=== PATIENT | female | born 1950 | race Caucasian/White ===

== ENCOUNTER 2018-01-05 15:06 | Emergency (ER) | payer BC ==
--- NOTE | 2018-01-05 15:50 | RAD REPORT ---
EXAM DESCRIPTION: RAD - Foot Right 3 View - 01/05/2018 3:41 pm CLINICAL HISTORY: Right foot pain status post injury FINDINGS: No fracture or dislocation is seen. The bones are osteoporotic
[2018-01-05] MEDS ORDERED: BUPIVACAINE 0.5% PF 10 ML VIAL ONE (15:51)
[2018-01-05] MEDS ORDERED: LIDOCAINE 1% 20 ML MDV ONE (15:52)
--- NOTE | 2018-01-05 17:55 | ER ---
Nurse's Notes [facility] Name: Rossy Jacob Age: 67 yrs Sex: Female : 1950 Arrival Date: 01/05/2018 Time: 15:08 Bed 7 Private MD: Sreekanth Aranda T Diagnosis: Laceration without foreign body of unspecified great toe with damage to nail-Right Presentation: 01/05 15:13 Presenting complaint: Patient states: I injured my left great toe, a door blew open la1 over the top of it and I cant get the bleeding to stop. Transition of care: patient was not received from another setting of care. Onset of symptoms was January 05, 2018. Care prior to arrival: None. 15:13 Method Of Arrival: Wheelchair la1 15:13 Acuity: JAZMIN 4 la1 Historical: - Allergies: 15:15 No Known Allergies; la1 - PMHx: 15:15 Arthritis; Depression; Hyperlipidemia; Hypertension; Hypothyroidism; ulcerative colitis;la1 - Immunization history:: Adult Immunizations up to date. - Social history:: Smoking status: Patient/guardian denies using tobacco. Screenin:42 Abuse screen: Denies threats or abuse. Denies injuries from another. Nutritional sg screening: No deficits noted. Tuberculosis screening: No symptoms or risk factors identified. Never had TB. Fall Risk None identified. Assessment: 15:39 General: Appears in no apparent distress. comfortable, well groomed, well developed, sg well nourished, Behavior is calm, cooperative, appropriate for age. Pain: Complains of pain in right first toe and Right first toenail Quality of pain is described as tender, throbbing. Neuro: No deficits noted. Cardiovascular: No deficits noted. Capillary refill is brisk in bilateral fingers toes Patient's skin is warm and dry. Respiratory: Airway is patent Respiratory effort is even, unlabored, Respiratory pattern is regular, symmetrical. GI: Abdomen is round non-distended. : No signs and/or symptoms were reported regarding the genitourinary system. EENT: No signs and/or symptoms were reported regarding the EENT system. Derm: Skin is pink, warm \T\ dry. Musculoskeletal: Circulation, motion, and sensation intact. Range of motion: intact in all extremities, Swelling present in right first toe and Right first toenail. Injury Description: Avulsion sustained to Right first toenail is partial was sustained 1-2 hours ago. Vital Signs: 15:14 BP 142 / 50; Pulse 70; Resp 16; Temp 97.5; Pulse Ox 100% on R/A; Weight 97.52 kg; la1 Height 5 ft. 4 in. (162.56 cm); 18:00 BP 132 / 66; Pulse 70; Resp 18; Temp 97.6; Pulse Ox 99% on R/A; Pain 6/10; sg 15:14 Body Mass Index 36.90 (97.52 kg, 162.56 cm) la1 ED Course: 15:08 Patient arrived in ED. as 15:08 Sreekanth Aranda MD is Private Physician. as 15:14 Triage completed. la1 15:14 Arm band placed on left wrist. la1 15:18 Chito Madrigal PA is PHCP. cp 15:18 Nilesh Sevilla MD is Attending Physician. cp 15:37 X-ray completed. Portable x-ray completed in exam room. Patient tolerated procedure ml well. 15:38 Arben Galvin, VIANEY is Primary Nurse. sg 15:40 Patient has correct armband on for positive identification. Pulse ox on. NIBP on. sg 15:42 No provider procedures requiring assistance completed. Assist provider with laceration sg repair on right first toe Set up tray. 17:12 XRAY Foot RIGHT 3 View Sent. sv 17:54 Jerad Diallo DPM is Referral Physician. cp 18:00 Wound care: located on right first toe was cleaned with soap and water, dressed with sg Neosporin, 4X4s, Patient tolerated well. 18:20 Patient did not have IV access during this emergency room visit. sg Administered Medications: 15:50 Drug: Lidocaine (1 %) 5 ml Volume: 20 ml; Route: Infiltration; sg 15:50 Drug: Marcaine (0.5 %) 5 ml Volume: 10 ml; Route: Infiltration; sg 17:58 Drug: KeFLEX 500 mg Route: PO; sg Outcome: 17:55 Discharge ordered by . cp 18:20 Discharged to home ambulatory, with family. sg 18:20 Condition: good 18:20 Discharge instructions given to patient, Instructed on discharge instructions, follow up and referral plans. medication usage, safety practices, wound care, Demonstrated understanding of instructions, follow-up care, medications, wound care. 18:29 Patient left the ED. aj Signatures: Carolyne Cooley, RN Arben Nieves RN Jeannie Jose RN RN aj Martinez, Amelia as Lopez, Melissa ml Attema, Lee RN RN la1 Chiot Madrigal PA PA cp
--- NOTE | 2018-01-05 17:55 | EDPHYS ---
Physician Documentation [facility] Name: Rossy Jacob Age: 67 yrs Sex: Female : 1950 Arrival Date: 01/05/2018 Time: 15:08 Bed 7 Private MD: Sreekanth Aranda T ED Physician Nilesh Sevilla HPI: 01/05 15:21 This 67 yrs old Female presents to ER via Wheelchair with complaints of Toe cp Injury. 15:21 The patient presents with an injury, a laceration. The complaints affect the right cp first toe. 15:21 Context: The problem was sustained at a restaurant, resulted from being struck by door, cp the patient can fully bear weight, the patient is able to ambulate, with mild difficulty. Onset: The symptoms/episode began/occurred today. Associated signs and symptoms: Pertinent negatives: numbness, tingling. Historical: - Allergies: 15:15 No Known Allergies; la1 - PMHx: 15:15 Arthritis; Depression; Hyperlipidemia; Hypertension; Hypothyroidism; ulcerative colitis;la1 - Immunization history:: Adult Immunizations up to date. - Social history:: Smoking status: Patient/guardian denies using tobacco. ROS: 15:23 Eyes: Negative for injury, pain, redness, and discharge. cp 15:23 Constitutional: Negative for body aches, chills, fever, poor PO intake. 15:23 Cardiovascular: Negative for chest pain, edema, palpitations. 15:23 Respiratory: Negative for cough, shortness of breath, wheezing. 15:23 MS/extremity: Positive for laceration, pain, of the right great toe, injury. 15:23 All other systems are negative. Exam: 17:46 Head/Face: Normocephalic, atraumatic. cp 17:46 Constitutional: The patient appears in no acute distress, alert, awake, non-toxic, well developed, well nourished. 17:46 Eyes: Periorbital structures: appear normal, Conjunctiva: normal, no exudate, no injection, Lids and lashes: appear normal, bilaterally. 17:46 ENT: External ear(s): are unremarkable, Nose: is normal, Mouth: Lips: moist, Oral mucosa: moist, Posterior pharynx: is normal, airway is patent, Voice: is normal. 17:46 Neck: ROM/movement: is normal, is supple, without pain, no range of motions limitations, no nuchal rigidity. 17:46 Chest/axilla: Inspection: normal. 17:46 Cardiovascular: Rate: normal. 17:46 Respiratory: the patient does not display signs of respiratory distress, Respirations: normal, no use of accessory muscles, no retractions, no splinting, no tachypnea. 17:46 Abdomen/GI: Inspection: abdomen appears normal. 17:46 Skin: injury, laceration(s), of the medial aspect of nailbed right great toe, the second wound is approximately 2.5 cm(s), that can be described as clean, linear, with moderate bleeding. Vital Signs: 15:14 BP 142 / 50; Pulse 70; Resp 16; Temp 97.5; Pulse Ox 100% on R/A; Weight 97.52 kg; la1 Height 5 ft. 4 in. (162.56 cm); 18:00 BP 132 / 66; Pulse 70; Resp 18; Temp 97.6; Pulse Ox 99% on R/A; Pain 6/10; sg 15:14 Body Mass Index 36.90 (97.52 kg, 162.56 cm) la1 Laceration: 17:50 Wound Repair of 2.5cm ( 1.0in ) subcutaneous laceration to medial nailbed of right cp great toe. Linear shaped.. laceration through medial aspect of nailbed of right great toe. Distal neuro/vascular/tendon intact. Anesthesia: Digital block administered with 8 mls of Lido/Marcaine. Wound prep: Extensive cleansing by electroencephalograph technician, Wound irrigation by me. Subcutaneous tissue closed with 6 1-0 Vicryl using interrupted sutures and sterile technique. reattachment of nail closed with 3 1-0 Prolene using interrupted sutures and sterile technique. Dressed with Bacitracin, non-adherent dressing. Patient tolerated well. MDM: 15:18 Patient medically screened. cp 16:00 Differential diagnosis: fracture, simple laceration, open fracture. cp 17:55 Data reviewed: vital signs, nurses notes, radiologic studies, plain films. cp 17:55 Test interpretation: by ED physician or midlevel provider: plain radiologic studies. cp Counseling: I had a detailed discussion with the patient and/or guardian regarding: the historical points, exam findings, and any diagnostic results supporting the discharge/admit diagnosis, radiology results, the need for outpatient follow up, a consumer affairs director, to return to the emergency department if symptoms worsen or persist or if there are any questions or concerns that arise at home. Response to treatment: the patient's symptoms have markedly improved after treatment, and as a result, I will discharge patient. 01/05 15:22 Order name: XRAY Foot RIGHT 3 View cp 01/05 15:50 Order name: RAD; Complete Time: 17:45 EDMS 01/05 17:46 Interpretation: Report reviewed. cp 01/05 15:23 Order name: Dressing - Wound; Complete Time: 15:49 cp 01/05 15:23 Order name: Gloves, Sterile; Complete Time: 15:49 cp 01/05 15:23 Order name: Setup Suture Tray; Complete Time: 15:50 cp 01/05 17:46 Order name: Post-op shoe; Complete Time: 17:58 cp 01/05 17:46 Order name: Wound dressing; Complete Time: 17:58 cp Administered Medications: 15:50 Drug: Lidocaine (1 %) 5 ml Volume: 20 ml; Route: Infiltration; sg 15:50 Drug: Marcaine (0.5 %) 5 ml Volume: 10 ml; Route: Infiltration; sg 17:58 Drug: KeFLEX 500 mg Route: PO; sg Disposition: 18:56 Co-signature as Attending Physician, Nilesh Sevilla MD. rn Disposition: 01/05/18 17:55 Discharged to Home. Impression: Laceration without foreign body of unspecified great toe with damage to nail - Right. - Condition is Stable. - Discharge Instructions: Laceration Care, Adult, Nail Bed Laceration. - Prescriptions for Keflex 500 mg Oral Capsule - take 1 capsule by ORAL route every 6 hours for 10 days; 40 capsule. - Medication Reconciliation Form, Thank You Letter, Antibiotic Education, Prescription Opioid Use form. - Follow up: Jerad Diallo DPM; When: 2 - 3 days; Reason: Wound Recheck. - Problem is new. - Symptoms have improved. Signatures: Dispatcher [employer] EDMS Arben Galvin RN Jeannie Jose RN RN aj Nieto, Roman, MD MD rn Attema, Lee, RN RN la1 Chito Madrigal PA PA cp
[2018-01-05] MEDS ORDERED: CEPHALEXIN 250 MG CAP ONE (18:19)
== END 2018-01-05 18:29 | disposition home or self-care (01) ==
LOC: ER 15:06
PROC: 0JQQ0ZZ Repair Right Foot Subcutaneous Tissue and Fascia, Open Approach (ICD-10-PCS; principal; 2018-01-05)
DX: S91.211A Laceration without foreign body of right great toe with damage to nail, initial encounter (principal); I10 Essential (primary) hypertension; W22.8XXA Striking against or struck by other objects, initial encounter; Y92.511 Restaurant or cafe as the place of occurrence of the external cause
CPT/HCPCS: 99284

== ENCOUNTER 2018-01-06 | Emergency (ER) | payer BC ==
--- NOTE | 2018-01-06 08:13 | ER ---
Nurse's Notes [facility] Name: Rossy Jacob Age: 67 yrs Sex: Female : 1950 Arrival Date: 01/06/2018 Time: 07:45 Bed 17 Private MD: Sreekanth Aranda T Diagnosis: Encounter for change or removal of nonsurgical wound dressing Presentation: 01/06 07:55 Acuity: JAZMIN 3 rb1 07:55 Presenting complaint: Patient states: Door shut on toe at [place] and the doctor rb1 sewed my nail back on. Transition of care: patient was not received from another setting of care. Onset of symptoms was January 05, 2018 at 12:00. Care prior to arrival: None. 07:55 Method Of Arrival: Ambulatory rb1 Historical: - Allergies: 07:52 No Known Allergies; ss - Home Meds: 07:49 Celexa 10 mg Oral tab 1 tab once daily for Major Depressive Disorder [Active]; [place] ss 10-325 mg Oral tab 1 tab every 6 hours for Pain [Active]; Protonix 40 mg Oral TbEC 1 tab once daily for Pathological Gastric Acid Hypersecretory Condition [Active]; Synthroid 50 mcg Oral tab 1 tab once daily for Hypothyroidism [Active]; Toprol XL 50 mg Oral Tb24 1 tab once daily for Hypertension [Active]; Zocor 40 mg Oral tab 1 tab once daily for Mixed Hyperlipidemia [Active]; 07:52 amlodipine 5 mg tab 1 tab once daily [Active]; Imuran 50 mg oral tab three times a day ss [Active]; Lialda 1.2 gram oral TbEC 2 tabs twice a day [Active]; remicade [Active]; - PMHx: 07:49 Arthritis; Depression; Hyperlipidemia; Hypertension; Hypothyroidism; ulcerative colitis;ss - PSHx: 07:49 Cholecystectomy; Hysterectomy; cardiac ablation; ss - Immunization history:: Last tetanus immunization: unknown, Last tetanus immunization: < 5 years ago Pt. got one about 3 years ago when she cut her eye.. - Social history:: Smoking status: Patient/guardian denies using tobacco. Screenin:55 Abuse screen: Denies threats or abuse. Nutritional screening: No deficits noted. rb1 Tuberculosis screening: No symptoms or risk factors identified. Fall Risk None identified. Assessment: 07:55 General: Appears in no apparent distress. comfortable, Behavior is calm, cooperative. rb1 Pain: Complains of pain in Right first toenail Pain currently is 5 out of 10 on a pain scale. Quality of pain is described as throbbing, Pain began 1 day ago. Neuro: Level of Consciousness is awake, alert, obeys commands, Oriented to person, place, time, situation. Cardiovascular: Capillary refill < 3 seconds is brisk in bilateral toes. Respiratory: Airway is patent Respiratory effort is even, unlabored, Respiratory pattern is regular, symmetrical. GI: No signs and/or symptoms were reported involving the gastrointestinal system. : No signs and/or symptoms were reported regarding the genitourinary system. Derm: Wound noted Right first toenail Wound is Pt. stated, "I was at [facility] yesterday and the door closed on my foot and torn my nail off. The doctor sewed underneath the nail and then sewed on the toe nail back on.". Musculoskeletal: Range of motion: intact in all extremities. Vital Signs: 07:52 BP 118 / 84; Pulse 59; Resp 17; Temp 98.1(TE); Pulse Ox 95% on R/A; Weight 97.52 kg; ss Height 5 ft. 4 in. (162.56 cm); Pain 5/10; 07:52 Body Mass Index 36.90 (97.52 kg, 162.56 cm) ED Course: 07:45 Patient arrived in ED. as 07:45 Sreekanth Aranda MD is Private Physician. as 07:52 Cinthya Zee FNP-C is [facility]. kb 07:52 Chito Mendoza MD is Attending Physician. kb 07:52 Arm band placed on right wrist. ss 07:55 Patient has correct armband on for positive identification. Bed in low position. Call rb1 light in reach. Side rails up X 1. Pulse ox on. NIBP on. 08:10 Yulissa Dunn, RN is Primary Nurse. rb1 08:35 Triage completed. rb1 08:37 No provider procedures requiring assistance completed. Patient did not have IV access rb1 during this emergency room visit. Administered Medications: No medications were administered Outcome: 08:12 Discharge ordered by . kb 08:37 Discharged to home ambulatory, with family. rb1 08:37 Condition: stable 08:37 Discharge instructions given to patient, Instructed on discharge instructions, follow up and referral plans. Demonstrated understanding of instructions, follow-up care, Prescriptions given X none 08:38 Patient left the ED. rb1 Signatures: Cinthya Zee FNP-C FNP-Florecita Mendieta Shelby, RN RN Yulissa Dunn, VIANEY RN rb1 Corrections: (The following items were deleted from the chart) 07:52 07:49 Allergies: No Known Allergies; [facility] 07:52 07:49 Home Meds: Lotrel 5-20 mg Oral cap 1 cap once daily for Hypertension; [facility]
--- NOTE | 2018-01-06 08:13 | EDPHYS ---
Physician Documentation [facility] Name: Rossy Jacob Age: 67 yrs Sex: Female : 1950 Arrival Date: 01/06/2018 Time: 07:45 Bed 17 Private MD: Sreekanth Aranda T ED Physician Chito Mendoza HPI: 01/06 08:10 This 67 yrs old Female presents to ER via Unassigned with complaints of Toe kb Bleeding. 08:10 Patient presents to ED for recheck of: laceration. The affected area is on the Right kb first toenail. Previous treatment: The patient was initially treated yesterday, the care was rendered at [facility], Treatment type: The patient's original treatment included sutures. Progress: The patient reports excellent improvement in the affected area. There has been resolution, improvement, or non-development of any drainage, fever, pain, redness or swelling. The patient has not experienced similar symptoms in the past. The patient has been recently seen at the [facility] Emergency Department, yesterday, for similar complaints. Historical: - Allergies: 07:52 No Known Allergies; ss - Home Meds: 07:49 Celexa 10 mg Oral tab 1 tab once daily for Major Depressive Disorder [Active]; [place] ss 10-325 mg Oral tab 1 tab every 6 hours for Pain [Active]; Protonix 40 mg Oral TbEC 1 tab once daily for Pathological Gastric Acid Hypersecretory Condition [Active]; Synthroid 50 mcg Oral tab 1 tab once daily for Hypothyroidism [Active]; Toprol XL 50 mg Oral Tb24 1 tab once daily for Hypertension [Active]; Zocor 40 mg Oral tab 1 tab once daily for Mixed Hyperlipidemia [Active]; 07:52 amlodipine 5 mg tab 1 tab once daily [Active]; Imuran 50 mg oral tab three times a day ss [Active]; Lialda 1.2 gram oral TbEC 2 tabs twice a day [Active]; remicade [Active]; - PMHx: 07:49 Arthritis; Depression; Hyperlipidemia; Hypertension; Hypothyroidism; ulcerative colitis;ss - PSHx: 07:49 Cholecystectomy; Hysterectomy; cardiac ablation; ss - Immunization history:: Last tetanus immunization: unknown, Last tetanus immunization: < 5 years ago Pt. got one about 3 years ago when she cut her eye.. - Social history:: Smoking status: Patient/guardian denies using tobacco. ROS: 08:08 Constitutional: Negative for fever, chills, and weight loss, Cardiovascular: Negative kb for chest pain, palpitations, and edema, Respiratory: Negative for shortness of breath, cough, wheezing, and pleuritic chest pain, Abdomen/GI: Negative for abdominal pain, nausea, vomiting, diarrhea, and constipation, Back: Negative for injury and pain, : Negative for injury, bleeding, discharge, and swelling, MS/Extremity: Negative for injury and deformity, Neuro: Negative for headache, weakness, numbness, tingling, and seizure. 08:08 Skin: Positive for of the Right first toenail, sutures in place to hold toenail in place. Exam: 08:08 Constitutional: This is a well developed, well nourished patient who is awake, alert, kb and in no acute distress. Head/Face: Normocephalic, atraumatic. Neck: Trachea midline, no thyromegaly or masses palpated, and no cervical lymphadenopathy. Supple, full range of motion without nuchal rigidity, or vertebral point tenderness. No Meningismus. Chest/axilla: Normal chest wall appearance and motion. Nontender with no deformity. No lesions are appreciated. Cardiovascular: Regular rate and rhythm with a normal S1 and S2. No gallops, murmurs, or rubs. Normal PMI, no JVD. No pulse deficits. Respiratory: Lungs have equal breath sounds bilaterally, clear to auscultation and percussion. No rales, rhonchi or wheezes noted. No increased work of breathing, no retractions or nasal flaring. Abdomen/GI: Soft, non-tender, with normal bowel sounds. No distension or tympany. No guarding or rebound. No evidence of tenderness throughout. MS/ Extremity: Pulses equal, no cyanosis. Neurovascular intact. Full, normal range of motion. Neuro: Awake and alert, GCS 15, oriented to person, place, time, and situation. Cranial nerves II-XII grossly intact. Motor strength 5/5 in all extremities. Sensory grossly intact. Cerebellar exam normal. Normal gait. 08:08 Skin: Wound recheck: Suture laceration closure: the wound is healing well, the edges are well approximated, no evidence of dehiscence, no drainage, no erythema, no swelling. Vital Signs: 07:52 BP 118 / 84; Pulse 59; Resp 17; Temp 98.1(TE); Pulse Ox 95% on R/A; Weight 97.52 kg; ss Height 5 ft. 4 in. (162.56 cm); Pain 5/10; 07:52 Body Mass Index 36.90 (97.52 kg, 162.56 cm) ss MDM: 07:54 Patient medically screened. kb 08:06 Data reviewed: vital signs, nurses notes. Data interpreted: Pulse oximetry: on room air kb is 95 %. Interpretation: normal. Counseling: I had a detailed discussion with the patient and/or guardian regarding: the historical points, exam findings, and any diagnostic results supporting the discharge/admit diagnosis, the need for outpatient follow up, a family practitioner, to return to the emergency department if symptoms worsen or persist or if there are any questions or concerns that arise at home. ED course: Pt states she had her toenail reattached yesterday and it appears to still be bleeding. States she was told not to take bandage off so she came to have it rechecked. Old dressing removed. No active bleeding noted. Will clean and redress. Wound care instructions given. Verbal understanding received. . 01/06 08:06 Order name: Wound dressing; Complete Time: 08:36 kb Administered Medications: No medications were administered Disposition: 01/06/18 08:12 Discharged to Home. Impression: Encounter for change or removal of nonsurgical wound dressing. - Condition is Stable. - Discharge Instructions: Wound Care, [id number], Dressing Change, [id number]. - Medication Reconciliation Form, Thank You Letter, Antibiotic Education, Prescription Opioid Use form. - Follow up: Emergency Department; When: As needed; Reason: Worsening of condition. Follow up: Private Physician; When: 2 - 3 days; Reason: Recheck today's complaints, Continuance of care, Re-evaluation by your physician. Addendum: 01/08/2018 07:51 Co-signature as Attending Physician, Chito Mendoza MD I agree with the assessment and c brunner plan of care. Signatures: Cinthya Zee, NET APPLICATION ARCHITECT-C NET APPLICATION ARCHITECT-Chito Bunn MD MD cha Smirch, Shelby RN RN Yulissa Dunn, VIANEY RN rb1 Corrections: (The following items were deleted from the chart) 01/06 07:52 07:49 Allergies: No Known Allergies; [facility] 07 07:49 Home Meds: Lotrel 5-20 mg Oral cap 1 cap once daily for Hypertension; [facility]
== END 2018-01-06 08:38 | disposition home or self-care (01) ==
CPT/HCPCS: 99283

== ENCOUNTER 2020-04-21 14:04 | Observation (INO) | payer BC, OTHER ==
[2020-04-21 15:51] LABS: Absolute Lymphocytes (CBC) 1.6 K/uL (0.7-4.9); Basophils % 0.4 % (0-1.3); Hematocrit 43.9 % (36.0-45.0); Lymphocytes % 27.1 % (15.3-44.8); Protime INR 1.03
[2020-04-21 16:20] LABS: ALT/SGPT 17 U/L (12-78); Albumin 3.4 g/dL (3.4-5.0); Alkaline Phosphatase 69 U/L (45-117); BUN Blood Urea Nitrogen 6 mg/dL (7-18); Bicarbonate 25 mmol/L (21-32); Bilirubin Direct 0.2 mg/dL (0-0.2); Bilirubin Total 0.7 mg/dL (0.2-1.0); Glucose Level 112 mg/dL (74-106); NT PRO-BNP 736 pg/mL (<125); Protein, Total 7.3 g/dL (6.4-8.2); Sodium Level 143 mmol/L (136-145); Troponin (Emerg Dept Use Only) < 0.02 ng/mL (0.0-0.045)
[2020-04-21 17:12] LABS: AST/SGOT 24 U/L (15-37); Magnesium 2.1 mg/dL (1.8-2.4); Potassium 3.9 mmol/L (3.5-5.1)
--- NOTE | 2020-04-21 17:26 | EDPHYS ---
Physician Documentation [facility] Name: Rossy Jacob Age: 69 yrs Sex: Female : 1950 Arrival Date: 04/21/2020 Time: 14:08 Bed 17 Private MD: Sreekanth Aranda T ED Physician Dwayne Gaines HPI: 04/21 16:56 This 69 yrs old Female presents to ER via Ambulatory with complaints of snw Cough, fatigue. 16:56 The patient or guardian reports cough, difficulty breathing, flu symptoms, myalgias, no snw appetite. Onset: The symptoms/episode began/occurred suddenly, 4 day(s) ago, and became persistent. Severity of symptoms: At their worst the symptoms were moderate, in the emergency department the symptoms are unchanged. Associated signs and symptoms: Pertinent positives: diarrhea, sore throat, fatigue. The patient has not experienced similar symptoms in the past. The patient has been recently seen by a physician: Dr. Ross with similar presenting complaints, but the patient's symptoms have persisted placed on Zithromax. Historical: - Allergies: 14:20 No Known Allergies; ca1 - Home Meds: 14:23 remicade [Active]; amlodipine 5 mg tab 1 tab once daily [Active]; Celexa 20 mg oral tab ca1 1 tab once daily [Active]; Lialda 1.2 gram Oral TbEC 2 tabs twice a day [Active]; Monon 10-325 mg Oral tab 1 tab every 6 hours for Pain [Active]; Protonix 40 mg Oral TbEC 1 tab once daily for Pathological Gastric Acid Hypersecretory Condition [Active]; Synthroid 50 mcg Oral tab 1 tab once daily for Hypothyroidism [Active]; Toprol XL 50 mg Oral Tb24 1 tab once daily for Hypertension [Active]; Zocor 40 mg Oral tab 1 tab once daily for Mixed Hyperlipidemia [Active]; Trelegy [Active]; - PMHx: 14:20 Arthritis; Depression; Hyperlipidemia; Hypertension; Hypothyroidism; ulcerative colitis;ca1 - PSHx: 14:20 Cholecystectomy; Hysterectomy; cardiac ablation; ca1 - Immunization history:: Adult Immunizations up to date. - Social history:: Smoking status: Patient denies any tobacco usage or history of. ROS: 16:51 Eyes: Negative for injury, pain, redness, and discharge. snw 16:51 Neck: Negative for injury, pain, and swelling. 16:51 Abdomen/GI: Negative for abdominal pain, nausea, vomiting, and constipation, + watery diarrhea Back: Negative for injury and pain, : Negative for injury, bleeding, discharge, and swelling, MS/Extremity: Negative for injury and deformity, Skin: Negative for injury, rash, and discoloration, Neuro: Negative for headache, weakness, numbness, tingling, and seizure, Psych: Negative for depression, anxiety, suicide ideation, homicidal ideation, and hallucinations. 16:51 Constitutional: Positive for body aches, malaise, poor PO intake. 16:51 ENT: Positive for sore throat. 16:51 Cardiovascular: Positive for chest pain, of the chest. 16:51 Respiratory: Positive for dyspnea on exertion, shortness of breath. Exam: 16:51 Constitutional: This is a well developed, well nourished patient who is awake, alert, snw and in no acute distress. Head/Face: Normocephalic, atraumatic. Eyes: Pupils equal round and reactive to light, extra-ocular motions intact. Lids and lashes normal. Conjunctiva and sclera are non-icteric and not injected. Cornea within normal limits. Periorbital areas with no swelling, redness, or edema. ENT: Nares patent. No nasal discharge, no septal abnormalities noted. Tympanic membranes are normal and external auditory canals are clear. Oropharynx with no redness, swelling, or masses, exudates, or evidence of obstruction, uvula midline. Mucous membranes moist. Neck: Trachea midline, no thyromegaly or masses palpated, and no cervical lymphadenopathy. Supple, full range of motion without nuchal rigidity, or vertebral point tenderness. No Meningismus. Chest/axilla: Normal chest wall appearance and motion. Nontender with no deformity. No lesions are appreciated. Cardiovascular: Regular rate and rhythm with a normal S1 and S2. No gallops, murmurs, or rubs. Normal PMI, no JVD. No pulse deficits. Respiratory: Lungs have equal breath sounds bilaterally, clear to auscultation and percussion. No rales, rhonchi or wheezes noted. No increased work of breathing, no retractions or nasal flaring. Abdomen/GI: Soft, non-tender, with normal bowel sounds. No distension or tympany. No guarding or rebound. No evidence of tenderness throughout. Back: No spinal tenderness. No costovertebral tenderness. Full range of motion. Skin: Warm, dry with normal turgor. Normal color with no rashes, no lesions, and no evidence of cellulitis. MS/ Extremity: Pulses equal, no cyanosis. Neurovascular intact. Full, normal range of motion. Neuro: Awake and alert, GCS 15, oriented to person, place, time, and situation. Cranial nerves II-XII grossly intact. Motor strength 5/5 in all extremities. Sensory grossly intact. Cerebellar exam normal. Normal gait. Psych: Awake, alert, with orientation to person, place and time. Behavior, mood, and affect are within normal limits. Vital Signs: 14:18 BP 146 / 73; Pulse 78; Resp 17 S; Temp 97.2(TE); Pulse Ox 98% on R/A; Weight 100.7 kg ca1 (R); Height 5 ft. 4 in. (162.56 cm) (R); Pain 0/10; 17:22 BP 131 / 59; Pulse 69; Resp 16; Temp 97.9(TE); Pulse Ox 98% on R/A; Pain 0/10; ls4 18:20 BP 123 / 59; Pulse 68; Resp 18; Pulse Ox 96% ; rb1 20:30 BP 131 / 56; Pulse 96; Resp 16; Pulse Ox 96% on R/A; Pain 3/10; ls4 21:27 BP 136 / 63; Pulse 74; Resp 18; Temp 97.8(O); Pulse Ox 98% on R/A; Pain 3/10; ls4 14:18 Body Mass Index 38.11 (100.70 kg, 162.56 cm) ca1 MDM: 15:08 Patient medically screened. jr8 17:25 Data reviewed: vital signs, nurses notes. Data interpreted: Pulse oximetry: on room air snw is 98 %. Interpretation: normal. Counseling: I had a detailed discussion with the patient and/or guardian regarding: the historical points, exam findings, and any diagnostic results supporting the discharge/admit diagnosis, the presence of at least one elevated blood pressure reading (>120/80) during this emergency department visit, lab results, radiology results, the need for further work-up and treatment in the hospital. Response to treatment: There is no appreciated change of the patient's symptoms at this time. Physician consultation: Ric FINNEY was called at 17:27, was contacted at 17:27, regarding admission. 04/21 14:52 Order name: Basic Metabolic Panel; Complete Time: 17:19 [facility] 04/21 14:52 Order name: CBC with Diff; Complete Time: 16:29 [facility] 04/21 14:52 Order name: LFT's; Complete Time: 17:19 [facility] 04/21 14:52 Order name: Magnesium; Complete Time: 17:19 [facility] 04/21 14:52 Order name: NT PRO-BNP; Complete Time: 17:19 [facility] 04/21 14:52 Order name: PT-INR; Complete Time: 16:05 [facility] 04/21 14:52 Order name: Troponin (emerg Dept Use Only); Complete Time: 17:19 [facility] 04/21 14:57 Order name: COVID-19 [facility] 04/21 15:10 Order name: Stool Culture [facility] 04/21 15:10 Order name: Occult Blood; Complete Time: 16:29 [facility] 04/21 15:10 Order name: Fecal Leukocyte Stain [facility] 04/21 15:10 Order name: CDIFF [facility] 04/21 14:52 Order name: XRAY Chest (1 view); Complete Time: 07:22 [facility] 04/21 14:52 Order name: EKG; Complete Time: 14:52 [facility] 04/21 14:52 Order name: Cardiac monitoring; Complete Time: 15:47 [facility] 04/21 14:52 Order name: EKG - Nurse/Tech; Complete Time: 17:02 [facility] 04/21 14:52 Order name: IV Saline Lock; Complete Time: 15:47 [facility] 04/21 14:52 Order name: Labs collected and sent; Complete Time: 15:47 [facility] 04/21 14:52 Order name: O2 Per Protocol; Complete Time: 15:47 [facility] 04/21 14:52 Order name: O2 Sat Monitoring; Complete Time: 15:47 [facility] 04/21 14:57 Order name: Droplet/Contact Precautions; Complete Time: 14:57 [facility] 04/21 14:57 Order name: Labs collected and sent; Complete Time: 14:57 4 Administered Medications: 19:07 Drug: Monon 10 mg-325 mg 1 tabs Route: PO; ls4 19:37 Follow up: Response: No adverse reaction; Marked relief of symptoms ls4 19:08 Drug: Tylenol 325 mg Route: PO; ls4 19:38 Follow up: Response: No adverse reaction; Marked relief of symptoms ls4 Disposition: 04/21/20 17:25 Hospitalization ordered by Zan Dsouza for Observation. Preliminary diagnosis are Dehydration, Diarrhea, unspecified, Chest pain, unspecified. - Bed requested for Telemetry/MedSurg (observation). - Status is Observation. ls4 - Condition is Stable. - Problem is new. - Symptoms have worsened. Addendum: 04/23/2020 21:24 Co-signature as Attending Physician, Dwayne Gaines MD Did not see or evaluate patient. p s1 I was available in the ED for consultation. Signature for administrative purposes. . Signatures: Dispatcher [employer] EDRI Lynne Richter RN RN Wendie Hooker, [employer] MANAGER-C [employer] MANAGER-Csnw Petr Upton PA PA jr8 Dwayne Gaines MD MD ps1 Nika Ribeiro RN RN ls4 Genny Rasheed RN RN ca1 Corrections: (The following items were deleted from the chart) 04/21 15:21 14:57 Influenza Screen (A \T\ B)+BA.LAB.BRZ ordered. EDRI EDMS 15:21 14:57 Group A Streptococcus Rapid Sc+BA.LAB.BRZ ordered. EDRI EDMS 16:58 16:56 The patient has been recently seen by a physician: Dr. Ross with similar snw presenting complaints, but the patient's symptoms have persisted snw 18:12 17:25 Hospitalization Ordered by Zan Dsouza DO for Observation. Preliminary kl diagnosis is Dehydration; Diarrhea, unspecified; Chest pain, unspecified. Bed requested for Telemetry/MedSurg (observation). Status is Observation. Condition is Stable. Problem is new. Symptoms have worsened. snw 20:36 18:12 04/21/2020 17:25 Hospitalization Ordered by Zan Dsouza DO for Observation. ls4 Preliminary diagnosis is Dehydration; Diarrhea, unspecified; Chest pain, unspecified. Bed requested for Telemetry/MedSurg (observation). Status is Observation. Condition is Stable. Problem is new. Symptoms have worsened. kl 22:05 20:36 04/21/2020 17:25 Hospitalization Ordered by Zan Dsouza DO for Observation. ls4 Preliminary diagnosis is Dehydration; Diarrhea, unspecified; Chest pain, unspecified. Bed requested for Telemetry/MedSurg (observation). Status is Observation. Condition is Stable. Problem is new. Symptoms have worsened. ls4
--- NOTE | 2020-04-21 17:26 | ER ---
Nurse's Notes [facility] Name: Rossy Jacob Age: 69 yrs Sex: Female : 1950 Arrival Date: 04/21/2020 Time: 14:08 Bed 17 Private MD: Sreekanth Aranda T Diagnosis: Dehydration;Diarrhea, unspecified;Chest pain, unspecified Presentation: 04/21 14:17 Chief complaint: Patient states: Monday started being so fatigued, SOB with exertion ca1 and burning sensation on chest. Cough and congestion started Monday too. Diarrhea stared Monday. Reports nausea. Denies vomiting. Denies fever. Coronavirus screen: Patient reports a cough. Patient reports shortness of breath or difficulty breathing. Patient denies measured and/or subjective temperature greater than 100.4F prior to today's visit. Patient denies travel on a cruise ship or to a country the [facility] currently lists as an affected area. Patient denies contact with known and/or suspected case of COVID-19. Surgical mask provided. Instructed to keep mask at all times and keep 6 feet physical distance from other patients/people in the lobby. 14:17 Method Of Arrival: Ambulatory ca1 14:18 Ebola Screen: Patient negative for fever greater than or equal to 101.5 degrees ca1 Fahrenheit, and additional compatible Ebola Virus Disease symptoms Patient denies exposure to infectious person. Patient denies travel to an Ebola-affected area in the 21 days before illness onset. No symptoms or risks identified at this time. Initial Sepsis Screen: Does the patient meet any 2 criteria? No. Patient's initial sepsis screen is negative. Does the patient have a suspected source of infection? No. Patient's initial sepsis screen is negative. Risk Assessment: Do you want to hurt yourself or someone else? Patient reports no desire to harm self or others. 14:18 Acuity: JAZMIN 3 ca1 14:19 Onset of symptoms was April 21, 2020. ca1 Triage Assessment: 15:50 General: Appears in no apparent distress. comfortable, Behavior is calm, cooperative. ls4 Pain: Denies pain. 16:10 Neuro: No deficits noted. Cardiovascular: Capillary refill < 3 seconds Clubbing of nail ls4 beds is absent Patient's skin is warm and dry. Rhythm is regular. Respiratory: Airway is patent Respiratory effort is even, unlabored, Respiratory pattern is regular, Breath sounds are clear bilaterally. GI: Abdomen is non-distended, Last BM was April 21, 2020. Bowel sounds present X 4 quads. Reports diarrhea. : No deficits noted. No signs and/or symptoms were reported regarding the genitourinary system. Derm: Skin is pink, warm \T\ dry. Musculoskeletal: No deficits noted. No signs and/or symptoms reported regarding the musculoskeletal system. Historical: - Allergies: 14:20 No Known Allergies; ca1 - Home Meds: 14:23 remicade [Active]; amlodipine 5 mg tab 1 tab once daily [Active]; Celexa 20 mg oral tab ca1 1 tab once daily [Active]; Lialda 1.2 gram Oral TbEC 2 tabs twice a day [Active]; [place] 10-325 mg Oral tab 1 tab every 6 hours for Pain [Active]; Protonix 40 mg Oral TbEC 1 tab once daily for Pathological Gastric Acid Hypersecretory Condition [Active]; Synthroid 50 mcg Oral tab 1 tab once daily for Hypothyroidism [Active]; Toprol XL 50 mg Oral Tb24 1 tab once daily for Hypertension [Active]; Zocor 40 mg Oral tab 1 tab once daily for Mixed Hyperlipidemia [Active]; Trelegy [Active]; - PMHx: 14:20 Arthritis; Depression; Hyperlipidemia; Hypertension; Hypothyroidism; ulcerative colitis;ca1 - PSHx: 14:20 Cholecystectomy; Hysterectomy; cardiac ablation; ca1 - Immunization history:: Adult Immunizations up to date. - Social history:: Smoking status: Patient denies any tobacco usage or history of. Screenin:52 Abuse screen: Denies threats or abuse. Denies injuries from another. Nutritional ls4 screening: No deficits noted. Tuberculosis screening: No symptoms or risk factors identified. Fall Risk None identified. Assessment: 14:48 General: SEE TRIAGE . ls4 16:46 Reassessment: Patient appears in no apparent distress at this time. Patient and/or ls4 family updated on plan of care and expected duration. Pain level reassessed. Patient is alert, oriented x 3, equal unlabored respirations, skin warm/dry/pink. 20:30 Reassessment: Patient appears in no apparent distress at this time. Patient and/or ls4 family updated on plan of care and expected duration. Pain level reassessed. Patient is alert, oriented x 3, equal unlabored respirations, skin warm/dry/pink. 21:24 Reassessment: REPORT TO LETICIA WINTERS, QUESTIONS ANSWERED. ls4 Vital Signs: 14:18 BP 146 / 73; Pulse 78; Resp 17 S; Temp 97.2(TE); Pulse Ox 98% on R/A; Weight 100.7 kg ca1 (R); Height 5 ft. 4 in. (162.56 cm) (R); Pain 0/10; 17:22 BP 131 / 59; Pulse 69; Resp 16; Temp 97.9(TE); Pulse Ox 98% on R/A; Pain 0/10; ls4 18:20 BP 123 / 59; Pulse 68; Resp 18; Pulse Ox 96% ; rb1 20:30 BP 131 / 56; Pulse 96; Resp 16; Pulse Ox 96% on R/A; Pain 3/10; ls4 21:27 BP 136 / 63; Pulse 74; Resp 18; Temp 97.8(O); Pulse Ox 98% on R/A; Pain 3/10; ls4 14:18 Body Mass Index 38.11 (100.70 kg, 162.56 cm) ca1 ED Course: 14:08 Patient arrived in ED. mr 14:08 Sreekanth Aranda MD is Private Physician. mr 14:18 Triage completed. ca1 14:20 Arm band placed on right wrist. ca1 14:52 Patient has correct armband on for positive identification. Bed in low position. Call ls4 light in reach. Side rails up X 1. Pulse ox on. NIBP on. 14:52 No provider procedures requiring assistance completed. ls4 14:55 Nika Ribeiro RN is Primary Nurse. ls4 15:08 Petr Upton PA is PHCP. jr8 15:08 Dwayne Gaines MD is Attending Physician. jr8 15:08 PHCP role handed off by Petr Upton PA snw 15:08 Wendie Islas FNP-C is PHCP. snw 15:48 Verbal reassurance given. ls4 15:48 Inserted saline lock: 18 gauge in right antecubital area, using aseptic technique. ls4 Patient maintains SpO2 saturation greater than 95% on room air. 15:48 Initial lab(s) drawn, by me, sent to lab. covid sent. ls4 15:54 XRAY Chest (1 view) In Process Unspecified. EDMS 17:23 Zan sDouza DO is Hospitalizing Provider. snw Administered Medications: 19:07 Drug: Modoc 10 mg-325 mg 1 tabs Route: PO; ls4 19:37 Follow up: Response: No adverse reaction; Marked relief of symptoms ls4 19:08 Drug: Tylenol 325 mg Route: PO; ls4 19:38 Follow up: Response: No adverse reaction; Marked relief of symptoms ls4 Outcome: 17:25 Decision to Hospitalize by Provider. snw 22:05 Patient left the ED. ls4 Signatures: Dispatcher [employer] EDMS Janel Wendie, BELT MAKER HELPER-C BELT MAKER HELPER-Csnw Megan Coy HilariaciroPetr PA PA jr8 Yulissa Dunn, RN RN rb1 Nika Ribeiro RN RN ls4 Genny Rasheed RN RN ca1 Corrections: (The following items were deleted from the chart) 14:18 14:17 Coronavirus screen: Patient reports a cough. Patient reports shortness of breath ca1 or difficulty breathing. Patient denies measured and/or subjective temperature greater than 100.4F prior to today's visit. Patient denies travel on a cruise ship or to a country the [facility] currently lists as an affected area. Patient denies contact with known and/or suspected case of COVID-19. ca1 21:31 21:27 Reassessment: ls4 ls4
--- NOTE | 2020-04-21 18:14 | P.HP ---
Certification for Inpatient Patient admitted to: Observation With expected LOS: <2 Midnights Patient will require the following post-hospital care: None Practitioner: I am a practitioner with admitting privileges, knowledge of patient current condition, hospital course, and medical plan of care. Services: Services provided to patient in accordance with Admission requirements found in Title 42 Section 412.3 of the Code of Federal Regulations Patient History Date of Service: 04/21/20 Primary Care Provider: Rosi Reason for admission: Chest pain, CASTRO, Diarrhea History of Present Illness: 69-year-old female with medical history of hypertension, hyperlipidemia, hypothyroidism, ulcerative colitis presented the emergency department with a 2 day history of watery diarrhea. Patient also reports that she has been feeling short of breath with exertion over the course of the last week or so. Patient reports that she has been having around 5-6 episodes of diarrhea each day and that she feels like she just can't catch up the fluids. Patient also admits to a burning substernal pain. During her evaluation in the emergency department patient was found to have blood in her stool. Patient reports that she takes the biologic Remicade for her ulcerative colitis. Patient reports that the pain and diarrhea that she is experiencing now does not feel like her typical ulcerative colitis flare. ED provider wishes to admit patient for further evaluation and management of this condition. When I saw the patient in the emergency department she appeared stable, patient denies not appear septic at this time. Vital signs within normal limits. Patient will be admitted for further evaluation and management. Allergies No Known Allergies Allergy (Uncoded 01/05/18 18:32) Unknown Tetanus Vaccines & Toxoid Allergy (Uncoded 01/25/16 00:23) Unknown Home medications list reviewed: Yes - Past Medical/Surgical History Has patient received pneumonia vaccine in the past: No Diabetic: No -: Ulcerative colitis -: Hypertension -: Hyperlipidemia -: Hypothyroidism -: GERD Past Surgical History: Reviewed- Non-Contributory Psychosocial/ Personal History: Patient currently lives at home alone - Family History Father -: Other (see notes) (Aortic aneurysm) Mother -: Blood disorders (Pulmonary embolism) - Social History Smoking Status: Never smoker Alcohol use: No CD- Drugs: No Caffeine use: No Place of Residence: Home Review of Systems General: Weakness Eyes: Unremarkable ENT: Unremarkable Respiratory: SOB with Excertion Cardiovascular: Unremarkable Gastrointestinal: Nausea, Abdominal Pain, Diarrhea, As per HPI Genitourinary: Unremarkable Musculoskeletal: Unremarkable Integumentary: Unremarkable Neurological: Unremarkable Physical Examination - Physical Exam General: Alert, In no apparent distress, Oriented x3 HEENT: Atraumatic, Normocephalic Neck: Supple Respiratory: Clear to auscultation bilaterally, Diminished (Bilaterally) Cardiovascular: No edema, Normal pulses, Regular rate/rhythm Capillary refill: <2 Seconds Gastrointestinal: Normal bowel sounds, Non-distended, Tenderness (Mild tenderness to the bilateral lower quadrants) Musculoskeletal: No contractures, No erythema, No tenderness Integumentary: No tenderness/swelling, No erythema, No warmth Neurological: Normal speech, Normal strength at 5/5 x4 extr, Normal tone - Studies Laboratory Data (last 24 hrs) 04/21/20 15:41: PT 12.1, INR 1.03 04/21/20 15:41: WBC 6.0, Hgb 14.4, Hct 43.9, Plt Count 318 04/21/20 15:41: Sodium 143, Potassium 3.9, BUN 6 L, Creatinine 0.65, Glucose 112 H, Magnesium 2.1, Total Bilirubin 0.7, AST 24, ALT 17, Alkaline Phosphatase 69 Microbiology Data (last 24 hrs): 04/21/20 14:50 Stool Occult Blood - Final Assessment and Plan - Plan Assessment Diarrhea, blood in the stool, likely secondary to ulcerative colitis flare Burning substernal chest pain Dyspnea on exertion and elevated BNP Hypertension Hyperlipidemia Hypothyroidism GERD Plan Diarrhea, blood in the stool, likely secondary to ulcerative colitis flare: P atient be admitted under observation, patient be started on IV fluids for rehydration. Will also give patient Solu-Medrol b.i.d. for likely ulcerative colitis flare. Patient be started on Cipro and Flagyl at this time. Will consult gastroenterology as well. Will obtain a repeat CBC and basic in the morning. Will provide patient with SCDs and hold other DVT prophylaxis due to blood in stool. Burning substernal chest pain: Will trend patient troponin, patient also receive echocardiogram. Will try pantoprazole for possible GERD. Dyspnea on exertion and elevated BNP: Will obtain echocardiogram to rule out congestive heart failure. Hypertension: Will obtain and continue patient's home medications. Hyperlipidemia: Will obtain and continue patient's home medications. Hypothyroidism: Will obtain and continue patient's home medications, will obtain TSH and free T4 the morning. GERD: Will continue patient's home medication pantoprazole in IV form. Discharge Plan: Home Plan to discharge in: 24 Hours - Advance Directives Does patient have a Living Will: No Does patient have a Durable POA for Healthcare: No - Code Status/Comfort Care Code Status Assessed: Yes (Patient is full code) Critical Care: No Time Spent Managing Pts Care (In Minutes): 55
[2020-04-21] MEDS ORDERED: ACETAMINOPHEN 325 MG TABLET ONE (19:09)
[2020-04-21] MEDS ORDERED: HYDROCODONE/APAP 10/325 TAB ONE (19:10)
--- NOTE | 2020-04-21 21:55 | RAD REPORT ---
EXAM DESCRIPTION: Daniel Single View04/21/2020 9:09 pm CLINICAL HISTORY: Cough COMPARISON: December 2019 FINDINGS: The lungs appear clear of acute infiltrate. The heart is mildly enlarged IMPRESSION: No acute abnormalities displayed
[2020-04-21] MEDS ORDERED: SODIUM CHLORIDE 0.9% 10ML INJ IV PRN (22:22)
[2020-04-21] MEDS ORDERED: ONDANSETRON 4 MG/2 ML VIAL IV PRN (22:22)
[2020-04-21] MEDS ORDERED: ACETAMINOPHEN 500 MG TAB PO PRN (22:22)
[2020-04-21 23:26] VITALS: BMI 37.3
[2020-04-21] MEDS: CIPROFLOXACIN 400mg IV 400 MG/200 ML BAG IV SCH (23:53)
[2020-04-21] MEDS: METHYLPREDNISOLONE 125 MG INJ IV SCH (23:53)
[2020-04-21] MEDS: PANTOPRAZOLE 40 MG INJ IVP SCH (23:53)
[2020-04-21] MEDS: NA CHLORIDE 0.9% 1,000 ML IV SCH (23:54)
[2020-04-22] MEDS ORDERED: HYDRALAZINE HCL 20 MG/ML VIAL IV PRN (00:39)
[2020-04-22] MEDS: ATORVASTATIN 20 MG TAB PO SCH ×2 (02:03→20:08)
[2020-04-22] MEDS: ALPRAZOLAM 1 MG TABLET PO PRN ×2 (02:03→21:48)
[2020-04-22] MEDS: METRONIDAZOLE 500mg IVPB 500 MG/100 ML BAG IV SCH ×3 (02:03→17:15)
[2020-04-22] MEDS: HYDROCODONE/APAP 10/325 TAB PO PRN ×4 (02:04→21:48)
[2020-04-22 05:13] LABS: Absolute Lymphocytes (CBC) 0.9 K/uL (0.7-4.9); Basophils % 0.1 % (0-1.3); Hematocrit 41.9 % (36.0-45.0); Lymphocytes % 12.2 % (15.3-44.8); MPV 9.1 fL (7.6-11.3); RBC Red Blood Cell Count 4.81 M/uL (3.86-4.86)
[2020-04-22 05:39] LABS: BUN Blood Urea Nitrogen 7 mg/dL (7-18); Bicarbonate 24 mmol/L (21-32); Glucose Level 143 mg/dL (74-106); HDL Cholesterol 63 mg/dL (40-60); LDL Cholesterol, Calculated 66 (<130); Potassium 3.3 mmol/L (3.5-5.1); Sodium Level 142 mmol/L (136-145); Thyroid Stimulating Hormone 0.292 uIU/mL (0.360-3.740)
[2020-04-22 05:41] LABS: Blood Morphology Comment NOT SEEN (NOT SEEN); Platelet Estimate ADEQ
--- NOTE | 2020-04-22 07:19 | EKG ---
Test Date: 2020-04-21 Test Time: 16:20:52 Clerk Travel Reservations: CASA MEASUREMENT RESULTS: Intervals: Rate: 68 CT: 220 QRSD: 92 QT: 424 QTc: 450 [place]: P: 46 CT: 220 QRS: 25 T: 16 INTERPRETIVE STATEMENTS: Sinus rhythm with 1st degree AV block Anterior infarct, age undetermined Abnormal ECG Compared to ECG 09/11/2003 11:40:00 First degree AV block now present Myocardial infarct finding now present Electronically Signed On 04-22-20 07:18:06 CDT by Franklin Simmons
[2020-04-22] MEDS: METHYLPREDNISOLONE 125 MG INJ IV SCH (09:00)
[2020-04-22] MEDS: POTASSIUM 25 MEQ EFFERV TAB PO ONE ×2 (09:00)
[2020-04-22] MEDS: NA CHLORIDE 0.9% 1,000 ML IV SCH ×2 (09:01→18:22)
[2020-04-22] MEDS: PANTOPRAZOLE 40 MG INJ IVP SCH (09:04)
[2020-04-22] MEDS ORDERED: POTASSIUM CL SA 10 MEQ TAB PO ONE (09:28)
[2020-04-22 10:45] LABS: C.diff Antigen/Toxin Ag neg : Tox neg (NEG : NEG)
[2020-04-22] MEDS: CIPROFLOXACIN 400mg IV 400 MG/200 ML BAG IV SCH ×2 (11:48→23:09)
--- NOTE | 2020-04-22 16:15 | P.PN ---
Subjective Date of Service: 04/22/20 Primary Care Provider: Rosi Chief Complaint: Chest pain, CASTRO, Diarrhea Subjective: Other (Patient doing well this time. Patient tolerating full liquid diet. Pain improved.) Physical Examination - Vital Signs Temperature: 98.3 F Blood Pressure: 123/52 Pulse: 57 Respirations: 18 Pulse Ox (%): 98 - Physical Exam General: Alert HEENT: Atraumatic Neck: Supple Respiratory: Clear to auscultation bilaterally, Normal air movement Cardiovascular: Normal pulses, Regular rate/rhythm Gastrointestinal: Normal bowel sounds, No masses, No rebound, No guarding, Tenderness (Minimal pain to the right quadrant) Neurological: Normal speech, Normal strength at 5/5 x4 extr, Normal tone, Normal affect - Studies Laboratory Data (last 24 hrs) 04/21/20 15:41: WBC 6.0, Hgb 14.4, Hct 43.9, Plt Count 318 04/21/20 15:41: Sodium 143, Potassium 3.9, BUN 6 L, Creatinine 0.65, Glucose 112 H, Magnesium 2.1, Total Bilirubin 0.7, AST 24, ALT 17, Alkaline Phosphatase 69 Microbiology Data (last 24 hrs): 04/21/20 14:50 Stool Fecal Leukocyte Stain - Final 04/21/20 14:50 Stool Occult Blood - Final Medications List Reviewed: Yes Assessment & Plan Discharge Plan: Home Plan to discharge in: 24 Hours Physician Review Additional Text: Impression: Diarrhea, blood in the stool, likely secondary to ulcerative colitis flare Hypertension Hyperlipidemia Hypothyroidism GERD COPD Plan Diarrhea, blood in the stool, likely secondary to ulcerative colitis flare: Patient improved. Will change IV Solu-Medrol to oral steroid. Continue Cipro and Flagyl. Restart her ulcerative colitis medication. Case discussed with GI. Will advance diet. If significantly improved can be discharged later today or tomorrow. Will monitor closely. Continue IV fluids. C diff negative. Hemoglobin stable. Electrolytes stable Will reassess. Hypertension: Continue home medication Hyperlipidemia: Continue medication Hypothyroidism: Continue medication GERD: Continue medication COPD: Continue medication Time Spent Managing Pts Care (In Minutes): 55
[2020-04-22] MEDS: predniSONE 10 MG TAB PO SCH (20:08)
[2020-04-22] MEDS: HOME MED 1 EA UNK (Mesalamine [Mesalamine] 2 TAB) PO SCH (20:13)
[2020-04-22] MEDS ORDERED: METOPROLOL XL 50 MG TAB PO SCH (21:00)
[2020-04-22] MEDS ORDERED: HOME MED 1 EA UNK (Simvastatin [Zocor] 40 MG) PO SCH (21:00)
[2020-04-23] MEDS: METRONIDAZOLE 500mg IVPB 500 MG/100 ML BAG IV SCH ×2 (01:15→09:08)
[2020-04-23] MEDS: NA CHLORIDE 0.9% 1,000 ML IV SCH ×2 (02:45→14:22)
[2020-04-23] MEDS: HYDROCODONE/APAP 10/325 TAB PO PRN ×2 (05:59→11:20)
[2020-04-23] MEDS ORDERED: LEVOTHYROXINE SOD 0.05 MG TABLET PO SCH (06:00)
[2020-04-23 06:25] LABS: Potassium 3.8 mmol/L (3.5-5.1)
[2020-04-23] MEDS ORDERED: POTASSIUM 25 MEQ EFFERV TAB PO ONE (06:33)
[2020-04-23] MEDS ORDERED: PANTOPRAZOLE 40MG TABLET PO SCH (07:30)
[2020-04-23] MEDS ORDERED: CITALOPRAM 10 MG TABLET PO SCH (09:00)
[2020-04-23] MEDS ORDERED: TRIAMCINOLONE ACETONIDE NS SCH (09:00)
[2020-04-23] MEDS ORDERED: AMLODIPINE 10 MG TAB PO SCH (09:00)
[2020-04-23] MEDS ORDERED: HOME MED 1 EA UNK (Fluticasone/Umeclidin/Vilanter [Trelegy Ellipta 100-62.5-25] 1 PUFF) IH SCH (09:00)
[2020-04-23] MEDS: HOME MED 1 EA UNK (Mesalamine [Mesalamine] 2 TAB) PO SCH (09:00)
[2020-04-23] MEDS: predniSONE 10 MG TAB PO SCH (09:11)
[2020-04-23] MEDS: CIPROFLOXACIN 400mg IV 400 MG/200 ML BAG IV SCH (11:15)
--- NOTE | 2020-04-23 13:56 | P.DS ---
Admission Date: 04/21/20 Discharge Date: 04/23/20 Primary Care Provider: Dr. Aranda; GI-Dr. More Disposition: ROUTINE DISCHARGE Discharge Condition: GOOD Reason for Admission: Chest pain, CASTRO, Diarrhea Consultations: GI-Dr. Joshua Procedures: CXR: COMPARISON: December 2019 FINDINGS: The lungs appear clear of acute infiltrate. The heart is mildly enlarged IMPRESSION: No acute abnormalities displayed Medical Problem List: Diarrhea, blood in the stool, likely secondary to ulcerative colitis flare Hypertension Hyperlipidemia Hypothyroidism GERD COPD Brief History of Present Illness: 69-year-old female with history of ulcerative colitis on Remicade. Patient reported increased diarrhea, abdominal cramping and bloody stool. Patient was admitted for further evaluation and treatment. Hospital Course: Patient presented with diarrhea, blood in stool. Patient with history of ulcerative colitisand takes Remicade. The patient was treated with IV antibiotic therapy as this was likely a flare. GI was consulted. Kirby rice scussed with GI who follows the patient as an outpatient. He agreed. Patient has improved significantly. No significant abdominal pain, bloody diarrhea noted. At discharge patient will continue with prednisone 10 mg 1 pill twice daily for 7 days. Patient will also continue with Flagyl 500 mg 1 pill 3 times a day and Cipro 500 mg 1 pill twice daily for 10 days. Patient may resume mesalamine and take probiotic over the counter. Recommend follow up with GI in 1-2 weeks to follow up this hospitalization. Patient will require colonoscopy in the near future to further evaluate. Patient with hypertension, hyperlipidemia, hypothyroidism, GERD and COPD. At discharge she will continue with her regular medications. Recommend follow up with her PCP to further address her chronic conditions. Prior to discharge, COVID testing is still pending. Recommend to quarantine until results come back. CDC guidelines will be provided. Recommend social distancing, hand washing and mask. If positive, results will be called to her. Vital Signs/Physical Exam: Temp Pulse Resp BP Pulse Ox 97.6 F 61 16 134/62 96 04/23/20 12:04/23/20 12:04/23/20 12:04/23/20 12:04/23/20 12:00 General: Alert, In no apparent distress, Oriented x3, Cooperative HEENT: Atraumatic Neck: Supple Respiratory: Clear to auscultation bilaterally, Normal air movement Cardiovascular: Normal pulses, Regular rate/rhythm Gastrointestinal: Normal bowel sounds, Soft and benign, Non-distended, No tenderness, No masses, No rebound, No guarding Musculoskeletal: No erythema, No tenderness, No warmth Integumentary: No tenderness/swelling, No erythema, No warmth, No cyanosis Neurological: Normal speech, Normal strength at 5/5 x4 extr, Normal tone, Normal affect Laboratory Data at Discharge: WBC 7.3 K/uL (4.3-10.9) D 04/22/20 04:36 Hgb 14.2 g/dL (12.0-15.0) 04/22/20 04:36 Hct 41.9 % (36.0-45.0) 04/22/20 04:36 Plt Count 262 K/uL (152-406) 04/22/20 04:36 PT 12.1 SECONDS (9.5-12.5) 04/21/20 15:41 INR 1.03 04/21/20 15:41 Sodium 144 mmol/L (136-145) 04/23/20 05:32 Potassium 3.8 mmol/L (3.5-5.1) 04/23/20 05:32 BUN 9 mg/dL (7-18) 04/23/20 05:32 Creatinine 0.67 mg/dL (0.55-1.3) 04/23/20 05:32 Glucose 145 mg/dL (74-106) H 04/23/20 05:32 Magnesium 2.0 mg/dL (1.8-2.4) 04/22/20 04:36 Total Bilirubin 0.7 mg/dL (0.2-1.0) 04/21/20 15:41 AST 24 U/L (15-37) 04/21/20 15:41 ALT 17 U/L (12-78) 04/21/20 15:41 Alkaline Phosphatase 69 U/L (45-117) 04/21/20 15:41 Troponin I < 0.02 ng/mL (0.0-0.045) 04/22/20 04:36 Triglycerides 110 mg/dL (<150) 04/22/20 04:36 Cholesterol 151 mg/dL (<200) 04/22/20 04:36 HDL Cholesterol 63 mg/dL (40-60) H 04/22/20 04:36 Cholesterol/HDL Ratio 2.40 04/22/20 04:36 Home Medications: ALPRAZolam [Xanax*] 1 mg PO BEDTIME 04/21/20 Amlodipine [Norvasc*] 10 mg PO DAILY 04/21/20 Citalopram [Celexa*] 20 mg PO DAILY 04/21/20 Fluticasone/Umeclidin/Vilanter [Trelegy Ellipta 100-62.5-25] 1 puff IH DAILY 04/21/20 Hydrocodone Bit/Acetaminophen [Hydrocodon-Acetaminophn 10-325] 1 each PO QIDP PRN 04/21/20 Hyoscyamine Sulfate [Levsin-Sl] 2 tab SL Q6HP PRN 04/21/20 Levothyroxine [Synthroid*] 50 mcg PO [id number] 04/21/20 Mesalamine 2 tab PO BID 04/21/20 Metoprolol Succinate [Toprol Xl*] 50 mg PO BEDTIME 04/21/20 Pantoprazole Sodium [Protonix] 40 mg PO BID 04/21/20 Simvastatin [Zocor] 40 mg PO BEDTIME 04/21/20 Triamcinolone Acetonide [Nasacort] 1 spray NS DAILY 04/21/20 Ciprofloxacin HCl [Cipro 500 MG Tablet] 500 mg PO BID #20 tab 04/23/20 metroNIDAZOLE [Flagyl] 500 mg PO Q8H #30 tablet 04/23/20 predniSONE [Deltasone*] 10 mg PO BID #14 tab 04/23/20 New Medications: Ciprofloxacin HCl [Cipro 500 MG Tablet] 500 mg PO BID #20 tab predniSONE [Deltasone*] 10 mg PO BID #14 tab metroNIDAZOLE [Flagyl] 500 mg PO Q8H #30 tablet Patient Discharge Instructions: 1. Recommend follow up with PCP in 1 week to follow up this hospitalization. 2. Patient presented with diarrhea, blood in stool. Patient with history of ulcerative colitisand takes Remicade. The patient was treated with IV antibiotic therapy as this was likely a flare. GI was consulted. Case discussed with GI who follows the patient as an outpatient. He agreed. Patient has improved significantly. No significant abdominal pain , bloody diarrhea noted. At discharge patient will continue with prednisone 10 mg 1 pill twice daily for 7 days. Patient will also continue with Flagyl 500 mg 1 pill 3 times a day and Cipro 500 mg 1 pill twice daily for 10 days. Patient may also continue with mesalamine. Patient may also take probiotic over the counter. Recommend follow up with GI in 1-2 weeks to follow up this hospitalization. Patient will require colonoscopy in the near future to further evaluate. 3. Patient with hypertension, hyperlipidemia, hypothyroidism, GERD and COPD. At discharge she will continue with her regular medications. Recommend follow up with her PCP to further address her chronic conditions. 4. Prior to discharge, COVID testing is still pending. Recommend to quarantine until results come back. CDC guidelines will be provided. Recommend social distancing, hand washing and mask. If positive, results will be called to her. Diet: AHA Activity: Ad apollo Time spent managing pt's care (in minutes): 55
[2020-04-23 17:20] VITALS: BP 130/62; TEMP 98.1
[2020-04-23 20:27] VITALS: O2SAT 93
--- NOTE | 2020-04-23 20:39 | CON ---
Date of Consultation: 04/23/2020 Reason For Consultation: Flare of ulcerative colitis with abdominal pain, change in bowel habits, di arrhea. History Of Present Illness: The patient is a 69-year-old white female with history of ulcerative col itis. The patient states that over the past week she has had a chronic cough. She has been treated with multiple rounds of antibiotics for recurrent sinusitis. She seems to have caused a flare of ulc erative colitis with right and left lower quadrant pain, maximum 6/10, now none, with change in bowel habits, diarrhea. She denies any fevers, chills, hematochezia, melena, or emesis. She has had some nausea and night sweats, on steroids. She has also been on Remicade, last infusion was approximatel y 2 weeks ago. She also had dehydration, on admission has been addressed with IV fluids. Her COVID testing is negative on this admission. Past Medical History: Significant for ulcerative colitis, hypertension, hyperlipidemia, arthritis, d epression, hypothyroidism, cholecystectomy, hysterectomy, and cardiac ablation. Medications: Include, Remicade, Lialda, thyroid medicine, Synthroid and other as per list. Social History: She is a , has 2 children. No alcohol. No tobacco. Family History: Father of abdominal aortic aneurysm. Mother of pulmonary embolism. Allergies: NKDA. Physical Examination: Vital Signs: Patient is 5 feet 4 inches, 217 pounds, BMI 37.3 kg m2. General: She is an obese female, lying in bed, in no acute distress. HEENT: Normocephalic, atraumatic. Anicteric. Pupils equal, round, and reactive to light. Extraocu lar movements are intact. Oropharynx clear. Neck: Supple, no masses. Respirations: Clear to auscultation bilaterally. Cardiac: Regular rate and rhythm. No gallop or rub. Abdomen: Positive bowel sounds. Soft, nontender, nontender. No hepatosplenomegaly. Extremities: No clubbing, cyanosis, or edema. 2+ pulses. Neuro: Alert and oriented x3. Grossly nonfocal. 5/5 motor strength. Sensation intact to light savita ch. Laboratory Data: The patient has a white count of 7.3, hemoglobin of 14.2, MCV of 87, platelet count 262, polys of 86%, lymphocytes 12%, monocytes 1%. Patient has a PT of 12.1, INR of 1.03. The patie nt has a sodium 144, potassium 3.8, chloride 112, bicarb 23, BUN 9, creatinine 0.7, glucose 145, calc ium 8.6, magnesium 2.0 yesterday, and troponin I less than 0.2 x3. B-type natriuretic peptide elevat ed at 736. Total protein 7.3, albumin 3.4, triglycerides 110, cholesterol 151, LDL 66, HDL 63. TSH of 0.292, free T4 1.18. C diff toxins negative. Chest x-ray was negative. Impression: 1.Ulcerative colitis flare, negative stool evaluation, Clostridium difficile. Though the patient denies diarrhea currently in hospice, she had some prior to admission and early on admission change in , diarrhea, right and left lower quadrant pain, maximum 6/10, now no pain with s ome nausea and night sweats, on steroids on Remicade q.8 weeks and its last infusion approximately 1- 2 weeks ago. She denies any fevers, chills, hematochezia, melena, and emesis. Dehydration has resol vera with IV fluids. 2.Shortness of breath, cough. Coronavirus disease negative on swab. She has had recurrent sinusiti s with multiple rounds of antibiotics recently, which may in part reason for her ulcerative colitis f lare. 3.History of ulcerative colitis, hypertension, hyperlipidemia, arthritis, depression, hypothyroidism , laparoscopic cholecystectomy, hysterectomy, and cardiac ablation. Recommendations: 1.Continue IV fluids, IV antibiotics. 2.Continue steroids. 3.Continue outpatient Remicade. 4.Check stool studies, which have been done. 5.The patient to be discharged with antibiotics and steroids and have GI Clinic followup. HARRIET/KAREN Voice ID: [id number] Report ID: [id number]
== END 2020-04-23 16:20 | disposition home or self-care (01) ==
LOC: ER 14:04 → ERHOLD 17:53 → 4TH 21:26 → 2ND 04-22 13:35
PROVIDERS: ADMIT Family Medicine; ATTEND Family Medicine
DX: K51.90 Ulcerative colitis, unspecified, without complications (principal); K92.1 Melena; R19.7 Diarrhea, unspecified; I10 Essential (primary) hypertension; E78.5 Hyperlipidemia, unspecified; E03.9 Hypothyroidism, unspecified; K21.9 Gastro-esophageal reflux disease without esophagitis; J44.9 Chronic obstructive pulmonary disease, unspecified; E86.0 Dehydration; R05 Cough; R06.02 Shortness of breath; M79.10 Myalgia, unspecified site; Z20.828 Contact with and (suspected) exposure to other viral communicable diseases; I44.0 Atrioventricular block, first degree; R94.31 Abnormal electrocardiogram [ECG] [EKG]; M19.90 Unspecified osteoarthritis, unspecified site; F32.9 Major depressive disorder, single episode, unspecified; Z79.51 Long term (current) use of inhaled steroids; Z79.899 Other long term (current) drug therapy; Z90.49 Acquired absence of other specified parts of digestive tract; Z90.710 Acquired absence of both cervix and uterus
CPT/HCPCS: 93005; 87045; 85025 ×2; 80048 ×3; 36415 ×2; 83735 ×2; 89055; 82274; 84132; 85610; 80061; 80076; 87046; 84443; 87324; 84484 ×3; 84439; 83880; 87449; 71045; 99284; U0002; C9113 ×2; J7030 ×3; J2930 ×2; J0744 ×4; G0378 ×3; J0360; J7512

== ENCOUNTER 2021-10-11 16:03 | Emergency (ER) | payer BC ==
--- OUTSIDE RECORDS SUMMARY | 2021-10-11 16:07 | XMS REPORT | Continuity of Care Document ---
:1950 Author Organization [facility] t Address [address] [place] [address] Dr. [address] [place] [address] Care Team Providers Name Role Phone Niki Aranda MD Primary Care Physician YENI Attending Clinician Unavailable YENI Attending Clinician Unavailable Yeni MIKE Attending Clinician Jaspal Lerma Attending Clinician Unavailable Amber Ornelas DO Attending Clinician Heather CA Attending Clinician Unavailable YENI Admitting Clinician Unavailable Niki Aranda Admitting Clinician Unavailable Payers Payer Name Policy Type Policy Number Effective Date Expiration Date S tori BCBS FED SELECT [id number] 2011 00:00:00 OUT OF STATE BCBS [id number] PPO - BCBS CVCP-BCBS [id number] BCBS FED [id number] 2011 00:00:00 Problems Condition Condition Condition Status Onset Resolution Last Treating Co mments Source Name Details Category Date Date Treatment Clinician Date Persistent Persistent Disease Active B renzo atrial atrial 05-05 Olivia Lopez De Gutierrez fibrillati fibrillati 00:00: of on on Medicin e Ulcerative Ulcerative Disease Active [facility] colitis colitis 05-05 College 00:00: of 00 Medicin e Essential Essential Disease Active [facility] manasa hypertensi hypertensi 06-17 Co llege on, benign on, benign 00:00: of 00 Medicin e Allergies, Adverse Reactions, Alerts Allergy Allergy Status Severity Reaction(s) Onset Inactive Treating Comm ents Source Name Type Date Date Clinician [place] Active [place] [facility] 10-[facility] 00:00: [address] Penicill DA Active [place] [facility]ASH [facility] ins 10-17 00:00: [address] NO KNOWN Drug Active [facility] ALLERGIE Class ity of S [facility] NO KNOWN Allergy Active [facility] Social History Social Habit Start Date Stop Date Quantity Comments Source Exposure to Unable to assess Univers ity of SARS-CoV-2 [facility] (event) Branch History [facility] ge of Alcohol Std Medicine Drinks History [facility] ge of Alcohol Binge Medicine History [facility] ge of Alcohol Comment Medicine Alcohol intake 2021-08-28 2021-08-28 Lifetime [facility] Col lege of 00:00:00 00:00:00 non-drinker Medicine (finding) Tobacco use and 2021-05-05 2021-05-05 Smokeless tobacco [facility] of exposure 00:00:00 00:00:00 non-user Medicine History [facility] 2021-05-05 2021-05-05 1 [facility] ge of Alcohol Frequency 00:00:00 00:00:00 Medicin e Sex [birth year] Universit y of 00:00:00 00:00:00 [facility] Smoking Status Start Date Stop Date Source Never smoker [facility] Medications Ordered Filled Start Stop Current Ordering Indication Dosage Frequency Signature Comments Components Source Medication Medication Date Date Medication? Clinician (SIG) Name Name Ascorbic 2020-10 Yes Take by Lisa r Acid 2-14 [facility] (VITAMIN C 13:40: daily. of OR) 34 Medicin e Cyanocobala 2020-10 Yes Take by [facility]lor min 2-14 mouth College (VITAMIN 13:40: daily. of B12 OR) 34 Medicin e FUROSEMIDE 2020-10 Yes Take by Laporte manasa OR 2-14 mouth College 13:40: daily. of 34 Medicin e citalopram 2020-10 Yes 20mg Take 20 mg B aylor (CELEXA) 10 2-14 by mouth Fahad ege MG tablet 13:40: daily. of 34 Medicin e amlodipine 2020-10 Yes 10mg Take 10 mg B [facility] (NORVASC) 1-15 by mouth Colleg e 10 MG 00:00: daily. of tablet 00 Medicin e simvastatin 2020-10 Yes 40mg Take 40 mg [facility] (ZOCOR) 40 0-07 by mouth Colle ge MG tablet 13:23: daily. of 29 Medicin e citalopram 2020-10 Yes 20mg Take 20 mg [facility] (CELEXA) 10 0-07 by mouth Fahad ege MG tablet 13:23: daily. of 29 Medicin e simvastatin 2020-10 Yes 40mg Take 40 mg [facility] (ZOCOR) 40 0-07 by mouth Colle ge MG tablet 13:23: daily. of 29 Medicin e Ascorbic 2020-10 Yes Take by Laportelo r Acid 0-07 mouth Olivia Lopez De Gutierrez (VITAMIN C 13:23: daily. of OR) 29 Medicin e Cyanocobala 2020-10 Yes Take by [place] [facility] min 0-07 mouth Olivia Lopez De Gutierrez (VITAMIN 13:23: daily. of B12 OR) 29 Medicin e FUROSEMIDE 2020-10 Yes Take by Laporte manasa OR 0-07 mouth Olivia Lopez De Gutierrez 13:23: daily. of 29 Medicin e amlodipine 2020-10- No 10mg Take 10 mg [facility] (NORVASC) 0-07 10-07 by mouth Colle ge 10 MG 13:23: 00:00 daily. of tablet 21 :00 Medicin e flecainide Yes 100mg Take 1 [facility] or (TAMBOCOR) 06-17 Tablet by Fahad ege 100 MG 00:00: mouth two of tablet 00 times Medicin daily. e Apixaban Yes 5mg Take 5 mg [facility] (ELIQUIS) 5 9-02 by mouth Fahad ege MG TABS 00:00: two times of 00 daily. Medicin e flecainide Yes 100mg Take 1 [facility] (TAMBOCOR) 06-17 Tablet by Fahad ege 100 MG 00:00: mouth two of tablet 00 times Medicin daily. e Apixaban Yes 5mg Take 5 mg [facility] (ELIQUIS) 5 06-17 by mouth Fahad ege MG TABS 00:00: two times of 00 daily. Medicin e citalopram Yes 20mg Take 20 mg [facility] (CELEXA) 10 05-05 by mouth Fahad ege MG tablet 14:55: daily. of Medicin e amlodipine Yes 10mg Take 10 mg [facility] a[facility] (NORVASC) 05-05 by mouth Colleg e 10 MG 14:55: daily. of tablet Medicin e simvastatin Yes 40mg Take 40 mg [facility] (ZOCOR) 40 05-05 by mouth Colle ge MG tablet 14:55: daily. of Medicin e Ascorbic Yes Take by Laportelo r Acid 05-05 mouth Olivia Lopez De Gutierrez (VITAMIN C 14:55: daily. of OR) 06 Medicin e Cyanocobala Yes Take by Joey billy 05-05 mouth Olivia Lopez De Gutierrez (VITAMIN 14:55: daily. of B12 OR) 06 Medicin e alprazolam Yes .25mg Take 0.25 [facility] (XANAX) 0.5 7-14 mg by Olivia Lopez De Gutierrez MG tablet 00:00: mouth two of 00 times Medicin daily. e losartan Yes 100mg Take 100 [facility] (COZAAR) 7-14 mg by Olivia Lopez De Gutierrez 100 MG 00:00: mouth of tablet 00 daily. Medicin e Mesalamine Yes four times B a[facility]or 1.2 g TBEC 7-14 daily. College 00:00: of 00 Medicin e alprazolam Yes .25mg Take 0.25 [facility] (XANAX) 0.5 7-14 mg by Olivia Lopez De Gutierrez MG tablet 00:00: mouth two of 00 times Medicin daily. e losartan 2020-0 Yes 100mg Take 100 [facility] (COZAAR) 7-14 mg by College 100 MG 00:00: mouth of tablet 00 daily. Medicin e Mesalamine 2020-0 Yes four times B a[facility]or 1.2 g TBEC 7-14 daily. College 00:00: of 00 Medicin e alprazolam 2020-0 Yes .25mg Take 0.25 [facility] (XANAX) 0.5 7-14 mg by Olivia Lopez De Gutierrez MG tablet 00:00: mouth two of 00 times Medicin daily. e losartan 2020-0 Yes 100mg Take 100 [facility] (COZAAR) 7-14 mg by College 100 MG 00:00: mouth of tablet 00 daily. Medicin e Mesalamine 2020-0 Yes four times B [facility]or 1.2 g TBEC 7-14 daily. College 00:00: of 00 Medicin e hyoscyamine 2020-0 Yes .125mg Take 0.125 [facility] (LEVSIN/SL) 7-06 mg by Olivia Lopez De Gutierrez 0.125 MG SL 00:00: mouth as of tablet 00 needed. Medicin e hyoscyamine 2020-0 Yes .125mg Take 0.125 [facility] (LEVSIN/SL) 7-06 mg by Olivia Lopez De Gutierrez 0.125 MG SL 00:00: mouth as of tablet 00 needed. Medicin e hyoscyamine 2020-0 Yes .125mg Take 0.125 [facility] (LEVSIN/SL) 7-06 mg by Olivia Lopez De Gutierrez 0.125 MG SL 00:00: mouth as of tablet 00 needed. Medicin e hydrocodone 2020-0 Yes 1{tbl} Take 1 [facility] -acetaminop 7-01 Tablet by Col lege hen (NORCO) 00:00: mouth four of 10-325 MG 00 times Medicin per tablet daily. e metoprolol 2020-0 Yes 25mg Take 25 mg B a[facility] (TOPROL-XL) 7-01 by mouth Fahad ege 25 MG XL 00:00: daily. of tablet 00 Medicin e hydrocodone 2020-0 Yes 1{tbl} Take 1 [facility] -acetaminop 7-01 Tablet by Col lege hen (NORCO) 00:00: mouth four of 10-325 MG 00 times Medicin per tablet daily. e metoprolol 1-0 Yes 25mg Take 25 mg [facility] (TOPROL-XL) 7-01 by mouth Fahad ege 25 MG XL 00:00: daily. of tablet 00 Medicin e hydrocodone Yes 1{tbl} Take 1 [facility] -acetaminop - Tablet by Col ki vicente (Manga CortaCO) 00:00: mouth four of 10-325 MG 00 times Medicin per tablet daily. e metoprolol Yes 25mg Take 25 mg [facility] (TOPROL-XL) 04-15 by mouth Fahad ege 25 MG XL 00:00: daily. of tablet 00 Medicin e levothyroxi Yes 50ug Take 50 [facility] manasa ne 6-29 mcg by Olivia Lopez De Gutierrez (SYNTHROID) 00:00: mouth of 50 MCG 00 daily. Medicin tablet e pantoprazol Yes 40mg Take 40 mg [facility] e 6-29 by mouth Olivia Lopez De Gutierrez (PROTONIX) 00:00: two times of 40 MG 00 daily. Medicin tablet e levothyroxi Yes 50ug Take 50 [facility] manasa ne 6-29 mcg by Olivia Lopez De Gutierrez (SYNTHROID) 00:00: mouth of 50 MCG 00 daily. Medicin tablet e pantoprazol Yes 40mg Take 40 mg [facility] e 6-29 by mouth Olivia Lopez De Gutierrez (PROTONIX) 00:00: two times of 40 MG 00 daily. Medicin tablet e levothyroxi Yes 50ug Take 50 [facility] manasa ne 6-29 mcg by Olivia Lopez De Gutierrez (SYNTHROID) 00:00: mouth of 50 MCG 00 daily. Medicin tablet e pantoprazol Yes 40mg Take 40 mg [facility]em e 6-29 by mouth Olivia Lopez De Gutierrez (PROTONIX) 00:00: two times of 40 MG 00 daily. Medicin tablet e HYDROcodone 2020-0 2020- No 1{tbl} 1 tablet, Univers -acetaminop -03 02- Oral, ity of jules (NORCO 18:00: 16:54 ONCE, 1 Lio as 5) 5-325 mg 00 :00 dose, Wed Med ical tablet 1 02/03/21 at [facility] h tablet 1300, NOHEMI amLODIPine 0 Yes 10mg Take 10 mg U nivers (NORVASC) - by mouth ity of 10 mg 17:08: daily. [facility] 37 Medical Branch losartan 2020-0 Yes 100mg Take 100 Univ ers 100 mg 4-21 mg by ity of tablet 17:08: mouth [place] 37 daily. Medical Branch naftifine Yes Apply to Uni vers HCl 02-03 area(s). ity of (NAFTIFINE 17:08: [place] TOPICAL) 37 Medical Branch FENTanyl PF 2020- No 50ug 50 mcg, Un lance (SUBLIMAZE 02-03 Intramuscu it y of (PF)) 16:30: 15:34 lar, ONCE, [place] injection 00 :00 1 dose, Medical 50 mcg Wed Branch 02/03/21 at 1130, Routine citalopram Yes 20mg Take 20 mg U nivers (CELEXA) 10 02-03 by mouth ity of mg tablet 15:28: daily. [place] 31 Medical Branch azaTHIOprin 2020- No 50mg Take 50 mg Univers e 50 mg 02-03 by mouth 3 ity o f tablet 15:28: 00:00 (three) [place] 25 :00 times Medical daily. Branch INFLIXIMAB Yes Inject Unive rs (REMICADE 9-02 intravenou ity of IV) 21:02: sly. [place] 52 Medical Branch mesalamine Yes 1200mg Take 1,200 Univers (LIALDA) 9-02 mg by ity of 1.2 gram EC 21:02: mouth 4 Lio as tablet 52 (four) Medical times Branch daily. HYDROcodone Yes [id number] 1{tbl} Take 1 Univers -acetaminop 9-02 tablet by ity of hen 10-325 00:00: mouth [place] mg tablet 00 every 6 Medical (six) Branch hours as needed for Pain (scale 7-10). simvastatin 2014-10 Yes Univer s (ZOCOR) 40 0-21 ity of mg tablet 00:00: [place] 00 Medical Branch pantoprazol 2014-10 Yes Univer s e 0-21 ity of (PROTONIX) 00:00: [place] 40 mg EC 00 Medical tablet Branch metoprolol 2014-10 Yes 25mg Take 25 mg U nivers succinate 0-21 by mouth ity of XL (TOPROL 00:00: daily. [place] XL) 100 mg 00 Medical 24 hr Branch tablet amlodipine- 2014-10 No Unive rs benazepril 04-21 ity of (LOTREL) 00:00: 00:00 [place] 5-20 mg per 00 :00 Medical capsule Branch HYDROcodone 2014-10- No Unive rs -acetaminop 0 04-21 ity of hen (NORCO) 00:00: 00:00 [place] 7.5-325 mg 00 :00 Medical per tablet Branch ALPRAZolam Yes Univers (XANAX) 07-11 ity of 0.25 mg 00:00: [place] tablet 00 Medical Branch levothyroxi Yes Univer s ne 9-18 ity of (SYNTHROID) 00:00: [place] 50 mcg 00 Medical tablet Branch potassium 2020- No Univers chloride 828 -21 ity of (K-DUR) 10 00:00: 00:00 [place] mEq CR 00 :00 Medical tablet Branch Immunizations Ordered Filled Immunization Date Status Comments Sour e Immunization Name Name Influenza Hd 2021-07-16 Completed [facility] ge of 00:00:00 Medicine SARS-COV-2 COVID-19 2020-11-24 Completed Unive rsity of MODERNA VACCINE 00:00:00 [facility] ical [place] SARS-COV-2 COVID-19 2020-10-27 Completed Unive rsity of MODERNA VACCINE 00:00:00 [facility] [place] Vital Signs Vital Name Observation Time Observation Value Comments Source WEIGHT 2021-06-16 05:30:00 96.163 kg HEIGHT 2021-06-16 05:30:00 162.6 cm Systolic blood 2021-09-28 19:46:00 118 mm[Hg] [facility] of pressure Medicine Diastolic blood 2021-09-28 19:46:00 82 mm[Hg] [facility] of pressure Medicine Heart rate 2021-09-28 19:39:00 67 /min [facility] Body height 2021-09-28 19:39:00 162.6 cm [facility] Body weight 2021-09-28 19:39:00 93.441 kg [facility] BMI 2021-09-28 19:39:00 35.36 kg/m2 [facility] Systolic blood 2021-07-22 18:29:00 100 mm[Hg] [facility] pressure Medicine Diastolic blood 2021-07-22 18:29:00 70 mm[Hg] [facility] Medicine Heart rate 2021-07-22 18:22:00 71 /min [facility] ollege of Medicine Body height 2021-07-22 18:22:00 162.6 cm [facility] ol[facility] of Medicine Body weight 2021-07-22 18:22:00 92.897 kg [facility] ollege of [facility] BMI 2021-07-22 18:22:00 35.15 kg/m2 [facility] ollege of [facility] WEIGHT 2021-06-16 05:30:00 96.163 kg HEIGHT 2021-06-16 05:30:00 162.6 cm WEIGHT 2021-06-15 12:47:00 96.616 kg HEIGHT 2021-06-15 12:47:00 162.6 cm WEIGHT 2021-06-15 12:47:00 96.616 kg HEIGHT 2021-06-15 12:47:00 162.6 cm Systolic blood 2021-05-05 19:45:00 146 mm[Hg] [facility] pressure Medicine Diastolic blood 2021-05-05 19:45:00 80 mm[Hg] [facility] Medicine Heart rate 2021-05-05 19:41:00 57 /min [facility] Body height 2021-05-05 19:41:00 162.6 cm [facility] Body weight 2021-05-05 19:41:00 99.791 kg [facility] BMI 2021-05-05 19:41:00 37.76 kg/m2 [facility] Systolic blood 2021-02-03 16:57:00 109 mm[Hg] Univer sity of pressure [facility] Diastolic blood 2021-02-03 16:57:00 87 mm[Hg] Unive rsity of pressure [facility] Heart rate 2021-02-03 16:57:00 67 /min [facility] Respiratory rate 2021-02-03 16:57:00 29 /min [facility] Oxygen saturation in 2021-02-03 16:57:00 95 /min University of Arterial blood by [facility] Pulse oximetry Branch Body temperature 2021-02-03 15:15:00 35.72 [facility] Body weight 2021-02-03 15:15:00 99.791 kg [facility] BMI 2021-02-03 15:15:00 37.76 kg/m2 [facility] Systolic blood 2021-02-03 16:57:00 109 mm[Hg] Univer sity of pressure [facility] Diastolic blood 2021-02-03 16:57:00 87 mm[Hg] Unive rsity of [facility] Heart rate 2021-02-03 16:57:00 67 /min [facility] Respiratory rate 2021-02-03 16:57:00 29 /min [facility] Oxygen saturation in 2021-02-03 16:57:00 95 /min University of Arterial blood by [facility] Pulse oximetry Branch Body temperature 2021-02-03 15:15:00 35.72 [facility] Body weight 2021-02-03 15:15:00 99.791 kg [facility] BMI 2021-02-03 15:15:00 37.76 kg/m2 [facility] Procedures Procedure Date / Time Performed Performing Clinician Sourc e CT CERVICAL SPINE WO 2021-02-03 16:25:38 Shy Ornelas [facility] CT 2021-02-03 16:25:38 Shy Ornelas [facility] MAXILLOFACIAL/MANDIBL Medical Br anch E WO CONTRAST CT HEAD WO CONTRAST 2021-02-03 16:25:38 Syh Ornelas [facility] Plan of Care Planned Activity Planned Date Details Comments Source Future Scheduled 2021-09-28 Screening for malignant [facility] College Test 13:47:05 neoplasm of colon of Medicin e (procedure) [code = 689130901] Future Scheduled 2021-09-28 Screening for malignant [facility] College Test 13:47:05 neoplasm of breast of Medici ne (procedure) [code = 320244149] Future Scheduled 2021-09-28 Pneumococcal 65+ (1 of 2 - [facility] College Test 13:47:05 PPSV23) [code = of Medicine Pneumococcal 65+ (1 of 2 - PPSV23)] Future Scheduled 2021-09-28 TETANUS SHOT (ADULT) [code [facility] College Test 13:47:05 = TETANUS SHOT (ADULT)] of M edicine Future Scheduled 2021-09-28 BMI FOLLOW UP PLAN [code = [facility] College Test 13:47:05 BMI FOLLOW UP PLAN] of Medic ine Future Scheduled 2021-09-28 Hepatitis C screening [facility] Test 13:47:05 (procedure) [code = of Medic ine 658366182] Future Scheduled 2021-09-28 ZOSTER VACCINE (1 of 2) [facility] Test 13:47:05 [code = ZOSTER VACCINE (1 of Medicine of 2)] Future Scheduled 2021-09-28 FALL SCREEN [code = FALL [facility] Test 13:47:05 SCREEN] of Medicine Future Scheduled 2021-09-28 Screening for osteoporosis [facility] College Test 13:47:05 (procedure) [code = of Medic ine [id number]] Future Scheduled 2021-09-28 COVID-19 Vaccine (3 - [facility] Test 13:47:05 Booster for Moderna of Medic ine series) [code = COVID-19 Vaccine (3 - Booster for Moderna series)] Future Scheduled 2021-09-28 ELECTROCARDIOGRAM COMPLETE [facility] College Test 13:32:54 [code = 23400] of Medicine Future Scheduled 2021-07-22 ELECTROCARDIOGRAM COMPLETE [facility] Test 13:24:00 [code = 23889] of Medicine Future Scheduled 2021-07-22 Screening for malignant [facility] Test 13:23:13 neoplasm of colon of Medicin e (procedure) [code = 139823204] Future Scheduled 2021-07-22 Screening for malignant [facility] College Test 13:23:13 neoplasm of breast of Medici ne (procedure) [code = 285330328] Future Scheduled 2021-07-22 TETANUS SHOT (ADULT) [code [facility] Test 13:23:13 = TETANUS SHOT (ADULT)] of M edicine Future Scheduled 2021-07-22 BMI FOLLOW UP PLAN [code = [facility] College Test 13:23:13 BMI FOLLOW UP PLAN] of Medic ine Future Scheduled 2021-07-22 Hepatitis C screening [facility] Test 13:23:13 (procedure) [code = of Medic ine 045417888] Future Scheduled 2021-07-22 ZOSTER VACCINE (1 of 2) [facility] College Test 13:23:13 [code = ZOSTER VACCINE (1 of Medicine of 2)] Future Scheduled 2021-07-22 FALL SCREEN [code = FALL [facility] College Test 13:23:13 SCREEN] of Medicine Future Scheduled 2021-07-22 Screening for osteoporosis [facility] Test 13:23:13 (procedure) [code = of Medic ine 943103634] Future Scheduled 2021-07-22 PNEUMOVAX >=65 (PPSV23) [facility] College Test 13:23:13 [code = PNEUMOVAX >=65 of Me dicine (PPSV23)] Future Scheduled 2021-07-22 FLU VACCINE > 6 MONTHS B [facility] College Test 13:23:13 [code = FLU VACCINE > 6 of M edicine MONTHS] Future Scheduled 2021-05-05 Screening for malignant [facility] Test 15:57:58 neoplasm of colon of Medicin e (procedure) [code = 251024180] Future Scheduled 2021-05-05 Screening for malignant [facility] Test 15:57:58 neoplasm of breast of Medici ne (procedure) [code = 536121930] Future Scheduled 2021-05-05 TETANUS SHOT (ADULT) [code [facility] Test 15:57:58 = TETANUS SHOT (ADULT)] of M edicine Future Scheduled 2021-05-05 BMI FOLLOW UP PLAN [code = [facility] Test 15:57:58 BMI FOLLOW UP PLAN] of Medic ine Future Scheduled 2021-05-05 Hepatitis C screening [facility] Test 15:57:58 (procedure) [code = of Medic ine [id number]] Future Scheduled 2021-05-05 ZOSTER VACCINE (1 of 2) [facility] College Test 15:57:58 [code = ZOSTER VACCINE (1 of Medicine of 2)] Future Scheduled 2021-05-05 FALL SCREEN [code = FALL [facility] College Test 15:57:58 SCREEN] of Medicine Future Scheduled 2021-05-05 Screening for osteoporosis [facility] Test 15:57:58 (procedure) [code = of Medic ine 025648819] Future Scheduled 2021-05-05 PNEUMOVAX >=65 (PPSV23) [facility] Test 15:57:58 [code = PNEUMOVAX >=65 of Me dicine (PPSV23)] Future Scheduled 2021-05-05 FLU VACCINE > 6 MONTHS B [facility] College Test 15:57:58 [code = FLU VACCINE > 6 of M edicine MONTHS] Future Scheduled 2021-05-05 ELECTROCARDIOGRAM COMPLETE [facility] Test 14:40:59 [code = 33421] of Medicine Encounters Start End Encounter Admission Attending Care Care Encounter Source Date/Time Date/Time Type Type Clinicians Facility Department ID 2021-08-15 Emergency [facility] [id number] [facility] 14:19:25 ity [facility] [place] [facility] 2021-07-25 Outpatient MARYANA JAIME Surgery [id number] [facility] 08:24:18 NATALIE 2021-09-28 2021-09-28 Office DEANGELO JAIME [id number] [facility] 13:31:59 15:36:17 Visit NATALIE AMBULATOR [id number] College Y [id number] of [id number] Medi maira 300 e 2021-07-22 2021-07-22 Office DEANGELO JAIME [id number] [facility] 13:16:34 13:57:41 Visit NATALIE AMBULATOR [id number] College Y [id number] of [id number] Medi maira 300 e 2021-06-16 2021-06-16 Outpatient [facility] [id number] [facility] 05:16:00 23:59:00 Colleg e of Medicin e 2021-06-16 2021-06-16 Outpatient [facility] [id number] [facility] 00:00:00 05:15:00 Colleg e of Medicin e 2021-06-15 2021-06-15 Outpatient [facility] [id number] [facility] 00:00:00 00:00:00 2021-05-31 2021-05-31 Outpatient AKIN LI [facility] [id number] [facility] 00:00:00 00:00:00 NATALIE 2021-05-25 2021-05-26 Outpatient DEANGELO JAIME Heather [id number] [facility] 15:11:02 10:54:55 NATALIE Colleg e of Medicin e 2021-05-25 2021-05-25 Outpatient [facility] [id number] [facility] 15:11:47 15:59:43 Courtney bansal of Medicin e 2021-05-05 2021-05-05 Office DEANGELO Jaime [id number] [facility] 14:13:30 14:43:30 Visit Natalie AMBULATOR [id number] College Y [id number] [facility] maira 300 e 2021-03-23 2021-03-23 Outpatient JOEL Lerma, HCAWU SURG [id number] [facility] 05:37:00 05:37:00 Paul [id number] [facility] 2021-02-03 2021-02-03 Emergency [facility] [id number] 10:10:00 12:19:00 Shy Bhagat 350.1.13.10 [place] [id number] [place] [id number] [facility] 2021-02-03 2021-02-03 Emergency [facility] [id number] [facility] 10:10:00 12:19:00 Shy Bhagat 350.1.13.10 [facility] [id number] [facility] [id number] [facility] 084 Branch 2020-11-24 2020-11-24 Outpatient Chapis [facility] [id number] Univers 11:00:00 11:00:00 SUMAN [id number] [facility] 2020-11-24 2020-11-24 Outpatient Chapis [facility] [id number] Univers 11:00:00 11:00:00 SUMAN [facility] 2020-10-27 2020-10-27 Outpatient [facility] [id number] Univers 11:20:00 11:20:00 [id number] [facility] 2020-10-27 2020-10-27 Outpatient Chapis [facility] [id number] Univers 11:20:00 11:20:00 SUMAN [facility] Results Test Description Test Time Test Comments Results Result Comments Source BUN 2021-06-17 06:50:00 Test Item Value Reference Range Interpretation Comme nts BLOOD UREA NITROGEN (BEAKER) (test code = 354) 9 mg/dL 7-21 [employer] ID - [id number] 06:50:00 Test Item Value Reference Range Interpretation Comments SODIUM (BEAKER) (test code = 381) 141 meq/L 136-145 POTASSIUM (BEAKER) (test code = 3.3 meq/L 3.5-5.1 L 379) CHLORIDE (BEAKER) (test code = 382) 108 meq/L 98-107 H CO2 (BEAKER) (test code = 355) 25 meq/L 22-29 Aluminum Boat Inspector ID - [id number] 06:50:00 Test Item Value Reference Range Interpretation Comments CREATININE (BEAKER) 0.68 mg/dL 0.57-1.25 (test code = 358) EGFR (BEAKER) (test 85 mL/min/1.73 ESTIMA KARMA GFR IS code = 1092) sq m NOT ACCURATE CREATININE CLEARANCE IN PREDICTING GLOMERULAR FILTRATION RATE . ESTIMATED GFR I S NOT APPLICABLE FOR DIALYSIS PATIEN TS. Aluminum Boat Inspector ID - [id number] 15:19:00 Test Item Value Reference Range Interpretation Comments ACTIVATED CLOTTING TIME 329 sec : 74 -137 seconds, (BEAKER) (test code = Baseli ne: TESTED AT 441) [address], [facility] 30: Aluminum Boat Inspector/Techni ze ID = [id number] for [facility] e[facility]ora clayton [id number] 15:19:00 Test Item Value Reference Range Interpretation Comments ACTIVATED CLOTTING TIME 323 sec : 74 -137 seconds, (BEAKER) (test code = Baseli ne: TESTED AT 441) [facility] [address] [facility], [address] 30: Aluminum Boat Inspector/Techni ze ID = [id number] for St ephen, [place] [id number] 15:19:00 Test Item Value Reference Range Interpretation Comments ACTIVATED CLOTTING TIME 340 sec : 74 -137 seconds, (BEAKER) (test code = Baseli ne: TESTED AT 441) [place] [id number] [facility], [facility] 30: Aluminum Boat Inspector/Techni ze ID = [id number] for DEANA ABARCA [id number] 15:19:00 Test Item Value Reference Range Interpretation Comments ACTIVATED CLOTTING TIME 301 sec : 74 -137 seconds, (BEAKER) (test code = Baseli ne: TESTED AT 441) [address], [facility] 30: Aluminum Boat Inspector/Techni ze ID = [id number] for DEANA ABARCA [id number] 10:37:00 Test Item Value Reference Range Interpretation Comments ACTIVATED CLOTTING TIME 307 sec : 74 -137 seconds, (BEAKER) (test code = Baseli ne: TESTED AT 441) [address], [facility] 30: Aluminum Boat Inspector/Techni ze ID = [id number] for St Mora carney [id number] 10:16:00 Test Item Value Reference Range Interpretation Comments ACTIVATED CLOTTING TIME 312 sec : 74 -137 seconds, (BEAKER) (test code = Baseli ne: TESTED AT 441) [place] [address] 30: Aluminum Boat Inspector/Techni ze ID = [id number] for St ephen, [place] [id number] 10:00:00 Test Item Value Reference Range Interpretation Comments ACTIVATED CLOTTING TIME 257 sec : 74 -137 seconds, (BEAKER) (test code = Baseli ne: TESTED AT 441) [address], [facility] 30: Aluminum Boat Inspector/Techni ze ID = [id number] for St ephen, [place] [id number] 10:00:00 Test Item Value Reference Range Interpretation Comments ACTIVATED CLOTTING TIME 131 sec : 74 -137 seconds, (BEAKER) (test code = Baseli ne: TESTED AT 441) [place] [address] 30: Aluminum Boat Inspector/Techni ze ID = [id number] for St ephen, [place] BASIC METABOLIC [id number] 06:34:00 Test Item Value Reference Range Interpretation Comments SODIUM (BEAKER) 141 meq/L 136-145 (test code = 381) POTASSIUM (BEAKER) 3.3 meq/L 3.5-5.1 L (test code = 379) CHLORIDE (BEAKER) 107 meq/L 98-107 (test code = 382) CO2 (BEAKER) (test 27 meq/L 22-29 code = 355) BLOOD UREA NITROGEN 9 mg/dL 7-21 (BEAKER) (test code = 354) CREATININE (BEAKER) 0.69 mg/dL 0.57-1.25 (test code = 358) GLUCOSE RANDOM 109 mg/dL 70-105 H (BEAKER) (test code = 652) CALCIUM (BEAKER) 8.5 mg/dL 8.4-10.2 (test code = 697) EGFR (BEAKER) (test 84 mL/min/1.73 ESTIMA KARMA GFR IS code = 1092) sq m NOT ACCURATE CREATININE CLEARANCE IN PREDICTING GLOMERULAR FILTRATION RATE . ESTIMATED GFR I S NOT APPLICABLE FOR DIALYSIS PATIEN TS. Aluminum Boat Inspector ID - PIAYA LCBC (HEMOGRAM ONLY)2021-06-16 06:28:00 Test Item Value Reference Range Interpretation Comments WHITE BLOOD CELL COUNT (BEAKER) 4.8 K/ L 3.5-10.5 (test code = 775) RED BLOOD CELL COUNT (BEAKER) 4.81 M/ L 3.93-5.22 (test code = 761) HEMOGLOBIN (BEAKER) (test code = 12.8 GM/DL 11.2-15.7 410) HEMATOCRIT (BEAKER) (test code = 39.7 % 34.1-44.9 411) MEAN CORPUSCULAR VOLUME (BEAKER) 82.5 fL 79.4-94.8 (test code = 753) MEAN CORPUSCULAR HEMOGLOBIN 26.6 pg 25.6-32.2 (BEAKER) (test code = 751) MEAN CORPUSCULAR HEMOGLOBIN CONC 32.2 GM/DL 32.2-35.5 (BEAKER) (test code = 752) RED CELL DISTRIBUTION WIDTH 15.3 % 11.7-14.4 H (BEAKER) (test code = 412) PLATELET COUNT (BEAKER) (test 245 K/CU MM 150-450 code = 756) MEAN PLATELET VOLUME (BEAKER) 10.5 fL 9.4-12.3 (test code = 754) NUCLEATED RED BLOOD CELLS 0 /100 WBC 0-0 (BEAKER) (test code = 413) PROTHROMBIN [id number] 06:15:00 Test Item Value Reference Range Interpretation Comments PROTIME (BEAKER) 15.3 seconds 11.9-14.2 H (test code = 759) INR (MERARYAKER) (test 1.23 See_Comment [Automat ed message] code = 370) The system [employer] generated this result transmitted ref erence range: <=5.90. The reference range was not used to int erpret this result as normal/abnormal . RECOMMENDED COUMADIN/WARFARIN INR THERAPY RANGESSTANDARD DOSE: 2.0 - 3.0 Includes: PROPHYLAXIS forvenous thrombosis, systemic embolization; TREATMENT for venous thrombosis and/or pulmonary embolus.HIGH RISK: Target INR is 2.5-3.5 for patients with mechanical heart valves.SARS-COV2/RT-PCR ([facility]) 2021-06-15 22:41:00 Test Item Value Reference Range Interpretation Comments SARS-COV2/RT-PCR (test code = Negative Negative [id number]) Negative result for this test determines that SARS-CoV-2 RNA was not present in the specimen above the Limit of Detection (LOD). However, Negative results do not preclude SARS-CoV-2 infection and should not be used as the sole basis for treatment or patient management decisions. Negative results must be combined with clinical observations, patient history, and epidemiological information. A false negative result may occur if a specimen is improperly collected, transported, or handled. A false negative result should be considered if patient's recent exposures or clinical presentation indicate that COVID-19 (SARS-CoV-2) is likely and diagnostic tests for other causes of illness are negative. Re-testing should be considered in cases of suspected false negatives.The limit of detection for this assay is 100 copies/mL.This SARS-CoV-2 test is a real-time RT_PCR test intended for the qualitative detection of nucleic acid from SARS-CoV-2 in a nasopharyngeal swab specimen collected from individuals suspected of COVID-19 by their healthcare provider.This test has not been Food and Drug Administration (FDA) cleared or approved. This is a modified version of an approved Emergency Use Authorization (EUA) and is in the process of review by the FDA. Once authorized by the FDA, the issued EUA will be e ffective until the declaration that circumstances exist justifying the authorization of the emergency use of in vitro diagnostic tests for detection and/or diagnosis of COVID-19 is terminated under Section 564(b)(2) of the Act or the EUA is revoked under Section 564(g) of the Act.Testing was performedusing the Eng SARS-CoV-2 assay.Fact Sheet for Healthcare Providers:https://[email or web address].Nuovo Wind/shaun/RT SARS-CoV-2 HCP Fact Sheet 51- 426753.pdfFact Sheet for Healthcare Patients:[email or web address]://[email or web address].[email or web address]/RT SARS-CoV-2 Patient Fact Sheet EN 51-351258S8.pdfBASIC METABOLIC [id number] 14:01:00 Test Item Value Reference Range Interpretation Comments SODIUM (BEAKER) 142 meq/L 136-145 (test code = 381) POTASSIUM (BEAKER) 3.5 meq/L 3.5-5.1 (test code = 379) CHLORIDE (BEAKER) 108 meq/L 98-107 H (test code = 382) CO2 (BEAKER) (test 30 meq/L 22-29 H code = 355) BLOOD UREA NITROGEN 11 mg/dL 7-21 (BEAKER) (test code = 354) CREATININE (BEAKER) 0.78 mg/dL 0.57-1.25 (test code = 358) GLUCOSE RANDOM 93 mg/dL 70-105 (BEAKER) (test code = 652) CALCIUM (BEAKER) 8.7 mg/dL 8.4-10.2 (test code = 697) EGFR (BEAKER) (test 73 mL/min/1.73 ESTIMA KARMA GFR IS code = 1092) sq m NOT ACCURATE CREATININE CLEARANCE IN PREDICTING GLOMERULAR FILTRATION RATE . ESTIMATED GFR I S NOT APPLICABLE FOR DIALYSIS PATIEN TS. Aluminum Boat Inspector ID - PIAYA LCBC W/PLT COUNT & AUTO [id number] 13:33:00 Test Item Value Reference Range Interpretation Comments WHITE BLOOD CELL COUNT (BEAKER) 5.1 K/ L 3.5-10.5 (test code = 775) RED BLOOD CELL COUNT (BEAKER) 4.80 M/ L 3.93-5.22 (test code = 761) HEMOGLOBIN (BEAKER) (test code = 12.9 GM/DL 11.2-15.7 410) HEMATOCRIT (BEAKER) (test code = 41.4 % 34.1-44.9 411) MEAN CORPUSCULAR VOLUME (BEAKER) 86.3 fL 79.4-94.8 (test code = 753) MEAN CORPUSCULAR HEMOGLOBIN 26.9 pg 25.6-32.2 (BEAKER) (test code = 751) MEAN CORPUSCULAR HEMOGLOBIN CONC 31.2 GM/DL 32.2-35.5 L (BEAKER) (test code = 752) RED CELL DISTRIBUTION WIDTH 15.4 % 11.7-14.4 H (BEAKER) (test code = 412) PLATELET COUNT (BEAKER) (test 237 K/CU MM 150-450 code = 756) MEAN PLATELET VOLUME (BEAKER) 10.5 fL 9.4-12.3 (test code = 754) NUCLEATED RED BLOOD CELLS 0 /100 WBC 0-0 (BEAKER) (test code = 413) NEUTROPHILS RELATIVE PERCENT 30 % (BEAKER) (test code = 429) LYMPHOCYTES RELATIVE PERCENT 46 % (BEAKER) (test code = 430) MONOCYTES RELATIVE PERCENT 14 % (BEAKER) (test code = 431) EOSINOPHILS RELATIVE PERCENT 9 % (BEAKER) (test code = 432) BASOPHILS RELATIVE PERCENT 1 % (BEAKER) (test code = 437) NEUTROPHILS ABSOLUTE COUNT 1.53 K/ L 1.56-6.13 L (BEAKER) (test code = 670) LYMPHOCYTES ABSOLUTE COUNT 2.33 K/ L 1.18-3.74 (BEAKER) (test code = 414) MONOCYTES ABSOLUTE COUNT (BEAKER) 0.71 K/ L 0.24-0.36 H (test code = 415) EOSINOPHILS ABSOLUTE COUNT 0.45 K/ L 0.04-0.36 H (BEAKER) (test code = 416) BASOPHILS ABSOLUTE COUNT (BEAKER) 0.04 K/ L 0.01-0.08 (test code = 417) IMMATURE GRANULOCYTES-RELATIVE 0 % 0-1 PERCENT (BEAKER) (test code = 2801) CT, CTA, [id number] 12:31:00Unlisted Reason for Exam - Click Yes and Enter Reason Below->YesUnlisted Reason for Exam->[facility] PARTICIP[facility] VIN JACOB : 1950 Sex: FAddendum BeginsREPORT STATUS:A Addendum: I agree with the previ ously described non vascular findings. Signed: Sylvain Owens MDReport Verified Date/Time: 112:31:57 Reading Location: [facility] Radiology Reading RoomAddendum EndsFINAL REPORT CT angiography of the thoracic aorta, 01-Jun-21 INDICATION: This is a 70 year old female with presents for research assessment, for the pulmonary vein and left atrial appendage morphology. TECHNIQUE: Spiral acquisition before and during intravenous contrast administration using a Siemens multislice cardiac CT scanner ECG triggering. Multiplanar reconstructions were performed interactively by the interpreting physician using an independent (Xray Imatek) workstation. Please refer to the contrast sheet scanned in the EPIC system for the amount and route of contrast given. This exam was performed according to our departmental dose- optimisation programme, which includes automated exposure control, adjustment of the mA and/or kV according to patient size and/or use of iterative reconstruction technique. Dose modulation, iterative reconstruction, and/or weight based adjustment of the mA/kV was utilized to reduce the radiation dose to as low as reasonably achievable. FINDINGS: VASCULAR: The pericardium appears normal. No pericardial effusion is identified. The central pulmonary artery is prominent. There is no evidence of central pulmonary artery embolism. The thoracic aorta is normal in course, calibre, and contour. There is no evidence for acute aortic pathology. The arch vessel branching pattern is normal, and the origins of the arch branch vessels are all widely patent. Calcification is seen at the takeoff of the right subclavian artery, incompletely evaluated. The aortic root measure approximately 3.4 cm in size. The mid ascending thoracic aorta measure approximately 2.9 cm in diameter andthe mid ascending thoracic aorta measure 2.5 cm confirming normal calibre of the thoracic aorta. Thecardiac chambers demonstrate normal atrioventricular and ventriculoarterial concordance, and systemic and pulmonary venous return. In the available images, the left ventricle is normal in size. However, left and right atrial enlargement is noted. The coronary artery origins are normal. The RCA appears to be unremarkable though discrete motion artefact is seen in the mid RCA. The left main coronary artery is widely patent. In the proximal LAD is unremarkable. Nonobstructive calcification is seen at the mid LAD and remain of the mid LAD is unremarkable. The distal LAD become a small calibre vessel. The LCx is a nondominant vessel and is widely patent proximally. In the inter-atrial septum, probablesmall PFO is identified. Left atrial enlargement is identified. No thrombus is identified in the left atrial appendage. The left atrial appendage morphology is chicken wing. Pulmonary vein morphology is normal with pairs of pulmonary veins on each side of the left atrium. There is no evidence for pulmo nary vein stenosis. Quantitative pulmonary vein ostial mapping (measured utilizing MPR analysis) is as follows: Pulmonary vein Major axis Minor axis Cross-sectional area Right upper 20 mm 19 mm 3.1 [id number] lower 22 mm 18 mm 3.1 oh1Fule upper 17 mm 12 mm 1.7 pn5Fyqx lower 20 mm 15 mm 2.5 cm2 Measurements for the left atrial appendage ostium is as follows:The cross- sectional diameter is 25.9 x 20.9 mm. The circumference 83 mm at the cross- sectional area is 519 mm2. Please see snapshot for details. The left of the left atrial appendage measures 31.5 mm, and in the orthogonal dimension is approximately 19.8 mm. NON-VASCULAR: The thyroid gland is unremarkable. The chest wall and mediastinum appears normal. No significant adenopathy is seen in the mediastinum. Calcified lymph nodes are seen in the left hilum indicating prior granulomatous. In the lung windows, no endobronchial lesion is seen, and no pleural effusion is identified. Dependent changes are seen in the lung bases. A juxtapleural nodule is identified in the left lower lobe, at image 31, measure 5 mm in diameter that is noncalcified. A small nodule measuring 3 mm identified in the right lungat image 29. The limited images of the upper abdomen reveal no significant abnormalities of the visualized organs. Patchy enhancement is identified in the left hepatic lobe, that may be due to vascularshunting. Assessment is incomplete. However, the liver edge is smooth. No acute bony pathology is identified. It is uncertain if there could be prior rib injury identified in one of the peripheral right rib, image 25 of the full [id number] series. IMPRESSIONS: 1. The left atrium is enlarged. No t hrombus is visualized in the left atrial appendage. The left atrial appendage morphology is chicken wing. Band Aid Machine Operator dimensions of the left atrial appendage is described above. Would be glad to provide further measurement if needed. Probable tiny PFO is present. 2. Pulmonary vein morphology is normal with pairs of pulmonary veins bilaterally. There is no evidence for pulmonary vein stenosis. Quantitative pulmonary vein ostial mapping is as noted above. 3. Normal thoracic aorta. Ectasia or aneurysmal dilation is seen. 4. No acute pulmonary pathology. Evidence of prior granulomatous disease. Pulmonary nodule is identified with the largest one measure 5 mm. Professional society recommendationas follows: Nodule Size <6 mm Low-Risk Patient: No routine follow-up Nodule Size <6 mm High-Risk Patient: Optional CT at 12 months 5. An addendum will be dictated regarding the non-vascular findings by the Advertising Supervisor Radiologist. THE REPORT WILL ONLY BE CONSIDERED COMPLETE AFTER THE ADDENDUM HAS BEEN DICTATED. Signed: Toni Ellswortheport Verified Date/Time: 06/01/2021 16:18:19 [id number] 15:44:00 Test Item Value Reference Range Interpretation Comments POC-CREATININE 0.7 mg/dL 0.6-1.3 : TESTED AT [facility] ([facility]) ([facility] [address] [facility] [place] code = 1859) [place], [address]: Aluminum Boat Inspector/Techni ze ID = [id number] for Fazal Zhao POC-EGFR ([facility]) 82 mL/min/1.73M2 (test code = 1860) LUPUS ANTICOAGULANT [id number] 07:24:00 Test Item Value Reference Range Interpretation Comments PROTHROMBIN TIME 12.0 9.5-12.7 N PATIENT (test code = PTP) INTERNATIONAL NORMAL 1.1 0.86-1.14 N The INR is to be RATIO (test code = used only for INR) monitoring oral anticoagulantth erap y. INDICATION I NR VALUE ---- ---- ---- -------1. Prophylaxis, de ep venous thrombos is, including hig h risk surgery. 2.0 - 3.0 2. Prophylaxis, de ep venous thrombos is, hip surgery, treatment for d eep venous thrombosis or pulmonary prevention of systemic emboli sm in patients wit h valvular heart disease, atrial fibrillation, tissue heart va lve, or acute myocar dial infarction. 2.0 - 3 .0 3. Mechanical prosthesis hear t valves, recurrent syste mera embolism. 3.0 - 4.5 PTT ACTIVATED (test 71.7 SECONDS 25.1-36.5 HH PART OF LUPUS PANEL code = APTT) RVVT PATIENT (test 49.2 sec 0.0-47.0 H code = RVVTPAT) PTT LONG ACTING (test 62.9 sec 0.0-51.9 H Previo usly reported code = PTTLA) result: 49.2 secEdited by: Torito ALVARES on 03/29/21:796511 0808: PTTLA previously repo rted as: 49.2 SEC STACLOT (test code = 53.0 RATIO STACLOT) LUPUS ANTICOAGULANT [id number] 07:24:00 Test Item Value Reference Range Interpretation Comments PROTHROMBIN TIME TEST NOT 9.5-12.7 REORDERED F OR PATIENT (test code = PERFORMED 03/24/21 PTP) INTERNATIONAL NORMAL TEST NOT 0.86-1.14 RATIO (test code = PERFORMED INR) PTT ACTIVATED (test 67.1 SECONDS 25.1-36.5 HH CALLED T O code = APTT) MANASA.M& READBACK ON 03/23/21 AT 205 2 BY Tabitha Segovia RVVT PATIENT (test TEST NOT 0.0-55.1 code = RVVTPAT) PERFORMED SEC PTT LONG ACTING (test TEST NOT 0.0-50.0 code = PTTLA) PERFORMED SEC STACLOT (test code = TEST NOT STACLOT) PERFORMED RATIO Specimen comments: collect from peripheral vein, don't us IV lineComments to Rolled Seat Trimmer: collect from peripheral vein, don't us IV linePTT MIXING [id number] 07:24:00 Test Item Value Reference Range Interpretation Comments PTT 1:1 MIX 36.9 sec 22.9-30.2 H REORDERED FOR (test code = 03/24/21Previousl y PTTMIX2) reported result : TNP secEdited b y: INFCE on 03/29/21:613910 / 1510: PTT 1 :1 previously repo rted as: TEST NOT PERFORMED REORDERED FOR 03/24/21 PTT 3:1 (test TEST NOT PERFORMED code = PTTMIX3) SECS PTT PRE MIXING TEST NOT PERFORMED 25.9-35.3 STUDY (test code SECONDS = PTTPRE) Specimen comments: collect from peripheral vein, don't us IV lineComments to Rolled Seat Trimmer: collect from peripheral vein, don't us IV lineLUPUS ANTICOAGULANT [id number] 07:46:00 Test Item Value Reference Range Interpretation Comments PROTHROMBIN TIME 12.0 9.5-12.7 N PATIENT (test code = PTP) INTERNATIONAL NORMAL 1.1 0.86-1.14 N The INR is to be RATIO (test code = used only for INR) monitoring oral anticoagulantth erap y. INDICATION I NR VALUE ---- ---- ---- -------1. Prophylaxis, de ep venous thrombos is, including hig h risk surgery. 2.0 - 3.0 2. Prophylaxis, de ep venous thrombos is, hip surgery, treatment for d eep venous thrombosis or pulmonary prevention of systemic emboli sm in patients wit h valvular heart disease, atrial fibrillation, tissue heart va lve, or acute myocar dial infarction. 2.0 - 3 .0 3. Mechanical prosthesis hear t valves, recurrent syste mera embolism. 3.0 - 4.5 PTT ACTIVATED (test 71.7 SECONDS 25.1-36.5 HH PART OF LUPUS PANEL code = APTT) RVVT PATIENT (test SEC 0.0-55.1 code = RVVTPAT) PTT LONG ACTING (test 49.2 SEC 0.0-50.0 N code = PTTLA) STACLOT (test code = 53.0 RATIO STACLOT) RHEUMATOID FACTOR [id number] 13:55:00 Test Item Value Reference Range Interpretation Comments RHEUMATOID FACTOR SCREEN (test code NEGATIVE NEGATIVE = RA) Specimen comments: from blood drawn earlierANA [id number] 13:55:00 Test Item Value Reference Range Interpretation Comments BONG DIRECT (test Negative See_Comment code = ANADIR) Ne gative <1:80 Borderline 1:8 0 Positive >1:80Performed At: [facility] [address] [id number] Bunny Maurer MD Ph:[phone] [ Automated message] The [employer] stem which generated this result transmitted ref erence range: (). The reference range was not u sed to interpret this result as normal/abnormal . Specimen comments: from blood drawn earlierLUUS ANTICOAGULANT PANEL 2021-03-24 14:31:00 Test Item Value Reference Range Interpretation Comments PROTHROMBIN TIME 12.0 9.5-12.7 N PATIENT (test code = PTP) INTERNATIONAL NORMAL 1.1 0.86-1.14 N The INR is to be RATIO (test code = used only for INR) monitoring oral anticoagulantth erap y. INDICATION I NR VALUE ---- ---- ---- -------1. Prophylaxis, de ep venous thrombos is, including hig h risk surgery. 2.0 - 3.0 2. Prophylaxis, de ep venous thrombos is, hip surgery, treatment for d eep venous thrombosis or pulmonary prevention of systemic emboli sm in patients wit h valvular heart disease, atrial fibrillation, tissue heart va lve, or acute myocar dial infarction. 2.0 - 3 .0 3. Mechanical prosthesis hear t valves, recurrent syste mera embolism. 3.0 - 4.5 PTT ACTIVATED (test 71.7 SECONDS 25.1-36.5 HH PART OF LUPUS PANEL code = APTT) RVVT PATIENT (test SEC 0.0-55.1 code = RVVTPAT) PTT LONG ACTING (test SEC 0.0-50.0 code = PTTLA) STACLOT (test code = RATIO STACLOT) LUPUS ANTICOAGULANT [id number] 11:45:00 Test Item Value Reference Range Interpretation Comments PROTHROMBIN TIME 9.5-12.7 PATIENT (test code = PTP) INTERNATIONAL NORMAL 0.86-1.14 RATIO (test code = INR) PTT ACTIVATED (test 67.1 SECONDS 25.1-36.5 HH CALLED T O code = APTT) M& READBACK ON 03/23/21 AT 205 2 BY Tabitha Segovia RVVT PATIENT (test TEST NOT 0.0-55.1 code = RVVTPAT) PERFORMED SEC PTT LONG ACTING (test TEST NOT 0.0-50.0 code = PTTLA) PERFORMED SEC STACLOT (test code = TEST NOT STACLOT) PERFORMED RATIO Specimen comments: collect from peripheral vein, don't us IV lineComments to Rolled Seat Trimmer: collect from peripheral vein, don't us IV linePTT MIXING [id number] 11:45:00 Test Item Value Reference Range Interpretation Comments PTT 1:1 MIX TEST NOT PERFORMED REORDERED FOR (test code = 03/24/21 PTTMIX2) PTT 3:1 (test TEST NOT PERFORMED code = PTTMIX3) SECS PTT PRE MIXING TEST NOT PERFORMED 25.9-35.3 STUDY (test code SECONDS = PTTPRE) Specimen comments: collect from peripheral vein, don't us IV lineComments to Rolled Seat Trimmer: collect from peripheral vein, don't us IV lineLUPUS ANTICOAGULANT [id number] 11:45:00 Test Item Value Reference Range Interpretation Comments PROTHROMBIN TIME TEST NOT 9.5-12.7 REORDERED F OR PATIENT (test code = PERFORMED 03/24/21 PTP) INTERNATIONAL NORMAL TEST NOT 0.86-1.14 RATIO (test code = PERFORMED INR) PTT ACTIVATED (test 67.1 SECONDS 25.1-36.5 HH CALLED T O code = APTT) M& READBACK ON 03/23/21 AT 205 2 BY Tabitha Segovia RVVT PATIENT (test TEST NOT 0.0-55.1 code = RVVTPAT) PERFORMED SEC PTT LONG ACTING (test TEST NOT 0.0-50.0 code = PTTLA) PERFORMED SEC STACLOT (test code = TEST NOT STACLOT) PERFORMED RATIO Specimen comments: collect from peripheral vein, don't us IV lineComments to Rolled Seat Trimmer: collect from peripheral vein, don't us IV linePTT MIXING [id number] 11:45:00 Test Item Value Reference Range Interpretation Comments PTT 1:1 MIX TEST NOT PERFORMED REORDERED FOR (test code = 03/24/21 PTTMIX2) PTT 3:1 (test TEST NOT PERFORMED code = PTTMIX3) SECS PTT PRE MIXING TEST NOT PERFORMED 25.9-35.3 STUDY (test code SECONDS = PTTPRE) Specimen comments: collect from peripheral vein, don't us IV lineComments to Rolled Seat Trimmer: collect from peripheral vein, don't us IV lineMISCELLANEOUS LAB SEND [id number] 10:51:00 Test Item Value Reference Range Interpretation Comments MISCELLANEOUS LAB SEND OUT APPROVED-IN LAB (test code = MISCLABSO) MOD Test: lupus anticoagulantOrdering physician contact information: Dr. Gross RHEUMATOID FACTOR [id number] 21:28:00 Test Item Value Reference Range Interpretation Comments RHEUMATOID FACTOR SCREEN (test code NEGATIVE NEGATIVE = RA) Specimen comments: from blood drawn earlierANA [id number] 21:28:00 Test Item Value Reference Range Interpretation Comments BONG DIRECT (test code = ANADIR) NEGATIVE Specimen comments: from blood drawn earlierPTT MIXING [id number] 20:52:00 Test Item Value Reference Range Interpretation Comments PTT 1:1 MIX (test code = PTTMIX2) PTT 3:1 (test code = PTTMIX3) SECS PTT PRE MIXING STUDY (test code = SECONDS 25.9-35.3 PTTPRE) Specimen comments: collect from peripheral vein, don't us IV lineComments to Rolled Seat Trimmer: collect from peripheral vein, don't us IV linePTT [id number] 20:52:00 Test Item Value Reference Range Interpretation Comments PTT ACTIVATED (test 67.1 SECONDS 25.1-36.5 HH CALLED T O code = APTT) RAMESH& WILLIAMS HANSEN ON 03/23/21 AT 2051 BY Tabitha Segovia Specimen comments: collect from peripheral vein, don't us IV lineComments to Rolled Seat Trimmer: collect from peripheral vein, don't us IV lineHEPATIC FUNCTION [id number] 20:51:00 Test Item Value Reference Range Interpretation Comments TOTAL PROTEIN 7.4 G/DL 6.3-8.2 N [facility] Clinical Diagnostic (test code = has made us pee re of PROT) newinformation regarding the potential i nterference ofEltrombopag (a bone marrow stimulan t used to treatthrombocyt onmenia and aplastic anemia ) with specific assays on the Vitros 5600 of which Total Protein is one of thoseassays per formed in our lab.Interfe rence testing perform ed at Ortho determined that Eltrombopag does interfere with Vitros Total Protein asfollowsEltrom bopag Interference fo r Vitros Product Total Protein:======= Eltrombopag Max Observed A vg. BiasConcentrati on Concentration Concentration== ==== 2.5 mg/dl 6.0 g/dl +0.41 +0.34 3.5 mg/dl 6.0 g/dl +0.50 +0.45 5 mg/dl 6.0 g/dl +0.73 +0.65 2.5 mg/dl 8.0 g/dl +0.44 +0.41 3.5 mg/dl 8.0 g/dl +0.55 +0.52 5 mg/dl 8.0 g/dl +0.86 +0.77 ALBUMIN (test 4.0 G/DL 3.5-5.0 N code = ALB) BILIRUBIN TOTAL 1.0 MG/DL 0.2-1.3 N Eltrombopag Interference (test code = for Vitros Prod uct TBil, BILT) BuBc: Assa y Eltrombopag Analyte/ Max Observed Avg. Bias Concentrati on Concentration Concentration== ====TBil 7mg/dl T John/ 1.2mg/dl +0.23 mg.dl +0.20mg/dlBuBc 3.5mg/dl Bu/0.8mg/dl +0.25mg/dl +0 .24mg/dlBuBc 7 mg/dl Bu/14.2mg/dl +0.38mg/dl +0.25mg/dlBuBc 5mg/dl Bc/0mg/dl +0.25mg/dl +0 .15mg/dlBuBc 3.5mg/dl Bc/2.8mg/dl +0.25mg/dl +0.23mg/dl BILIRUBIN DIRECT 0.0 MG/DL 0.0-0.3 N Eltrombopag Interference (test code = for Vitros Prod uct TBil, BILD) BuBc: Assa y Eltrombopag Analyte/ Max Observed Avg. Bias Concentrati on Concentration Concentration== ====TBil 7mg/dl T John/ 1.2mg/dl +0.23 mg.dl +0.20mg/dlBuBc 3.5mg/dl Bu/0.8mg/dl +0.25mg/dl +0 .24mg/dlBuBc 7 mg/dl Bu/14.2mg/dl +0.38mg/dl +0.25mg/dlBuBc 5mg/dl Bc/0mg/dl +0.25mg/dl +0 .15mg/dlBuBc 3.5mg/dl Bc/2.8mg/dl +0.25mg/dl +0.23mg/dl SGOT/AST (test 26 UNITS/L 14-36 N code = AST) SGPT/ALT (test 12 UNITS/L <35 code = ALT) ALKALINE 63 UNITS/L 38-126 N PHOSPHATASE (test code = ALKP) : from blood drawn [facility] W/O [id number] 14:12:00 Test Item Value Reference Range Interpretation Comments WHITE BLOOD CELL (test code = 5.5 K/MM3 3.8-9.8 N WBC) RED BLOOD CELL (test code = 4.38 M/MM3 3.58-4.97 N RBC) HEMOGLOBIN (test code = HGB) 12.7 G/DL 11.2-14.9 N HEMATOCRIT (test code = HCT) 40.2 % 33.2-43.5 N MEAN CELL VOLUME (test code = 92 fL 80.7-99.1 N MCV) MEAN CELL HGB (test code = MCH) 29.0 pg 27.0-34.1 N MEAN CELL HGB CONCETRATION 31.6 % 32.2-35.7 L (test code = MCHC) RED CELL DISTRIBUTION WIDTH 14.0 % 12.1-15.2 N (test code = RDW) PLATELET COUNT (test code = 258 K/MM3 129-368 N PLT) NEUTROPHIL # (test code = NT#) 1.96 K/mm3 2.0-7.6 L IMMATURE GRANULOCYTE # (test 0.01 x10 3/uL 0-0.03 N code = IG#) LYMPHOCYTE # (test code = LY#) 2.33 K/mm3 1.0-3.8 N MONOCYTE # (test code = MO#) 0.68 K/mm3 0.1-0.8 N EOSINOPHIL # (test code = EO#) 0.49 K/mm3 0.0-0.2 H BASOPHIL # (test code = BA#) 0.04 K/mm3 0.0-0.2 N NUCLEATED RBC # (test code = 0.00 K/mm3 0.0-0.1 N NRBC#) WBC [id number] 14:12:00 Test Item Value Reference Range Interpretation Comments RBC MORPHOLOGY REQUIRED (test code NORMAL = RBCM) TOTAL CELLS COUNTED (test code = 130 #CELLS TCC) SEGMENTED NEUTROPHILS (test code = 44.3 % 36.2-73.8 N SEG) BAND NEUTROPHIL (test code = BAND) 0.0 % 0-10 N LYMPHOCYTE (test code = LYMPH) 37.4 % 12.9-45.1 N ATYPICAL LYMPH (test code = 0.0 % 0-0 N ALYMPH) MONOCYTE (test code = MON) 13.9 % 0-11 H EOSINOPHIL (test code = EOS) 4.4 % 1-7 N PLATELET ESTIMATE (test code = ADEQUATE ADEQUATE PLTEST) PLATELET MORPHOLOGY (test code = NORMAL NORMAL PLTMORPH) PROTHROMBIN [id number] 12:52:00 Test Item Value Reference Range Interpretation Comments PROTHROMBIN TIME PATIENT 11.6 9.5-12.7 N (test code = PTP) INTERNATIONAL NORMAL RATIO 1.1 0.86-1.14 N T he INR is to be used (test code = INR) only for m onitoring oral anticoagulantth erapy. INDICATION INR VALUE ------- ------- -----1. Prophylaxis, d eep venous thrombos is, including high risk surgery. 2.0 - 3.0 2. Prophylaxis, de ep venous thrombos is, hip surgery, tr eatment for deep venous thrombosis or pulmonary preve ntion of systemic embolism in pat ients with valvula r heart disease, atrial fibrillation, tissue heart va lve, or acute myocardia l infarction. 2.0 - 3.0 3. Mechanical pros thesis heart valves, recurrent syste mera embolism. 3.0 - 4.5 Comments to Rolled Seat Trimmer: WILL BRING SPECIMAN TO THE LABRECOLLECTION NEEDED ON 03/23/21 AT 1115 BY TINOTQLREASON: NEED A REDRAW PER CHARGE RNNOTIFIED PATIENT CARE STAFF: LOLAPTT [id number] 12:52:00 Test Item Value Reference Range Interpretation Comments PTT ACTIVATED (test 70.6 SECONDS 25.1-36.5 HH REPEATED ON A code = APTT) RECOLLECTED SPECIMEN;CALLED TO [facility] O[facility] READBAC K ON 03/23/21 AT 125 1 BY Rafael Cherry Comments to Rolled Seat Trimmer: WILL BRING SPECIMAN TO THE LABRECOLLECTION NEEDED ON 03/23/21 AT 1115 BY GrettaLAB.TQLREASON: NEED A REDRAW PER CHARGE RNNOTIFIED PATIENT CARE STAFF: LABASIC METAB[employer] [id number] 11:01:00 Test Item Value Reference Range Interpretation Comments SODIUM (test code = 141 MMOL/L 137-145 N NA) POTASSIUM (test code = 4.3 MMOL/L 3.5-5.1 N K) CHLORIDE (test code = 107 MMOL/L 98-107 N CL) CARBON DIOXIDE (test 28 MMOL/L 22-30 N code = CO2) GLUCOSE (test code = 87 MG/DL 74-106 N GLU) BLOOD UREA NITROGEN 10 MG/DL 7-17 N (test code = BUN) GLOMERULAR FILTRATION > 60 Report ing units: RATE (test code = GFR) ml/mi n/1.73 m2 (Modified MDRD Formula)Referen ce Range: > or = 6 0 ml/min/1.73 m2 CREATININE (test code 0.60 MG/DL 0.52-1.04 N = CREAT) CALCIUM (test code = 8.9 MG/DL 8.4-10.2 N CA) [id number] 11:01:00 Test Item Value Reference Range Interpretation Comments MAGNESIUM (test code = MAG) 2.0 MG/DL 1.6-2.3 N CBC W/O [id number] 10:25:00 Test Item Value Reference Range Interpretation Comments WHITE BLOOD CELL (test code = 5.5 K/MM3 3.8-9.8 N WBC) RED BLOOD CELL (test code = 4.38 M/MM3 3.58-4.97 N RBC) HEMOGLOBIN (test code = HGB) 12.7 G/DL 11.2-14.9 N HEMATOCRIT (test code = HCT) 40.2 % 33.2-43.5 N MEAN CELL VOLUME (test code = 92 fL 80.7-99.1 N MCV) MEAN CELL HGB (test code = MCH) 29.0 pg 27.0-34.1 N MEAN CELL HGB CONCETRATION 31.6 % 32.2-35.7 L (test code = MCHC) RED CELL DISTRIBUTION WIDTH 14.0 % 12.1-15.2 N (test code = RDW) PLATELET COUNT (test code = 258 K/MM3 129-368 N PLT) NEUTROPHIL # (test code = NT#) 1.96 K/mm3 2.0-7.6 L IMMATURE GRANULOCYTE # (test 0.01 x10 3/uL 0-0.03 N code = IG#) LYMPHOCYTE # (test code = LY#) 2.33 K/mm3 1.0-3.8 N MONOCYTE # (test code = MO#) 0.68 K/mm3 0.1-0.8 N EOSINOPHIL # (test code = EO#) 0.49 K/mm3 0.0-0.2 H BASOPHIL # (test code = BA#) 0.04 K/mm3 0.0-0.2 N NUCLEATED RBC # (test code = 0.00 K/mm3 0.0-0.1 N NRBC#) WBC [id number] 10:25:00 Test Item Value Reference Range Interpretation Comments RBC MORPHOLOGY REQUIRED (test code = RBCM) TOTAL CELLS COUNTED (test code = TCC) #CELLS SEGMENTED NEUTROPHILS (test code = % 36.2-73.8 SEG) LYMPHOCYTE (test code = LYMPH) % 12.9-45.1 MONOCYTE (test code = MON) % 0-11 PLATELET ESTIMATE (test code = ADEQUATE PLTEST) PLATELET MORPHOLOGY (test code = NORMAL PLTMORPH) CBC W/AUTO [id number] 10:25:00 Test Item Value Reference Range Interpretation Comments WHITE BLOOD CELL (test code = 5.5 K/MM3 3.8-9.8 N WBC) RED BLOOD CELL (test code = 4.38 M/MM3 3.58-4.97 N RBC) HEMOGLOBIN (test code = HGB) 12.7 G/DL 11.2-14.9 N HEMATOCRIT (test code = HCT) 40.2 % 33.2-43.5 N MEAN CELL VOLUME (test code = 92 fL 80.7-99.1 N MCV) MEAN CELL HGB (test code = MCH) 29.0 pg 27.0-34.1 N MEAN CELL HGB CONCETRATION 31.6 % 32.2-35.7 L (test code = MCHC) RED CELL DISTRIBUTION WIDTH 14.0 % 12.1-15.2 N (test code = RDW) PLATELET COUNT (test code = 258 K/MM3 129-368 N PLT) MEAN PLATELET VOLUME (test code 10.5 fl 7.4-10.4 H = MPV) NEUTROPHIL % (test code = NT%) 35.6 % 43-75 L IMMATURE GRANULOCYTE % (test 0.2 % 0.0-2.0 N code = IG%) LYMPHOCYTE % (test code = LY%) 42.3 % 14-44 N MONOCYTE % (test code = MO%) 12.3 % 4-13 N EOSINOPHIL % (test code = EO%) 8.9 % 0-6 H BASOPHIL % (test code = BA%) 0.7 % 0-2 N NUCLEATED RBC % (test code = 0.0 % 0-1.0 N NRBC%) NEUTROPHIL # (test code = NT#) 1.96 K/mm3 2.0-7.6 L IMMATURE GRANULOCYTE # (test 0.01 x10 3/uL 0-0.03 N code = IG#) LYMPHOCYTE # (test code = LY#) 2.33 K/mm3 1.0-3.8 N MONOCYTE # (test code = MO#) 0.68 K/mm3 0.1-0.8 N EOSINOPHIL # (test code = EO#) 0.49 K/mm3 0.0-0.2 H BASOPHIL # (test code = BA#) 0.04 K/mm3 0.0-0.2 N NUCLEATED RBC # (test code = 0.00 K/mm3 0.0-0.1 N NRBC#) WBC [id number] 10:25:00 Test Item Value Reference Range Interpretation Comments RBC MORPHOLOGY REQUIRED (test code = RBCM) TOTAL CELLS COUNTED (test code = TCC) #CELLS SEGMENTED NEUTROPHILS (test code = % 36.2-73.8 SEG) LYMPHOCYTE (test code = LYMPH) % 12.9-45.1 MONOCYTE (test code = MON) % 0-11 PLATELET ESTIMATE (test code = ADEQUATE PLTEST) PLATELET MORPHOLOGY (test code = NORMAL PLTMORPH) COVID 19 Asymptomatic IH [id number] 15:36:00 Test Item Value Reference Range Interpretation Comments COVID 19 NEGATIVE Negative "Negative resul ts from Asymptomatic IH AG patients with symptom (test code = onset beyondfiv e days, COVNONPUIAG) should be rossana karma as presumptive, andconfirmation with a molecular assay , if necessary forpa tient management may be performed. Nega tive results do notr ule out COVID-19 and sh ould not be used as the sole basisfor treatm ent or patient managem ent decisions, includinginfect ion control decisio ns. Negative result s should beconsidered in the context of a pa tients recent exposure s,history, and the presenc e of clinical signs and symptomsconsist ent with COVID-19.This t est detects both vi able andnon-viable S ARS-CoV and SARS CoV-2. Test performance dep endson the amount of virus (antigen) in the sample." CT Cervical Spine W/O [id number] 16:36:40 No acute intracranial abnormality. No acute facial bone fracture. No acute fracture or traumatic ali gnment of the cervical spine.EXAM: CT HEAD WO CONTRAST, CT CERVICAL SPINE WO CONTRAST, CTMAXILLOFACIAL/MANDIBLE WO CONTRAST HISTORY: fall, hit head TECHNIQUE: CTs of the head, face and cervical spine were performed withoutintravenous contrast. Sagittal and coronal reformats were generated. COMPARISON: None. FINDINGS: CT HEAD The ventricles and sulci are normal in caliber and configuration. Nohydrocephalus, midline shift or pathological extra- axial fluid collectionis present. The basal cisterns areunremarkable. There is no acute intracranial hemorrhage or significant mass effect. Noparenchymal att enuation abnormality. The zuñiga-white matter differentiationis preserved. The mastoid air cells and paranasal air sinuses are clear. The calvariumand central skull base are unremarkable. CT FACE The nasal bones and frontal processes of the maxilla are intact. Nasalseptum is midline. Nasal cavities are clear. The zygomatic arches, crabtree of the maxillary sinuses and pterygoid platesare intact. Bony orbits are intact. The eye globes, extraocular muscles and opticsheath complexes are symmetric. Clear intraorbital fat planes. The mandible and temporomandibular joints are intact. Few missingmandibular molars are noted. The dentition is otherwise unremarkable. The paranasal sinuses and mastoid air cells are clear. CT CERVICAL SPINE Vertebral bodies are normal in height and alignment. No acute fracture orsubluxation. Normal alignment of atlantoaxial joint and craniocervical junction. Moderate spondyloticchanges at C5-C7 manifested by disc space narrowingand marginal osteophytes. The prevertebral soft tissues are unremarkable. The visualized lungs are clear. [facility], Radiant Results Inft User - 111:37 AM CDTEXAM: CT HEAD WO CONTRAST, CT CERVICAL SPINE WO CONTRAST, CTMAXILLOFACIAL/MANDIBLE WO CONTRASTHISTORY: fall, hit head TECHNIQUE: CTs of the head, face and cervical spine were performed witho utintravenous contrast. Sagittal and coronal reformats were generated.COMPARISON: None.FINDINGS: CT HEADThe ventricles and sulci are normal in caliber and configuration. Nohydrocephalus, midline shift or pathological extra-axial fluid collectionis present. The basal cisterns are unremarkable.There is no acute intracranial hemorrhage or significant mass effect. Noparenchymal attenuation abnormality. The zuñiga-white matter differentiationis preserved.The mastoid air cells and paranasal air sinuses are clear. The calvariumand central skull base are unremarkable.CT FACEThe nasal bones and frontal processes of the maxilla are intact. Nasalseptum is midline. Nasal cavities are clear.The zygomatic arches,crabtree of the maxillary sinuses and pterygoid platesare intact.Bony orbits are intact. The eye globes, extraocular muscles and opticsheath complexes are symmetric. Clear intraorbital fat planes.The mandible and temporomandibular joints are intact. Few missingmandibular molars are noted. The dentition is otherwise unremarkable.The paranasal sinuses and mastoid air cells are clear.CT CERVICAL SPINEVertebral bodies are normal in height and alignment. No acute fracture orsubluxation.Normal alignment of atlantoaxial joint and craniocervical junction.Moderate spondylotic changes at C5-C7 manifested by disc space narrowingand marginal osteophytes.The prevertebral soft tissues are unremarkable.The visualized lungs are clear.IMPRESSIONNo acute intracranial abnormality.No acute facial bone fracture.No acutefracture or traumatic alignment of the cervical spine.[facility] [id number] 16:36:40 No acute intracranial abnormality. No acute facial bone fracture. No acute fracture or traumatic alignment of the cervical spine.EXAM: CT HEAD WO CONTRAST, CT CERVICAL SPINE WO CONTRAST, CTMAXILLOFACIA L/MANDIBLE WO CONTRAST HISTORY: fall, hit head TECHNIQUE: CTs of the head, face and cervical spine were performed withoutintravenous contrast. Sagittal and coronal reformats were generated. COMPARISON: None. FINDINGS: CT HEAD The ventricles and sulci are normal in caliber and configuration. Nohydrocephalus, midline shift or pathological extra-axial fluid collectionis present. The basal cisterns areunremarkable. There is no acute intracranial hemorrhage or significant mass effect. Noparenchymal attenuation abnormality. The zuñiga-white matter differentiationis preserved. The mastoid air cells and paranasal air sinuses are clear. The calvariumand central skull base are unremarkable. CT FACE The nasal bones and frontal processes of the maxilla are intact. Nasalseptum is midline. Nasal cavities are clear. The zygomatic arches, crabtree of the maxillary sinuses and pterygoid platesare intact. Bony orbits are intact. The eye globes, extraocular muscles and opticsheath complexes are symmetric. Clear intraorbital fat planes. The mandible and temporomandibular joints are intact. Few missingmandibular molars are noted. The dentition is otherwise unremarkable. The paranasal sinuses and mastoid air cells are clear. CT CERVICAL SPINE Vertebral bodies are normal in height and alignment. No acute fracture orsubluxation. Normal alignment of atlantoaxial joint and craniocervical junction. Moderate spondyloticchanges at C5-C7 manifested by disc space narrowingand marginal osteophytes. The prevertebral soft tissues are unremarkable. The visualized lungs are clear. [facility], Radiant Results Inft User - 111:37 AM CDTEXAM: CT HEAD WO CONTRAST, CT CERVICAL SPINE WO CONTRAST, CTMAXILLOFACIAL/MANDIBLE WO CONTRASTHISTORY: fall, hit head TECHNIQUE: CTs of the head, face and cervical spine were performed withoutintravenous contrast. Sagittal and coronal reformats were generated.COMPARISON: None.FINDINGS: CT HEADThe ventricles and sulci are normal in caliber and configuration. Nohydrocephalus, midline shift or pathological extra-axial fluid collectionis present. The basal cisterns are unremarkable.There is no acute intracranial hemorrhage or significant mass effect. Noparenchymal attenuation abnormality. The zuñiga-white matter differentiationis preserved.The mastoid air cells and paranasal air sinuses are clear. The calvariumand central skull base are unremarkable.CT FACEThe nasal bones and frontal processes of the maxilla are intact. Nasalseptum is midline. Nasal cavities are clear.The zygomatic arches,crabtree of the maxillary sinuses and pterygoid platesare intact.Bony orbits are intact. The eye globes, extraocular muscles and opticsheath complexes are symmetric. Clear intraorbital fat planes.The mandible and temporomandibular joints are intact. Few missingmandibular molars are noted. The dentition is otherwise unremarkable.The paranasal sinuses and mastoid air cells are clear.CT CERVICAL SPINEVertebral bodies are normal in height and alignment. No acute fracture orsubluxation.Normal alignment of atlantoaxial joint and craniocervical junction.Moderate spondylotic changes at C5-C7 manifested by disc space narrowingand marginal osteophytes.The prevertebral soft tissues are unremarkable.The visualized lungs are clear.IMPRESSIONNo acute intracranial abnormality.No acute facial bone fracture.No acutefracture or traumatic alignment of the cervical spine.[facility]CT MAXILLOFACIAL/MANDIBLE WO [id number] 16:36:40 No acute intracranial abnormality. No acute facial bone fracture. No acute fracture or traumatic ali gnment of the cervical spine.EXAM: CT HEAD WO CONTRAST, CT CERVICAL SPINE WO CONTRAST, CTMAXILLOFACIAL/MANDIBLE WO CONTRAST HISTORY: fall, hit head TECHNIQUE: CTs of the head, face and cervical spine were performed withoutintravenous contrast. Sagittal and coronal reformats were generated. COMPARISON: None. FINDINGS: CT HEAD The ventricles and sulci are normal in caliber and configuration. Nohydrocephalus, midline shift or pathological extra- axial fluid collectionis present. The basal cisterns areunremarkable. There is no acute intracranial hemorrhage or significant mass effect. Noparenchymal att enuation abnormality. The zuñiga-white matter differentiationis preserved. The mastoid air cells and paranasal air sinuses are clear. The calvariumand central skull base are unremarkable. CT FACE The nasal bones and frontal processes of the maxilla are intact. Nasalseptum is midline. Nasal cavities are clear. The zygomatic arches, crabtree of the maxillary sinuses and pterygoid platesare intact. Bony orbits are intact. The eye globes, extraocular muscles and opticsheath complexes are symmetric. Clear intraorbital fat planes. The mandible and temporomandibular joints are intact. Few missingmandibular molars are noted. The dentition is otherwise unremarkable. The paranasal sinuses and mastoid air cells are clear. CT CERVICAL SPINE Vertebral bodies are normal in height and alignment. No acute fracture orsubluxation. Normal alignment of atlantoaxial joint and craniocervical junction. Moderate spondyloticchanges at C5-C7 manifested by disc space narrowingand marginal osteophytes. The prevertebral soft tissues are unremarkable. The visualized lungs are clear. [facility], Radiant Results Inft User - 111:37 AM CDTEXAM: CT HEAD WO CONTRAST, CT CERVICAL SPINE WO CONTRAST, CTMAXILLOFACIAL/MANDIBLE WO CONTRASTHISTORY: fall, hit head TECHNIQUE: CTs of the head, face and cervical spine were performed witho utintravenous contrast. Sagittal and coronal reformats were generated.COMPARISON: None.FINDINGS: CT HEADThe ventricles and sulci are normal in caliber and configuration. Nohydrocephalus, midline shift or pathological extra-axial fluid collectionis present. The basal cisterns are unremarkable.There is no acute intracranial hemorrhage or significant mass effect. Noparenchymal attenuation abnormality. The zuñiga-white matter differentiationis preserved.The mastoid air cells and paranasal air sinuses are clear. The calvariumand central skull base are unremarkable.CT FACEThe nasal bones and frontal processes of the maxilla are intact. Nasalseptum is midline. Nasal cavities are clear.The zygomatic arches,crabtree of the maxillary sinuses and pterygoid platesare intact.Bony orbits are intact. The eye globes, extraocular muscles and opticsheath complexes are symmetric. Clear intraorbital fat planes.The mandible and temporomandibular joints are intact. Few missingmandibular molars are noted. The dentition is otherwise unremarkable.The paranasal sinuses and mastoid air cells are clear.CT CERVICAL SPINEVertebral bodies are normal in height and alignment. No acute fracture orsubluxation.Normal alignment of atlantoaxial joint and craniocervical junction.Moderate spondylotic changes at C5-C7 manifested by disc space narrowingand marginal osteophytes.The prevertebral soft tissues are unremarkable.The visualized lungs are clear.IMPRESSIONNo acute intracranial abnormality.No acute facial bone fracture.No acutefracture or traumatic alignment of the cervical spine.[facility] SARS-COV2/RT-PCR ([facility])2020-04-22 11:07:00 Test Item Value Reference Range Interpretation Comments SARS-COV2/RT-PCR (test code = Negative Not Detected, Negative [id number]) SARS-COV-2 PERFORMING LAB [facility] (test code = 8853355) Negative result for this test determines that SARS-CoV-2 RNA was not present in the specimen above the Limit of Detection (LOD). However, Negative results do not preclude SARS-CoV-2 infection and should not be used as the sole basis for treatment or patient management decisions. Negative results mustbe combined with clinical observations, patient history, and epidemiological information. A false negative result may occur if a specimen is improperly collected, transported or handled. A false negative result should be considered if patient's recent exposures or clinical presentation indicate that COVID-19 (SARS-CoV-2) is likely and diagnostic tests for other causes of illness are negative. Re-testing should be considered in cases of suspected false negatives.The limit of detection for this assay is 800 copies/mL.This SARS CoV-2 test is a real-time RT-PCR test intended for the qualitative detection of nucleic acid from SARS-CoV-2 in a nasopharyngeal swab specimen collected from individuals susp ected of COVID-19 by their healthcare provider.This test has not been Food and Drug Administration (FDA) cleared or approved. This is a modified version of an approved Emergency Use Authorization (EUA) and is in the process of review by the FDA. Once authorized by the FDA, the issued EUA will be effective until the declaration that circumstances exist justifying the authorization of the emergency use of in vitro diagnostic tests for detection and/or diagnosis of COVID-19 is terminated under Section 564(b)(2) of the Act or the EUA is revoked under Section 564(g) of the Act.Fact Sheet for Healthcare Providers:https://www.[employer]Wally/sites/default/files/product/documents/Fact_Shee d_DF_Ojeprjajk_Xowk_OWDP-FuF-2.pdfFact Sheet for Healthcare Patients:https://www.[employer]Wally/sites/default/files/product/ documents/Ywxs_Xsahl_Svkvfveg_Edmu_RLWE-LlK-5.pdfPerforming Laboratory:[facility] [place] [address]
[2021-10-11 20:55] LABS: Absolute Lymphocytes (CBC) 2.9 K/uL (0.7-4.9); Hematocrit 42.5 % (36.0-45.0); Lymphocytes % 38.5 % (15.3-44.8); MPV 7.6 fL (7.6-11.3); RBC Red Blood Cell Count 4.79 M/uL (3.86-4.86)
[2021-10-11] MEDS ORDERED: NA CHLORIDE 0.9% 2,000 ML ONE (21:05)
[2021-10-11] MEDS ORDERED: HYDROCODONE/APAP 10/325 TAB ONE (21:16)
[2021-10-11 21:45] LABS: Urine Blood Negative (Negative); Urine Glucose Negative (Negative); Urine Protein 1+ (Negative); Urine Specific Gravity >=1.030 (1.005-1.030); Urine pH 5.5 (5.0-7.0)
--- NOTE | 2021-10-11 22:37 | ER ---
Nurse's Notes [facility] Name: Rossy Jacob Age: 71 yrs Sex: Female : 1950 Arrival Date: 10/11/2021 Time: 16:15 Bed 15 Private MD: Diagnosis: Gastroenteritis. Dehydration Presentation: 10/11 17:56 Chief complaint: Patient states: she started having diarrhea 10/09/2021. Patient ap3 reports having just completed a 6 day corse of Bactrim. Coronavirus screen: At this time, the client does not indicate any symptoms associated with coronavirus-19. Ebola Screen: No symptoms or risks identified at this time. Initial Sepsis Screen: Does the patient meet any 2 criteria? No. Patient's initial sepsis screen is negative. Does the patient have a suspected source of infection? No. Patient's initial sepsis screen is negative. Risk Assessment: Do you want to hurt yourself or someone else? Patient reports no desire to harm self or others. Onset of symptoms was October 09, 2022. 17:56 Method Of Arrival: Ambulatory ap3 17:56 Acuity: JAZMIN 3 ap3 Triage Assessment: 17:58 General: Appears in no apparent distress. Behavior is calm, cooperative. Pain: ap3 Complains of pain in right arm, left arm, right leg and left leg Quality of pain is described as crampy. Neuro: Level of Consciousness is awake, alert, obeys commands, Oriented to person, place, time, situation, Appropriate for age Speech is normal. Cardiovascular: Patient's skin is warm and dry. heart monitor observed on patients anterior chest. Respiratory: Airway is patent Respiratory effort is even, unlabored. GI: Reports diarrhea, since 10/09/2021. Historical: - Allergies: 17:58 No Known Allergies; ap3 - PMHx: 17:58 Arthritis; Depression; Hyperlipidemia; Hypertension; Hypothyroidism; ulcerative colitis;ap3 - Immunization history:: Client reports receiving the 2nd dose of the Covid vaccine, and booster. - Social history:: Smoking status: Patient denies any tobacco usage or history of. Screenin:58 Abuse screen: Denies threats or abuse. Nutritional screening: No deficits noted. ap3 Tuberculosis screening: No symptoms or risk factors identified. 23:08 Fall Risk None identified. sv1 Vital Signs: 17:56 Pulse 83; Resp 18; Temp 98.8(TE); Pulse Ox 99% on R/A; Weight 92.99 kg; Height 5 ft. 4 ap3 in. (162.56 cm); 17:58 BP 122 / 71; ap3 17:56 Body Mass Index 35.19 (92.99 kg, 162.56 cm) ap3 ED Course: 16:15 Patient arrived in ED. ds1 17:58 Triage completed. ap3 18:00 Arm band placed on left wrist. ap3 20:21 Mesfin Garcia MD is Attending Physician. pkl 20:24 Arben Aragon, VIANEY is Primary Nurse. sv1 21:03 Chem 7 Sent. sv1 23:08 Patient has correct armband on for positive identification. Bed in low position. Call sv1 light in reach. Side rails up X2. 23:08 No provider procedures requiring assistance completed. IV discontinued. sv1 Administered Medications: 21:11 Drug: NS 0.9% 1000 ml Route: IV; Rate: 125 ml/hr; Site: right wrist; sv1 21:12 Drug: NS 0.9% 1000 ml Route: IV; Rate: 1000 ml; Site: right wrist; sv1 22:20 Follow up: IV Status: Completed infusion; IV Intake: 1000ml sv1 21:22 Drug: [place] (HYDROcodone-acetaminophen) 10 mg-325 mg 1 tabs {Note: RASS 0.} Route: PO; bb 22:19 Follow up: Response: No adverse reaction; Pain is decreased sv1 Intake: 22:20 IV: 1000ml; Total: 1000ml. sv1 Outcome: 22:36 Discharge ordered by . pkl 23:08 Discharged to home ambulatory, with family. sv1 23:08 Condition: good 23:08 Discharge instructions given to patient, family. 23:09 Patient left the ED. sv1 Signatures: Mesfin Garcia MD MD pkl Sanford, Demi ds1 Joann Ling RN RN bb Jeannie Montano RN RN ap3 Arben Aragon, VIANEY RN sv1
--- NOTE | 2021-10-11 22:37 | EDPHYS ---
Physician Documentation [facility] Name: Rossy Jacob Age: 71 yrs Sex: Female : 1950 Arrival Date: 10/11/2021 Time: 16:15 Bed 15 Private MD: ED Physician Mesfin Garcia HPI: 10/11 20:31 This 71 yrs old Female presents to ER via Ambulatory with complaints of Diarrhea. pkl 20:31 The patient presents to the emergency department with diarrhea. Onset: The pkl symptoms/episode began/occurred 3 day(s) ago. H/O ulcerative colitis. Historical: - Allergies: 17:58 No Known Allergies; ap3 - PMHx: 17:58 Arthritis; Depression; Hyperlipidemia; Hypertension; Hypothyroidism; ulcerative colitis;ap3 - Immunization history:: Client reports receiving the 2nd dose of the Covid vaccine, and booster. - Social history:: Smoking status: Patient denies any tobacco usage or history of. ROS: 20:31 Eyes: Negative for injury, pain, redness, and discharge, ENT: Negative for injury, pkl pain, and discharge, Neck: Negative for injury, pain, and swelling, Cardiovascular: Negative for chest pain, palpitations, and edema, Respiratory: Negative for shortness of breath, cough, wheezing, and pleuritic chest pain. 20:31 Abdomen/GI: Positive for diarrhea. 20:31 Back: Negative for acute changes. 20:31 : Negative for urinary symptoms. 20:31 MS/extremity: Negative for acute changes. 20:31 Skin: Negative for rash. 20:31 Neuro: Negative for altered mental status, loss of consciousness. Exam: 20:31 Head/Face: Normocephalic, atraumatic. Eyes: Pupils equal round and reactive to light, pkl extra-ocular motions intact. Lids and lashes normal. Conjunctiva and sclera are non-icteric and not injected. Cornea within normal limits. Periorbital areas with no swelling, redness, or edema. ENT: Nares patent. No nasal discharge, no septal abnormalities noted. Tympanic membranes are normal and external auditory canals are clear. Oropharynx with no redness, swelling, or masses, exudates, or evidence of obstruction, uvula midline. Mucous membranes moist. Neck: Trachea midline, no thyromegaly or masses palpated, and no cervical lymphadenopathy. Supple, full range of motion without nuchal rigidity, or vertebral point tenderness. No Meningismus. Chest/axilla: Normal chest wall appearance and motion. Nontender with no deformity. No lesions are appreciated. Cardiovascular: Regular rate and rhythm with a normal S1 and S2. No gallops, murmurs, or rubs. Normal PMI, no JVD. No pulse deficits. Respiratory: Lungs have equal breath sounds bilaterally, clear to auscultation and percussion. No rales, rhonchi or wheezes noted. No increased work of breathing, no retractions or nasal flaring. 20:31 Abdomen/GI: Bowel sounds: active, Palpation: abdomen is soft and non-tender, in all quadrants. 20:31 Back: Exam negative for acute changes. 20:31 : Exam negative for acute changes. 20:31 Musculoskeletal/extremity: Exam is negative for acute changes. 20:31 Skin: Exam negative for rash. 20:31 Neuro: Orientation: is normal, Mentation: is normal, Cranial nerves: grossly normal, Motor: is normal. Vital Signs: 17:56 Pulse 83; Resp 18; Temp 98.8(TE); Pulse Ox 99% on R/A; Weight 92.99 kg; Height 5 ft. 4 ap3 in. (162.56 cm); 17:58 BP 122 / 71; ap3 17:56 Body Mass Index 35.19 (92.99 kg, 162.56 cm) ap3 MDM: 20:21 Patient medically screened. pkl 22:33 Data reviewed: vital signs, nurses notes, lab test result(s). ED course: Patient pkl feeling better. Discussed lab results with patient. Advised to follow up with her PCP in 2 to 3 days. To return if necessary. Patient understood instructions. 10/11 20:30 Order name: CBC with Diff; Complete Time: 21:19 pkl 10/11 20:30 Order name: Chem 7; Complete Time: 21:19 pkl 10/11 21:45 Order name: Urine Dipstick-Ancillary; Complete Time: 22:29 EDMS 10/11 20:34 Order name: Urine Dipstick-Ancillary (obtain specimen) pkl Administered Medications: 21:11 Drug: NS 0.9% 1000 ml Route: IV; Rate: 125 ml/hr; Site: right wrist; sv1 21:12 Drug: NS 0.9% 1000 ml Route: IV; Rate: 1000 ml; Site: right wrist; sv1 22:20 Follow up: IV Status: Completed infusion; IV Intake: 1000ml sv1 21:22 Drug: [place] (HYDROcodone-acetaminophen) 10 mg-325 mg 1 tabs {Note: RASS 0.} Route: PO; bb 22:19 Follow up: Response: No adverse reaction; Pain is decreased sv1 Disposition Summary: 10/11/21 22:36 Discharge Ordered Location: Home pkl Problem: new pkl Symptoms: have improved pkl Condition: Stable pkl Diagnosis - Gastroenteritis. Dehydration pkl Followup: pkl - With: Private Physician - When: 2 - 3 days - Reason: Re-evaluation by your physician Forms: - Medication Reconciliation Form pkl - Thank You Letter pkl - Antibiotic Education pkl - Prescription Opioid Use pkl Signatures: Dispatcher [employer] Mesfin Heart MD MD pkl Joann Ling RN RN bb Prokisch, Amanda, RN RN ap3 Arben Aragon RN RN sv1
[2021-10-11 23:35] VITALS: TEMP 98.8; O2SAT 99
[2021-10-11 23:36] VITALS: BP 122/71
== END 2021-10-11 23:09 | disposition home or self-care (01) ==
LOC: ER 16:03
DX: E86.0 Dehydration (principal); K52.9 Noninfective gastroenteritis and colitis, unspecified; I10 Essential (primary) hypertension
CPT/HCPCS: 85025; 80048; 36415; 81003; 96360; 99283; J7030

== ENCOUNTER 2022-06-13 11:00 | Day surgery (SDC) | payer BC ==
[2022-06-10 13:34] LABS: Absolute Lymphocytes (CBC) 2.6 K/uL (0.7-4.9); Hematocrit 38.2 % (36.0-45.0); Lymphocytes % 42.6 % (15.3-44.8); MCV 84.1 fL (80-100); MPV 7.9 fL (7.6-11.3); RBC Red Blood Cell Count 4.54 M/uL (3.86-4.86)
[2022-06-10 13:40] LABS: Protime INR 1.35
[2022-06-10 13:46] LABS: Potassium 3.2 mmol/L (3.5-5.1)
--- NOTE | 2022-06-10 13:57 | RAD REPORT ---
EXAM DESCRIPTION: RAD - Chest Pa And Lat (2 Views) - 06/10/2022 1:52 pm CLINICAL HISTORY: PRE PROCEDURE COMPARISON: Portable chest 04/21/2020, lateral chest 12/16/2019 TECHNIQUE: Frontal and lateral views of the chest were obtained. FINDINGS: The lungs are clear of an acute infiltrate or mass. No failure or volume overload. Promine nt interstitial pattern is stable. Right hemidiaphragm elevation and eventration noted and stable. Heart size is normal and central vasculature is within normal limits. No pleural effusion or pneu mothorax seen. No acute bony finding noted. No aortic abnormality. IMPRESSION: No acute cardiopulmonary process. No significant change from comparison study.
[2022-06-10 15:15] LABS: SARS-CoV-2 Antigen Rapid Res Negative (Negative)
[2022-06-13] MEDS ORDERED: HEPA 1000U/500MLS 2,000 UNIT/1,000 ML BAG IV ONE (11:02)
[2022-06-13] MEDS ORDERED: LIDOCAINE 1% MPF 30 ML VIAL ONE (11:02)
[2022-06-13] MEDS ORDERED: HEPARIN 5000 UNIT/ML 1 ML VIAL ONE (11:03)
[2022-06-13] MEDS ORDERED: NITROGLYCERIN 100 MCG/ML SYR (for cath lab use only) IV ONE (11:03)
[2022-06-13] MEDS ORDERED: VERAPAMIL HCL 10 MG/4 ML VIAL IV ONE (11:03)
[2022-06-13] MEDS ORDERED: FENTANYL CITR 100 MCG/2 ML ONE (11:03)
[2022-06-13] MEDS ORDERED: NITROGLYCERIN/D5W 25 MG/250 ML BTL IV ONE (11:03)
[2022-06-13] MEDS ORDERED: HEPARIN 10,000 UNIT/10 ML VIAL IV ONE (11:03)
[2022-06-13] MEDS ORDERED: MIDAZOLAM HCL 2 MG/2 ML INJ ONE (11:03)
[2022-06-13] MEDS ORDERED: NA CHLORIDE 0.9% 500 ML ONE (11:18)
--- NOTE | 2022-06-13 13:52 | OP ---
Date of Procedure: 06/13/2022 Surgeon: SUMI FOWLER Procedures Performed: 1.Selective coronary angiogram. 2.Left heart catheterization. Indication: Grossly abnormal stress test with at least medium-sized ischemia of the LAD territory. Access: Right radial artery 6-Beninese, closed with TR band. Complications: None. Bleeding: Less than 10 mL. Anesthesia: Total sedation time was 35 minutes. Used fentanyl and Versed. Description Of Procedure: After risks, benefits, alternatives were explained, the patient agreed to procedure and signed informed consent. The patient was brought into the cardiac catheterization [facility], prepped and draped in usual sterile fashion. We gave fentanyl and Versed in incremental dose s to achieve adequate moderate sedation, and then, I took a pediatric micropuncture kit and accessed right radial artery and placed a 6-Beninese slender sheath. We took a 5-Beninese [place] 4.0 catheter into the aortic root, engaged left main and right coronary artery, took standard views, and then, the cat heter was pushed over the wire across the aortic valve into the LV. Measured LVEDP and pullback did not record any gradient. Then, we removed the catheter and the sheath and placed TR band with good h emostasis. Findings: 1.Left main: Very large and normal. 2.LAD: Large vessel, normal, no disease. All diagonal branches are normal. 3.Left circumflex: Moderate size and it is non dominant and it is normal. 4.RCA: Very large artery and dominant and normal. 5.Elevated LVEDP at 23 mmHg. Conclusion: 1.Normal coronary arteries. 2.Elevated LVEDP at 23 mmHg. Plan: Risk factor modifications and diuretics. SR/MODL Voice ID: [id number] Report ID: [id number]
[2022-06-13] MEDS ORDERED: ACETAMINOPHEN 325 MG TABLET ONE (14:34)
[2022-06-13 15:11] VITALS: BP 143/62; O2SAT 90
== END 2022-06-13 15:18 | disposition home or self-care (01) ==
LOC: DS 11:00
PROVIDERS: ATTEND Internal Medicine
DX: R94.39 Abnormal result of other cardiovascular function study (principal); I20.0 Unstable angina; I10 Essential (primary) hypertension; I48.91 Unspecified atrial fibrillation; E78.5 Hyperlipidemia, unspecified; E78.00 Pure hypercholesterolemia, unspecified; Z79.01 Long term (current) use of anticoagulants; Z79.899 Other long term (current) drug therapy; Z20.822 Contact with and (suspected) exposure to COVID-19; Z82.49 Family history of ischemic heart disease and other diseases of the circulatory system
CPT/HCPCS: 85025; 80048; 36415; 85610; 85730; 71046; 93458; 76937; 87811; C1893; J1644 ×2; J2250; J3010; J7040; Q9966

== ENCOUNTER 2022-11-17 09:02 | Day surgery (SDC) | payer BC ==
[2022-11-17] MEDS ORDERED: NA CHLORIDE 0.9% 250 ML ONE (09:55)
[2022-11-17] MEDS ORDERED: INFLIXIMAB ABDA IV ONE (10:00)
[2022-11-17] MEDS ORDERED: NA CHLORIDE 0.9% IV ONE (10:00)
[2022-11-17 11:23] VITALS: BMI 37.2
[2022-11-17 14:10] VITALS: BP 122/50; TEMP 97.4; O2SAT 95
== END 2022-11-17 12:32 | disposition home or self-care (01) ==
LOC: DS 09:02
PROVIDERS: ATTEND Internal Medicine Gastroenterology
DX: K51.00 Ulcerative (chronic) pancolitis without complications (principal)
CPT/HCPCS: 96365; 96366; J7050; Q5104

== ENCOUNTER 2023-03-01 21:33 | Emergency (ER) | payer BC ==
--- OUTSIDE RECORDS SUMMARY | 2023-03-01 21:38 | XMS REPORT | Continuity of Care Document ---
:1950 Author Organization [facility] t Address [address] [place] [address]. [address] [place] [address] Care Team Providers Name Role Phone JUNE HOUSTON Primary Care Physician Unavailable NATALIE JAIME Attending Clinician Unavailable NATALIE JAIME Attending Clinician Unavailable PRAFUL PRESCOTT Attending Clinician Unavailable Only, Ang Db Test Attending Clinician Unavailable Praful Lawrence Attending Clinician Paul Lerma Attending Clinician Unavailable Shy Ornelas DO Attending Clinician SUMAN CA Attending Clinician Unavailable NATALIE JAIME Admitting Clinician Unavailable June [place] Admitting Clinician Unavailable Payers Payer Name Policy Type Policy Number Effective Date Expiration Date S tori BCBS FED SELECT [id number] 2011 00:00:00 OUT OF STATE BCBS [id number] PPO - BCBS CVCP-BCBS [id number] BCBS FED [id number] 2011 00:00:00 Problems Condition Condition Condition Status Onset Resolution Last Treating Co mments Source Name Details Category Date Date Treatment Clinician Date SOB SOB Disease Active [facility] (shortness (shortness 5-19 Co llege of breath) of breath) 00:00: of 00 Medicin e A-fib A-fib Disease Recurre [facility] 3-28 [facility] 00:00: Medical 00 [place] Persistent Persistent Disease Recurre [facility] atrial atrial nce 9-01 [facility] fibrillati fibrillati 00:00: Me dical on on Center Persistent Persistent Disease Active [facility] atrial atrial 7-21 [place] fibrillati fibrillati 00:00: of on on Medicin e Ulcerative Ulcerative Disease Active [facility] colitis colitis 7-21 [facility] 00:00: of 00 Medicin e Essential Essential Disease Active [facility] hypertensi hypertensi 9-02 Co llege on, benign on, benign 00:00: of 00 Medicin e Allergies, Adverse Reactions, Alerts Allergy Allergy Status Severity Reaction(s) Onset Inactive Treating Comm ents Source Name Type Date Date Clinician [place] [facility]: [address] [place] DA Active [place] [facility] ins 10-17 00:00: [address] NO KNOWN Allergy Active [facility] NO KNOWN Drug Active [facility] ALLERGIE [facility] [place] [facility] Social History Social Habit Start Date Stop Date Quantity Comments Source Exposure to Not sure University SARS-CoV-2 [place] [facility] (event) [facility] History [facility] of Alcohol Comment Medicine History [facility] Alcohol Std Medical Cent[facility] r Drinks History SDOH [facility] Alcohol Binge [facility] Alcohol intake 2022-01-10 2022-01-10 Ex-drinker [facility] [place] [facility] 00:00:00 00:00:00 (finding) [facility] Tobacco use and 2021-06-15 2021-06-15 Smokeless [address] [facility] exposure 00:00:00 00:00:00 non-user Medical Center History SDOH 2021-06-15 2021-06-[address] [facility] Alcohol Frequency 00:00:00 00:00:[address] [facility] Sex Assigned At [birth year] [facility] [place] 00:00:00 00:00:00 [facility] Smoking Status Start Date Stop Date Source Never smoked tobacco [facility] of Medicine Medications Ordered Filled Start Stop Current Ordering Indication Dosage Frequency Signature Comments Components Source Medication Medication Date Date Medication? Clinician (SIG) Name Name simvastatin Yes 40mg Take 1 [facility] (ZOCOR) 40 - Tablet by [facility] MG tablet 15:44: mouth of 03 daily. Medicin e furosemide Yes 20mg Take 1 [facility] (LASIX) 20 -08 Tablet by [facility] MG tablet 15:44: mouth of 03 daily. Medicin e FUROSEMIDE 2022- No Take by [facility] OR 12-21 mouth College 15:43: 00:00 daily. of 11 :00 Medicin e citalopram Yes 20mg Take 2 [facility] (CELEXA) 10 - Tablets by Co llege MG tablet 15:43: mouth of 10 daily. Medicin e Ascorbic Yes Take by [facility] Acid 12-21 [facility] [place]VITAMIN C 15:43: daily. of OR) 10 Medicin e Cyanocobala Yes Take by [facility] min 12-21 mouth [place] (VITAMIN 15:43: daily. of B12 OR) 10 Medicin e metoprolol Yes 25mg Take 1 [facility] (TOPROL-XL) 3-08 Tablet by Col lege 25 MG XL 15:43: mouth of tablet 10 daily. Medicin e Apixaban Yes TAKE 1 [facility] (ELIQUIS) 5 07-06 TABLET BY Col lege MG TABS 00:00: MOUTH 2 of 00 TIMES Medicin DAILY WITH e FOOD *DO NOT TAKE ASPIRIN* citalopram 0 Yes 20mg Take 20 mg [facility] (CELEXA) 10 06-16 by mouth [place] MG tablet 14:57: daily. of 27 Medicin e simvastatin 0 Yes 40mg Take [address] [facility] (ZOCOR) 40 06-16 by mouth Colle ge MG tablet 14:57: daily. of 27 Medicin e Ascorbic 0 Yes Take by [facility] Acid 06-16 mouth [place] (VITAMIN C 14:57: daily. of OR) 27 Medicin e Cyanocobala Yes Take by [facility] min 06-16 mouth [place] (VITAMIN 14:57: daily. of B12 OR) 27 Medicin e FUROSEMIDE 0 Yes Take by [facility] OR 06-16 mouth [place] 14:57: daily. of 27 Medicin e citalopram 0 Yes 20mg Take 20 mg [facility] (CELEXA) 10 03-03 by mouth [facility] MG tablet 15:46: daily. of 54 Medicin e simvastatin 0 Yes 40mg Take 40 mg [facility] (ZOCOR) 40 03-03 by mouth Colle ge MG tablet 15:46: daily. of 54 Medicin e Ascorbic Yes Take by [facility] Acid 03-03 mouth [place] (VITAMIN C 15:46: daily. of OR) 54 Medicin e Cyanocobala 0 Yes Take by [facility] min 03-03 mouth [place] (VITAMIN 15:46: daily. of B12 OR) 54 Medicin e FUROSEMIDE 0 Yes Take by [facility] OR 03-03 mouth [place] 15:46: daily. of 54 Medicin e Sacubitril- 2021-0 Yes 1{tbl} Take 1 [facility] Valsartan 5-19 Tablet by Colle ge (ENTRESTO) 00:00: mouth two of 24-26 MG 00 times Medicin TABS daily. e Sacubitril- 2021-0 Yes 1{tbl} Take 1 [facility] Valsartan 5-19 Tablet by Colle ge (ENTRESTO) 00:00: mouth two of 24-26 MG 00 times Medicin TABS daily. e Sacubitril- 0 Yes 1{tbl} Take 1 [facility] Valsartan 5-17 Tablet by [place] [facility] (ENTRESTO) 00:00: mouth of 24-26 MG 00 daily. Medicin TABS e sacubitriL- Yes 1{tbl} Q.5D Take [address] valsartan 3-29 tablet by [facility] (Entresto) 10:30: mouth 2 Medi chelo 24-26 mg 03 (two) Center Tab times daily. amLODIPine 0 Yes 10mg QD Take [address] (NORVASC) 3-28 by mouth [facility] 10 MG 12:03: daily. Medical tablet 22 Center inFLIXimab Yes Inject [facility] (REMICADE) 3-28 intravenou Tod es 100 mg 12:03: sly once Medical injection 22 every 8 Center weeks. ASCORBIC Yes 1000U QD Take 1,[address] ACID, 3-28 Units by Isabella Oliver VITAMIN C, 12:03: mouth Medica l ORAL 22 daily . [place] CYANOCOBALA Yes 1000U QD Take 1,[address] MIN, 3-28 Units by Isabella Oliver VITAMIN 12:03: mouth Medical B-12, ORAL 22 daily . [place] apixaban Yes 5mg Q.5D Take [address] (Eliquis) 5 3-28 by mouth 2 Lauryn kes mg Tab 12:03: (two) Medical tablet 22 times Center daily. citalopram Yes 20mg Take 20 mg [facility] (CELEXA) 10 -22 by mouth [place] MG tablet 13:16: daily. of 12 Medicin e simvastatin Yes 40mg Take [address] [facility] (ZOCOR) 40 -22 by mouth Colle ge MG tablet 13:16: daily. of 12 Medicin e Ascorbic Yes Take by [facility] Acid 01-04 mouth College (VITAMIN C 13:16: daily. of OR) 12 Medicin e Cyanocobala Yes Take by [facility] min 01-04 mouth College (VITAMIN 13:16: daily. of B12 OR) 12 Medicin e FUROSEMIDE Yes Take by [facility] OR 01-04 mouth College 13:16: daily. of 12 Medicin e flecainide Yes 100mg Take 1 [facility] (TAMBOCOR) 3-22 Tablet by [facility] 100 MG 00:00: mouth two of tablet 00 times Medicin daily. e flecainide 0 Yes 100mg Take 1 [facility] (TAMBOCOR) 3-22 Tablet by [facility] 100 MG 00:00: mouth two of tablet 00 times Medicin daily. e flecainide 0 Yes 100mg Take 1 [facility] (TAMBOCOR) 3-22 Tablet by [facility] 100 MG 00:00: mouth two of tablet 00 times Medicin daily. e flecainide 0 Yes 100mg Take 1 [facility] (TAMBOCOR) 3-22 Tablet by [facility] 100 MG 00:00: mouth two of tablet 00 times Medicin daily. e Ascorbic 2020-10 Yes Take by [facility] Acid 11-29 [facility] [place]ITAMIN C 13:40: daily. of OR) 34 Medicin e Cyanocobala 2020-10 Yes Take by [facility] min 11-29 [facility] [place]IT[place]IN 13:40: daily. of B12 OR) 34 Medicin e FUROSEMIDE 2020-10 Yes Take by [facility] [place] -14 [facility] 13:40: daily. of 34 Medicin e citalopram 2020-10 Yes 20mg Take 20 mg [facility] (CELEXA) 10 2-14 by mouth [place] MG tablet 13:40: daily. of 34 Medicin e amlodipine 2020-10 Yes 10mg Take 10 mg [facility] (NORVASC) 1-15 by mouth Colleg e 10 MG 00:00: daily. of tablet 00 Medicin e amlodipine 2020-10 Yes 10mg Take 10 mg [facility] (NORVASC) 1-15 by mouth Colleg e 10 MG 00:00: daily. of tablet 00 Medicin e amlodipine 2020-10 Yes 10mg Take 10 mg [facility] (NORVASC) 1-15 by mouth Colleg e 10 MG 00:00: daily. of tablet 00 Medicin e amlodipine 2020-10 Yes 10mg Take 10 mg [facility] (NORVASC) 1-15 by mouth Colleg e 10 MG 00:00: daily. of tablet 00 Medicin e amlodipine 2020-10 Yes 10mg Take 1 [facility] (NORVASC) 1-15 Tablet by Colle ge 10 MG 00:00: mouth of tablet 00 daily. Medicin e simvastatin 2020-10 Yes 40mg Take 40 mg [facility] (ZOCOR) 40 0-07 by mouth Colle ge MG tablet 13:23: daily. of 29 Medicin e citalopram 2020-10 Yes 20mg Take 20 mg [facility] (CELEXA) 10 0-07 by mouth [place] MG tablet 13:23: daily. of 29 Medicin e simvastatin 2020-10 Yes 40mg Take [address] [facility] (ZOCOR) 40 0-07 by mouth Colle ge MG tablet 13:23: daily. of 29 Medicin e Ascorbic 2020-10 Yes Take by [facility] Acid 0-07 mouth [place] (VITAMIN C 13:23: daily. of OR) 29 Medicin e Cyanocobala 2020-10 Yes Take by [facility] min 0-07 mouth [place] (VITAMIN 13:23: daily. of B12 OR) 29 Medicin e FUROSEMIDE 2020-10 Yes Take by [facility] OR 0-07 mouth [place] 13:23: daily. of 29 Medicin e amlodipine 2020-10- No 10mg Take 10 mg [facility] (NORVASC) 0-07 10-07 by mouth Colle ge 10 MG 13:23: 00:00 daily. of tablet 21 :00 Medicin e flecainide Yes 100mg Take 1 [facility] (TAMBOCOR) 9-02 Tablet by [facility] 100 MG 00:00: mouth two of tablet 00 times Medicin daily. e Apixaban 0 Yes 5mg Take 5 mg [facility] (ELIQUIS) 5 9-02 by mouth [facility] MG TABS 00:00: two times of 00 daily. Medicin e Apixaban 0 Yes 5mg Take 5 mg [facility] (ELIQUIS) 5 9-02 by mouth [facility] MG TABS 00:00: two times of 00 daily. Medicin e Apixaban 0 Yes 5mg Take 5 mg [facility] (ELIQUIS) 5 9-02 by mouth [facility] MG TABS 00:00: two times of 00 daily. Medicin e Apixaban Yes 5mg Take 5 mg [facility] (ELIQUIS) 5 - by mouth [facility] MG TABS 00:00: [...] times of 00 daily. Medicin e flecainide 2021- No 100mg Take [address] [facility] [address] (TAMBOCOR) 06-17- tablet [facility] 100 MG 00:00: 23:59 (100 mg Medical tablet 00 :00 total) by Center mouth every 12 (twelve) hours. flecainide 2021- No 100mg Take 1 [facility] (TAMBOCOR) 06-17 03- Tablet by Col lege 100 MG 00:00: 00:00 mouth two of tablet 00 :00 times Medicin daily. e HYDROcodone Yes 1{tbl} Take [address] -acetaminop 8-25 tablet by [facility] (NORCO 00:00: mouth Medica l 10-325) 00 every 6 Center 10-325 mg (six) per tablet hours as needed . ALPRAZolam Yes .25mg Q.5D 0.25 mg [address] (XANAX) 0.5 8-16 (two) [facility] MG tablet 00:00: times Medical 00 daily. Center simvastatin Yes 40mg QD Take [address] [address] (ZOCOR) 40 8-12 by mouth [facility] MG tablet 00:00: nightly . Med ical 00 Center mesalamine 0 Yes 1200mg Q.5D Take 1,[address] (LIALDA) 8-12 mg by [facility] 1.2 gram EC 00:00: mouth 2 Med ical tablet 00 (two) Center times daily . metoprolol Yes 25mg QD Take [address] succinate 8-03 by mouth [facility] (TOPROL-XL) 00:00: daily . Med ical 25 MG 24 hr 00 Center tablet citalopram Yes 40mg QD Take [address] (CeleXA) 40 8-03 by mouth Luke s MG tablet 00:00: daily . Medic al 00 Center levothyroxi Yes 50ug Take [address] ne 8-03 mcg by [facility] (SYNTHROID, 00:00: mouth Medic al LEVOTHROID) 00 Every Center 50 MCG morning on tablet an empty stomach 2 tabs in am 2 in pm.. pantoprazol Yes 40mg Q.5D Take [address] [facility] e 8-03 by mouth 2 [facility] (PROTONIX) 00:00: (two) Medica l 40 MG 00 times Center tablet daily . citalopram Yes 20mg Take 20 mg [facility] (CELEXA) 10 05-05 by mouth [facility] MG tablet 14:55: daily. of Medicin e amlodipine Yes 10mg Take 10 mg [facility] (NORVASC) 05-05 by mouth Colleg e 10 MG 14:55: daily. of tablet 06 Medicin e simvastatin Yes 40mg Take 40 mg [facility] (ZOCOR) 40 05-05 by mouth Colle ge MG tablet 14:55: daily. of 06 Medicin e Ascorbic Yes Take by [facility] Acid 05-05 [facility] [place]IT[place]IN [place] 14:55: daily. of OR) 06 Medicin e Cyanocobala Yes Take by [facility] min 05-05 mouth [place] (VITAMIN 14:55: daily. of B12 OR) 06 Medicin e alprazolam Yes .25mg Take 0.25 [facility] (XANAX) 0.5 7-14 mg by [place] MG tablet 00:00: mouth two of 00 times Medicin daily. e losartan 0 Yes 100mg Take 100 [facility] (COZAAR) 7-14 mg by College 100 MG 00:00: mouth of tablet 00 daily. Medicin e Mesalamine Yes four times [facility] 1.2 g TBEC 7-14 daily. College 00:00: of 00 Medicin e alprazolam Yes .25mg Take 0.25 [facility] (XANAX) 0.5 7-14 mg by College MG tablet 00:00: mouth two of 00 times Medicin daily. e Mesalamine 2020-0 Yes four times [facility] 1.2 g TBEC 7-14 daily. College 00:00: of 00 Medicin e alprazolam 2020-0 Yes .25mg Take 0.25 [facility] (XANAX) 0.5 7-14 mg by College MG tablet 00:00: mouth two of 00 times Medicin daily. e Mesalamine 2020-0 Yes four times [facility] 1.2 g TBEC 7-14 daily. College 00:00: of 00 Medicin e alprazolam 2020-0 Yes .25mg Take 0.25 [facility] (XANAX) 0.5 7-14 mg by College MG tablet 00:00: mouth two of 00 times Medicin daily. e Mesalamine 1-0 Yes four times [facility] 1.2 g TBEC 7-14 daily. College 00:00: of 00 Medicin e alprazolam 2020-0 Yes .25mg Take 0.5 [facility] (XANAX) 0.5 7-14 Tablets by Nv llege MG tablet 00:00: mouth two of 00 times Medicin daily. e Mesalamine 2020-0 Yes four times [facility] 1.2 g TBEC 7-14 daily. College 00:00: of 00 Medicin e alprazolam 2020-0 Yes .25mg Take 0.25 [facility] (XANAX) 0.5 7-14 mg by [place] MG tablet 00:00: mouth two of 00 times Medicin daily. e losartan 1-0 Yes 100mg Take 100 [facility] (COZAAR) 7-14 mg by College 100 MG 00:00: mouth of tablet 00 daily. Medicin e Mesalamine 2020-0 Yes four times [facility] 1.2 g TBEC 7-14 daily. College 00:00: of 00 Medicin e alprazolam 2020-0 Yes .25mg Take 0.25 [facility] (XANAX) 0.5 7-14 mg by College MG tablet 00:00: mouth two of 00 times Medicin daily. e losartan 1-0 Yes 100mg Take 100 [facility] (COZAAR) 7-14 mg by [place] 100 MG 00:00: mouth of tablet 00 daily. Medicin e Mesalamine 0 Yes four times [facility] 1.2 g TBEC 7-14 daily. College 00:00: of 00 Medicin e losartan 2020-0 2022- No 100mg Take 100 [facility] (COZAAR) 7-14 03-22 mg by [place] 100 MG 00:00: 00:00 mouth of tablet 00 :00 daily. Medicin e hyoscyamine 2020-0 Yes .125mg Take 0.125 [facility] (LEVSIN/SL) 7-06 mg by [place] 0.125 MG SL 00:00: mouth as of tablet 00 needed. Medicin e hyoscyamine 2020-0 Yes .125mg Take 0.[address] [facility] (LEVSIN/SL) 7-06 mg by [place] 0.125 MG SL 00:00: mouth as of tablet 00 needed. Medicin e hyoscyamine 0 Yes .125mg Take 0.125 [facility] (LEVSIN/SL) 7-06 mg by [place] 0.125 MG SL 00:00: mouth as of tablet 00 needed. Medicin e hyoscyamine 2020-0 Yes .125mg Take 0.[address] [facility] (LEVSIN/SL) 7-06 mg by [place] 0.125 MG SL 00:00: mouth as of tablet 00 needed. Medicin e hyoscyamine 2020-0 Yes 125ug Take 1 [facility] (LEVSIN/SL) 7-06 Tablet by [facility] 0.125 MG SL 00:00: mouth as of tablet 00 needed. Medicin e hyoscyamine 2020-0 Yes .125mg Take 0.[address] [facility] (LEVSIN/SL) 7-06 mg by [place] 0.125 MG SL 00:00: mouth as of tablet 00 needed. Medicin e hyoscyamine 2020-0 Yes .125mg Take 0.125 [facility] (LEVSIN/SL) 7-06 mg by [place] 0.125 MG SL 00:00: mouth as of tablet 00 needed. Medicin e hyoscyamine 2020-0 Yes .125mg Take 0.[address] [facility] (LEVSIN/SL) 7-06 mg by [facility] 0.125 mg SL 00:00: mouth Medic al tablet 00 every 6 Center (six) hours as needed . hydrocodone 2021-0 Yes 1{tbl} Take 1 [facility] -acetaminop 7-01 Tablet by Col lege hen (Avaamo) 00:00: mouth four of 10-325 MG 00 times Medicin per tablet daily. e metoprolol 2021-0 Yes 50mg Take 50 mg [facility] (TOPROL-XL) 7-01 by mouth [facility] 50 MG XL 00:00: daily. of tablet 00 Medicin e hydrocodone 2020-0 Yes 1{tbl} Take 1 [facility] -acetaminop 7-01 Tablet by Col [facility] hen (Avaamo) 00:00: mouth four of 10-325 MG 00 times Medicin per tablet daily. e metoprolol 2021-0 Yes 50mg Take 50 mg [facility] (TOPROL-XL) 7-01 by mouth [facility] 50 MG XL 00:00: daily. of tablet 00 Medicin e hydrocodone 2020-0 Yes 1{tbl} Take 1 [facility] -acetaminop 7-01 Tablet by Col [facility]ge hen (Avaamo) 00:00: mouth four of 10-325 MG 00 times Medicin per tablet daily. e metoprolol 1-0 Yes 50mg Take 50 mg [facility] (TOPROL-XL) 7-01 by mouth [facility] 50 MG XL 00:00: daily. of tablet 00 Medicin e hydrocodone 2020-0 Yes 1{tbl} Take 1 [facility] -acetaminop 7-01 Tablet by Col lege hen (Avaamo) 00:00: mouth four of 10-325 MG 00 times Medicin per tablet daily. e metoprolol 2021-0 Yes 25mg Take 25 mg [facility] (TOPROL-XL) 7-01 by mouth [facility] 25 MG XL 00:00: daily. of tablet 00 Medicin e hydrocodone 2020-0 Yes 1{tbl} Take 1 [facility] -acetaminop 7-01 Tablet by Col [facility]ge hen (Avaamo) 00:00: mouth four of 10-325 MG 00 times Medicin per tablet daily. e hydrocodone 2021-0 Yes 1{tbl} Take 1 [facility] -acetaminop 7-01 Tablet by Col lege hen (Avaamo) 00:00: mouth four of 10-325 MG 00 times Medicin per tablet daily. e metoprolol 0 Yes 25mg Take 25 mg [facility] (TOPROL-XL) 04-15 by mouth [facility] 25 MG XL 00:00: daily. of tablet 00 Medicin e hydrocodone Yes 1{tbl} Take 1 [facility] -acetaminop 04-15 Tablet by Col [facility]ge hen (NORCO) 00:00: mouth four of 10-325 MG 00 times Medicin per tablet daily. e metoprolol 0 Yes 25mg Take 25 mg [facility] (TOPROL-XL) 04-15 by mouth [facility] 25 MG XL 00:00: daily. of tablet 00 Medicin e metoprolol 0 2023- No 50mg Take 50 mg [facility] (TOPROL-XL) 04-15 03-08 by mouth Col [facility]ge 50 MG XL 00:00: 00:00 daily. of tablet 00 :00 Medicin e levothyroxi 0 Yes 50ug Take 50 [facility] ne 6-29 mcg by [place] (SYNTHROID) 00:00: mouth of 50 MCG 00 daily. Medicin tablet e pantoprazol 0 Yes 40mg Take [address] [facility] e 6-29 by mouth [place] (PROTONIX) 00:00: two times of 40 MG 00 daily. Medicin tablet e levothyroxi 0 Yes 50ug Take 50 [facility] ne 6-29 mcg by [place] (SYNTHROID) 00:00: mouth of 50 MCG 00 daily. Medicin tablet e pantoprazol 2020-0 Yes 40mg Take 40 mg [facility] e 6-29 by mouth [place] (PROTONIX) 00:00: two times of 40 MG 00 daily. Medicin tablet e levothyroxi 2020-0 Yes 50ug Take 50 [facility] ne 6-29 mcg by [place] (SYNTHROID) 00:00: mouth of 50 MCG 00 daily. Medicin tablet e pantoprazol 2020-0 Yes 40mg Take 40 mg [facility] e 6-29 by mouth [place] (PROTONIX) 00:00: two times of 40 MG 00 daily. Medicin tablet e levothyroxi 2020-0 Yes 50ug Take 50 [facility] ne 6-29 mcg by [place] (SYNTHROID) 00:00: mouth of 50 MCG 00 daily. Medicin tablet e pantoprazol 2021-0 Yes 40mg Take [address] [facility] e 6-29 by mouth [place] (PROTONIX) 00:00: two times of 40 MG 00 daily. Medicin tablet e levothyroxi 0 Yes 50ug Take 50 [facility] ne 6-29 mcg by [place] (SYNTHROID) 00:00: mouth of 50 MCG 00 daily. Medicin tablet e levothyroxi 0 Yes 50ug Take 1 [facility] ne 6-29 Tablet by [place] (SYNTHROID) 00:00: mouth of 50 MCG 00 daily. Medicin tablet e pantoprazol Yes 40mg Take 1 [facility] e 6-29 Tablet by [place] (PROTONIX) 00:00: mouth two of 40 MG 00 times Medicin tablet daily. e pantoprazol Yes 40mg Take 40 mg [facility] e 6-29 by mouth [place] (PROTONIX) 00:00: two times of 40 MG 00 daily. Medicin tablet e levothyroxi Yes 50ug Take 50 [facility] ne 6-29 mcg by [place] (SYNTHROID) 00:00: mouth of 50 MCG 00 daily. Medicin tablet e pantoprazol Yes 40mg Take 40 mg [facility] e 6-29 by mouth [place] (PROTONIX) 00:00: two times of 40 MG 00 daily. Medicin tablet e HYDROcodone 2020- No 1{tbl} 1 tablet, Univers -acetaminop 4- 04-21 Oral, ity of hen (NORCO 18:00: 16:54 ONCE, 1 [facility] as 5) 5-325 mg 00 :00 dose, Wed Med ical tablet 1 02/03/21 at [facility] h tablet 1300, NOHEMI amLODIPine Yes 10mg Take 10 mg U nivers (NORVASC) 4-21 by mouth ity of 10 mg 17:08: daily. [place] tablet 37 Medical Branch losartan 0 Yes 100mg Take 100 Univ ers 100 mg 4-21 mg by ity of tablet 17:08: mouth [place] 37 daily. Medical Branch naftifine Yes Apply to [facility] ers HCl 4-21 area(s). ity of (NAFTIFINE 17:08: [place] TOPICAL) 37 Medical Branch FENTanyl PF 2020- No 50ug 50 mcg, Un lance (SUBLIMAZE 4-21 04-21 Intramuscu it y of (PF)) 16:30: 15:34 lar, ONCE, [place] injection 00 :00 1 dose, Medical 50 mcg [facility] 02/03/21 at 1130, Routine citalopram Yes 20mg Take 20 mg U nivers (CELEXA) 10 - by mouth ity of mg tablet 15:28: daily. [address] azaTHIOprin 2020- No 50mg Take 50 mg Univers e 50 mg 02-03 by mouth 3 ity o f tablet 15:28: 00:00 (three) [place] 25 :00 times Medical daily. Branch amLODIPine Yes 10mg Take 10 mg U nivers (NORVASC) 02-03 by mouth ity of 10 mg 12:08: daily. [place] tablet 37 [facility] losartan Yes 100mg Take 100 Univ ers 100 mg - mg by ity of tablet 12:08: mouth [place] [address] [facility] naftifine Yes Apply to Univ ers HCl - area(s). ity of (NAFTIFINE 12:08: [place] TOPICAL) 37 [facility] citalopram Yes 20mg Take 20 mg U nivers (CELEXA) 10 02-03 by mouth ity of mg tablet 10:28: daily. [address] Branch INFLIXIMAB Yes Inject Unive rs (REMICADE 9-02 intravenou ity of IV) 21:02: sly. [address] mesalamine Yes 1200mg Take 1,200 Univers (LIALDA) 9-02 mg by ity of 1.2 gram EC 21:02: mouth 4 [facility] as tablet 52 (four) Medical times Branch daily. INFLIXIMAB Yes Inject Unive rs (REMICADE 9-02 intravenou ity of IV) 16:02: sly. [address] mesalamine Yes 1200mg Take 1,200 Univers (LIALDA) 9-02 mg by ity of 1.2 gram EC 16:02: mouth 4 [facility] as tablet 52 (four) Medical times Branch daily. HYDROcodone Yes [id number] 1{tbl} Take 1 [facility] -acetaminop 9-02 tablet by ity of hen 10-325 00:00: mouth [place] mg tablet 00 every 6 Medical (six) Branch hours as needed for Pain (scale 7-10). HYDROcodone Yes [id number] 1{tbl} Take 1 [facility] -acetaminop 9-02 tablet [...] mouth ity of XL (TOPROL 00:00: daily. [place] XL) 100 mg 00 Medical 24 hr Branch tablet simvastatin 2014-10 Yes Univer s (ZOCOR) 40 0-21 ity of mg tablet 00:00: [place] 00 Medical Branch pantoprazol 2014-10 Yes Univer s e 0-21 ity of (PROTONIX) 00:00: [place] 40 mg EC 00 Medical tablet Branch metoprolol 2014-10 Yes 25mg Take 25 mg U nivers succinate 0-21 by mouth ity of XL (TOPROL 00:00: daily. [place] XL) 100 mg 00 Medical 24 hr Branch tablet amlodipine- 2014-10- No Unive rs benazepril 0-21 04-21 ity of (LOTREL) 00:00: 00:00 [place] 5-20 mg per 00 :00 Medical capsule Branch HYDROcodone 2014-10- No Unive rs -acetaminop 0-01 04-21 ity of hen (NORCO) 00:00: 00:00 [place] 7.5-325 mg 00 :00 Medical per tablet Branch ALPRAZolam Yes Univers (XANAX) 9-26 ity of 0.25 mg 00:00: [place] tablet 00 Medical Branch ALPRAZolam Yes Univers (XANAX) 9-26 ity of 0.25 mg 00:00: [place] tablet 00 Medical Branch levothyroxi Yes Univer s ne 9-18 ity of (SYNTHROID) 00:00: [place] 50 mcg 00 Medical tablet Branch levothyroxi Yes Univer s ne 9-18 ity of (SYNTHROID) 00:00: [place] 50 mcg 00 Medical tablet Branch potassium 2020- No Univers chloride 8-28 04-21 ity of (K-DUR) 10 00:00: 00:00 [place] mEq CR 00 :00 Medical tablet Branch Immunizations Ordered Filled Immunization Date Status Comments [facility] e Immunization Name Name Influenza Hd 2021-07-[address] [facility] Colle ge of 00:00:00 Medicine Influenza Hd 2021-07-[address] [facility] Colle ge of 00:00:00 Medicine Influenza Hd 2021-07-16 Completed [facility] of 00:00:00 Medicine Influenza Hd 2021-07-[address] [facility] Colle ge of 00:00:00 Medicine Influenza Hd 2021-07-[address] [facility] Colle ge of 00:00:00 Medicine SARS-COV-2 COVID-19 2020-11-24 Completed Unive rsity of MODERNA VACCINE 00:00:00 [facility] SARS-COV-2 COVID-19 2020-11-24 Completed Unive rsity of MODERNA VACCINE 00:00:00 [facility] SARS-COV-2 COVID-19 2020-10-27 Completed Unive rsity of MODERNA VACCINE 00:00:00 [facility] SARS-COV-2 COVID-19 2020-10-27 Completed Unive rsity of MODERNA VACCINE 00:00:00 [facility] Vital Signs Vital Name Observation Time Observation Value Comments Source WEIGHT 2021-06-16 05:30:00 96.163 kg HEIGHT 2021-06-16 05:30:00 162.6 cm Systolic blood 2022-12-21 21:36:00 116 mm[Hg] [facility] of pressure Medicine Diastolic blood 2022-12-21 21:36:00 62 mm[Hg] [facility] of pressure Medicine Heart rate 2022-12-21 21:36:00 57 /min [facility] Body height 2022-12-21 21:36:00 162.6 cm [facility] Body weight 2022-12-21 21:36:00 98.431 kg [facility] BMI 2022-12-21 21:36:00 37.25 kg/m2 [facility] C ollege of Medicine Systolic blood 2022-06-16 19:53:00 120 mm[Hg] [facility] of pressure Medicine Diastolic blood 2022-06-16 19:53:00 68 mm[Hg] [facility] pressure Medicine Body height 2022-06-16 19:53:00 [address] [facility] of Medicine Body weight 2022-06-16 19:53:[address] [facility] of Medicine BMI 2022-06-16 19:53:00 37.25 kg/m2 [facility] C ol[facility] of Medicine Systolic blood 2022-03-03 20:45:00 126 mm[Hg] [facility] of pressure Medicine Diastolic blood 2022-03-03 20:45:00 56 mm[Hg] [facility] pressure Medicine Body height 2022-03-03 20:45:00 [address] [facility] C ollege of Medicine Body weight 2022-03-03 20:45:[address] [facility] ollege of Medicine BMI 2022-03-03 20:45:00 36.22 kg/m2 [facility] C ollege of Medicine Systolic blood 2022-01-04 18:19:00 130 mm[Hg] [facility] pressure Medicine Diastolic blood 2022-01-04 18:19:00 84 mm[Hg] [facility] of pressure Medicine Heart rate 2022-01-04 18:15:00 71 /min [facility] C ollege of Medicine Body height 2022-01-04 18:15:[address] [facility] C ol[facility] of Medicine Body weight 2022-01-04 18:15:[address] [facility] of Medicine BMI 2022-01-04 18:15:00 36.01 kg/m2 [facility] C ol[facility] of Medicine Systolic blood 2021-09-28 19:46:00 118 mm[Hg] [facility] of pressure Medicine Diastolic blood 2021-09-28 19:46:00 82 mm[Hg] [facility] of pressure Medicine Heart rate 2021-09-28 19:39:00 67 /min [facility] C ol[facility] of Medicine Body height 2021-09-28 19:39:[address] [facility] of Medicine Body weight 2021-09-28 19:39:[address] [facility] of Medicine BMI 2021-09-28 19:39:00 35.36 kg/m2 [facility] C ol[facility] of Medicine Systolic blood 2021-07-22 18:29:00 100 mm[Hg] [facility] Medicine Diastolic blood 2021-07-22 18:29:00 70 mm[Hg] [facility] Medicine Heart rate 2021-07-22 18:22:00 71 /min [facility] C ollege of Medicine Body height 2021-07-22 18:22:00 162[address] [facility] C [facility] of Medicine Body weight 2021-07-22 18:22:[address] [facility] of Medicine BMI 2021-07-22 18:22:00 35.15 kg/m2 [facility] of Medicine WEIGHT 2021-06-16 05:30:00 96.163 kg HEIGHT 2021-06-16 05:30:00 162.6 cm WEIGHT 2021-06-15 12:47:00 96.616 kg HEIGHT 2021-06-15 12:47:00 162.6 cm WEIGHT 2021-06-15 12:47:00 96.616 kg HEIGHT 2021-06-15 12:47:00 162.6 cm Systolic blood 2021-05-05 19:45:00 146 mm[Hg] [facility] Medicine Diastolic blood 2021-05-05 19:45:00 80 mm[Hg] [facility] Medicine Heart rate 2021-05-05 19:41:00 57 /min [facility] ollege of Medicine Body height 2021-05-05 19:41:[address] [facility] C ollege of Medicine Body weight 2021-05-05 19:41:[address] [facility] C ollege of Medicine BMI 2021-05-05 19:41:00 37.76 kg/m2 [facility] ollege of Medicine Systolic blood 2021-02-03 16:57:00 109 mm[Hg] [facility] of pressure [facility] Diastolic blood 2021-02-03 16:57:00 87 mm[Hg] Unive rsity of pressure [facility] Heart rate 2021-02-03 16:57:00 67 /min [facility] Respiratory rate 2021-02-03 16:57:00 29 /min [facility] Oxygen saturation in 2021-02-03 16:57:00 95 /min [facility] of Arterial blood by [facility] Pulse oximetry Branch Body temperature 2021-02-03 15:15:00 35.72 Blaire [facility] Body weight 2021-02-03 15:15:00 99.791 kg [facility] BMI 2021-02-03 15:15:00 37.76 kg/m2 [facility] Systolic blood 2021-02-03 16:57:00 109 mm[Hg] [facility] of pressure [facility] Diastolic blood 2021-02-03 16:57:00 87 mm[Hg] Unive rsity of pressure [facility] Heart rate 2021-02-03 16:57:00 67 /min [facility] Respiratory rate 2021-02-03 16:57:00 29 /min [facility] Oxygen saturation in 2021-02-03 16:57:00 95 /min [facility] Arterial blood by [facility] Pulse oximetry Branch Body temperature 2021-02-03 15:15:00 35.72 [place] [facility] Body weight 2021-02-03 15:15:00 99.791 kg [facility] BMI 2021-02-03 15:15:00 37.76 kg/m2 [facility] Procedures Procedure Date / Time Performing Clinician Source Performed ELECTROCARDIOGRAM COMPLETE 2022-12-21 00:00:00 Natalie Jaime [facility] ELECTROCARDIOGRAM COMPLETE 2022-12-21 00:00:00 B [facility] ([facility], [facility]) HEART CATH 2022-06-16 14:05:52 [facility] ELECTROCARDIOGRAM COMPLETE 2022-06-16 00:00:00 Natalie Jaime [facility] ELECTROCARDIOGRAM COMPLETE 2022-06-16 00:00:00 [facility] ELECTROCARDIOGRAM COMPLETE 2022-03-03 00:00:00 Natalie Jaime [facility] ELECTROCARDIOGRAM COMPLETE 2022-03-03 00:00:00 B [facility] CT CERVICAL SPINE WO 2021-02-03 16:25:38 Shy Ornelas [facility] CT MAXILLOFACIAL/MANDIBLE 2021-02-03 16:25:38 Shy Ornelas [facility] WO CONTRAST Medical Branch CT HEAD WO CONTRAST 2021-02-03 16:25:38 Shy Ornelas [facility] Plan of Care Planned Activity Planned Date Details Comments Source Future Scheduled 2023-06-16 INFLUENZA VACCINE (Season [facility] Test 00:00:00 Ended) [code = INFLUENZA Med ical Center VACCINE (Season Ended)] Future Scheduled 2023-01-[address] [facility] Test 00:00:00 Counseling and Screening [facility] (12+) [code = Tobacco Cessation Counseling and Screening (12+)] Future Scheduled 2022-12-21 Screening for malignant [facility] Test 16:07:53 neoplasm of colon of Medicin e (procedure) [code = 684424044] Future Scheduled 2022-12-21 Screening for malignant [facility] Test 16:07:53 neoplasm of breast of Medici ne (procedure) [code = 262705194] Future Scheduled 2022-12-21 TETANUS SHOT (ADULT) [code [facility] Test 16:07:53 = TETANUS SHOT (ADULT)] of M edicine Future Scheduled 2022-12-21 BMI Follow Up Plan [code = [facility] Test 16:07:53 BMI Follow Up Plan] of Medic ine Future Scheduled 2022-12-21 Hepatitis C screening [facility] Test 16:07:53 (procedure) [code = of Medic ine 188850065] Future Scheduled 2022-12-21 ZOSTER VACCINE (1 of 2) [facility] Test 16:07:53 [code = ZOSTER VACCINE (1 of Medicine of 2)] Future Scheduled 2022-12-21 Fall Screen [code = Fall [facility] Test 16:07:53 Screen] of Medicine Future Scheduled 2022-12-21 Screening for osteoporosis [facility] Test 16:07:53 (procedure) [code = of Medic ine 400660006] Future Scheduled 2022-12-21 Pneumococcal 65+ (1 - PCV) [facility] Test 16:07:53 [code = Pneumococcal 65+ of Medicine (1 - PCV)] Future Scheduled 2022-12-21 COVID-19 Vaccine (4 - [employer] [facility] Test 16:07:53 Booster for Moderna of Medic ine series) [code = COVID-19 Vaccine (4 - Booster for Moderna series)] Future Scheduled 2022-12-21 FLU VACCINE > 6 MONTHS [employer] [facility] 16:07:53 [code = FLU VACCINE > 6 of M edicine MONTHS] Future Scheduled 2022-12-21 ELECTROCARDIOGRAM COMPLETE [facility] Test 15:36:45 [code = 35901] of Medicine Future Scheduled 2022-10-16 DEPRESSION SCREENING ([address]+) [facility] Test 00:00:00 [code = DEPRESSION Medical C enter SCREENING (12+)] Future Scheduled 2022-10-16 FALLS RISK SCREENING [code [facility] Test 00:00:00 = FALLS RISK SCREENING] [facility] Future Scheduled 2022-06-16 ELECTROCARDIOGRAM COMPLETE [facility] Test 14:53:58 [code = 87043] of Medicine Future Scheduled 2022-06-16 Screening for malignant [facility] [employer] Test 14:53:37 neoplasm of colon of Medicin e (procedure) [code = 189508580] Future Scheduled 2022-06-16 Screening for malignant [facility] [employer] Test 14:53:37 neoplasm of breast of Medici ne (procedure) [code = 612209585] Future Scheduled 2022-06-16 Pneumococcal 65+ (1 - PCV) [facility] Test 14:53:37 [code = Pneumococcal 65+ of Medicine (1 - PCV)] Future Scheduled 2022-06-16 TETANUS SHOT (ADULT) [code [facility] Test 14:53:37 = TETANUS SHOT (ADULT)] of M edicine Future Scheduled 2022-06-16 BMI FOLLOW UP PLAN [code = [facility] Test 14:53:37 BMI FOLLOW UP PLAN] of Medic ine Future Scheduled 2022-06-16 Hepatitis C screening [facility] Test 14:53:37 (procedure) [code = of Medic ine 591789341] Future Scheduled 2022-06-16 ZOSTER VACCINE (1 of 2) [facility] Test 14:53:37 [code = ZOSTER VACCINE (1 of Medicine of 2)] Future Scheduled 2022-06-16 FALL SCREEN [code = FALL [facility] Test 14:53:37 SCREEN] of Medicine Future Scheduled 2022-06-16 Screening for osteoporosis [facility] Test 14:53:37 (procedure) [code = of Medic ine 830992243] Future Scheduled 2022-06-16 COVID-19 Vaccine (4 - [employer] [facility] 14:53:37 Booster for Moderna of Medic ine series) [code = COVID-19 Vaccine (4 - Booster for Moderna series)] Future Scheduled 2022-06-16 FLU VACCINE > 6 MONTHS [employer] Test 14:53:37 [code = FLU VACCINE > 6 of M edicine MONTHS] Future Scheduled 2022-03-03 Screening for malignant [facility] Test 16:39:03 neoplasm of colon of Medicin e (procedure) [code = 024331550] Future Scheduled 2022-03-03 Screening for malignant [facility] Test 16:39:03 neoplasm of breast of Medici ne (procedure) [code = 491999594] Future Scheduled 2022-03-03 TETANUS SHOT (ADULT) [code [facility] Test 16:39:03 = TETANUS SHOT (ADULT)] of M edicine Future Scheduled 2022-03-03 BMI FOLLOW UP PLAN [code = [employer] Test 16:39:03 BMI FOLLOW UP PLAN] of Medic ine Future Scheduled 2022-03-03 Hepatitis C screening [employer] Test 16:39:03 (procedure) [code = of Medic ine 977058247] Future Scheduled 2022-03-03 ZOSTER VACCINE (1 of 2) [facility] Test 16:39:03 [code = ZOSTER VACCINE (1 of Medicine of 2)] Future Scheduled 2022-03-03 FALL SCREEN [code = FALL [facility] Test 16:39:03 SCREEN] of Medicine Future Scheduled 2022-03-03 Screening for osteoporosis [facility] Test 16:39:03 (procedure) [code = of Medic ine 334985193] Future Scheduled 2022-03-03 Pneumococcal 65+ (1 of 1 - [facility] Test 16:39:03 PPSV23) [code = of Medicine Pneumococcal 65+ (1 of 1 - PPSV23)] Future Scheduled 2022-03-03 FLU VACCINE > 6 MONTHS [employer] Test 16:39:03 [code = FLU VACCINE > 6 of M edicine MONTHS] Future Scheduled 2022-03-03 ELECTROCARDIOGRAM COMPLETE [facility] Test 15:45:35 [code = 00019] of Medicine Future Scheduled 2022-01-04 ELECTROCARDIOGRAM COMPLETE [facility] Test 13:16:33 [code = 19978] of Medicine Future Scheduled 2022-01-04 Screening for malignant [employer] Test 13:15:40 neoplasm of colon of Medicin e (procedure) [code = 959773777] Future Scheduled 2022-01-04 Screening for malignant [facility] Test 13:15:40 neoplasm of breast of Medici ne (procedure) [code = 420296681] Future Scheduled 2022-01-04 TETANUS SHOT (ADULT) [code [facility] Test 13:15:40 = TETANUS SHOT (ADULT)] of M edicine Future Scheduled 2022-01-04 BMI FOLLOW UP PLAN [code = [employer] Test 13:15:40 BMI FOLLOW UP PLAN] of Medic ine Future Scheduled 2022-01-04 Hepatitis C screening [employer] [facility] 13:15:40 (procedure) [code = of Medic ine 625355558] Future Scheduled 2022-01-04 ZOSTER VACCINE (1 of 2) [facility] Test 13:15:40 [code = ZOSTER VACCINE (1 of Medicine of 2)] Future Scheduled 2022-01-04 FALL SCREEN [code = FALL [facility] Test 13:15:40 SCREEN] of Medicine Future Scheduled 2022-01-04 Screening for osteoporosis [facility] Test 13:15:40 (procedure) [code = of Medic ine 144337854] Future Scheduled 2022-01-04 Pneumococcal 65+ (1 of 1 - [employer] Test 13:15:40 PPSV23) [code = of Medicine Pneumococcal 65+ (1 of 1 - PPSV23)] Future Scheduled 2022-01-04 COVID-19 Vaccine (3 - [employer] [facility] 13:15:40 Booster for Moderna of Medic ine series) [code = COVID-19 Vaccine (3 - Booster for Moderna series)] Future Scheduled 2021-09-28 Screening for malignant [employer] Test 13:47:05 neoplasm of colon of Medicin e (procedure) [code = 412118186] Future Scheduled 2021-09-28 Screening for malignant [facility] Test 13:47:05 neoplasm of breast of Medici ne (procedure) [code = 404844181] Future Scheduled 2021-09-28 Pneumococcal 65+ (1 of 2 - [facility] Test 13:47:05 PPSV23) [code = of Medicine Pneumococcal 65+ (1 of 2 - PPSV23)] Future Scheduled 2021-09-28 TETANUS SHOT (ADULT) [code [facility] Test 13:47:05 = TETANUS SHOT (ADULT)] of M edicine Future Scheduled 2021-09-28 BMI FOLLOW UP PLAN [code = [employer] [facility] 13:47:05 BMI FOLLOW UP PLAN] of Medic ine Future Scheduled 2021-09-28 Hepatitis C screening [employer] [facility] 13:47:05 (procedure) [code = of Medic ine 236588862] Future Scheduled 2021-09-28 ZOSTER VACCINE (1 of 2) [employer] [facility] 13:47:05 [code = ZOSTER VACCINE (1 of Medicine of 2)] Future Scheduled 2021-09-28 FALL SCREEN [code = FALL [facility] Test 13:47:05 SCREEN] of Medicine Future Scheduled 2021-09-28 Screening for osteoporosis [facility] Test 13:47:05 (procedure) [code = of Medic ine 026206531] Future Scheduled 2021-09-28 COVID-19 Vaccine (3 - [employer] [facility] 13:47:05 Booster for Moderna of Medic ine series) [code = COVID-19 Vaccine (3 - Booster for Moderna series)] Future Scheduled 2021-09-28 ELECTROCARDIOGRAM COMPLETE [facility] Test 13:32:54 [code = 17506] of Medicine Future Scheduled 2021-09-07 COVID-19 VACCINE (4 - [facility]:00 Booster for Moderna Medical Center series) [code = COVID-19 VACCINE (4 - Booster for Moderna series)] Future Scheduled 2021-07-22 ELECTROCARDIOGRAM COMPLETE [employer] Test 13:24:00 [code = 02924] of Medicine Future Scheduled 2021-07-22 Screening for malignant [facility] Test 13:23:13 neoplasm of colon of Medicin e (procedure) [code = 794767536] Future Scheduled 2021-07-22 Screening for malignant [facility] Test 13:23:13 neoplasm of breast of Medici ne (procedure) [code = 495537729] Future Scheduled 2021-07-22 TETANUS SHOT (ADULT) [code [facility] Test 13:23:13 = TETANUS SHOT (ADULT)] of M edicine Future Scheduled 2021-07-22 BMI FOLLOW UP PLAN [code = [employer] Test 13:23:13 BMI FOLLOW UP PLAN] of Medic ine Future Scheduled 2021-07-22 Hepatitis C screening [employer] [facility] 13:23:13 (procedure) [code = of Medic ine 717936578] Future Scheduled 2021-07-22 ZOSTER VACCINE (1 of 2) [facility] Test 13:23:13 [code = ZOSTER VACCINE (1 of Medicine of 2)] Future Scheduled 2021-07-22 FALL SCREEN [code = FALL [facility] Test 13:23:13 SCREEN] of Medicine Future Scheduled 2021-07-22 Screening for osteoporosis [facility] Test 13:23:13 (procedure) [code = of Medic ine 294857639] Future Scheduled 2021-07-22 PNEUMOVAX >=65 (PPSV23) [facility] Test 13:23:13 [code = PNEUMOVAX >=65 of Me dicine (PPSV23)] Future Scheduled 2021-07-22 FLU VACCINE > 6 MONTHS [employer] [facility] 13:23:13 [code = FLU VACCINE > 6 of M edicine MONTHS] Future Scheduled 2021-05-05 Screening for malignant [facility] Test 15:57:58 neoplasm of colon of Medicin e (procedure) [code = 109955377] Future Scheduled 2021-05-05 Screening for malignant [facility] Test 15:57:58 neoplasm of breast of Medici ne (procedure) [code = 374364321] Future Scheduled 2021-05-05 TETANUS SHOT (ADULT) [code [facility] Test 15:57:58 = TETANUS SHOT (ADULT)] of M edicine Future Scheduled 2021-05-05 BMI FOLLOW UP PLAN [code = [facility] Test 15:57:58 BMI FOLLOW UP PLAN] of Medic ine Future Scheduled 2021-05-05 Hepatitis C screening [employer] [facility] 15:57:58 (procedure) [code = of Medic ine 785875699] Future Scheduled 2021-05-05 ZOSTER VACCINE (1 of 2) [employer] Test 15:57:58 [code = ZOSTER VACCINE (1 of Medicine of 2)] Future Scheduled 2021-05-05 FALL SCREEN [code = FALL [facility] Test 15:57:58 SCREEN] of Medicine Future Scheduled 2021-05-05 Screening for osteoporosis [facility] Test 15:57:58 (procedure) [code = of Medic ine 233949554] Future Scheduled 2021-05-05 PNEUMOVAX >=65 (PPSV23) [facility] Test 15:57:58 [code = PNEUMOVAX >=65 of Me dicine (PPSV23)] Future Scheduled 2021-05-05 FLU VACCINE > 6 MONTHS [facility] Test 15:57:58 [code = FLU VACCINE > 6 of M edicine MONTHS] Future Scheduled 2021-05-05 ELECTROCARDIOGRAM COMPLETE [facility] Test 14:40:59 [code = 72607] of Medicine Future Scheduled 2013 PNEUMOCOCCAL 65+ YRS (1 - [facility] Test 00:00:00 PCV) [code = PNEUMOCOCCAL Me dical Center 65+ YRS (1 - PCV)] Future Scheduled 1998 SHINGLES VACCINES (1 of 2) [facility] Test 00:00:00 [code = SHINGLES VACCINES Me dical Center (1 of 2)] Future Scheduled 1967 DTAP/TDAP/TD VACCINES (1 - [facility] Test 00:00:00 Tdap) [code = DTAP/TDAP/TD M edical Center VACCINES (1 - Tdap)] Future Scheduled 1966 HEPATITIS C [facility]CRE[facility]ING [facility] 00:00:00 [code = HEPATITIS C Medical Center SCREENING] Future Scheduled 1948 Screening for malignant [facility] Test 00:00:00 neoplasm of breast Medical C enter (procedure) [code = 255471312] Future Scheduled 1948 CT Colonography (combo) [facility] Test 00:00:00 [code = CT Colonography [facility] (combo)] Future Scheduled 1948 Screening for malignant [facility] Test 00:00:00 neoplasm of colon Medical Ce nter (procedure) [code = 941432690] Future Scheduled 1948 Screening for malignant [facility] Test 00:00:00 neoplasm of colon Medical Ce nter (procedure) [code = 477773478] Future Scheduled 1948 DXA SCAN [code = DXA SCAN] [facility] Test 00:00:00 Medical Center Future Scheduled 1948 Screening for malignant [facility] Test 00:00:00 neoplasm of colon Medical Ce nter (procedure) [code = 103825777] Future Scheduled 1948 Screening for malignant [facility] Test 00:00:00 neoplasm of colon Medical Ce nter (procedure) [code = 622194862] Future Scheduled 1948 Sigmoidoscopy [code = [facility] Sigmoidoscopy] Medical Cente r Encounters Start End Encounter Admission Attending Care Care Encounter Source Date/Time Date/Time Type Type Clinicians Facility Department ID 2021-08-15 Emergency [facility] [id number] [facility] AKIN JAIME Surgery [id number] [facility] 08:24:18 [facility] 2022-12-21 2022-12-21 Office DEANGELO JAIME [id number] [facility] 15:28:00 16:42:19 Visit NATALIE AMBULATOR [id number] College Y [id number] of [id number] [facility] maira 300 e 2022-06-16 2022-06-16 Office DEANGELO JAIME [id number] [facility] 14:05:52 15:36:24 Visit NATALIE AMBULATOR [id number] College Y [id number] of [id number] [facility] maira 300 e 2022-03-03 2022-03-03 Office DEANGELO JAIME [id number] [facility] 15:26:01 16:42:30 Visit NATALIE AMBULATOR [id number] College Y [id number] of [id number] Medi maira 300 e 2022-01-19 2022-01-19 Outpatient [facility] [id number] [facility] 07:51:03 10:04:23 Colleg e of Medicin e 2022-01-10 2022-01-10 Outpatient [facility] [id number] [facility] 00:00:00 23:59:00 [employer]in e 2022-01-07 2022-01-07 Outpatient R [facility] [id number] [employer] 14:00:00 14:29:25 PRAFUL rush [facility] 2022-01-07 2022-01-07 Laboratory Only, Ang Db Test [facility] 1.2.8 40.114 [id number] Univers 14:00:00 14:15:00 Only Aubrey Praful [facility] 350.1.13.[address] [facility] 4.2.7.2.686 Lio as WILLARD?BLEA [id number] MEDICAL OFFICE BUILDING 2022-01-04 2022-01-04 Office LASHONDA JAIME 1.2.840.114 [id number] [facility] 13:08:52 14:36:09 Visit NATALIE AMBULATOR 350.1.13.21 College Y 0.2.7.2.686 of [id number] Medi maira 300 e 2021-09-28 2021-09-28 Office DEANGELO JAIME 1.2.840.[id number] [facility] 13:31:59 15:36:17 Visit NATALIE AMBULATOR 350.1.13.21 College Y 0.2.7.2.686 of [id number] Medi maira 300 e 2021-07-22 2021-07-22 Office DEANGELO JAIME 1.2.840.114 [id number] [facility] 13:16:34 13:57:41 Visit NATALIE AMBULATOR 350.1.13.21 College Y 0.2.7.2.686 of [id number] Medi maira 300 e 2021-06-16 2021-06-16 Outpatient [facility] [id number] [facility] 05:16:00 23:59:00 [employer]in [employer] 2021-06-16 2021-06-16 Outpatient [facility] [id number] [facility] 00:00:00 05:15:00 [employer]in [employer] 2021-06-15 2021-06-15 Outpatient JOEL [facility] [id number] [facility] 00:00:00 00:00:00 2021-05-31 2021-05-31 Outpatient JOEL JAIME [facility] [id number] [facility] 00:00:00 00:00:00 NATALIE 2021-05-25 2021-05-26 Outpatient DEANGELO JAIME [facility] [id number] [facility] 15:11:02 10:54:55 NATALIE [employer] 2021-05-25 2021-05-25 Outpatient [facility] [id number] [facility] 15:11:47 15:59:43 [employer]in [employer] 2021-05-05 2021-05-05 Office DEANGELO JAIME 1.2.840.114 [id number] [facility] 14:13:30 16:30:01 Visit NATALIE AMBULATOR 350.1.13.21 College Y 0.2.7.2.686 [id number] [facility] maira 300 e 2021-03-23 2021-03-23 Outpatient JOEL Maria Guadalupe [facility] [id number] [facility] 05:37:00 05:37:00 Paul Rios [facility] 2021-02-03 2021-02-03 Emergency [facility] 1.2.840.114 [id number] 10:10:00 12:19:00 Shy Bhagat 350.1.13.10 [place] 4.2.7.2.686 [place] [id number] [facility] 2021-02-03 2021-02-03 Emergency [facility] 1.2.840.114 [id number] [facility] 10:10:00 12:19:00 Shy Bhagat 350.1.13.10 [facility] 4.2.7.2.686 [facility] [id number] [facility] [address] 2020-11-24 2020-11-24 Outpatient Chapis [facility] [id number] Univers 11:00:00 11:00:00 [facility] 2020-10-27 2020-10-27 Outpatient Chapis [facility] [id number] Univers 11:20:00 11:20:00 [facility] Results Test Description Test Time Test Comments Results Result Comments Source BUN 2021-06-17 06:50:00 Test Item Value Reference Range Interpretation Comme nts BLOOD UREA NITROGEN (BEAKER) (test code = 354) 9 mg/dL 7-21 Suspender Cutter ID - [id number] 06:50:00 Test Item Value Reference Range Interpretation Comments SODIUM (BEAKER) (test code = 381) 141 meq/L 136-145 POTASSIUM (BEAKER) (test code = 3.3 meq/L 3.5-5.1 L 379) CHLORIDE (BEAKER) (test code = 382) 108 meq/L 98-107 H CO2 (BEAKER) (test code = 355) 25 meq/L 22-29 Suspender Cutter ID - [id number] 06:50:00 Test Item Value Reference Range Interpretation Comments CREATININE (BEAKER) 0.68 mg/dL 0.57-1.25 (test code = 358) EGFR (BEAKER) (test 85 mL/min/1.73 ESTIMA YOMAIRA GFR IS code = 1092) sq m NOT ACCURATE CREATININE CLEARANCE IN PREDICTING GLOMERULAR FILTRATION RATE . ESTIMATED GFR I S NOT APPLICABLE FOR DIALYSIS PATIEN TS. Suspender Cutter ID - [id number] 15:19:00 Test Item Value Reference Range Interpretation Comments ACTIVATED CLOTTING TIME 329 sec : 74 -137 seconds, (BEAKER) (test code = Baseli ne: TESTED AT 441) [address], [facility] 30: Suspender Cutter/Techni ze ID = [id number] for St ephen, [place] [id number] 15:19:00 Test Item Value Reference Range Interpretation Comments ACTIVATED CLOTTING TIME 323 sec : 74 -137 seconds, (BEAKER) (test code = Baseli ne: TESTED AT 441) [address], 770 30: Suspender Cutter/Techni ze ID = [id number] for [facility], [place] [id number] 15:19:00 Test Item Value Reference Range Interpretation Comments ACTIVATED CLOTTING TIME 340 sec : 74 -137 seconds, (BEAKER) (test code = Baseli ne: TESTED AT 441) [address], [facility] 30: Suspender Cutter/Techni ze ID = [id number] for BONDSDANA Asuncion DEANA [id number] 15:19:00 Test Item Value Reference Range Interpretation Comments ACTIVATED CLOTTING TIME 301 sec : 74 -137 seconds, (BEAKER) (test code = Baseli ne: TESTED AT 441) [place] [id number] 30: Suspender Cutter/Techni ze ID = [id number] for DEANA ABARCA [id number] 10:37:00 Test Item Value Reference Range Interpretation Comments ACTIVATED CLOTTING TIME 307 sec : 74 -137 seconds, (BEAKER) (test code = Baseli ne: TESTED AT 441) [place] [address] 30: Suspender Cutter/Techni ze ID = [id number] for St [place] carney [id number] 10:16:00 Test Item Value Reference Range Interpretation Comments ACTIVATED CLOTTING TIME 312 sec : 74 -137 seconds, (BEAKER) (test code = Baseli ne: TESTED AT 441) [place] [address] 30: Suspender Cutter/Techni ze ID = [id number] for [facility], [place] [id number] 10:00:00 Test Item Value Reference Range Interpretation Comments ACTIVATED CLOTTING TIME 257 sec : 74 -137 seconds, (BEAKER) (test code = Baseli ne: TESTED AT 441) [address], [facility] 30: Suspender Cutter/Techni ez ID = [id number] for [facility], [place] [id number] 10:00:00 Test Item Value Reference Range Interpretation Comments ACTIVATED CLOTTING TIME 131 sec : 74 -137 seconds, (BEAKER) (test code = Baseli ne: TESTED AT 441) [place] [address] 30: Suspender Cutter/Techni ze ID = [id number] for [facility], [place] BASIC METABOLIC [id number] 06:34:00 Test Item Value Reference Range Interpretation [...] 697) EGFR (BEAKER) (test 84 mL/min/1.73 ESTIMA YOMAIRA GFR IS code = 1092) sq m NOT ACCURATE CREATININE CLEARANCE IN PREDICTING GLOMERULAR FILTRATION RATE . ESTIMATED GFR I S NOT APPLICABLE FOR DIALYSIS PATIEN TS. Suspender Cutter ID - PIAYA LCBC (HEMOGRAM ONLY)2021-06-16 06:28:00 [...] 0-0 (BEAKER) (test code = 413) PROTHROMBIN [id number] 06:15:00 Test Item Value Reference Range Interpretation Comments PROTIME (BEAKER) 15.3 seconds 11.9-14.2 H (test code = 759) INR (BEAKER) (test 1.23 See_Comment [Automat ed message] code = 370) The system [employer] generated this result transmitted ref erence range: <=5.90. The reference range was not used to int erpret this result as normal/abnormal . RECOMMENDED COUMADIN/WARFARIN INR THERAPY RANGESSTANDARD DOSE: 2.0 - 3.0 Includes: PROPHYLAXIS for venous thrombosis, systemic embolization; TREATMENT for venous thrombosis and/or pulmonary embolus.HIGH RISK: Target INR is 2.5-3.5 for patients with mechanical heart valves.SARS-COV2/RT-PCR ([facility]) 2021-06-15 22:41:00 Test Item Value Reference Range Interpretation Comments SARS-COV2/RT-PCR (test code = Negative Negative [id number]) Negative result for this test determines that [...] under Section 564(g) of the Act.Testing was performed using t he Eng SARS-CoV-2 assay.Fact Sheet for Healthcare Providers:https://www.molecular.eng/shaun/RT SARS-CoV-2 HCP Fact Sheet 51- 996464.pdfFact Sheet for Healthcare Patients:https://www.Ninite.eng/shaun/RT SARS-CoV-2 Patient Fact Sheet EN 51-578876G9.pdfBASIC METABOLIC [id number] 14:01:00 Test Item Value Reference Range Interpretation [...] 697) EGFR (BEAKER) (test 73 mL/min/1.73 ESTIMA YOMAIRA GFR IS code = 1092) sq m NOT ACCURATE CREATININE CLEARANCE IN PREDICTING GLOMERULAR FILTRATION RATE . ESTIMATED GFR I S NOT APPLICABLE FOR DIALYSIS PATIEN TS. Suspender Cutter ID - PIAYA LCBC W/PLT COUNT & AUTO [id number] 13:33:00 Test Item Value Reference Range Interpretation [...] (BEAKER) (test code = 2801) CT, CTA, [id number] 12:31:00Unlisted Reason for Exam - Click Yes and Enter Reason Below->YesUnlisted Reason for Exam->[facility] PEN[facility]ULAName: JACOBVIN Shay [place] : 1950 Sex: FAddendum BeginsREPORT STATUS:A Addendum: I agree with the previously describednon vascular findings. Signed: Paulo Owens MDReport Verified Date/Time: 06/03/2021 12:31:57 ReadingLocation: [facility] Radiology Reading RoomAddendum EndsFINAL REPORT CT angiography of the thoracic aorta, 01-Jun-21 INDICATION: This is a 70 year old female with presents for research assessment, for the pulmonary vein and left atrial appendage morphology. TECHNIQUE: Spiral acquisition before and during intravenous contrast administration using a Siemens multislice cardiac CT scannerECG triggering. Multiplanar reconstructions were performed interactively by the interpreting physician using an independent (SNAPP') workstation. Please refer to the contrast sheet scanned in the EPIC system for the amount and route of contrast given. This exam was performed according to our departmental dose-optimisation programme, which includes automated exposure control, adjustment of the mA and/o r kV according to patient size and/or use of iterative reconstruction technique. Dose modulation, iterative reconstruction, and/or weight based adjustment of the mA/kV was utilized to reduce the radiation dose to as low as reasonably achievable. FINDINGS: VASCULAR: The pericardium appears normal. No pericardial effusion is identified. The central pulmonary artery is prominent. There is no evidence ofcentral pulmonary artery embolism. The thoracic aorta is normal in course, calibre, and contour. There is no evidence for acute aortic pathology. The arch vessel branching pattern is normal, and the origins of the arch branch vessels are all widely patent. Calcification is seen at the takeoff of the right subclavian artery, incompletely evaluated. The aortic root measure approximately 3.4 cm in size.The mid ascending thoracic aorta measure approximately 2.9 cm in diameter and the mid ascending thoracic aorta measure 2.5 cm confirming normal calibre of the thoracic aorta. The cardiac chambers demonstrate normal atrioventricular and ventriculoarterial concordance, and systemic and pulmonary venous return. In the available images, the left ventricle is normal in size. However, left and right atrialenlargement is noted. The coronary artery origins are [...] small calibre vessel. The LCx is a nondominantvessel and is widely patent proximally. In the inter-atrial septum, probable small PFO is identified. Left atrial enlargement is identified. No thrombus is identified in the left atrial appendage. The left atrial appendage morphology is chicken wing. Pulmonary vein morphology is normal with pairs of pulmonary veins on each side of the left atrium. There is no evidence for pulmonary vein stenosis. Quantitative pulmonary vein ostial mapping (measured utilizing MPR analysis) is as follows: Pulmonary vein Major axis Minor axis Cross-sectional area Right upper 20 mm 19 mm 3.1 xw8Zrkxe lower 22 mm 18 mm 3.1 bq8Hlta upper 17 mm 12 mm1.7 il5Jswr lower 20 mm 15 mm 2.5 cm2 Measurements for the left atrial appendage ostium is as follows: The cross-sectional diameter is 25.9 x 20.9 mm. The circumference 83 mm at the cross-sectional area is 519 mm2. Please see snapshot [...] measuring 3 mm identified in the right lung at image 29. The limited images of the upper abdomen reveal no significant abnormalities of the visualized organs. Patchy enhancement is identified in the left hepatic lobe, that may be due to vascular shunting. Assessment is incomplete. However, the liver edge is smooth. No acute bony pathology is identified. It is uncertain if there could be prior rib injury identified in one of the peripheral right rib, image 25 of the full sdlyg-zj-uqcz series. IMPRESSIONS: 1. The left atrium is enlarged. No thrombus is visualized in the left atrial appendage. The left atrial appendage morphology is chicken wing. Integration Lead dimensions of the left atrial appendage is [...] largest one measure 5 mm. Professional society recommendation as follows: Nodule Size <6 mm Low-Risk Patient: No routine follow-up Nodule Size <6 mm High-Risk Patient: Optional CT at 12 months 5. An addendum will be dictated regarding the non-vascular findings by the Balance Screwhead Polisher Radiologist. THE REPORT WILL ONLY BE CONSIDERED COMPLETE AFTER THE ADDENDUM HAS BEENDICTATED. Signed: Toni Ellsworth Verified Date/Time: 06/01/2021 16:18:19 [id number] 15:44:00 Test Item Value Reference Range Interpretation Comments POC-CREATININE 0.7 mg/dL 0.6-1.3 : TESTED AT [facility] ([facility]) (test [address] [facility] code = 1859) [place], [address]: Suspender Cutter/Techni ze ID = [id number] for Fazal Zhao POC-EGFR ([facility]) 82 mL/min/1.73M2 (test code = 1860) LUPUS ANTICOAGULANT [id number] 07:24:00 Test Item Value Reference Range Interpretation Comments PROTHROMBIN TIME 12.0 9.5-12.7 N PATIENT (test code = PTP) INTERNATIONAL NORMAL 1.1 0.86-1.14 N The INR is to be RATIO (test code = used only for INR) monitoring oral anticoagulantth erap y. INDICATION I NR VALUE ---- ---- ---- -------1. Prophylaxis, de ep venous thrombos is, including high risk surgery. 2.0 - 3.0 2. Prophylaxis, deep venous thrombosis, hip surgery, treatm ent for deep venous thrombosis or pulmonary prevention of systemic emboli sm in patients wit h valvular heart disease, atrial fibrillation, tissue heart va lve, or acute myocar dial infarction. 2. 0 - 3.0 3. Electronic Service Technician al prosthesis hear t valves, recurre nt systemic emboli sm. 3.0 - 4.5 PTT ACTIVATED (test 71.7 SECONDS 25.1-36.5 HH PART OF LUPUS PANEL code = APTT) RVVT PATIENT (test 49.2 sec 0.0-47.0 H code = RVVTPAT) PTT LONG ACTING (test 62.9 sec 0.0-51.9 H Previo usly reported code = PTTLA) result: 49.2 secEdited by: Torito ALVARES on 03/29/21:293688 0808: PTTLA previously repo rted as: 49.2 SEC STACLOT (test code = 53.0 RATIO STACLOT) LUPUS ANTICOAGULANT [id number] 07:24:00 Test Item Value Reference Range Interpretation [...] peripheral vein, don't us IV lineComments to Devops Architect: collect from peripheral vein, don't us IV linePTT MIXING STUDY 2021-03-30 07:24:00 Test Item Value Reference Range Interpretation Comments PTT 1:1 MIX 36.9 sec 22.9-30.2 H REORDERED FOR (test code = 03/24/21Previousl y PTTMIX2) reported result : TNP secEdited b y: INFCE on 03/29/21:517615 / 1510: PTT 1: 1 previously repo rted as: TEST NOT PERFORMED REORD ERED FOR 03/24/21 PTT 3:1 (test TEST NOT PERFORMED code = PTTMIX3) SECS PTT PRE MIXING TEST NOT PERFORMED 25.9-35.3 STUDY (test code SECONDS = PTTPRE) Specimen comments: collect from peripheral vein, don't us IV lineComments to Devops Architect: collect from peripheral vein, don't us IV lineLUPUS ANTICOAGULANT [id number] 07:46:00 Test Item Value Reference Range Interpretation Comments PROTHROMBIN TIME 12.0 9.5-12.7 N PATIENT (test code = PTP) INTERNATIONAL NORMAL 1.1 0.86-1.14 N The INR is to be RATIO (test code = used only for INR) monitoring oral anticoagulantth erap y. INDICATION I NR VALUE ---- ---- ---- -------1. Prophylaxis, de ep venous thrombos is, including high risk surgery. 2.0 - 3.0 2. Prophylaxis, deep venous thrombosis, hip surgery, treatm ent for deep venous thrombosis or pulmonary prevention of systemic emboli sm in patients wit h valvular heart disease, atrial fibrillation, tissue heart va lve, or acute myocar dial infarction. 2.0 - 3.0 3. Electronic Service Technician al prosthesis hear t valves, recurre nt systemic emboli sm. 3.0 - 4.5 PTT ACTIVATED (test 71.7 SECONDS 25.1-36.5 HH PART OF LUPUS PANEL code = APTT) RVVT PATIENT (test SEC 0.0-55.1 code = RVVTPAT) PTT LONG ACTING (test 49.2 SEC 0.0-50.0 N code = PTTLA) STACLOT (test code = 53.0 RATIO STACLOT) RHEUMATOID FACTOR [id number] 13:55:00 Test Item Value Reference Range Interpretation Comments RHEUMATOID FACTOR SCREEN (test code NEGATIVE NEGATIVE = RA) Specimen comments: from blood drawn earlierANA [id number] 13:55:00 Test Item Value Reference Range Interpretation Comments BONG DIRECT (test Negative See_Comment Negative < 1:80 code = ANADIR) Borderline 1: 80 Positive >1:80Performed At: [facility] [address] [id number] Bunny Maurer MD Ph:[phone] [ Automated message] The [employer] stem which generated this result transmitted ref erence range: (). The reference range was not u sed to interpret this result as normal/abnormal . Specimen comments: from blood drawn earlierLUPUS ANTICOAGULANT [id number] 14:31:00 Test Item Value Reference Range Interpretation Comments PROTHROMBIN TIME 12.0 9.5-12.7 N PATIENT (test code = PTP) INTERNATIONAL NORMAL 1.1 0.86-1.14 N The INR is to be RATIO (test code = used only for INR) monitoring oral anticoagulantth erap y. INDICATION I NR VALUE ---- ---- ---- -------1. Prophylaxis, de ep venous thrombos is, including high risk surgery. 2.0 - 3.0 2. Prophylaxis, deep venous thrombosis, hip surgery, treatm ent for deep venous thrombosis or pulmonary prevention of systemic emboli sm in patients wit h valvular heart disease, atrial fibrillation, tissue heart va lve, or acute myocar dial infarction. 2.0 - 3.0 3. Electronic Service Technician al prosthesis hear t valves, recurre nt systemic emboli sm. 3.0 - 4.5 PTT ACTIVATED (test 71.7 SECONDS 25.1-36.5 HH PART OF LUPUS PANEL code = APTT) RVVT PATIENT (test SEC 0.0-55.1 code = RVVTPAT) PTT LONG ACTING (test SEC 0.0-50.0 code = PTTLA) STACLOT (test code = RATIO STACLOT) LUPUS ANTICOAGULANT [id number] 11:45:00 Test Item Value Reference Range Interpretation [...] peripheral vein, don't us IV lineComments to Devops Architect: collect from peripheral vein, don't us IV linePTT MIXING STUDY 2021-03-24 11:45:00 Test Item Value Reference Range Interpretation Comments PTT 1:1 MIX TEST NOT PERFORMED REORDERED FOR (test code = 03/24/21 PTTMIX2) PTT 3:1 (test TEST NOT PERFORMED code = PTTMIX3) SECS PTT PRE MIXING TEST NOT PERFORMED 25.9-35.3 STUDY (test code SECONDS = PTTPRE) Specimen comments: collect from peripheral vein, don't us IV lineComments to Devops Architect: collect from peripheral vein, don't us IV lineLUPUS ANTICOAGULANT [id number] 11:45:00 Test Item Value Reference Range Interpretation [...] peripheral vein, don't us IV lineComments to Devops Architect: collect from peripheral vein, don't us IV linePTT MIXING STUDY 2021-03-24 11:45:00 Test Item Value Reference Range Interpretation Comments PTT 1:1 MIX TEST NOT PERFORMED REORDERED FOR (test code = 03/24/21 PTTMIX2) PTT 3:1 (test TEST NOT PERFORMED code = PTTMIX3) SECS PTT PRE MIXING TEST NOT PERFORMED 25.9-35.3 STUDY (test code SECONDS = PTTPRE) Specimen comments: collect from peripheral vein, don't us IV lineComments to Devops Architect: collect from peripheral vein, don't us IV lineMISCELLANEOUS LAB SEND [id number] 10:51:00 Test Item Value Reference Range Interpretation Comments MISCELLANEOUS LAB SEND OUT APPROVED-IN LAB (test code = MISCLABSO) MOD Test: lupus anticoagulantOrdering physician contact information: Dr. Gross RHEUMATOID FACTOR [id number] 21:28:00 Test Item Value Reference Range Interpretation Comments RHEUMATOID FACTOR SCREEN (test code NEGATIVE NEGATIVE = RA) Specimen comments: from blood drawn earlierANA [id number] 21:28:00 Test Item Value Reference Range Interpretation Comments BONG DIRECT (test code = ANADIR) NEGATIVE Specimen comments: from blood drawn earlierPTT MIXING [id number] 20:52:00 Test Item Value Reference Range Interpretation Comments PTT 1:1 MIX (test code = PTTMIX2) PTT 3:1 (test code = PTTMIX3) SECS PTT PRE MIXING STUDY (test code = SECONDS 25.9-35.3 PTTPRE) Specimen comments: collect from peripheral vein, don't us IV lineComments to Devops Architect: collect from peripheral vein, don't us IV linePTT ACTIVATED 2021-03-23 20:52:00 Test Item Value Reference Range Interpretation Comments PTT ACTIVATED (test 67.1 SECONDS 25.1-36.5 HH CALLED T O code = APTT) TREMAYNE HANSEN ON 03/23/21 AT 2051 BY Tabitha Segovia Specimen comments: collect from peripheral vein, don't us IV lineComments to Devops Architect: collect from peripheral vein, don't us IV lineHEPATIC FUNCTION [id number] 20:51:00 Test Item Value Reference Range Interpretation Comments TOTAL PROTEIN 7.4 G/DL 6.3-8.2 N [facility] Clinical Diagnostic (test code = has made us pee re of PROT) newinformation regarding the potential i nterference ofEltrombopag ( a bone marrow stimulan t used to treatthrombocyt onmenia and aplastic anemia ) with specific assays on the Vitros 5600 of which Total Protein is one of thoseassays per formed in our lab.Interfe rence testing perform ed at Ortho determined that Eltrombopag does interfere with Vitros Total Protein asfollowsEltrom bopag Interference fo r Vitros Product Total Protein:======= Eltrombopag Max Observed Av g. BiasConcentrati on Concentration Concentration== ==== 2.5 mg/dl 6.0 g/dl +0.41 +0.34 3.5 mg/dl 6.0 g /dl +0.50 +0.45 5 mg/dl 6 .0 g/dl +0.73 +0.65 2.5 mg/dl 8.0 g/dl +0.44 +0.4 1 3.5 mg/dl 8.0 g/dl +0.55 +0.52 5 mg/dl 8.0 g/dl +0.86 +0.77 ALBUMIN (test 4.0 G/DL 3.5-5.0 N code = ALB) BILIRUBIN TOTAL 1.0 MG/DL 0.2-1.3 N Eltrombopag Interference (test code = for Vitros Prod uct TBil, BILT) BuBc: Assa y Eltrombopag Bong lyte/ Max Observed Avg. B ias Concentration C oncentration Concentration== ====TBil 7mg/dl TBil/ 1. 2mg/dl +0.23mg.dl +0.2 0mg/dlBuBc 3.5mg/dl Bu/0.8 mg/dl +0.25mg/dl +0.2 4mg/dlBuBc 7 mg/dl Bu/14.2mg /dl +0.38mg/dl +0.2 5mg/dlBuBc 5mg/dl Bc/0mg/d l +0.25mg/dl +0.15mg/dlBuBc 3.5mg/dl Bc/2.8mg/dl +0. 25mg/dl +0.23mg/dl BILIRUBIN DIRECT 0.0 MG/DL 0.0-0.3 N Eltrombopag Interference (test code = for Vitros Prod uct TBil, BILD) BuBc: Assa y Eltrombopag Bong lyte/ Max Observed Avg. B ias Concentration C oncentration Concentration== ====TBil 7mg/dl TBil/ 1 .2mg/dl +0.23mg.dl +0.2 0mg/dlBuBc 3.5mg/dl Bu/0.8 mg/dl +0.25mg/dl +0.2 4mg/dlBuBc 7 mg/dl Bu/14.2mg /dl +0.38mg/dl +0.2 5mg/dlBuBc 5mg/dl Bc/0mg/d l +0.25mg/dl +0.1 5mg/dlBuBc 3.5mg/dl Bc/2.8 mg/dl +0.25mg/dl +0.2 3mg/dl SGOT/AST (test 26 UNITS/L 14-36 N code = AST) SGPT/ALT (test 12 UNITS/L <35 code = ALT) ALKALINE 63 UNITS/L 38-126 N PHOSPHATASE (test code = ALKP) : from blood drawn [facility] W/O [id number] 14:12:00 Test Item Value Reference Range Interpretation [...] = 0.00 K/mm3 0.0-0.1 N NRBC#) WBC [id number] 14:12:00 Test Item Value Reference Range Interpretation [...] (test code = NORMAL NORMAL PLTMORPH) PROTHROMBIN [id number] 12:52:00 Test Item Value Reference Range Interpretation Comments PROTHROMBIN TIME PATIENT 11.6 9.5-12.7 N (test code = PTP) INTERNATIONAL NORMAL RATIO 1.1 0.86-1.14 N T he INR is to be used (test code = INR) only for m onitoring oral anticoagulantth erapy. INDICATION INR VALUE ------- ------- -----1. Prophylaxis, de ep venous thrombos is, including high risk surgery. 2.0 - 3.0 2. Prophylaxis, de ep venous thrombos is, hip surgery, treatm ent for deep venous thr ombosis or pulmonary prevention of s ystemic embolism in pat ients with valvular h eart disease, atrial fibrillation, t issue heart valve, or acute myocardial infa rction. 2.0 - 3.0 3. Mechanical pros thesis heart valves, recurrent syste mera embolism. 3.0 - 4.5 Comments to Devops Architect: WILL BRING SPECIMAN TO THE LABRECOLLECTION NEEDED ON 03/23/21 AT 1115 BY TINOTQLREASON: NEED A REDRAW PER CHARGE RNNOTIFIED PATIENT CARE STAFF: LOLAPTT [id number] 12:52:00 Test Item Value Reference Range Interpretation Comments PTT ACTIVATED (test 70.6 SECONDS 25.1-36.5 HH REPEATED ON A code = APTT) RECOLLECTED SPECIMEN;CALLED TO [facility] O& READBAC K ON 03/23/21 AT 125 1 BY Rafael Cherry Comments to Devops Architect: WILL BRING SPECIMAN TO THE LABRECOLLECTION NEEDED ON 03/23/21 AT 1115 BY TINOTQLREASON: NEED A REDRAW PER CHARGE RNNOTIFIED PATIENT CARE STAFF: LOLABASIC METABOLIC [id number] 11:01:00 Test Item Value Reference Range Interpretation [...] code = 8.9 MG/DL 8.4-10.2 N CA) [id number] 11:01:00 Test Item Value Reference Range Interpretation Comments MAGNESIUM (test code = MAG) 2.0 MG/DL 1.6-2.3 N CBC W/O [id number] 10:25:00 Test Item Value Reference Range Interpretation [...] = 0.00 K/mm3 0.0-0.1 N NRBC#) WBC [id number] 10:25:00 Test Item Value Reference Range Interpretation Comments RBC MORPHOLOGY REQUIRED (test code = RBCM) TOTAL CELLS COUNTED (test code = TCC) #CELLS SEGMENTED NEUTROPHILS (test code = % 36.2-73.8 SEG) LYMPHOCYTE (test code = LYMPH) % 12.9-45.1 MONOCYTE (test code = MON) % 0-11 PLATELET ESTIMATE (test code = ADEQUATE PLTEST) PLATELET MORPHOLOGY (test code = NORMAL PLTMORPH) CBC W/AUTO [id number] 10:25:00 Test Item Value Reference Range Interpretation [...] = 0.00 K/mm3 0.0-0.1 N NRBC#) WBC [id number] 10:25:00 Test Item Value Reference Range Interpretation Comments RBC MORPHOLOGY REQUIRED (test code = RBCM) TOTAL CELLS COUNTED (test code = TCC) #CELLS SEGMENTED NEUTROPHILS (test code = % 36.2-73.8 SEG) LYMPHOCYTE (test code = LYMPH) % 12.9-45.1 MONOCYTE (test code = MON) % 0-11 PLATELET ESTIMATE (test code = ADEQUATE PLTEST) PLATELET MORPHOLOGY (test code = NORMAL PLTMORPH) COVID 19 Asymptomatic IH [id number] 15:36:00 Test Item Value Reference Range Interpretation Comments COVID 19 NEGATIVE Negative "Negative resul ts from Asymptomatic IH AG patients with symptom (test code = onset beyondfiv e days, COVNONPUIAG) should be treat ed as presumptive, andconfirmation with a molecular assay [...] in the sample." CT Cervical Spine W/O [id number] 16:36:40 No acute intracranial abnormality. No acute facial bone fracture. No acute fracture or traumatic ali gnment of the cervical spine.EXAM: CT HEAD WO CONTRAST, CT CERVICAL SPINE WO CONTRAST, CTMAXILLOFACIAL/MANDIBLE WO CONTRAST HISTORY: fall, hit head TECHNIQUE: CTs of the head, face and cervical spine were performed withoutintravenous contrast. Sagittal and coronal reformats were generated. COMPARISON:None. FINDINGS: CT HEAD The ventricles and sulci are normal in caliber and configuration. Nohydrocephalus, midline shift or pathological extra- axial fluid collectionis present. The basal cisterns are unremarkable. There is no acute intracranial hemorrhage or significant mass effect. Noparenchymal atten uation abnormality. The zuñiga-white matter differentiationis preserved. The mastoid air cells and paranasal air sinuses are clear. The calvariumand central skull base are unremarkable. CT FACE The nasalbones and frontal processes of the maxilla are intact. Nasalseptum is midline. Nasal cavities are clear. The zygomatic arches, crabtree of the maxillary sinuses and pterygoid platesare intact. Bony orbitsare intact. The eye globes, extraocular muscles and opticsheath complexes are symmetric. Clear intraorbital fat planes. The mandible and temporomandibular joints are intact. Few missingmandibular molars are noted. The dentition is otherwise unremarkable. The paranasal sinuses and mastoid air cells areclear. CT CERVICAL SPINE Vertebral bodies are normal in height and alignment. No acute fracture orsubluxation. Normal alignment of atlantoaxial joint and craniocervical junction. Moderate spondylotic changes at C5-C7 manifested by disc space narrowingand marginal osteophytes. The prevertebral soft tissues are unremarkable. The visualized lungs are clear. [facility], Radiant Results Inft User - 02/03/2021 11:37 AM CDTEXAM: CT HEAD WO CONTRAST, CT CERVICAL SPINE WO CONTRAST, CTMAXILLOFACIAL/MANDIBLE WO CONTRASTHISTORY: fall, hit head TECHNIQUE: CTs of the head, face and cervical spine were performed withoutintravenous contrast. Sagittal and coronal reformats were generated.COMPARISON: None.FINDINGS: CT HEA DThe ventricles and sulci are normal in caliber and configuration. Nohydrocephalus, midline shift orpathological extra-axial fluid collectionis present. The basal cisterns are unremarkable.There is noacute intracranial hemorrhage or significant mass effect. Noparenchymal attenuation abnormality. Thegray-white matter differentiationis preserved.The mastoid air cells and paranasal air sinuses are clear. The calvariumand central skull base are unremarkable.CT FACEThe nasal bones and frontal processes of the maxilla are intact. Nasalseptum is midline. Nasal cavities are clear.The zygomatic arches, crabtree of the maxillary sinuses and pterygoid platesare intact.Bony orbits are intact. The eye globes, extraocular muscles and opticsheath complexes are symmetric. Clear intraorbital fat planes.The mandible and temporomandibular joints are intact. Few missingmandibular molars are noted. The dentition is o therwise unremarkable.The paranasal sinuses and mastoid air cells are clear.CT CERVICAL SPINEVertebral bodies are normal in height and alignment. No acute fracture orsubluxation.Normal alignment of atlantoaxial joint and craniocervical junction.Moderate spondylotic changes at C5-C7 manifested by disc space narrowingand marginal osteophytes.The prevertebral soft tissues are unremarkable.The visualizedlungs are clear.IMPRESSIONNo acute intracranial abnormality.No acute facial bone fracture.No acute fracture or traumatic alignment of the cervical spine.[facility] [id number] 16:36:40 No acute intracranial abnormality. No acute facial bone fracture. No acute fracture or traumatic alignment of the cervical spine.EXAM: CT HEAD WO CONTRAST, CT CERVICAL SPINE WO CONTRAST, CTMAXILLOFACIA L/MANDIBLE WO CONTRAST HISTORY: fall, hit head TECHNIQUE: CTs of the head, face and cervical spine were performed withoutintravenous contrast. Sagittal and coronal reformats were generated. COMPARISON:None. FINDINGS: CT HEAD The ventricles and sulci are normal in caliber and configuration. Nohydrocephalus, midline shift or pathological extra-axial fluid collectionis present. The basal cisterns are unremarkable. There is no acute intracranial hemorrhage or significant mass effect. Noparenchymal attenuation abnormality. The zuñiga-white matter differentiationis preserved. The mastoid air cells and paranasal air sinuses are clear. The calvariumand central skull base are unremarkable. CT FACE The nasalbones and frontal processes of the maxilla are intact. Nasalseptum is midline. Nasal cavities are clear. The zygomatic arches, crabtree of the maxillary sinuses and pterygoid platesare intact. Bony orbitsare intact. The eye globes, extraocular muscles and opticsheath complexes are symmetric. Clear intraorbital fat planes. The mandible and temporomandibular joints are intact. Few missingmandibular molars are noted. The dentition is otherwise unremarkable. The paranasal sinuses and mastoid air cells areclear. CT CERVICAL SPINE Vertebral bodies are normal in height and alignment. No acute fracture orsubluxation. Normal alignment of atlantoaxial joint and craniocervical junction. Moderate spondylotic changes at C5-C7 manifested by disc space narrowingand marginal osteophytes. The prevertebral soft tissues are unremarkable. The visualized lungs are clear. [facility], Radiant Results Inft User - 02/03/2021 11:37 AM CDTEXAM: CT HEAD WO CONTRAST, CT CERVICAL SPINE WO CONTRAST, CTMAXILLOFACIAL/MANDIBLE WO CONTRASTHISTORY: fall, hit head TECHNIQUE: CTs of the head, face and cervical spine were performed withoutintravenous contrast. Sagittal and coronal reformats were generated.COMPARISON: None.FINDINGS: CT HEADThe ventricles and sulci are normal in caliber and configuration. Nohydrocephalus, midline shift or pathological extra-axial fluid collectionis present. The basal cisterns are unremarkable.There is noacute intracranial hemorrhage or significant mass effect. Noparenchymal attenuation abnormality. Thegray-white matter differentiationis preserved.The mastoid air cells and paranasal air sinuses are clear. The calvariumand central skull base are unremarkable.CT FACEThe nasal bones and frontal processes of the maxilla are intact. Nasalseptum is midline. Nasal cavities are clear.The zygomatic arches, crabtree of the maxillary sinuses and pterygoid platesare intact.Bony orbits are intact. The eye globes, e xtraocular muscles and opticsheath complexes are symmetric. Clear [...] marginal osteophytes.The prevertebral soft tissues are unremarkable.The visualizedlungs are clear.IMPRESSIONNo acute intracranial abnormality.No acute facial bone fracture.No acute fracture or traumatic alignment of the cervical spine.[facility]CT MAXILLOFACIAL/MANDIBLE WO [id number] 16:36:40 No acute intracranial abnormality. No acute facial bone fracture. No acute fracture or traumatic ali gnment of the cervical spine.EXAM: CT HEAD WO CONTRAST, CT CERVICAL SPINE WO CONTRAST, CTMAXILLOFACIAL/MANDIBLE WO CONTRAST HISTORY: fall, hit head TECHNIQUE: CTs of the head, face and cervical spine were performed withoutintravenous contrast. Sagittal and coronal reformats were generated. COMPARISON:None. FINDINGS: CT HEAD The ventricles and sulci are normal in caliber and configuration. Nohydrocephalus, midline shift or pathological extra- axial fluid collectionis present. The basal cisterns are unremarkable. There is no acute intracranial hemorrhage or significant mass effect. Noparenchymal atten uation abnormality. The zuñiga-white matter differentiationis preserved. The mastoid air cells and paranasal air sinuses are clear. The calvariumand central skull base are unremarkable. CT FACE The nasalbones and frontal processes of the maxilla are intact. Nasalseptum is midline. Nasal cavities are clear. The zygomatic arches, crabtree of the maxillary sinuses and pterygoid platesare intact. Bony orbitsare intact. The eye globes, extraocular muscles and opticsheath complexes are symmetric. Clear intraorbital fat planes. The mandible and temporomandibular joints are intact. Few missingmandibular molars are noted. The dentition is otherwise unremarkable. The paranasal sinuses and mastoid air cells areclear. CT CERVICAL SPINE Vertebral bodies are normal in height and alignment. No acute fracture orsubluxation. Normal alignment of atlantoaxial joint and craniocervical junction. Moderate spondylotic changes at C5-C7 manifested by disc space narrowingand marginal osteophytes. The prevertebral soft tissues are unremarkable. The visualized lungs are clear. [facility], Radiant Results Inft User - 02/03/2021 11:37 AM CDTEXAM: CT HEAD WO CONTRAST, CT CERVICAL SPINE WO CONTRAST, CTMAXILLOFACIAL/MANDIBLE WO CONTRASTHISTORY: fall, hit head TECHNIQUE: CTs of the head, face and cervical spine were performed withoutintravenous contrast. Sagittal and coronal reformats were generated.COMPARISON: None.FINDINGS: CT HEA DThe ventricles and sulci are normal in caliber and configuration. Nohydrocephalus, midline shift orpathological extra-axial fluid collectionis present. The basal cisterns are unremarkable.There is noacute intracranial hemorrhage or significant mass effect. Noparenchymal attenuation abnormality. Thegray-white matter differentiationis preserved.The mastoid air cells and paranasal air sinuses are clear. The calvariumand central skull base are unremarkable.CT FACEThe nasal bones and frontal processes of the maxilla are intact. Nasalseptum is midline. Nasal cavities are clear.The zygomatic arches, crabtree of the maxillary sinuses and pterygoid platesare intact.Bony orbits are intact. The eye globes, extraocular muscles and opticsheath complexes are symmetric. Clear intraorbital fat planes.The mandible and temporomandibular joints are intact. Few missingmandibular molars are noted. The dentition is o therwise unremarkable.The paranasal sinuses and mastoid air cells are clear.CT CERVICAL SPINEVertebral bodies are normal in height and alignment. No acute fracture orsubluxation.Normal alignment of atlantoaxial joint and craniocervical junction.Moderate spondylotic changes at C5-C7 manifested by disc space narrowingand marginal osteophytes.The prevertebral soft tissues are unremarkable.The visualizedlungs are clear.IMPRESSIONNo acute intracranial abnormality.No acute facial bone fracture.No acute fracture or traumatic alignment of the cervical spine.[facility] SARS-COV2/RT-PCR ([facility])2020-04-22 11:07:00 Test Item Value Reference Range Interpretation Comments SARS-COV2/RT-PCR (test code = Negative Not Detected, Negative [id number]) SARS-COV-2 [facility] (test code = 6977133) Negative result for this test determines that [...] justifying the authorization of the emergency use ofin vitro diagnostic tests for detection and/or diagnosis of COVID-19 is terminated under Section 564(b)(2) of the Act or the EUA is revoked under Section 564(g) of the Act.Fact Sheet for Healthcare Prov iders:https://www.[employer].com/sites/default/files/product/documents/Fact_Sheet_HC _Mgwclhezv_Jdtk_EWWL-HyK-3.pdfFact Sheet for Healthcare Patients:https://www.[employer].com/sites/default/files/product/docume nts/Yomx_Fbdtr_Wxqotyzr_Undb_WWVQ-ShX-3.pdfPerforming Laboratory:[facility] [place] [address] Notes Date/Time Note Provider Source 2021-03-30 15:54:00-00:00 [id number] [facility] [address] [place] [address] PATIENT NAME: VIN JACOB ADMIT DATE: 06/05 ACCOUNT NO: [id number] ROOM NO: Z.360 AGE: 70 REPORT TYPE: HISTORY AND PHYSICAL SEX: F ADMITTING PHYSICIAN:Paul Lerma MD ATTENDING PHYSICIAN:Paul Lerma MD ADMISSION DATE: 03/23/2021 REASON FOR ADMISSION: The patient was admitted f or pulmonary vein isolation. HISTORY OF PRESENT ILLNESS: This is a 70-year-ol d female with a history of ulcerative colitis, hyperten modesta, hyperlipidemia, persistent atrial fibrillation with CHADS2-VASc 3, who pres ented for a pulmonary vein isolation. She was noted to have an elevated partial thromboplastin time, which was verified with a second draw. The pulmonary vein isolation case w as canceled, and the patient was admitted for observation and hematology eval uation. PAST MEDICAL HISTORY: Ulcerative colitis, pulmon annalee hypertension, hiatal hernia, PVC, persistent atrial fibrillation - CH ADS2-VASc 3. PAST SURGICAL HISTORY: Hyste rectomy in 1980, SVT ablation 1997, cholecystectomy 1999, and colonoscopy 2017. FAMILY HISTORY: Positive for diabetes and hypert ension. SOCIAL HISTORY: No alcohol. No tobacco. ALLERGIES: NKDA. REVIEW OF SYSTEMS: Positive for generalized weak ness as well as history of rectal bleeding related to the ulcerative coliti s. PHYSICAL EXAMINATION: GENERAL: Elderly female, in no acute distress. VITAL SIGNS: Per the nursing notes. ENMT: Atraumatic, normocephalic. RESPIRATORY: Normal effort. LUNGS: Clear to auscultation bilaterally. CARDIOVASCULAR: Normal S1 and S2. No S3 or S4. NECK: JVP is normal. There are no carotid bruits . EXTREMITIES: No edema. NEUROLOGIC: Cranial nerves II through XII are in tact. No focal motor deficits noted. LABORATORY DATA AND DIAGNOSTIC STUDIES: Showed a n elevated partial thromboplastin time at baseline. IMPRESSION: PATIENT NAME: VIN JACOB ACCOUNT #: [id number] 1. Coagulopathy with elevated PTT. 2. Persistent atrial fibrillation. 3. Ulcerative colitis. PLAN: We will admit for overnight observation an d consult hematology. Further planning after hematology evaluation. Dictated By: Paul Lerma MD WT: HP:BENNY/PEPGR/NTS Conf#: [id number]/DID#: [id number] Authenticated by Paul Lerma MD On 04/01/20 06:01:37 PM at 1802 PATIENT NAME: VIN JACOB ACCOUNT #: [id number] 2021-03-29 11:51:00-00:00 [id number] [place] [address] PATIENT NAME: VIN JACOB ADMIT DATE: 06/05 ACCOUNT NO: [id number] ROOM NO: Z360 AGE: 70 REPORT TYPE: CARDIAC CATHETERIZATION REPORT SEX: F ADMITTING PHYSICIAN:Paul Lerma MD ATTENDING PHYSICIAN:Paul Lerma MD PROCEDURE DATE: 03/23/2021 The patient was found to have a persistently johnna vated partial thromboplastin time at baseline. The procedure was canceled and hematology was consulted. We will follow up regarding the procedure post-siva tology evaluation. Dictated By: Paul Lerma MD WT: CATH:JOVANNI/PEPGR/NTS Conf#: [id number]/DID#: [id number] Authenticated by Paul Lerma MD On 03/29/20 03:46:07 PM at 1546 PATIENT NAME: VIN JACOB ACCOUNT #: [id number] 2021-03-25 09:38:00-00:00 [facility] ([facility]) Cardiology Progress Note REPORT#:[id number] REPORT STATUS: Signed DATE:03/25/21 TIME: 09 PATIENT: VIN JACOB UNIT #: [id number] ROOM/BED: 360-A : 48 AGE: 70 SEX: F ATTEND: Eddie Lerma MD ADM AUTHOR: Noemí De Santiago NP * ALL edits or amendments must be made on the [employer] document * Subjective Chief Complaint: AFIB Free Text Subj Notes Free Text Subj Notes: Patient assessed at bedside. Denies chest pain, SOB or palpitations Objective General VS/I O: Vital Signs: Date Time Temp Pulse Resp B/P B/P Pulse O2 O2 F low FiO2 Mean Ox Delivery Rate 03/25 0818 97.9 67 18 121/61 80.8 92 Room air 03/25 0451 98.6 80 18 144/61 88.5 96 03/24 2326 97.9 86 18 131/71 91.3 96 03/24 1930 97.7 68 17 126/76 92.4 92 03/24 1526 98.1 68 17 100/61 74.3 94 Room air 03/24 1121 98.1 69 18 131/78 95.5 95 Room air PATIENT WEIGHT: Weight (lb): Weight (oz): Weight (kg): Medications: Active Meds + DC'd Last 24 Hrs Atorvastatin Calcium 20 MG BEDTIME PO Mesalamine 800 MG TID PO Alprazolam 0.5 MG Q12HR PO Amlodipine Besylate 10 MG DAILY PO Citalopram Hydrobromide 40 MG DAILY PO (CKD) Levothyroxine Sodium 50 MCG DAILY@0630 PO Losartan Potassium 100 MG DAILY PO Metoprolol Succinate 25 MG DAILY PO Pantoprazole 40 MG BID PO Loperamide HCl 2 MG Q6H PRN PRN PO Hydrocodone Bitart/Acetaminophen 1 TAB Q4H PRN P RN PO Physical Exam General appearance: alert, awake, oriented, no a cute distress Head/Eyes: atraumatic, normocephalic ENT: moist mucosal membranes Neck: no JVD Cardiovascular: CV assessment: regular rate and rhythm Respiratory: clear to auscultation, no distress Lower extremity: LE assessment: no edema Musculoskeletal: full range of motion Neuro/ENVIRONMENTAL COMPLIANCE MANAGER: alert, oriented X 3, CN II-XII intact Skin: dry, intact Psychiatry: normal affect, normal judgment/insig ht, normal mood Results Findings/Data: Laboratory Tests 03/24 1346 Coagulation INR (0.86 - 1.14) 1.1 APTT (25.1 - 36.5 SECONDS) 71.7 *H PT Patient/Control Mix (9.5 - 12.7) 12.0 Laboratory Tests 03/24 1346 Coagulation APTT (25.1 - 36.5 SECONDS) 71.7 *H Telemetry Interpretation: AFIB 65 Diagnosis, Assessment Plan Free Text DxA P Notes Free Text DxA P Notes: IMP: Persistent AFIB Elevated PTT PLAN: Continue current medical rx. Hematology cleared to for outpatient f/u in 10d ays Ok to discharge. F/u with cardiology in 2 weeks Plan discussed with patient and nurse at bedside Plan discussed with Dr. Lerma at 0941 RPT #:[id number] END OF REPORT 2021-03-25 09:38:00-00:00 [facility] ([facility]) Cardiology Progress Note REPORT#:[id number] REPORT STATUS: Signed DATE:03/25/21 TIME: 09 PATIENT: VIN JACOB UNIT #: [id number] ROOM/BED: [address] : 48 AGE: 70 SEX: F ATTEND: Eddie Lerma MD ADM AUTHOR: Noemí De Santiago NP * ALL edits or amendments must be made on the [employer]/computer document * Subjective Chief Complaint: AFIB Free Text Subj Notes Free Text Subj Notes: Patient assessed at bedside. Denies chest pain, SOB or palpitations Objective General VS/I O: Vital Signs: Date Time Temp Pulse Resp B/P B/P Pulse O2 O2 F low FiO2 Mean Ox Delivery Rate 03/25 0818 97.9 67 18 121/61 80.8 92 Room air 03/25 0451 98.6 80 18 144/61 88.5 96 03/24 2326 97.9 86 18 131/71 91.3 96 03/24 1930 97.7 68 17 126/76 92.4 92 03/24 1526 98.1 68 17 100/61 74.3 94 Room air 03/24 1121 98.1 69 18 131/78 95.5 95 Room air PATIENT WEIGHT: Weight (lb): Weight (oz): Weight (kg): Medications: Active Meds + DC'd Last 24 Hrs Atorvastatin Calcium 20 MG BEDTIME PO Mesalamine 800 MG TID PO Alprazolam 0.5 MG Q12HR PO Amlodipine Besylate 10 MG DAILY PO Citalopram Hydrobromide 40 MG DAILY PO (CKD) Levothyroxine Sodium 50 MCG DAILY@0630 PO Losartan Potassium 100 MG DAILY PO Metoprolol Succinate 25 MG DAILY PO Pantoprazole 40 MG BID PO Loperamide HCl 2 MG Q6H PRN PRN PO Hydrocodone Bitart/Acetaminophen 1 TAB Q4H PRN P RN PO Physical Exam General appearance: alert, awake, oriented, no a cute distress Head/Eyes: atraumatic, normocephalic ENT: moist mucosal membranes Neck: no JVD Cardiovascular: CV assessment: regular rate and rhythm Respiratory: clear to auscultation, no distress Lower extremity: LE assessment: no edema Musculoskeletal: full range of motion Neuro/ENVIRONMENTAL COMPLIANCE MANAGER: alert, oriented X 3, CN II-XII intact Skin: dry, intact Psychiatry: normal affect, normal judgment/insig ht, normal mood Results Findings/Data: Laboratory Tests 03/24 1346 Coagulation INR (0.86 - 1.14) 1.1 APTT (25.1 - 36.5 SECONDS) 71.7 *H PT Patient/Control Mix (9.5 - 12.7) 12.0 Laboratory Tests 03/24 1346 Coagulation APTT (25.1 - 36.5 SECONDS) 71.7 *H Telemetry Interpretation: AFIB 65 Diagnosis, Assessment Plan Free Text DxA P Notes Free Text DxA P Notes: IMP: Persistent AFIB Elevated PTT PLAN: Continue current medical rx. Hematology cleared to for outpatient f/u in 10d ays Ok to discharge. F/u with cardiology in 2 weeks Plan discussed with patient and nurse at bedside Plan discussed with Dr. Lerma at 0941 at 0651 [facility] #:[id number] END OF REPORT 2021-03-24 18:01:00-00:00 [facility] ([facility]) Siva/Oncology Progress Note REPORT#:[id number] REPORT STATUS: Signed DATE:03/24/21 TIME: 1800 PATIENT: VIN JACOB UNIT #: [id number] [facility] AGE: 70 SEX: F ATTEND: Eddie Lerma MD ADM AUTHOR: Mert Gross MD * ALL edits or amendments must be made on the [employer]/computer document * Subjective Chief Complaint: Patient is seen in IMU. Rest ing comfortable. Denied chest pain. Denied bleeding. Review of Systems Constitutional: Denies: chills, fever. Eyes: Denies: discharge, eye pain. ENT: Denies: sore throat. Respiratory: Denies: productive cough (sputum), SOB. Cardiovascular: Denies: chest pain, palpitations. GI: Denies: nausea, vomiting. Musculoskeletal: Extremity pain: Denies: bilateral. Extremity swelling: Denies: bilateral. Objective General VS: Vital Signs Date Temp Pulse Resp B/P B/P Mean Pulse Ox FiO2 03/23-03/24 97.7-98.1 59-77 17-18 100-178/61-78 74.3-110.0 89-96 Last Documented: Result Date Time Pulse Ox 94 03/24 1526 B/P 100/61 03/24 1526 B/P Mean 74.3 03/24 1526 O2 Delivery Room air 03/24 1526 Temp 98.1 03/24 1526 Pulse 68 03/24 1526 Resp 17 03/24 1526 PATIENT WEIGHT: Weight (lb): Weight (oz): Weight (kg): Medications: Active Meds + DC'd Last 24 Hrs Atorvastatin Calcium 20 MG BEDTIME PO Mesalamine 800 MG TID PO Alprazolam 0.5 MG Q12HR PO Amlodipine Besylate 10 MG DAILY PO Citalopram Hydrobromide 40 MG DAILY PO (CKD) Levothyroxine Sodium 50 MCG DAILY@0630 PO Losartan Potassium 100 MG DAILY PO Metoprolol Succinate 25 MG DAILY PO Pantoprazole 40 MG BID PO Loperamide HCl 2 MG Q6H PRN PRN PO Hydrocodone Bitart/Acetaminophen 1 TAB Q4H PRN P RN PO Sodium Chloride 1,000 ML Q13H IV (DC) Physical Exam General appearance: awake, no acute distress HEENT: anicteric, atraumatic, normocephalic Neck: no lymphadenopathy, no mass Cardiovascular: regular rate and rhythm, normal S1/S2, no murmur Respiratory: clear to auscultation, no rales Abdomen: non-tender, soft, no mass/organomegaly Extremities: no edema, no cyanosis Results Findings/Data: Laboratory Tests 03/23 2015 Chemistry Total Bilirubin (0.2 - 1.3 MG/DL) 1.0 Direct Bilirubin (0.0 - 0.3 MG/DL) 0.0 AST (14 - 36 UNITS/L) 26 ALT (<35 UNITS/L) 12 Total Alk Phosphatase (38 - 126 UNITS/L) 63 Total Protein (6.3 - 8.2 G/DL) 7.4 Albumin (3.5 - 5.0 G/DL) 4.0 Laboratory Tests 03/24 03/23 1346 2014 Coagulation INR (0.86 - 1.14) 1.1 TNP APTT (25.1 - 36.5 SECONDS) 71.7 *H 67.1 *H PT/PTT Mixing Studies (SECS) TNP PT Patient/Control Mix (9.5 - 12.7) 12.0 TNP PTT Patient Pre-Incubat (25.9 - 35.3 SECONDS) TNP Mix PTT % Correct 1:1 TNP Lupus Anticoag aPTT (0.0 - 50.0 SEC) TNP dRVVT Confirm Seconds (0.0 - 55.1 SEC) TNP Hexagonal Phospholipid (RATIO) TNP Laboratory Tests 03/23 2015 Immunology Rheumatoid Factor Scrn (NEGATIVE) NEGATIVE Diagnosis, Assessment Plan Problem List/A P: 1. Coagulopathy Free Text DxA P Notes Free Text DxA P Notes: 1. Coagulopathy with prolonged PTT. Have ordered mixing study. lupus anticoagulant. Has easy skin bruising fo r past 3 yrs since started on remicade but has dental extraction 2 months ago without e xcessive bleeding afterwards. 2. Have ordered LFT normal, BONG pending, rheumat oid factor negative. 3. Underlying history of HTN and ulcerative coli tis presented with rectal bleeding 3 yrs ago and on remicade infusion with last dose 03-06-2021. 4. Will see patient in office in about 10 days t o discuss test results. Electronically Signed by Mert Gross MD on at 1936 RPT #:[id number] END OF REPORT 2021-03-24 06:18:00-00:00 [facility] ([facility]) Cardiology Progress Note REPORT#:[id number] REPORT STATUS: Signed DATE:03/24/21 TIME: 617 PATIENT: VIN JACOB UNIT #: [id number] ROOM/BED: [address] : 48 AGE: 70 SEX: F ATTEND: Eddie Lerma MD ADM AUTHOR: Paul Lerma MD * ALL edits or amendments must be made on the [employer]/computer document * Subjective Chief Complaint: AFIB Patient reports: No: chest pain, palpitations, shortness of breat h. Objective General VS/I O: Vital Signs: Date Time Temp Pulse Resp B/P B/P Pulse O2 O2 F low FiO2 Mean Ox Delivery Rate 03/24 428 98.1 67 18 136/70 91.7 93 03/23 2329 97.7 59 18 137/74 94.9 94 03/23 2327 69 18 89 03/23 1937 97.7 60 18 112/69 83.8 93 03/23 1833 97.7 69 18 131/69 90.0 96 Room air PATIENT WEIGHT: Weight (lb): Weight (oz): Weight (kg): Medications: Active Meds + DC'd Last 24 Hrs Hydrocodone Bitart/Acetaminophen 0 .STK-MED ONE PO (DC) Hydrocodone Bitart/Acetaminophen 1 TAB Q4H PRN P RN PO Fentanyl Citrate 0 .STK-MED ONE .ROUTE (DC) Midazolam HCl 0 .STK-MED ONE .ROUTE (DC) Atropine Sulfate 0 .STK-MED ONE .ROUTE (DC) Lidocaine HCl 0 .STK-MED ONE .ROUTE (DC) Lidocaine HCl 0 .STK-MED ONE .ROUTE (DC) Lidocaine HCl 0 .STK-MED ONE .ROUTE (DC) Benzocaine 0 .STK-MED ONE .ROUTE (DC) Flumazenil 0 .STK-MED ONE .ROUTE (DC) Naloxone HCl 0 .STK-MED ONE .ROUTE (DC) Heparin Sodium/Dextrose 0 .STK-MED ONE IV (DC) Heparin Sodium/Sodium Chloride 0 .STK-MED ONE IV (DC) Lidocaine 0 .STK-MED ONE .ROUTE (DC) Sodium Chloride 4,000 ML .STK-MED ONE IV (DC) Heparin Sodium 0 .STK-MED ONE .ROUTE (DC) Iopamidol 0 .STK-MED ONE .ROUTE (DC) Lidocaine HCl 5 ML .STK-MED ONE IV (DC) Phenylephrine HCl 100 ML .STK-MED ONE IV (DC) Sodium Chloride 100 ML .STK-MED ONE IV (DC) Fentanyl Citrate 0 .STK-MED ONE .ROUTE (DC) Midazolam HCl 0 .STK-MED ONE .ROUTE (DC) Propofol 0 .STK-MED ONE .ROUTE (DC) Sodium Chloride 1,000 ML Q13H IV Physical Exam General appearance: alert, awake, oriented Head/Eyes: atraumatic, normocephalic ENT: moist mucosal membranes Neck: no JVD Cardiovascular: CV assessment: regular rate and rhythm Respiratory: clear to auscultation, no distress Lower extremity: LE assessment: no edema Musculoskeletal: full range of motion Neuro/ENVIRONMENTAL COMPLIANCE MANAGER: alert, oriented X 3, CN II-XII intact Skin: dry, intact Psychiatry: normal affect, normal judgment/insig ht, normal mood Results Findings/Data: Laboratory Tests 03/23 1015 Chemistry Sodium (137 - 145 MMOL/L) 141 Potassium (3.5 - 5.1 MMOL/L) 4.3 Chloride (98 - 107 MMOL/L) 107 Carbon Dioxide (22 - 30 MMOL/L) 28 BUN (7 - 17 MG/DL) 10 Creatinine (0.52 - 1.04 MG/DL) 0.60 Glomerular Filtr Rate > 60 Glucose (74 - 106 MG/DL) 87 Calcium (8.4 - 10.2 MG/DL) 8.9 Magnesium (1.6 - 2.3 MG/DL) 2.0 Total Bilirubin (0.2 - 1.3 MG/DL) 1.0 Direct Bilirubin (0.0 - 0.3 MG/DL) 0.0 AST (14 - 36 UNITS/L) 26 ALT (<35 UNITS/L) 12 Total Alk Phosphatase (38 - 126 UNITS/L) 63 Total Protein (6.3 - 8.2 G/DL) 7.4 Albumin (3.5 - 5.0 G/DL) 4.0 Laboratory Tests 03/23 1130 Coagulation INR (0.86 - 1.14) 1.1 APTT (25.1 - 36.5 SECONDS) 67.1 *H 70.6 *H PT Patient/Control Mix (9.5 - 12.7) 11.6 Laboratory Tests 03/23 1015 Hematology WBC (3.8 - 9.8 K/MM3) 5.5 RBC (3.58 - 4.97 M/MM3) 4.38 Hgb (11.2 - 14.9 G/DL) 12.7 Hct (33.2 - 43.5 %) 40.2 MCV (80.7 - 99.1 fL) 92 MCH (27.0 - 34.1 pg) 29.0 MCHC (32.2 - 35.7 %) 31.6 L RDW (12.1 - 15.2 %) 14.0 Plt Count (129 - 368 K/MM3) 258 Neut # (Auto) (2.0 - 7.6 K/mm3) 1.96 L Lymph # (Auto) (1.0 - 3.8 K/mm3) 2.33 [place] # (Auto) (0.1 - 0.8 K/mm3) 0.68 Eos # (Auto) (0.0 - 0.2 K/mm3) 0.49 H Baso # (Auto) (0.0 - 0.2 K/mm3) 0.04 Total Counted (#CELLS) 130 Seg Neutrophils % (36.2 - 73.8 %) 44.3 Band Neutrophils % (0 - 10 %) 0.0 Lymphocytes % (Manual) (12.9 - 45.1 %) 37.4 Atypical Lymphs % (0 - 0 %) 0.0 Monocytes % (Manual) (0 - 11 %) 13.9 H Eosinophils % (Manual) (1 - 7 %) 4.4 Nucleated RBCs # (Man) (0.0 - 0.1 K/mm3) 0.00 Platelet Estimate (ADEQUATE) ADEQUATE Plt Morphology Comment (NORMAL) NORMAL Laboratory Tests 03/23 2015 Immunology Rheumatoid Factor Scrn (NEGATIVE) NEGATIVE Laboratory Tests 03/23 1015 Chemistry Magnesium (1.6 - 2.3 MG/DL) 2.0 Laboratory Tests 03/23 1130 Coagulation APTT (25.1 - 36.5 SECONDS) 67.1 *H 70.6 *H Diagnosis, Assessment Plan Free Text DxA P Notes Free Text DxA P Notes: IMP: Persistent AFIB Elevated PTT PLAN: Continue current medical rx. Hematology w/u f/u after hematology w/u for further plans for AFIB rx. at 0651 RPT #:[id number] END OF REPORT 2021-03-24 05:29:00-00:00 [id number] [place] [address] PATIENT NAME: VIN JACOB ADMIT DATE: 06/05 ACCOUNT NO: [id number] ROOM NO: Z.[facility] AGE: 70 REPORT TYPE: ELECTROCARDIOGRAM SEX: F ADMITTING PHYSICIAN:Paul Lerma MD ATTENDING PHYSICIAN:Paul Lerma MD Order: [id number] Test Reason : PAFIB Test Date/Time Stamp: MonMar 24 2021 05:29:06 Blood Pressure : / mmHG Vent. Rate : 068 BPM Atrial Rate : 070 BPM P-R Int : 000 ms QRS Dur : 096 ms QT Int : 430 ms P-R-T Axes : 000 010 -13 degree s QTc Int : 457 ms Atrial fibrillation Cannot rule out Anterior infarct , age undetermi stacey Abnormal ECG When compared with ECG of 23-MAR-2021 20:06, No significant change was found Confirmed by ARIK REYES ([id number]) on 03/24/2021 6 :51:26 AM Referred By: Paul Lerma Confirmed by:ARIK BONE at 0681 PATIENT NAME: VIN JACOB ACCOUNT #: [id number] 2021-03-23 20:06:00-00:00 [id number] [place] [id number] PATIENT NAME: VIN JACOB ADMIT DATE: 06/05 ACCOUNT NO: [id number] ROOM NO: Z.360 AGE: 70 REPORT TYPE: ELECTROCARDIOGRAM SEX: F ADMITTING PHYSICIAN:Paul Lerma MD ATTENDING PHYSICIAN:Paul Lerma MD Order: [id number] Test Reason : PAFIB Test Date/Time Stamp: MonMar 23 2021 20:06:03 Blood Pressure : / mmHG Vent. Rate : 054 BPM Atrial Rate : 066 BPM P-R Int : 000 ms QRS Dur : 090 ms QT Int : 496 ms P-R-T Axes : 000 002 000 degree s QTc Int : 470 ms Atrial fibrillation with slow ventricular respon se Abnormal ECG When compared with ECG of 18-OCT-2012 09:15, Atrial fibrillation has replaced Sinus rhythm Questionable change in QRS axis Confirmed by ARIK REYES ([id number]) on 03/24/2021 6 :51:16 AM Referred By: Paul Lerma Confirmed by:ARIK BONE at 0651 PATIENT NAME: VIN JACOB ACCOUNT #: [id number] 2021-03-23 19:30:00-00:00 [id number] [address] PATIENT NAME: VIN JACOB ADMIT DATE: 06/05 ACCOUNT NO: [id number] ROOM NO: Z.360 AGE: 70 REPORT TYPE: CONSULTATION REPORT SEX: F ADMITTING PHYSICIAN:Paul Lerma MD ATTENDING PHYSICIAN:Paul Lerma MD CONSULTATION DATE: 03/23/2021 CONSULTING PHYSICIAN: Mert Gross MD HISTORY OF PRESENT ILLNESS: Ms. Jacob is a 70- year-old white female, who is being referred to my service for evaluation of p rolonged PTT. The patient had recent onset of atrial fibrillation and she is n ot a candidate for anticoagulation treatment. She was seen by cardi ology service to evaluate the atrial fibrillations via cardiac catheterization . The patient was in the hospital today for preoperative procedur e and with anticipation of the cardiac catheterization. She had some blood tests done e christine today in preparation for the procedure with COVID-19 test negative on 03/22/2021 and the basic metabolic panel today was normal and t hen the PT was 11.6, INR 1.1, and PTT is elevated at 70.6 and it was supposedly repeated on we collec yomaira the sample. I have talked to the patient but it is unclear if the sample w as drawn through the line or from peripheral IV blood dra aldana and WBCs 5.5, hemoglobin was 12.7, MCV 92, and platelet was 258,000 with segmenters 44. 3%, lymphocyte was 37.3%, monocyte was 13.9%. The patient had not been diagnosed to hav e any blood disorder in the past. She has presented with rectal bleeding 3 y ears ago and was eventually found to have ulcerative colitis. She has been o n Remicade injection every 2 months since 3 years ago with last injection on 03/06/2021. She has not been taking any aspirin or any other nonstero idal anti-inflammatory agent since she had ulcerative colitis diagnosed. She said she h ad easy skin bruises on the extremities with trivial inj ury since he was started on Remicade injection. She has chronic sinus problem an d she said for the last few days she had some blood stain on the pillow when she [facility] in [facility], but she denied any gum bleeding when she brushed her teeth and denied a ny epistaxis, hemoptysis, hematemesis, melena, hematochezia, or gross siva turia. She had a dental extraction 2 months ago and did not report to have any bleeding post-procedure. She has no personal history of autoimmune diseas e, but has family history of rheumatoid arthritis in brother and also with lung cancer of brother and colon cancer of sister and mother has PE and father brunner s aneurysm. She had longstanding history of hypertension other than the ulcerative colitis as mentioned above. The patient otherwise has been in very good state of health other than the recent onset of the atria l fibrillation with ongoing cardiology workup. The patient is being interviewed and exa mined at the hospital bed as observation admission. She is resting co mfortable without any other complaint. PAST MEDICAL HISTORY: Pertin ent as mentioned above with history of hypertension and ulcerative colitis and also hiatal hernia. CURRENT MEDICATIONS: In the hospital including Celexa 40 mg daily, losartan 100 PATIENT NAME: VIN JACOB ACCOUNT #: [id number] mg daily, Imodium as needed, mesalamine 2 tablet s b.i.d., Lortab as needed, amlodipine 10 mg daily, Protonix 40 mg b.i.d., R emicade 100 mg every 8 weeks infusion, levothyroxine 50 mcg daily, metoprolol XL 25 mg daily, Xanax 0.5 mg every 12 hours, simvastatin 40 mg daily. Current medicine in hospital including Mars as needed. SOCIAL HISTORY: Revealed no history of smoking, alcohol abuse, nor any chemical radiation exposure. FAMILY HISTORY: Pertinent as mentioned above wit h history of PE in mother and lung cancer brother and colon cancer of sister a nd rheumatoid arthritis of brother. PHYSICAL EXAMINATION: VITAL SIGNS: From today, tem perature is 97.7, pulse is 69, respirations 18, and blood pressure is 131/69, 96% O2 saturation. GENERAL: The patient is awake, alert, not in acu te distress. Well-developed, well-nourished white female. HEENT: Revealed normocephalic. Anicteric sclerae . Extraocular muscles intact. NECK: Supple without any palpable mass. HEART: Regular rate and rhythm. Normal S1 and S2 . No S3, S4, or murmur. LUNGS: Clear to auscultation. ABDOMEN: Presence of bowel sounds. Soft and nont federico. No palpable discrete mass or organomegaly. EXTREMITIES: Revealed no peripheral edema. NEUROLOGIC: Revealed cranial nerves intact, can do [id number] test. Motor is 5/5 equal bilaterally. Sensory is soham ssly intact. Deep tendon reflexes 1 to 2+ equal bilaterally. CLINICAL IMPRESSION: The patient who has an inci dental finding of a prolonged PTT without any clinical selena dence of bleeding. It is unclear if the patient had presence of antibodies versus presence of clotti ng factor deficiency and I suspect this is the former. I explained the test finding in detail with the patient. She does have perso nal history of ulcerative colitis and also reported family history of rheumatoid arthritis of brother. I will recommend the patient to have additional workup with repeating the PTT and also with mixing study drawn from peripheral vein instead of IV line. I will also order lupus anticoagulant. Since the patient had a dental ex traction just 2 months ago without any post-procedure bleeding, I doubt thi s is a coagulation factor deficiency. I will also order a liver function t est and BONG and rheumatoid factor, especially with his reported family hist ory of rheumatoid arthritis. The patient may possibly go home as early as tricia padron, then I will see the patient in office for followup sometime next joann coleman Thank you very much for allo wing me to participate in the care of this patient. Dictated By: Mert Gross MD WT: CON:BENNY/CATRINA/EDMOND Conf#: [id number]/DID#: [id number] PATIENT NAME: VIN JACOB ACCOUNT #: [id number] cc: Paul Lerma MD Authenticated by Mert Gross MD On 12:10:11 PM Electronically Signed by Mert Gross MD on 0 03/26/21 at 1210 PATIENT NAME: VIN JACOB ACCOUNT #: [id number] 2021-03-23 18:32:00-00:00 [facility] ([facility] Siva/onco Consult Note- Brief REPORT#:[id number] REPORT STATUS: Signed DATE:03/23/21 TIME: 1831 PATIENT: VIN JACOB UNIT #: [id number] ROOM/BED: [address] : 48 AGE: 70 SEX: F ATTEND: Eddie Lerma MD ADM AUTHOR: Mert Gross MD * ALL edits or amendments must be made on the [employer]/computer document * History - Adult longitudinal Allergies: Coded Allergies: Penicillins (Intermediate, RASH 10/17/12) Hema_Onco Brief Consult Note Problem List/A P: 1. Coagulopathy Free Text A P: Full note dictated. #[id number] 1. Coagulopathy with prolonged PTT. Will order m ixing study. lupus anticoagulant. Has easy skin bruising fo r past 3 yrs since started on remicade but has dental extraction 2 months ago without e xcessive bleeding afterwards. 2. Will order LFT, BONG, rheumatoid factor. 3. Underlying history of HTN and ulcerative coli tis presented with rectal bleeding 3 yrs ago and on remicade infusion with last dose 03-06-2021. Electronically Signed by Mert Gross MD on at 1930 RPT #:[id number] END OF REPORT 2021-03-23 11:45:00-00:00 [id number] [place] [address] PATIENT NAME: VIN JACOB ADMIT DATE: 06/05 ACCOUNT NO: [id number] ROOM NO: Z.360 AGE: 70 REPORT TYPE: ELECTROCARDIOGRAM SEX: F ADMITTING PHYSICIAN:Paul Lerma MD ATTENDING PHYSICIAN:Paul Lerma MD Order: [id number] Test Reason : A-FIB Test Date/Time Stamp: MonMar 23 2021 11:45:13 Blood Pressure : / mmHG Vent. Rate : 058 BPM Atrial Rate : 105 BPM P-R Int : 000 ms QRS Dur : 086 ms QT Int : 474 ms P-R-T Axes : 000 057 040 degree s QTc Int : 465 ms Atrial fibrillation with slow ventricular respon se Low voltage QRS Nonspecific ST and T wave abnormality , probably digitalis effect Abnormal ECG When compared with ECG of 18-OCT-2012 09:15, Atrial fibrillation has replaced Sinus rhythm Nonspecific T wave abnormality now evident in [place] t[place] leads Confirmed by ARIK REYES ([id number]) on 03/24/2021 5 :07:06 PM Referred By: Paul Lerma Confirmed by:ARIK BONE at 2149 PATIENT NAME: VIN JACOB ACCOUNT #: [id number]
[2023-03-01 22:07] LABS: Absolute Lymphocytes (CBC) 2.5 K/uL (0.7-4.9); Hematocrit 38.8 % (36.0-45.0); Lymphocytes % 38.3 % (15.3-44.8); MCV 83.2 fL (80-100); MPV 8.1 fL (7.6-11.3); RBC Red Blood Cell Count 4.67 M/uL (3.86-4.86)
[2023-03-01] MEDS ORDERED: METOPROLOL TARTRATE 5 MG/5 ML INJ IV ONE (22:13)
[2023-03-01 22:46] LABS: Troponin High Sensitivity 14.8 pg/mL (<58.9)
[2023-03-01 22:53] LABS: Potassium 2.5 mEq/L (3.5-5.1)
--- NOTE | 2023-03-01 22:55 | EDPHYS ---
Physician Documentation [facility] Name: Rossy Jacob Age: 72 yrs Sex: Female : 1950 Arrival Date: 03/01/2023 Time: 21:33 Bed 4 Private MD: ED Physician Michelle Gaitan HPI: 03/01 22:15 This 72 yrs old Female presents to ER via Ambulatory with complaints of AFIB. sp3 22:15 72-year-old female with a history of atrial fibrillation on Eliquis with history of sp3 ablation, hyperlipidemia, hypertension currently on flecainide and recently taken off her beta-zack now presents to the ED with chief complaint palpitations now resolved. Patient was home eating dinner and getting ready to sleep when she noticed her heart rate in the 120s along with some mild shortness of breath. This self resolved in route to the hospital. Upon arrival to the hospital she had minimal symptoms which really consisted of shortness of breath which was trailing off back to normal. Her heart rate in the ED was in the 80s upon arrival. She denies any headache, neck pain, chest pain, current shortness of breath, abdominal pain, nausea, vomiting, diarrhea, syncope, near syncope, or any other symptoms on ROS at this time.. Historical: - Home Meds: 21:47 amlodipine 5 mg tab 1 tab once daily [Active]; kl - PMHx: 21:46 Arthritis; Depression; Hyperlipidemia; Hypertension; Hypothyroidism; ulcerative kl colitis; Atrial fibrillation; - PSHx: 21:46 None; ablatian x 2; kl - Immunization history:: Adult Immunizations up to date. - Social history:: Smoking status: Patient denies any tobacco usage or history of. ROS: 22:16 Constitutional: Negative for fever, chills, and weight loss, Eyes: Negative for injury, sp3 pain, redness, and discharge, ENT: Negative for injury, pain, and discharge, Neck: Negative for injury, pain, and swelling, Respiratory: Negative for shortness of breath, cough, wheezing, and pleuritic chest pain, Abdomen/GI: Negative for abdominal pain, nausea, vomiting, diarrhea, and constipation, Back: Negative for injury and pain, MS/Extremity: Negative for injury and deformity, Skin: Negative for injury, rash, and discoloration, Neuro: Negative for headache, weakness, numbness, tingling, and seizure, Psych: Negative for depression, anxiety, suicide ideation, homicidal ideation, and hallucinations, Allergy/Immunology: Negative for hives, rash, and allergies, Endocrine: Negative for neck swelling, polydipsia, polyuria, polyphagia, and marked weight changes. 22:16 All other systems are negative. Exam: 22:16 Constitutional: This is a well developed, well nourished patient who is awake, alert, sp3 and in no acute distress. Head/Face: Normocephalic, atraumatic. Eyes: Pupils equal round and reactive to light, extra-ocular motions intact. Lids and lashes normal. Conjunctiva and sclera are non-icteric and not injected. Cornea within normal limits. Periorbital areas with no swelling, redness, or edema. ENT: Nares patent. No nasal discharge, no septal abnormalities noted. External auditory canals are clear. Oropharynx with no redness, swelling, or masses, exudates, or evidence of obstruction, uvula midline. Mucous membranes moist. Neck: Trachea midline, no thyromegaly or masses palpated, and no cervical lymphadenopathy. Supple, full range of motion without nuchal rigidity, or vertebral point tenderness. No Meningismus. Chest/axilla: Normal chest wall appearance and motion. Nontender with no deformity. No lesions are appreciated. Respiratory: Lungs have equal breath sounds bilaterally, clear to auscultation and percussion. No rales, rhonchi or wheezes noted. No increased work of breathing, no retractions or nasal flaring. Abdomen/GI: Soft, non-tender, with normal bowel sounds. No distension or tympany. No guarding or rebound. No evidence of tenderness throughout. Back: No spinal tenderness. No costovertebral tenderness. Full range of motion. Skin: Warm, dry with normal turgor. Normal color with no rashes, no lesions, and no evidence of cellulitis. MS/ Extremity: Pulses equal, no cyanosis. Neurovascular intact. Full, normal range of motion. Neuro: Awake and alert, GCS 15, oriented to person, place, time, and situation. Cranial nerves II-XII grossly intact. Motor strength 5/5 in all extremities. Sensory grossly intact. Cerebellar exam normal. Normal gait. Psych: Awake, alert, with orientation to person, place and time. Behavior, mood, and affect are within normal limits. 22:16 Cardiovascular: Rate: Rhythm: irregularly irregular. 22:16 ECG was reviewed by the Attending Physician. EKG demonstrates atrial fibrillation at [address]/T wave changes without evidence of acute ischemia. Vital Signs: 21:37 BP 155 / 61; Pulse 88; Resp 18; Temp 98(TE); Pulse Ox 96% on R/A; Weight 96.16 kg (M); kl Height 5 ft. 4 in. ; Pain 3/10; 22:12 BP 135 / 56; Pulse 73; Resp 18; Pulse Ox 94% on R/A; aa9 22:30 BP 123 / 56; Pulse 78; Resp 18; Pulse Ox 97% on R/A; aa9 22:44 BP 111 / 65; Pulse 65; Resp 16 S; Pulse Ox 96% on R/A; aa9 21:37 Body Mass Index 36.39 (96.16 kg, 162.56 cm) kl 21:37 Pain Scale: Adult kl MDM: 21:47 Patient medically screened. sp3 22:17 Data reviewed: vital signs, nurses notes, lab test result(s), EKG. ED course: sp3 72-year-old female with atrial fibrillation with resolved tachycardia. Will give 5 mg of Lopressor IV here and patient states she has an appointment tomorrow with her finding fastener Dr. Perry. Will check laboratory values to ensure no ischemia or other metabolic derangement as an etiology for her symptoms. I am not highly suspicious for acute coronary syndrome or any other critical process at this time. Patient is talkative in no distress and in a jovial mood and states she is ready to go home. If work-up negative will promptly discharge.. 22:54 ED course: All laboratory values reviewed. Potassium is 2.5 and we will replenish with sp3 40 mEq p.o. Heart rate remains in the 60s to 70s after Lopressor. We will safely discharge patient home at this time with follow-up to her finding fastener tomorrow.. 03/01 21:46 Order name: Basic Metabolic Panel; Complete Time: 22:53 sp3 03/01 21:46 Order name: CBC with Diff; Complete Time: 22:19 sp3 03/01 21:46 Order name: Troponin HS; Complete Time: 22:53 sp3 03/01 21:46 Order name: EKG; Complete Time: 21:47 sp3 03/01 21:46 Order name: Cardiac monitoring; Complete Time: 21:47 sp3 03/01 21:46 Order name: EKG - Nurse/Tech; Complete Time: 21:47 sp3 03/01 21:46 Order name: IV Saline Lock; Complete Time: 22:02 sp3 03/01 21:46 Order name: Labs collected and sent; Complete Time: 22:02 sp3 Administered Medications: 22:30 Drug: Metoprolol IVP 5 mg Route: IVP; Site: right antecubital; aa9 22:57 Follow up: Response: No adverse reaction aa9 22:57 Drug: Potassium Chloride PO 40 mEq Route: PO; aa9 22:57 Follow up: Response: No adverse reaction aa9 Disposition Summary: 03/01/23 22:54 Discharge Ordered Location: Home sp3 Condition: Stable sp3 Diagnosis - Atrial fibrillation sp3 Followup: sp3 - With: Private Physician - When: Upon discharge from the Emergency Department - Reason: Recheck today's complaints, Continuance of care Discharge Instructions: - Discharge Summary Sheet sp3 - Atrial Fibrillation sp3 Forms: - Medication Reconciliation Form sp3 - Thank You Letter sp3 - Antibiotic Education sp3 - Prescription Opioid Use sp3 Signatures: Dispatcher [employer] Lynne Jacob, RN Michelle Valero MD MD sp3 Jonna Villarreal RN RN aa9
--- NOTE | 2023-03-01 22:55 | ER ---
Nurse's Notes [facility] Name: Rossy Jacob Age: 72 yrs Sex: Female : 1950 Arrival Date: 03/01/2023 Time: 21:33 Bed 4 Private MD: Diagnosis: Atrial fibrillation Presentation: 03/01 21:37 Chief complaint: Patient states: atrial fib and left arm pain began 20 minutes OUTDOOR GUIDE kl recent change in medication Retail Sales Consultant stopped Metoprolol. Coronavirus screen: Vaccine status: Patient reports receiving the 2nd dose of the covid vaccine. Ebola Screen: Patient negative for fever greater than or equal to 101.5 degrees Fahrenheit, and additional compatible Ebola Virus Disease symptoms. Initial Sepsis Screen: Does the patient meet any 2 criteria? No. Patient's initial sepsis screen is negative. Does the patient have a suspected source of infection? No. Patient's initial sepsis screen is negative. Risk Assessment: Do you want to hurt yourself or someone else? Patient reports no desire to harm self or others. 21:37 Method Of Arrival: Ambulatory 21:37 Acuity: JAZMIN 2 kl 22:58 Onset of symptoms was March 01, 2023. aa9 Triage Assessment: 21:37 General: Appears uncomfortable, Behavior is calm, cooperative. Pain: Complains of pain kl in left arm Pain currently is 3 out of 10 on a pain scale. Pain began 30 min ago. Neuro: No deficits noted. Level of Consciousness is awake, alert, obeys commands, Oriented to person, place, time, situation, Speech is normal, Facial symmetry appears normal. Cardiovascular: Rhythm is atrial fibrillation. Respiratory: No deficits noted. GI: No deficits noted. No signs and/or symptoms were reported involving the gastrointestinal system. : No deficits noted. No signs and/or symptoms were reported regarding the genitourinary system. Derm: No deficits noted. No signs and/or symptoms reported regarding the dermatologic system. Historical: - Home Meds: 21:47 amlodipine 5 mg tab 1 tab once daily [Active]; kl - PMHx: 21:46 Arthritis; Depression; Hyperlipidemia; Hypertension; Hypothyroidism; ulcerative kl colitis; Atrial fibrillation; - PSHx: 21:46 None; ablatian x 2; kl - Immunization history:: Adult Immunizations up to date. - Social history:: Smoking status: Patient denies any tobacco usage or history of. Screenin:34 Abuse screen: Denies threats or abuse. Denies injuries from another. Nutritional aa9 screening: No deficits noted. Tuberculosis screening: No symptoms or risk factors identified. 22:58 [facility] ED Fall Risk Assessment (Adult) History of falling in the last 3 months, aa9 including since admission No falls in past 3 months (0 pts) Confusion or Disorientation No (0 pts) Intoxicated or Sedated No (0 pts) Impaired Gait No (0 pts) Mobility Assist Device Used No (0 pt) Altered Elimination No (0 pt) Score/Fall Risk Level 0 - 2 = Low Risk Oriented to surroundings, Maintained a safe environment, Educated pt \T\ family on fall prevention, incl call for assistance when getting out of bed. Assessment: 22:02 General: Appears in no apparent distress. comfortable, Behavior is calm, cooperative. aa9 Pain: Denies pain. Neuro: Level of Consciousness is awake, alert, obeys commands, Oriented to person, place, time, situation. Respiratory: Airway is patent Respiratory effort is even, unlabored. 22:12 Reassessment: Patient appears in no apparent distress at this time. ambulated to aa9 restroom independently. 22:52 Reassessment: Patient appears in no apparent distress at this time. critical lab value aa9 of potassium 2.5 notified Gaitan. 22:57 Reassessment: Patient appears in no apparent distress at this time. Patient and/or aa9 family updated on plan of care and expected duration. Pain level reassessed. Patient is alert, oriented x 3, equal unlabored respirations, skin warm/dry/pink. Patient denies pain at this time. 23:04 Reassessment: Patient appears in no apparent distress at this time. Patient and/or aa9 family updated on plan of care and expected duration. Pain level reassessed. Patient is alert, oriented x 3, equal unlabored respirations, skin warm/dry/pink. Patient states symptoms have improved. Vital Signs: 21:37 BP 155 / 61; Pulse 88; Resp 18; Temp 98(TE); Pulse Ox 96% on R/A; Weight 96.16 kg (M); kl Height 5 ft. 4 in. ; Pain 3/10; 22:12 BP 135 / 56; Pulse 73; Resp 18; Pulse Ox 94% on R/A; aa9 22:30 BP 123 / 56; Pulse 78; Resp 18; Pulse Ox 97% on R/A; aa9 22:44 BP 111 / 65; Pulse 65; Resp 16 S; Pulse Ox 96% on R/A; aa9 21:37 Body Mass Index 36.39 (96.16 kg, 162.56 cm) 21:37 Pain Scale: Adult ED Course: 21:35 Patient arrived in ED. ag3 21:40 Michelle Gaitan MD is Attending Physician. sp3 21:46 Triage completed. kl 21:48 EKG completed in triage. Results shown to MD. kl 21:48 Placed in gown. Bed in low position. Call light in reach. 21:53 Jonna Villarreal, VIANEY is Primary Nurse. aa9 22:00 Inserted saline lock: 20 gauge in right antecubital area, using aseptic technique. aa9 Blood collected. 22:02 Basic Metabolic Panel Sent. aa9 22:02 CBC with Diff Sent. aa9 22:02 Troponin HS Sent. aa9 22:58 Arm band placed on. aa9 22:58 No provider procedures requiring assistance completed. aa9 23:04 IV discontinued, intact, bleeding controlled, No redness/swelling at site. Pressure aa9 dressing applied. Administered Medications: 22:30 Drug: Metoprolol IVP 5 mg Route: IVP; Site: right antecubital; aa9 22:57 Follow up: Response: No adverse reaction aa9 22:57 Drug: Potassium Chloride PO 40 mEq Route: PO; aa9 22:57 Follow up: Response: No adverse reaction aa9 Medication: 22:58 VIS not applicable for this client. aa9 Outcome: 22:54 Discharge ordered by . sp3 22:58 Condition: stable aa9 23:04 Discharged to home ambulatory. aa9 23:04 Discharge instructions given to patient. 23:05 Patient left the ED. aa9 Signatures: Lynne iRchter, Heike Pickard RN 3 Michelel Gaitan MD MD sp3 Jonna Villarreal, VIANEY RN aa9 Corrections: (The following items were deleted from the chart) 22:33 22:00 Metoprolol IVP 5 mg IVP in right antecubital aa9 aa9
[2023-03-01] MEDS ORDERED: POTASSIUM CL SA 10 MEQ TAB PO ONE (23:01)
[2023-03-01 23:43] VITALS: TEMP 98
[2023-03-01 23:44] VITALS: BP 111/65; O2SAT 96
--- NOTE | 2023-03-02 05:37 | EKG ---
Test Date: 2023-03-01 Test Time: 21:42:23 Tensile Tester: MEASUREMENT RESULTS: Intervals: Rate: 83 [place]: 274 QRSD: 116 QT: 412 QTc: 484 [place]: P: 60 [place]: 274 QRS: -5 T: 28 INTERPRETIVE STATEMENTS: Sinus rhythm with marked sinus arrhythmia with 1st degree AV block Cannot rule out Anterior infarct, age undetermined Abnormal ECG Compared to ECG 04/21/2020 16:20:52 No significant changes Electronically Signed On 03-02-23 05:36:26 CDT by Franklin Simmons
== END 2023-03-01 23:05 | disposition home or self-care (01) ==
LOC: ER 21:33
DX: I48.91 Unspecified atrial fibrillation (principal); Z79.01 Long term (current) use of anticoagulants; I10 Essential (primary) hypertension
CPT/HCPCS: 36415; 80048; 84484; 85025; 93005

== ENCOUNTER 2023-03-15 09:30 | Day surgery (SDC) | payer BC ==
[2023-03-15] MEDS ORDERED: NA CHLORIDE 0.9% 250 ML ONE (09:58)
[2023-03-15] MEDS ORDERED: INFLIXIMAB ABDA IV ONE (10:00)
[2023-03-15] MEDS ORDERED: NA CHLORIDE 0.9% IV ONE (10:00)
[2023-03-15 10:58] VITALS: BMI 37.2
[2023-03-15 11:43] VITALS: TEMP 97.6
[2023-03-15 15:59] VITALS: BP 109/50; O2SAT 98
== END 2023-03-15 13:07 | disposition home or self-care (01) ==
LOC: DS 09:30
PROVIDERS: ATTEND Internal Medicine Gastroenterology
DX: K51.00 Ulcerative (chronic) pancolitis without complications (principal)
CPT/HCPCS: 96365; 96366; Q5104; J7050 ×2

== ENCOUNTER 2023-05-01 08:52 | Day surgery (SDC) | payer BC ==
[2023-05-01] MEDS ORDERED: INFLIXIMAB ABDA IV ONE (10:00)
[2023-05-01] MEDS ORDERED: NA CHLORIDE 0.9% IV ONE (10:00)
[2023-05-01 13:35] VITALS: BP 115/44; TEMP 97.2; O2SAT 98; BMI 37.2
== END 2023-05-01 11:47 | disposition home or self-care (01) ==
LOC: DS 08:52
PROVIDERS: ATTEND Internal Medicine Gastroenterology
DX: K51.00 Ulcerative (chronic) pancolitis without complications (principal)
CPT/HCPCS: 96365; 96366; Q5104; J7050

== ENCOUNTER → 2023-11-19 | Emergency (ER) | payer OTHER, BC ==
[~2023-11-19] MED LIST: FUROSEMIDE 20 MG/ 2ML VIAL ONE
--- NOTE | 2023-11-19 13:59 | RAD REPORT ---
EXAM DESCRIPTION: Daniel Single View11/19/2023 1:42 pm CLINICAL HISTORY: Cough COMPARISON: October 2023 FINDINGS: Vascular congestion. The lungs appear clear of acute infiltrate. The heart is moderately enlarged
[2023-11-19 14:14] LABS: Absolute Lymphocytes (CBC) 1.9 K/uL (0.7-4.9); Hematocrit 35.2 % (36.0-45.0); MCV 77.9 fL (80-100); MPV 8.2 fL (7.6-11.3); Platelets 304 thou/uL (152-406); RBC Red Blood Cell Count 4.52 M/uL (3.86-4.86)
[2023-11-19 14:16] LABS: Protime INR 1.49
[2023-11-19 14:35] LABS: Albumin 3.2 g/dL (3.4-5.0); Bilirubin Direct 0.2 mg/dL (0-0.2); Bilirubin Indirect, Calculated 0.4 mg/dL (0.2-0.8); Bilirubin Total 0.6 mg/dL (0.2-1.0); Magnesium 1.8 mg/dL (1.6-2.4); Potassium 3.5 mEq/L (3.5-5.1); Protein, Total 6.9 g/dL (6.4-8.2); Troponin High Sensitivity 23.6 pg/mL (<58.9)
[2023-11-19 14:40] LABS: SARS-CoV-2 Antigen Rapid Res Negative (Negative)
--- NOTE | 2023-11-19 15:21 | ER ---
Nurse's Notes [facility] Name: Rossy Jacob Age: 73 yrs Sex: Female : 1950 Arrival Date: 11/19/2023 Time: 12:49 Bed 9 Private MD: Diagnosis: CHF exacerbation, difficulty breathing Presentation: 11/19 13:13 Chief complaint: Patient states: "I was in the hospital for COVID 3 weeks ago, I still hb feel short of breath, today I woke and had wet the bed, then after my nap I was chewing on the blanket, I think I have sepsis.". Coronavirus screen: At this time, the client does not indicate any symptoms associated with coronavirus-19. Ebola Screen: No symptoms or risks identified at this time. Initial Sepsis Screen: Does the patient meet any 2 criteria? No. Patient's initial sepsis screen is negative. Does the patient have a suspected source of infection? No. Patient's initial sepsis screen is negative. Risk Assessment: Do you want to hurt yourself or someone else? Patient reports no desire to harm self or others. Onset of symptoms was October 2023. 13:13 Method Of Arrival: Ambulatory hb 13:13 Acuity: JAZMIN 3 hb Triage Assessment: 16:10 General: Appears in no apparent distress. Behavior is calm, cooperative. Pain: tl4 Complains of pain in back. EENT: No deficits noted. No signs and/or symptoms were reported regarding the EENT system. Neuro: No deficits noted. Cardiovascular: Denies chest pain, lightheadedness, palpitations. Respiratory: Reports shortness of breath Onset: The symptoms/episode began/occurred gradually, the patient has mild shortness of breath. GI: No deficits noted. No signs and/or symptoms were reported involving the gastrointestinal system. : No deficits noted. No signs and/or symptoms were reported regarding the genitourinary system. Derm: No deficits noted. No signs and/or symptoms reported regarding the dermatologic system. Historical: - Allergies: 13:15 No Known Allergies; hb - PMHx: 13:15 Atrial fibrillation; Hypertension; Hyperlipidemia; Depression; Arthritis; hb Hypothyroidism; ulcerative colitis; - PSHx: 13:15 ablatian x 2; hb - Immunization history:: Client reports receiving the 2nd dose of the Covid vaccine, Flu vaccine is up to date. - Social history:: Smoking status: Patient denies any tobacco usage or history of. Screenin:13 [facility] ED Fall Risk Assessment (Adult) History of falling in the last 3 months, tl4 including since admission No falls in past 3 months (0 pts) Confusion or Disorientation No (0 pts) Intoxicated or Sedated No (0 pts) Impaired Gait No (0 pts) Mobility Assist Device Used No (0 pt) Altered Elimination No (0 pt) Score/Fall Risk Level 0 - 2 = Low Risk Oriented to surroundings, Maintained a safe environment, Educated pt \\T\\ family on fall prevention, incl call for assistance when getting out of bed, Assessed \\T\\ reinforced patient's understanding of fall precautions, Provided non-skid footwear, Hourly rounding (assess needs \\T\\ fall precautionary measures) done, Used ambulatory aids as needed (educated on \\T\\ assisted with), Used gait belt as appropriate. Abuse screen: Denies threats or abuse. Denies injuries from another. Nutritional screening: No deficits noted. Tuberculosis screening: No symptoms or risk factors identified. Assessment: 16:11 Reassessment: No changes from previously documented assessment. Patient and/or family tl4 updated on plan of care and expected duration. Pain level reassessed. Patient is alert, oriented x 3, equal unlabored respirations, skin warm/dry/pink. Pain: Complains of pain in back. Neuro: No deficits noted. Cardiovascular: Reports shortness of breath, Denies chest pain, Rhythm is regular. Respiratory: Airway is patent Respiratory effort is even, unlabored, Breath sounds are diminished in left posterior lower lobe and right posterior lower lobe. Vital Signs: 13:13 BP 174 / 65; Pulse 58; Resp 18; Temp 98.1(O); Pulse Ox 97% on R/A; Weight 98.43 kg; hb Height 5 ft. 4 in. ; Pain 6/10; 16:12 BP 117 / 94; Pulse 64; Resp 18; Pulse Ox 100% on R/A; Pain 6/10; tl4 13:13 Body Mass Index 37.25 (98.43 kg, 162.56 cm) hb 13:13 Pain Scale: Adult hb 16:12 Pain Scale: Adult tl4 Vitals: 16:12 Cardiac Rhythm Assessment Regular Sinus rhythm. tl4 [place] Score: 16:12 Eye Response: spontaneous(4). Motor Response: obeys commands(6). Verbal Response: tl4 oriented(5). Total: 15. ED Course: 13:04 Patient arrived in ED. mg5 13:15 Triage completed. hb 13:16 Arm band placed on. hb 13:23 Michelle Gaitan MD is Attending Physician. sp3 13:44 XRAY Chest (1 view) In Process Unspecified. EDMS 13:51 Flu Sent. bc6 13:51 SARS RAPID Sent. bc6 13:51 Basic Metabolic Panel Sent. bc6 13:51 CBC with Diff Sent. bc6 13:51 LFT's Sent. bc6 13:51 Magnesium Sent. bc6 13:51 NT PRO-BNP Sent. bc6 13:51 PT-INR Sent. bc6 13:51 Troponin HS Sent. bc6 13:51 Inserted saline lock: 20 gauge in left antecubital area, using aseptic technique. Blood bc6 collected. 15:03 Cameron Luciano is Primary Nurse. tl4 15:28 UAM Sent. bc6 16:13 Patient has correct armband on for positive identification. Placed in gown. Bed in low tl4 position. Call light in reach. Side rails up X 1. Provided Education on: ed process. Client placed on continuous cardiac and pulse oximetry monitoring. NIBP monitoring applied. conveyor monitor on. Door closed. Noise minimized. Lights dimmed. Moved to private room. Warm blanket given. 16:13 No provider procedures requiring assistance completed. IV discontinued, intact, tl4 bleeding controlled, No redness/swelling at site. Pressure dressing applied. Administered Medications: 16:00 Drug: Furosemide IVP 20 mg IVP once; give over 2 minutes Route: IVP; Infused Over: 2 tl4 mins; Site: left antecubital; 16:15 Follow up: Response: No adverse reaction tl4 Medication: 16:12 VIS not applicable for this client. tl4 Outcome: 15:20 Discharge ordered by . sp3 16:14 Discharged to home ambulatory, tl4 16:14 Condition: stable 16:14 Discharge instructions given to patient, Instructed on discharge instructions, follow up and referral plans. Demonstrated understanding of instructions, follow-up care, 16:15 Patient left the ED. tl4 Signatures: Dispatcher [employer] EDMS Debby Benito RN RN hb Michelle Gaitan MD MD sp3 Summer Rojo bc6 Cece Arita mg5 Cameron Luciano tl4
--- NOTE | 2023-11-19 15:21 | EDPHYS ---
Physician Documentation [facility] Name: Rossy Jacob Age: 73 yrs Sex: Female : 1950 Arrival Date: 11/19/2023 Time: 12:49 Bed 9 Private MD: ED Physician Michelle Gaitan HPI: 11/19 15:17 This 73 yrs old Female presents to ER via Ambulatory with complaints of Breathing sp3 Difficulty. 15:17 73-year-old female with a history of atrial fibrillation, hypertension, depression, sp3 pneumonia in the past presents today ED with chief complaint difficulty breathing and dyspnea on exertion for several days. Patient states she wants to make sure she is "not septic". She denies chest pain, back pain, headache, fever, URI symptoms, abdominal pain, nausea, vomiting, diarrhea, pedal edema, rash, syncope, bleeding, or any other signs or symptoms on ROS at this time.. Historical: - Allergies: 13:15 No Known Allergies; hb - PMHx: 13:15 Atrial fibrillation; Hypertension; Hyperlipidemia; Depression; Arthritis; hb Hypothyroidism; ulcerative colitis; - PSHx: 13:15 ablatian x 2; hb - Immunization history:: Client reports receiving the 2nd dose of the Covid vaccine, Flu vaccine is up to date. - Social history:: Smoking status: Patient denies any tobacco usage or history of. ROS: 15:18 Constitutional: Negative for fever, chills, and weight loss, Eyes: Negative for injury, sp3 pain, redness, and discharge, ENT: Negative for injury, pain, and discharge, Neck: Negative for injury, pain, and swelling, Cardiovascular: Negative for chest pain, palpitations, and edema, Abdomen/GI: Negative for abdominal pain, nausea, vomiting, diarrhea, and constipation, Back: Negative for injury and pain, MS/Extremity: Negative for injury and deformity, Skin: Negative for injury, rash, and discoloration, Neuro: Negative for headache, weakness, numbness, tingling, and seizure, Psych: Negative for depression, anxiety, suicide ideation, homicidal ideation, and hallucinations, Allergy/Immunology: Negative for hives, rash, and allergies, Endocrine: Negative for neck swelling, polydipsia, polyuria, polyphagia, and marked weight changes, Hematologic/Lymphatic: Negative for swollen nodes, abnormal bleeding, and unusual bruising, 15:18 All other systems are negative, Exam: 15:18 Constitutional: This is a well developed, well nourished patient who is awake, alert, sp3 and in no acute distress. Head/Face: Normocephalic, atraumatic. Eyes: Pupils equal round and reactive to light, extra-ocular motions intact. Lids and lashes normal. Conjunctiva and sclera are non-icteric and not injected. Cornea within normal limits. Periorbital areas with no swelling, redness, or edema. ENT: Nares patent. No nasal discharge, no septal abnormalities noted. External auditory canals are clear. Oropharynx with no redness, swelling, or masses, exudates, or evidence of obstruction, uvula midline. Mucous membranes moist. Neck: Trachea midline, no thyromegaly or masses palpated, and no cervical lymphadenopathy. Supple, full range of motion without nuchal rigidity, or vertebral point tenderness. No Meningismus. Chest/axilla: Normal chest wall appearance and motion. Nontender with no deformity. No lesions are appreciated. Cardiovascular: Regular rate and rhythm with a normal S1 and S2. No gallops, murmurs, or rubs. Normal PMI, no JVD. No pulse deficits. Abdomen/GI: Soft, non-tender, with normal bowel sounds. No distension or tympany. No guarding or rebound. No evidence of tenderness throughout. Back: No spinal tenderness. No costovertebral tenderness. Full range of motion. Skin: Warm, dry with normal turgor. Normal color with no rashes, no lesions, and no evidence of cellulitis. MS/ Extremity: Pulses equal, no cyanosis. Neurovascular intact. Full, normal range of motion. Neuro: Awake and alert, GCS 15, oriented to person, place, time, and situation. Cranial nerves II-XII grossly intact. Motor strength 5/5 in all extremities. Sensory grossly intact. Cerebellar exam normal. Normal gait. 15:18 ECG was reviewed by the Attending Physician. EKG demonstrates sinus bradycardia 55 bpm with normal intervals except for first-degree heart block with a AK interval of 216, normal axis, normal QRS, nonspecific diffuse ST/T changes without evidence of acute ischemia. 15:18 Respiratory: Mild Rales bilaterally., Vital Signs: 13:13 BP 174 / 65; Pulse 58; Resp 18; Temp 98.1(O); Pulse Ox 97% on R/A; Weight 98.43 kg; hb Height 5 ft. 4 in. ; Pain 6/10; 16:12 BP 117 / 94; Pulse 64; Resp 18; Pulse Ox 100% on R/A; Pain 6/10; tl4 13:13 Body Mass Index 37.25 (98.43 kg, 162.56 cm) hb 13:13 Pain Scale: Adult hb 16:12 Pain Scale: Adult tl4 [place] Coma Score: 16:12 Eye Response: spontaneous(4). Motor Response: obeys commands(6). Verbal Response: tl4 oriented(5). Total: 15. MDM: 13:24 Patient medically screened. sp3 15:19 Data reviewed: vital signs, nurses notes, old medical records, lab test result(s), EKG, sp3 radiologic studies. ED course: Chest x-ray demonstrates pulmonary edema which fits clinical exam. Troponin is negative and there is no infection. Will give 20 mg Lasix IV, reassured patient have her follow-up with her PCP. Patient takes Lasix at home already and we will augment with 20 mg in the ED. Patient otherwise very stable and in no acute distress. No difficulty breathing or respiratory distress on my exam.. 11/19 13:24 Order name: Basic Metabolic Panel; Complete Time: 14:53 sp3 11/19 13:24 Order name: CBC with Diff; Complete Time: 14:53 sp3 11/19 13:24 Order name: LFT's; Complete Time: 14:53 sp3 11/19 13:24 Order name: Magnesium; Complete Time: 14:53 sp3 11/19 13:24 Order name: NT PRO-BNP; Complete Time: 14:53 sp3 11/19 13:24 Order name: PT-INR; Complete Time: 14:53 sp3 11/19 13:24 Order name: Troponin HS; Complete Time: 14:53 sp3 11/19 13:24 Order name: SARS RAPID; Complete Time: 14:53 sp3 11/19 13:24 Order name: Flu; Complete Time: 14:53 sp3 11/19 15:17 Order name: UAM; Complete Time: 15:48 sp3 11/19 13:24 Order name: XRAY Chest (1 view); Complete Time: 14:53 sp3 11/19 13:24 Order name: EKG; Complete Time: 13:25 sp3 11/19 13:24 Order name: Cardiac monitoring; Complete Time: 14:53 sp3 11/19 13:24 Order name: EKG - Nurse/Tech; Complete Time: 13:51 sp3 11/19 13:24 Order name: IV Saline Lock; Complete Time: 13:51 sp3 11/19 13:24 Order name: Labs collected and sent; Complete Time: 13:51 sp3 11/19 13:24 Order name: O2 Per Protocol; Complete Time: 14:53 sp3 11/19 13:24 Order name: O2 Sat Monitoring; Complete Time: 14:53 sp3 Administered Medications: 16:00 Drug: Furosemide IVP 20 mg IVP once; give over 2 minutes Route: IVP; Infused Over: 2 tl4 mins; Site: left antecubital; 16:15 Follow up: Response: No adverse reaction tl4 Disposition Summary: 11/19/23 15:20 Discharge Ordered Notes: Location: Home sp3 Condition: Stable sp3 Diagnosis - CHF exacerbation, difficulty breathing sp3 Followup: sp3 - With: Private Physician - When: Upon discharge from the Emergency Department - Reason: Continuance of care Discharge Instructions: - Discharge Summary Sheet sp3 - Pulmonary Edema sp3 Forms: - Medication Reconciliation Form sp3 - Thank You Letter sp3 - Antibiotic Education sp3 - Prescription Opioid Use sp3 - Patient Portal Instructions sp3 - Leadership Thank You Letter sp3 Signatures: Dispatcher Debby Lawrence RN RN hb Patel, Setul, MD MD sp3 Cameron Luciano tl4
[2023-11-19 15:39] LABS: Urine Bacteria <20 /HPF (<20); Urine Bilirubin NEGATIVE (Negative); Urine Blood Negative (Negative); Urine Clarity Turbid (Clear); Urine Color Light-Yellow (Yellow); Urine Glucose NEGATIVE (Negative); Urine Protein NEGATIVE (Negative); Urine RBC <5 /HPF (None Seen); Urine Urobilinogen Normal (Normal)
[2023-11-19 17:03] VITALS: TEMP 98.1
[2023-11-19 17:22] VITALS: BP 117/94; O2SAT 100
--- NOTE | 2023-11-20 15:00 | EKG ---
Test Date: 2023-11-19 Test Time: 13:56:59 Oil Dispenser: ELIDIA MEASUREMENT RESULTS: Intervals: Rate: 55 [place]: 216 QRSD: 120 QT: 482 QTc: 461 [place]: P: 71 [place]: 216 QRS: -26 T: 10 INTERPRETIVE STATEMENTS: Sinus bradycardia with 1st degree AV block Otherwise normal ECG Compared to ECG 10/18/2023 15:59:57 Myocardial infarct finding no longer present Electronically Signed On 11-20-23 14:57:54 LONGWALL SHEARER OPERATOR by Osmani Kurtz
== END ==
LOC: ER 12:49
DX: I50.9 Heart failure, unspecified (principal); I10 Essential (primary) hypertension; I48.91 Unspecified atrial fibrillation; E78.5 Hyperlipidemia, unspecified; Z11.52 Encounter for screening for COVID-19
CPT/HCPCS: 93005; 85025; 81001; 80048; 36415; 83735; 85610; 80076; 84484; 83880; 87804 ×2; 71045; 87811; J1940

== ENCOUNTER 2023-12-26 01:37 | Observation (INO) | payer BC, OTHER ==
[2023-12-26 03:02] LABS: Protime INR 1.09
[2023-12-26 03:04] LABS: Absolute Eosinophils 0.3 K/uL (0-0.5); Absolute Lymphocytes (CBC) 2.2 K/uL (0.7-4.9); Absolute Monocytes 0.8 K/uL (0.1-1.3); Absolute Neutrophil 2.8 K/uL (1.8-8.0); Basophils % 0.4 % (0-1.3); Eosinophils % 5.1 % (0-4.4); Hematocrit 36.1 % (36.0-45.0); Hemoglobin 11.8 g/dL (12.0-15.0); Lymphocytes % 35.4 % (15.3-44.8); MCH 25.8 pg (27.0-35.0); MCHC 32.8 g/dL (32.0-36.0); MCV 78.5 fL (80-100); MPV 7.7 fL (7.6-11.3); Neutrophils % 46.1 % (41.7-73.7); Nucleated Red Blood Cells % 0.3 % (0-0); Platelets 336 thou/uL (152-406); Red Cell Distribution Width 17.1 % (12.1-15.2)
[2023-12-26 04:27] LABS: Anion Gap 7.6 mEq/L (5.0-15.0); Bilirubin Direct 0.2 mg/dL (0-0.2); Bilirubin Indirect, Calculated 0.3 mg/dL (0.2-0.8); Bilirubin Total 0.5 mg/dL (0.2-1.0); Potassium 3.6 mEq/L (3.5-5.1)
[2023-12-26 04:28] LABS: Albumin 3.2 g/dL (3.4-5.0); Albumin/Globulin Ratio 0.9 (1.1-1.8); Globulin 3.6 g/dL (2.3-3.5); Magnesium 2.1 mg/dL (1.6-2.4); Protein, Total 6.8 g/dL (6.4-8.2)
--- NOTE | 2023-12-26 06:38 | EDPHYS ---
Physician Documentation [facility] Name: Rossy Jacob Age: 73 yrs Sex: Female : 1950 Arrival Date: 12/26/2023 Time: 01:37 Bed 4 Private MD: ED Physician [facility] HPI: 12/25 01:58 This 73 yrs old Female presents to ER via Wheelchair with complaints of Shortness Of sp4 Breath, high heart rate, face tingling,, Weakness. 03:26 Patient is a very pleasant 73-year-old female with past medical history of arthritis, sp4 hypothyroidism, hyperlipidemia, hypertension, atrial fibrillation, ulcerative colitis, and severe 2 weeks of daily episodes of shortness of breath and palpitations. . 06:38 Past admission 10/18/2023 for acute respiratory disease secondary to COVID, hypoxia, sp4 acute respiratory failure, elevated troponin, atrial fibrillation, CHF. Also with history of hypothyroidism, hyperlipidemia, depression, A-fib, arthritis, hypertension, ulcerative colitis. Medications include alprazolam, citalopram, hyoscyamine, levothyroxine, mesalamine, metoprolol, Protonix, simvastatin, Eliquis, buprenorphine, flecainide, furosemide, valsartan and Entresto, sucralfate, . Historical: - Allergies: 01:58 No Known Allergies; cm10 - PMHx: 01:58 Arthritis; Hypothyroidism; Hyperlipidemia; Hypertension; Atrial fibrillation; cm10 ulcerative colitis; Depression; - PSHx: 01:58 ablatian x 2; cm10 - Immunization history:: Adult Immunizations up to date. - Social history:: Smoking status: unknown. - Family history:: not pertinent. ROS: 03:26 Constitutional: Negative for fever, chills, and weight loss, positive episodic dyspnea sp4 and palpitations 03:26 All other systems are negative, Exam: 03:26 ECG was reviewed by the Attending Physician. KG time 0100 EKG reveals sinus rhythm sp4 at the rate of 60 , with first-degree AV block otherwise normal. 03:26 Constitutional: This is a well developed, well nourished patient who is awake, alert, sp4 and in no acute distress. Head/Face: Normocephalic, atraumatic. Eyes: Pupils equal round and reactive to light, extra-ocular motions intact. Lids and lashes normal. Conjunctiva and sclera are not injected. Cornea within normal limits. Periorbital areas with no swelling, redness, or edema. ENT: Nares patent. No nasal discharge, no septal abnormalities noted. Tympanic membranes are normal and external auditory canals are clear. Oropharynx with no redness, swelling, or masses, exudates, or evidence of obstruction, uvula midline. Mucous membranes moist. Neck: Trachea midline, no thyromegaly or masses palpated, and no cervical lymphadenopathy. Supple, full range of motion without nuchal rigidity, or vertebral point tenderness. Chest/axilla: Normal chest wall appearance and motion. Nontender with no deformity. No lesions are appreciated. Cardiovascular: Regular rate and rhythm with a normal S1 and S2. No gallops, murmurs, or rubs. Normal PMI, no JVD. No pulse deficits. Respiratory: Lungs have equal breath sounds bilaterally, clear to auscultation and percussion. No rales, rhonchi or wheezes noted. No increased work of breathing, no retractions or nasal flaring. Abdomen/GI: Soft, with normal bowel sounds. No distension or tympany. No guarding or rebound. No evidence of tenderness throughout. Back: No spinal tenderness. No costovertebral tenderness. Skin: Warm, dry with normal turgor. Normal color with no rashes, no lesions, and no evidence of cellulitis. MS/ Extremity: Pulses equal, no cyanosis. Neurovascular intact. Full, normal range of motion. Neuro: Awake and alert, GCS 15, oriented to person, place, time, and situation. Cranial nerves II-XII grossly intact. Motor strength 5/5 in all extremities. Sensory grossly intact. Psych: Awake, alert, with orientation to person, place and time. Behavior, mood, and affect are within normal limits Vital Signs: 01:56 BP 121 / 87; Pulse 58; Resp 16; Temp 98.2; Pulse Ox 100% ; Weight 97.52 kg; Height 5 cm10 ft. 4 in. ; Pain 0/10; 02:36 BP 124 / 54; Pulse 53; Resp 17 S; Pulse Ox 100% on R/A; ha1 03:30 BP 132 / 55; Pulse 53; Resp 17; Pulse Ox 93% ; jj7 04:30 BP 119 / 62; Pulse 52; Resp 16; Pulse Ox 96% ; jj7 06:40 BP 170 / 63; Pulse 58; Resp 13; Pulse Ox 95% ; jj7 08:00 BP 137 / 55 Supine; Pulse 56; db 08:05 BP 139 / 61 Sitting; Pulse 58; db 08:10 BP 128 / 62 Standing; Pulse 72; db 01:56 Body Mass Index 36.90 (97.52 kg, 162.56 cm) cm10 01:56 Pain Scale: Adult cm10 MDM: 01:51 Patient medically screened. sp4 04:22 ED course: EXAM DESCRIPTION: Chest Single View CLINICAL HISTORY: SOB TECHNIQUE: AP sp4 chest COMPARISON: None available for comparison FINDINGS: CHEST: Heart: Mild cardiomegaly. Lungs: No focal consolidation. Mediastinum: Unremarkable Pleura: No appreciable effusion. No pneumothorax. Bones: Intact IMPRESSION: Mild cardiomegaly with no evidence of failure or acute infiltrates. . 06:31 Data reviewed: vital signs, nurses notes, old medical records, lab test result(s), EKG, sp4 radiologic studies, CT scan, plain films. 06:40 Differential diagnosis: Anxiety Reaction asthma, Bronchitis CHF exacerbation, sp4 Myocardial Infarction pneumonia, Psychogenic. Consideration of Admission/Observation Patient was admitted/placed on observation. Escalation of care including admission/observation considered. Management of patient was discussed with the following: Hospitalist: Admission team . ED course: CTA THORAX - PULMONARYARTERIES HISTORY: Suspected pulmonary embolus. COMPARISON: Chest x-ray 12/26/2023 TECHNIQUE: Intravenous low osmolar contrast. Coronal and sagittal reformations including 3D maximum intensity projections. This exam was performed according to our departmental dose-optimization program, which includes automated exposure control, adjustment of the mA and/or kV according to patient size and/or use of iterative reconstruction technique. FINDINGS: PULMONARYARTERIAL SYSTEM: Contrast bolus is adequate. No CT evidence for pulmonary embolism. CARDIAC: Cardiomegaly. Coronary artery calcifications. AORTA/VASCULAR: No aneurysm. Thoracic aortic atherosclerosis. LYMPH NODES/MEDIASTINUM: No thoracic adenopathy. Calcified left hilar nodes. CENTRAL AIRWAYS: Central airways are patent. LUNGS: No focal consolidation. Bilateral dependent reticular opacities, likely atelectasis. Scattered pulmonary nodules with senior customer service representative nodule in the left lower lobe measuring 4 mm (series 401, image 55). PLEURA: Normal. ESOPHAGUS: Collapsed and not well assessed by CT, without obvious abnormality. THYROID: Negative, where seen. CHEST WALL: Normal. UPPER ABDOMEN: Small hiatal hernia. Cholecystectomy. THORACIC SKELETAL: No acute finding. ADDITIONAL CHEST FINDINGS: None. IMPRESSION: 1. No evidence of acute pulmonary embolus. 2. No focal consolidation. Bilateral dependent reticular opacities, likely atelectasis. 3. Scattered pulmonary nodules measuring up to 4 mm. Per Fleischner Society Guidelines, no routine follow-up imaging is recommended. 4. Cardiomegaly. . 12/25 01:59 Order name: Basic [facility] 12/25 01:59 Order name: CBC with Diff [facility] 12/25 01:59 Order name: LFT's [facility] 12/25 01:59 Order name: Magnesium [facility] 12/25 01:59 Order name: NT PRO-BNP [facility] 12/25 01:59 Order name: PT-INR [facility] 12/25 01:59 Order name: Troponin HS [facility] 12/25 03:02 Order name: Protime (+INR); Complete Time: 03:25 EDMS 12/25 03:04 Order name: CBC with Automated Diff; Complete Time: 03:25 EDMS 12/25 04:28 Order name: Basic Metabolic Panel; Complete Time: 05:11 EDMS 12/25 04:28 Order name: Liver (Hepatic) Function; Complete Time: 05:11 EDMS 12/25 04:28 Order name: Troponin High Sensitivity; Complete Time: 05:11 EDMS 12/25 04:28 Order name: NT PRO-BNP; Complete Time: 05:11 EDMS 12/25 04:28 Order name: Magnesium; Complete Time: 05:11 EDMS 12/25 06:33 Order name: CREATININE WHOLE BLOOD; Complete Time: 06:47 EDMS 12/25 10:31 Order name: Troponin High Sensitivity [facility] 12/25 01:59 Order name: XRAY Chest (1 view) [facility] 12/25 01:59 Order name: CT Chest For PE Angio [facility] 12/25 12:38 Order name: CT [facility] 12/25 12:51 Order name: RAD [facility] 12/25 01:59 Order name: EKG; Complete Time: 17:14 [facility] 12/[facility] 01:59 Order name: Cardiac monitoring; Complete Time: 02:14 [facility] 12/25 01:59 Order name: EKG - Nurse/Tech; Complete Time: 02:14 sp4 12/25 01:59 Order name: IV Saline Lock; Complete Time: 02:29 sp4 12/25 01:59 Order name: Labs collected and sent; Complete Time: 02:14 sp4 12/25 01:59 Order name: O2 Per Protocol; Complete Time: 02:14 sp4 12/25 01:59 Order name: O2 Sat Monitoring; Complete Time: 02:14 sp4 12/25 07:27 Order name: Orthostatics; Complete Time: 08:25 la1 EC: Rate is 60 beats/min. Rhythm is regular, Normal Sinus Rhythm. QRS [place] is Normal. [place] sp4 interval is prolonged. QRS interval is normal. QT interval is normal. No Q waves. T waves are Normal. No ST changes noted. Clinical impression: No evidence of ischemia. Interpreted by me. Reviewed by me. Administered Medications: 06:46 Drug: [place] PO 10 mg-325 mg 1 tabs PO once Route: PO; jj7 Disposition Summary: 12/26/23 06:37 Hospitalization Ordered Notes: Hospitalization Status: Observation sp4 Provider: Joshua Stratton sp4 Condition: Stable sp4 Problem: new sp4 Symptoms: have improved sp4 Bed/Room Type: Standard 4 Location: Telemetry/MedSurg (observation)(12/26/23 15:16) 5 Room Assignment: [facility](12/26/23 15:16) [facility] [place] Diagnosis - Palpitations sp4 - Unstable angina sp4 Forms: - Medication Reconciliation Form sp4 - SBAR form sp4 - Leadership Thank You Letter sp4 Signatures: Dispatcher [employer] EDBonny Peralta Lee, CHRISTMAS BELL RINGER-C CHRISTMAS BELL RINGER-Cla1 Sae Garcia RN RN jj7 [facility] MD MD sp4 Matilda Garcia RN RN cm10 Maggie Dlalas 5 Corrections: (The following items were deleted from the chart) 07:41 06:37 Telemetry/MedSurg (observation) sp4 bd 07:41 06:37 sp4 bd 15:16 07:41 [facility] ER HOLD bd mc5 15:16 07:41 ERHOLD- bd mc5
--- NOTE | 2023-12-26 06:38 | ER ---
Nurse's Notes [facility] Name: Rossy Jacob Age: 73 yrs Sex: Female : 1950 Arrival Date: 12/26/2023 Time: 01:37 Bed 4 Private MD: Diagnosis: Palpitations;Unstable angina Presentation: 12/25 01:56 Chief complaint: Patient states: over the last 2 weeks has been having episodes of cm10 shortness of breath with fast heart rate which leads to numbness and tingling to her face. Pt denies any chest pain at this time. Pt also reports urinary frequency. Coronavirus screen: Client denies travel out of the [place] in the last 14 days. At this time, the client does not indicate any symptoms associated with coronavirus-19. Ebola Screen: Patient denies travel to an Ebola-affected area in the 21 days before illness onset. No symptoms or risks identified at this time. Initial Sepsis Screen: Does the patient meet any 2 criteria? No. Patient's initial sepsis screen is negative. Does the patient have a suspected source of infection? No. Patient's initial sepsis screen is negative. Risk Assessment: Do you want to hurt yourself or someone else? Patient reports no desire to harm self or others. Onset of symptoms was December 26, 2023. 01:56 Method Of Arrival: Wheelchair cm10 01:56 Acuity: JAZMIN 2 cm10 Triage Assessment: 01:45 Respiratory: the patient has mild shortness of breath. ha1 Historical: - Allergies: 01:58 No Known Allergies; cm10 - PMHx: 01:58 Arthritis; Hypothyroidism; Hyperlipidemia; Hypertension; Atrial fibrillation; cm10 ulcerative colitis; Depression; - PSHx: 01:58 ablatian x 2; cm10 - Immunization history:: Adult Immunizations up to date. - Social history:: Smoking status: unknown. - Family history:: not pertinent. Screenin:[address] [facility] ED Fall Risk Assessment (Adult) History of falling in the last 3 months, ha1 including since admission No falls in past 3 months (0 pts) Confusion or Disorientation No (0 pts) Intoxicated or Sedated No (0 pts) Impaired Gait No (0 pts) Mobility Assist Device Used No (0 pt) Altered Elimination No (0 pt) Score/Fall Risk Level 0 - 2 = Low Risk Oriented to surroundings, Maintained a safe environment, Educated pt \T\ family on fall prevention, incl call for assistance when getting out of bed, Hourly rounding (assess needs \T\ fall precautionary measures) done. Abuse screen: Denies threats or abuse. Denies injuries from another. Nutritional screening: No deficits noted. Tuberculosis screening: No symptoms or risk factors identified. Assessment: 01:45 General: Appears uncomfortable, Behavior is calm, cooperative. Pain: Denies pain. ha1 Neuro: Level of Consciousness is awake, alert, obeys commands, Oriented to person, place, time, situation. Cardiovascular: Capillary refill < 3 seconds Patient's skin is warm and dry. Rhythm is sinus bradycardia. Cardiovascular: Reports shortness of breath, Denies chest pain. Respiratory: Reports shortness of breath at rest Airway is patent Respiratory effort is even, unlabored, Respiratory pattern is regular, symmetrical, Breath sounds are clear bilaterally. Derm: Skin is pink, warm \T\ dry. Musculoskeletal: Circulation, motion, and sensation intact. 02:45 Reassessment: Patient and/or family updated on plan of care and expected duration. Pain ha1 level reassessed. Patient is alert, oriented x 3, equal unlabored respirations, skin warm/dry/pink. 03:45 Reassessment: Patient and/or family updated on plan of care and expected duration. Pain ha1 level reassessed. Patient is alert, oriented x 3, equal unlabored respirations, skin warm/dry/pink. 08:15 Reassessment: Patient appears in no apparent distress at this time. PATIENT AMBULATORY db TO RESTROOM. Vital Signs: 01:56 BP 121 / 87; Pulse 58; Resp 16; Temp 98.2; Pulse Ox 100% ; Weight 97.52 kg; Height 5 cm10 ft. 4 in. ; Pain 0/10; 02:36 BP 124 / 54; Pulse 53; Resp 17 S; Pulse Ox 100% on R/A; ha1 03:30 BP 132 / 55; Pulse 53; Resp 17; Pulse Ox 93% ; jj7 04:30 BP 119 / 62; Pulse 52; Resp 16; Pulse Ox 96% ; jj7 06:40 BP 170 / 63; Pulse 58; Resp 13; Pulse Ox 95% ; jj7 08:00 BP 137 / 55 Supine; Pulse 56; db 08:05 BP 139 / 61 Sitting; Pulse 58; db 08:10 BP 128 / 62 Standing; Pulse 72; db 01:56 Body Mass Index 36.90 (97.52 kg, 162.56 cm) cm10 01:56 Pain Scale: Adult cm10 ED Course: 01:41 Patient arrived in ED. gm2 01:45 Patient has correct armband on for positive identification. Placed in gown. Bed in low ha1 position. Call light in reach. Side rails up X 1. 01:45 Client placed on continuous cardiac and pulse oximetry monitoring. NIBP monitoring ha1 applied. Door closed. Noise minimized. Lights dimmed. Warm blanket given. 01:51 [facility] MD is Attending Physician. sp4 01:58 Triage completed. cm10 01:58 Arm band placed on Patient placed in an exam room, on a stretcher. cm10 02:13 Missed attempt(s): 22 gauge in right antecubital area. Bleeding controlled, band aid ha1 applied, catheter tip intact. 02:16 Inserted saline lock: 22 gauge in left antecubital area, using aseptic technique. Blood ha1 collected. 03:26 Radiology exam delayed due to lab results not completed at this time. (BUN/Creatinine). eh4 06:36 Joshua Stratton MD is Hospitalizing Provider. sp4 07:10 Report given to SCOUT WINTERS. jj7 07:12 Report given to SCOUT RN. jj7 08:25 Scout Polanco, RN is Primary Nurse. db 08:35 Provided Education on: ADMISSION. db 08:35 No provider procedures requiring assistance completed. Patient admitted, IV remains in db place. Administered Medications: 06:46 Drug: [place] PO 10 mg-325 mg 1 tabs PO once Route: PO; jj7 Medication: 06:49 VIS not applicable for this client. jj7 Outcome: 06:37 Decision to Hospitalize by Provider. sp4 08:35 Admitted to ER Hold. Please see [facility] for further documentation. db 08:35 Condition: stable 08:35 Instructed on the need for admit, 16:11 Patient left the ED. db Signatures: Shante Abel RN RN ha1 Krishna Damian eh4 Sae Garcia RN RN jScout Graf, RN RN db [facility] MD MD sp4 Matilda Garcia RN RN cm10 Krissy Connolly 2
[2023-12-26] MEDS ORDERED: HYDROCODONE/APAP 10/325 TAB ONE (06:43)
[2023-12-26] MEDS: FLECAINIDE 100 MG TAB PO SCH (10:09)
[2023-12-26] MEDS: APIXABAN 5 MG TABLET PO SCH (10:30)
[2023-12-26] MEDS: PANTOPRAZOLE 40MG TABLET PO SCH (10:45)
[2023-12-26] MEDS: FUROSEMIDE 40 MG TABLET PO SCH (10:45)
[2023-12-26] MEDS: SUCRALFATE 1 GM TABLET PO SCH (10:45)
[2023-12-26] MEDS ORDERED: ALPRAZOLAM 0.25 MG TABLET PO PRN (10:45)
[2023-12-26] MEDS: SACUBITRIL/VALSARTAN 24/26 MG TAB PO SCH (11:00)
[2023-12-26] MEDS ORDERED: FUROSEMIDE 40 MG TABLET ONE (11:35)
[2023-12-26] MEDS ORDERED: PANTOPRAZOLE 40MG TABLET PO ONE (11:35)
[2023-12-26] MEDS ORDERED: APIXABAN 5 MG TABLET ONE (11:35)
[2023-12-26] MEDS ORDERED: SUCRALFATE 1 GM TABLET ONE (11:36)
[2023-12-26 11:45] VITALS: BMI 36.8
--- NOTE | 2023-12-26 12:37 | RAD REPORT ---
EXAM DESCRIPTION: CT - Chest For Pe Angio - 12/26/2023 6:50 am CLINICAL HISTORY: Suspected pulmonary embolus. COMPARISON: Chest x-ray 12/26/2023 TECHNIQUE: Intravenous low osmolar contrast. Coronal and sagittal reformations including 3D maximu m intensity projections. This exam was performed according to our departmental dose-optimization program, which includes autom ated exposure control, adjustment of the mA and/or kV according to patient size and/or use of iterati ve reconstruction technique. FINDINGS: PULMONARY ARTERIAL SYSTEM: Contrast bolus is adequate. No CT evidence for pulmonary embo lism. CARDIAC: Cardiomegaly. Coronary artery calcifications. AORTA/VASCULAR: No aneurysm. Thoracic aortic atherosclerosis. LYMPH NODES/MEDIASTINUM: No thoracic adenopathy. Calcified left hilar nodes. CENTRAL AIRWAYS: Central airways are patent. LUNGS: No focal consolidation. Bilateral dependent reticular opacities, likely atelectasis. Scattered pulmonary nodules with utility sales representative nodule in the left lower lobe measuring 4 mm (series 401, imag e 55). PLEURA: Normal. ESOPHAGUS: Collapsed and not well assessed by CT, without obvious abnormality. THYROID: Negative, where seen. CHEST WALL: Normal. UPPER ABDOMEN: Small hiatal hernia. Cholecystectomy. THORACIC SKELETAL: No acute finding. ADDITIONAL CHEST FINDINGS: None. IMPRESSION: 1. No evidence of acute pulmonary embolus. 2. No focal consolidation. Bilateral dependent reticular opacities, likely atelectasis. 3. Scattered pulmonary nodules measuring up to 4 mm. Per Fleischner Society Guidelines, no routine follow-up imaging is recommended. 4. Cardiomegaly. Electronically signed by: Kathy Colin MD 12/26/2023 06:36 AM CDT Due to temporary technical issues with the PACS/Fluency reporting system, reports are being signed by the in house radiologist without review as a courtesy to ensure prompt reporting. The interpreting r adiologist is fully responsible for the content of the report.
--- NOTE | 2023-12-26 12:51 | RAD REPORT ---
EXAM DESCRIPTION: RAD - Chest Single View - 12/26/2023 2:17 am CLINICAL HISTORY: SOB TECHNIQUE: AP chest COMPARISON: None available for comparison FINDINGS: CHEST: Heart: Mild cardiomegaly. Lungs: No focal consolidation. Mediastinum: Unremarkable Pleura: No appreciable effusion. No pneumothorax. Bones: Intact IMPRESSION: Mild cardiomegaly with no evidence of failure or acute infiltrates. Electronically signed by: German Adam MD 12/26/2023 03:23 AM CDT Due to temporary technical issues with the PACS/Fluency reporting system, reports are being signed by the in house radiologist without review as a courtesy to ensure prompt reporting. The interpreting r adiologist is fully responsible for the content of the report.
--- NOTE | 2023-12-26 13:37 | P.HP ---
Certification for Inpatient Patient admitted to: Observation With expected LOS: <2 Midnights Patient will require the following post-hospital care: None Practitioner: I am a practitioner with admitting privileges, knowledge of patient current condition, hospital course, and medical plan of care. Services: Services provided to patient in accordance with Admission requirements found in Title 42 Section 412.3 of the Code of Federal Regulations Patient History Date of Service: 12/26/23 Reason for admission: Near syncope History of Present Illness: 73-year-old female with history of chronic systolic congestive heart failure, ulcerative colitis, atrial fibrillation on chronic anticoagulation, hypertension, hypothyroidism, GERD, COPD presented to the emergency department with chief complaint of near syncope, diaphoresis, palpitations. She reports that for the past few months has been having these episodes nearly daily associated with change in position the last night she had 3 episodes of near syncope associated with diaphoresis and palpitations. She was evaluated in the emergency department initial high sensitive troponin was normal at 14 BNP 1038 CBC was unremarkable CTA of the chest was also performed which revealed no evidence of PE, no focal consolidation, scattered pulmonary nodules up to 4 mm with no routine follow-up imaging recommended, cardiomegaly. ED provider statement patient under observation for near syncope, ACS rule out Allergies No Known Allergies Allergy (Verified 01/18/23 10:13) Home Medications: ALPRAZolam [Xanax*] 0.25 mg PO BID 04/21/20 Citalopram [Celexa*] 20 mg PO DAILY 04/21/20 Hyoscyamine Sulfate [Levsin-Sl] 2 tab SL Q6HP PRN 04/21/20 Levothyroxine [Synthroid*] 50 mcg PO [id number] 04/21/20 Mesalamine 1 tab PO Q6H 04/21/20 Metoprolol Succinate [Toprol Xl*] 12.5 mg PO BEDTIME 04/21/20 Pantoprazole Sodium [Protonix] 40 mg PO BID 04/21/20 Simvastatin [Zocor] 40 mg PO BEDTIME 04/21/20 Apixaban [Eliquis] 1 tab PO BID 10/19/23 Buprenorphine HCl/Naloxone HCl [Suboxone 8 mg-2 mg Tablet] 1 tab SL BID 10/19/23 Flecainide [Tambocor*] 1 tab PO BID 10/19/23 Furosemide [Lasix*] 1 tab PO DAILY 10/19/23 Sacubitril/Valsartan [Entresto 24 mg-26 mg Tablet] 1 tab PO BID 10/19/23 Sucralfate [Carafate*] 1 tab PO Q6H 10/19/23 Nirmatrelvir/Ritonavir [Paxlovid 2X150 mg-100 mg] 1 tab PO BID 4 Days #8 tab 10/20/23 - Past Medical/Surgical History Has patient received pneumonia vaccine in the past: No Diabetic: No -: Ulcerative colitis -: Hypertension -: Hyperlipidemia -: Hypothyroidism -: GERD -: Depression -: Atrial fibrillation on chronic anticoagulation -: chronic systolic congestive heart failure -: Elin -: Hysterectomy -: Heart Ablation 2020 Psychosocial/ Personal History: Patient currently lives at home alone - Family History Father -: Other (see notes) Notes: PVD, from aneurysm Mother -: Heart disease, Hypertension, Blood disorders, Other (see notes) Notes: PE, blood clots - Social History Smoking Status: Never smoker Alcohol use: No CD- Drugs: No Caffeine use: Yes Place of Residence: Home Review of Systems 10-point ROS is otherwise unremarkable Cardiovascular: Other (Near syncope) Physical Examination - Vital Signs Blood Pressure: 110/54 Pulse: 58 - Physical Exam General: Alert, In no apparent distress, Oriented x3 HEENT: Atraumatic, PERRLA, EOMI Neck: Supple, 2+ carotid pulse no bruit, No LAD Respiratory: Clear to auscultation bilaterally, Normal air movement Cardiovascular: Regular rate/rhythm, Normal S1 S2 Gastrointestinal: Normal bowel sounds Musculoskeletal: No tenderness Integumentary: No rashes Neurological: Normal gait, Normal speech, Normal strength at 5/5 x4 extr, Normal tone - Studies Laboratory Data (last 24 hrs) 12/26/23 12/26/23 12/26/23 03:35 01:15 01:15 WBC 6.20 Hgb 11.8 L Hct 36.1 Plt Count 336 PT 12.0 INR 1.09 Sodium 138 Potassium 3.6 BUN 8 Creatinine 0.91 Glucose 95 Magnesium 2.1 Total Bilirubin 0.5 AST 18 ALT 14 Alkaline Phosphatase 66 Assessment and Plan - Plan Assessment: Near syncope Chronic systolic congestive heart failure Atrial fibrillation on chronic anticoagulation therapy History of ulcerative colitis Hypertension Hypothyroidism GERD COPD Plan: Near syncope Chronic systolic congestive heart failure Atrial fibrillation on chronic anticoagulation therapy Monitor on telemetry History of multiple ablations for A-fib Currently sinus bradycardia in the 50s Story concerning for orthostatic hypotension/orthostatic vitals borderline Orthostatic vital signs possibly blunted by use of beta-blockers/flecainide Continue flecainide, Eliquis, metoprolol Trend troponins, monitor on telemetry Cardiology consulted History of ulcerative colitis Hypertension Hypothyroidism GERD COPD Continue home medications DVT PPX: Continue Eliquis Code status: Full Discharge Plan: Home Plan to discharge in: 24 Hours - Advance Directives Does patient have a Living Will: No Does patient have a Durable POA for Healthcare: No - Code Status/Comfort Care Code Status Assessed: Yes (Full code) Critical Care: No Time Spent Managing Pts Care (In Minutes): 55
--- NOTE | 2023-12-26 17:42 | CON ---
Date of Consultation: 12/26/2023 Reason For Consultation: Near syncope. History Of Present Illness: A 73-year-old female with history of diastolic heart failure, atrial fib rillation, hypertension, hypothyroidism, acid reflux, COPD, presented after near syncopal episode. S he said that she was seen in my office recently and the doses of Lasix increased from 20 to 40 mg and supposed to have a followup. However, her shortness of breath continues to be there and last night while she was standing she felt dizzy, almost passed out, but she did not. She was evaluated in the emergency room. CT of the chest, no PE. Denies having any chest pain or chest pressure. Past Medical History: As outlined above in the HPI. Medications: Refer to reconciliation sheet for detailed list. Allergies: NO KNOWN DRUG ALLERGIES. Family History: No premature coronary artery disease or cancer. Social History: Does not smoke or drink. Does not use any drugs. Review of Systems: All systems reviewed were negative except for mentioned in HPI. Physical Examination: Vital Signs: Reviewed. Head and Neck: Pupils are equal, reactive to light. Intact eye movements. No JVD. No cervical lym phadenopathy. Neck: Supple. Thyroid is not enlarged. Lungs: Clear to auscultation bilaterally. No rhonchi, rales, or crackles. No accessory muscle use. Heart: Regular. No extra sounds. Abdomen: Soft, nontender. Bowel sounds positive. No organomegaly. No masses or hernia. No rigidi ty or rebound. Extremities: No clubbing, cyanosis, trace edema. Neurologic: Alert, awake, oriented x3. No acute focal deficits appreciated. Lymph nodes: No cervical lymphadenopathy. Investigations: Cardiac enzymes were all negative x3. She had cardiac catheterization done in 2021 in May was normal and her BUN is 8, creatinine 0.91, and potassium is 3.6 Hemoglobin is 11.8. Assessment/recommendation: 1.Near syncope, probably due to hypotension. This patient does not have coronary artery disease melissa t she had a heart catheterization last year. No need to further check her troponin. I recommend to monitor overnight. If blood pressure permits, we will continue diuretics and monitor on telemetry an d further plan to follow based on findings on monitoring engineer. The cause of her new syncope is a p robably hypotension. At this point, her blood pressure is stable. Continue to monitor. 2.Atrial fibrillation. Her rate is controlled and on Eliquis, to be continued. 3.Dyslipidemia. Continue statin. SR/MODL Voice ID: [id number] Report ID: [id number]
[2023-12-26] MEDS: METOPROLOL XL 25 MG TAB PO SCH (20:59)
[2023-12-26] MEDS: ATORVASTATIN 20 MG TAB PO SCH (21:01)
[2023-12-26] MEDS: HYDROCODONE/APAP 10/325 TAB PO PRN (21:52)
[2023-12-26 23:46] VITALS: O2SAT 98
[2023-12-27] MEDS: LEVOTHYROXINE SOD 0.05 MG TABLET PO SCH (05:17)
[2023-12-27 06:31] LABS: Absolute Eosinophils 0.3 K/uL (0-0.5); Absolute Lymphocytes (CBC) 1.9 K/uL (0.7-4.9); Absolute Monocytes 0.7 K/uL (0.1-1.3); Absolute Neutrophil 2.6 K/uL (1.8-8.0); Basophils % 0.3 % (0-1.3); Eosinophils % 4.9 % (0-4.4); Hematocrit 35.1 % (36.0-45.0); Hemoglobin 11.4 g/dL (12.0-15.0); Lymphocytes % 34.7 % (15.3-44.8); MCH 25.5 pg (27.0-35.0); MCHC 32.6 g/dL (32.0-36.0); MCV 78.1 fL (80-100); MPV 7.3 fL (7.6-11.3); Monocytes % 12.2 % (3.3-12.3); Neutrophils % 47.9 % (41.7-73.7); Nucleated Red Blood Cells % 0.1 % (0-0); Platelets 326 thou/uL (152-406)
[2023-12-27 06:57] LABS: Anion Gap 9.3 mEq/L (5.0-15.0); Magnesium 2.1 mg/dL (1.6-2.4); Potassium 3.3 mEq/L (3.5-5.1); Thyroid Stimulating Hormone 1.4 uIU/mL (0.358-3.740)
--- NOTE | 2023-12-27 08:04 | P.DS ---
Admission Date: 12/26/23 Discharge Date: 12/27/23 Disposition: ROUTINE DISCHARGE Discharge Condition: GOOD Reason for Admission: Near syncope Consultations: Cardiology- Dr. Kurtz Brief History of Present Illness: 73-year-old female with history of chronic systolic congestive heart failure, ulcerative colitis, atrial fibrillation on chronic anticoagulation, hypertension, hypothyroidism, GERD, COPD presented to the emergency department with chief complaint of near syncope, diaphoresis, palpitations. She reports that for the past few months has been having these episodes nearly daily associated with change in position the last night she had 3 episodes of near syncope associated with diaphoresis and palpitations. She was evaluated in the emergency department initial high sensitive troponin was normal at 14 BNP 1038 CBC was unremarkable CTA of the chest was also performed which revealed no evidence of PE, no focal consolidation, scattered pulmonary nodules up to 4 mm with no routine follow-up imaging recommended, cardiomegaly. ED provider statement patient under observation for near syncope, ACS rule out Hospital Course: Assessment: Near syncope Chronic systolic congestive heart failure Atrial fibrillation on chronic anticoagulation therapy History of ulcerative colitis Hypertension Hypothyroidism GERD COPD Patient was admitted to the hospital for chief complaint of near syncope. She reports that she has been experiencing episodes for the last 2 to 3 months but has been worse in the past few days. She reports most the time her symptoms are associated with change in position as well as diaphoresis. She was admitted under observation, troponins were trended and were negative/flat, CTA of the chest was performed which was negative for pulmonary embolism or other acute findings. Additionally she was monitored on telemetry overnight and had no arrhythmias, noted to be in sinus bradycardia with a rate around 55. She was seen and evaluated by cardiology who reports she had a heart catheterization about 1 year ago with no significant coronary artery disease. At this time patient is stable for discharge in the hospital outpatient follow-up for further evaluation. At discharge please continue your home medications as prescribed including the furosemide 20 mg daily Please keep your appointment for Thursday 12/28 with cardiology to follow-up Please also follow-up with your primary care doctor and Dr. More Whenever you are changing positions be sure to do this very slowly especially if you are feeling lightheaded or having the cold sweats. Vital Signs/Physical Exam: Temp Pulse Resp BP Pulse Ox 97 F 56 18 139/57 L 96 12/27/23 04:00 12/27/23 04:00 12/27/23 04:00 12/27/23 04:00 12/27/23 04:00 General: Alert, In no apparent distress, Oriented x3 HEENT: Atraumatic, PERRLA Neck: Supple, JVD not distended Respiratory: Clear to auscultation bilaterally, Normal air movement Cardiovascular: Regular rate/rhythm, Normal S1 S2 Gastrointestinal: Normal bowel sounds, No tenderness Musculoskeletal: No tenderness Integumentary: No rashes Neurological: Normal speech, Normal tone Laboratory Data at Discharge: WBC 5.50 thou/uL (4.3-10.9) 12/27/23 05:49 Hgb 11.4 g/dL (12.0-15.0) L 12/27/23 05:49 Hct 35.1 % (36.0-45.0) L 12/27/23 05:49 Plt Count 326 thou/uL (152-406) 12/27/23 05:49 PT Cancelled 12/26/23 01:59 INR Cancelled 12/26/23 01:59 Sodium 139 mEq/L (136-145) 12/27/23 05:49 Potassium 3.3 mEq/L (3.5-5.1) L 12/27/23 05:49 BUN 9 mg/dL (7-18) 12/27/23 05:49 Creatinine 0.74 mg/dL (0.55-1.02) 12/27/23 05:49 Glucose 108 mg/dL (74-106) H 12/27/23 05:49 Magnesium 2.1 mg/dL (1.6-2.4) 12/27/23 05:49 Total Bilirubin 0.5 mg/dL (0.2-1.0) 12/26/23 03:35 AST 18 U/L (15-37) 12/26/23 03:35 ALT 14 U/L (13-56) 12/26/23 03:35 Alkaline Phosphatase 66 U/L (45-117) 12/26/23 03:35 Home Medications: ALPRAZolam [Xanax*] 0.25 mg PO BID 04/21/20 Citalopram [Celexa*] 20 mg PO DAILY 04/21/20 Hyoscyamine Sulfate [Levsin-Sl] 2 tab SL Q6HP PRN 04/21/20 Levothyroxine [Synthroid*] 50 mcg PO [id number] 04/21/20 Metoprolol Succinate [Toprol Xl*] 12.5 mg PO BEDTIME 04/21/20 Pantoprazole Sodium [Protonix] 40 mg PO BID 04/21/20 Simvastatin [Zocor] 40 mg PO BEDTIME 04/21/20 Apixaban [Eliquis] 1 tab PO BID 10/19/23 Flecainide [Tambocor*] 1 tab PO BID 10/19/23 Sacubitril/Valsartan [Entresto 24 mg-26 mg Tablet] 1 tab PO BID 10/19/23 Sucralfate [Carafate*] 1 tab PO Q6H 10/19/23 Hydrocodone 10/APAP 325 [Ramer 10/325*] 1 tab PO Q6H PRN 12/26/23 Lialda 1.2 g PO QID 12/26/23 Methotrexate Sodium [Methotrexate] 5 tab PO EVERY 7TH DAY 12/27/23 Physician Discharge Instructions: Physician discharge instructions Patient was admitted to the hospital for chief complaint of near syncope. She reports that she has been experiencing episodes for the last 2 to 3 months but has been worse in the past few days. She reports most the time her symptoms are associated with change in position as well as diaphoresis. She was admitted under observation, troponins were trended and were negative/flat, CTA of the chest was performed which was negative for pulmonary embolism or other acute findings. Additionally she was monitored on telemetry overnight and had no arrhythmias, noted to be in sinus bradycardia with a rate around 55. She was seen and evaluated by cardiology who reports she had a heart catheterization about 1 year ago with no significant coronary artery disease. At this time patient is stable for discharge in the hospital outpatient follow-up for further evaluation. At discharge please continue your home medications as prescribed including the furosemide 20 mg daily Please keep your appointment for Thursday 12/28 with cardiology to follow-up Please also follow-up with your primary care doctor and Dr. More Whenever you are changing positions be sure to do this very slowly especially if you are feeling lightheaded or having the cold sweats. Diet: AHA Activity: Fall precautions Followup: Osmani Kurtz MD [ACTIVE - CAN ADMIT] - 2-3 Days Pura Arreola [Primary Care Provider] - 1-2 Weeks Time spent managing pt's care (in minutes): 30
[2023-12-27 08:59] VITALS: BP 113/48; TEMP 96.9
[2023-12-27] MEDS: CITALOPRAM 10 MG TABLET PO SCH (08:59)
--- NOTE | 2023-12-28 09:56 | ECHO ---
HEIGHT: 5 ft 4 in WEIGHT: 214 lb 15.917 oz DATE OF STUDY: 12/27/[address]: Ric Christianson NP 2-DIMENSIONAL: YES M.MODE: YES DOPPLER: YES COLOR FLOW: YES TDS: PORTABLE: YES DEFINITY: BUBBLE STUDY: DIAGNOSIS: CONGESTIVE HEART FAILURE/ SYNCOPE CARDIAC HISTORY: CATHERIZATION: SURGERY: PROSTHETIC VALVE: PACEMAKER: MEASUREMENTS (cm) DIASTOLIC (NORMALS) SYSTOLIC (NORMALS) IVSd 1.1 (0.6-1.2) LA Diam 4.5 (1.9-4.0) LVEF 78% LVIDd 4.7 (3.5-5.7) LVIDs 2.5 (2.0-3.5) %FS 47% LVPWd 1.2 (0.6-1.2) Ao Diam 3.1 (2.0-3.7) 2 DIMENSIONAL ASSESSMENT: RIGHT ATRIUM: NORMAL LEFT ATRIUM: NORMAL RIGHT VENTRICLE: NORMAL LEFT VENTRICLE: NORMAL TRICUSPID VALVE: MILD TRICUSPID REGURGITATION MITRAL VALVE: NORMAL PULMONIC VALVE: NORMAL AORTIC VALVE: TRACE AORTIC REGURGITATION PERICARDIAL EFFUSION: NONE AORTIC ROOT: NORMAL LEFT VENTRICULAR WALL MOTION: NORMAL DOPPLER/COLOR FLOW: GRADE II DIASTOLIC DYSFUNCTION COMMENTS: 1. NORMAL LEFT VENTRICULAR SYSTOLIC FUNCTION, EJECTION FRACTION 55-60%, NORMAL WALL MOTION 2. GRADE II DIASTOLIC DYSFUNCTION 3. SEVERE PULMONARY HYPERTENSION (RIGHT VENTRICULAR SYSTOLIC PRESSURE GREATER THAN 60 mmHg) TECHNOLOGIST: VALERIANO LAST
== END 2023-12-27 10:45 | disposition home or self-care (01) ==
LOC: ER 01:37 → ERHOLD 10:20 → 4TH 15:32
PROVIDERS: ADMIT Hospitalist; ATTEND Hospitalist
DX: R55 Syncope and collapse (principal); I50.22 Chronic systolic (congestive) heart failure; I51.7 Cardiomegaly; I95.9 Hypotension, unspecified; R91.8 Other nonspecific abnormal finding of lung field; I48.11 Longstanding persistent atrial fibrillation; K51.90 Ulcerative colitis, unspecified, without complications; I10 Essential (primary) hypertension; E03.9 Hypothyroidism, unspecified; K21.9 Gastro-esophageal reflux disease without esophagitis; J44.9 Chronic obstructive pulmonary disease, unspecified; R00.2 Palpitations; R61 Generalized hyperhidrosis; E78.5 Hyperlipidemia, unspecified; Z79.01 Long term (current) use of anticoagulants
CPT/HCPCS: 36415; 71045; 71275; 80048; 80076; 82565; 83735; 83880; 84439; 84443; 84484; 85025; 85610; 93005; 93306; 99285; G0378

== ENCOUNTER 2024-01-31 17:23 | Emergency (ER) | payer OTHER, BC ==
--- NOTE | 2024-01-31 18:02 | RAD REPORT ---
EXAM DESCRIPTION: RAD - Femur Left - 01/31/2024 5:56 pm CLINICAL HISTORY: PAIN COMPARISON: No comparisons FINDINGS: No fracture or dislocation is seen.
--- NOTE | 2024-01-31 18:24 | RAD REPORT ---
EXAM DESCRIPTION: CT - CTHCSPWOC - 01/31/2024 6:16 pm CLINICAL HISTORY: Trauma, head and neck injury. PAIN COMPARISON: Head C Spine Mpr Wo Con dated 01/24/2016; CT HEAD CSPINE MPR WO CONTRAST dated 12/08/2015 TECHNIQUE: Axial 5 mm thick images of the head were obtained. Axial 2 mm thick images of the cervical spine were obtained with sagittal and coronal reconstruction images generated and reviewed. All CT scans are performed using dose optimization technique as appropriate and may include automated exposure control or mA/KV adjustment according to patient size. FINDINGS: CT HEAD WITHOUT CONTRAST: No acute hemorrhage, hydrocephalus or extra-axial collection is identified.Mild brain atrophy.No area s of brain edema or midline shift. The paranasal sinuses and mastoids are clear.The calvarium is intact. Small left frontal scalp hemato ma. CT CERVICAL SPINE WITHOUT CONTRAST: No fracture or subluxation.Mild lower cervical degenerative changes.No prevertebral soft tissues swel ling is identified. IMPRESSION: No acute intracranial or cervical spine findings.
--- NOTE | 2024-01-31 18:31 | ER ---
Nurse's Notes [facility] Name: Rossy Jacob Age: 73 yrs Sex: Female : 1950 Arrival Date: 01/31/2024 Time: 17:23 Bed 5 Private MD: Diagnosis: Unspecified injury of head, initial encounter;Pain in left leg;Fall on same level from slipping, tripping and stumbling with subsequent striking against object Presentation: 01/30 17:32 Chief complaint: Patient states: tripped and fell striking forehead, no loss of ko1 consciousness, is on eliquis. Also complains of left leg pain. Coronavirus screen: At this time, the client does not indicate any symptoms associated with coronavirus-19. Ebola Screen: No symptoms or risks identified at this time. Initial Sepsis Screen: Does the patient meet any 2 criteria? No. Patient's initial sepsis screen is negative. Does the patient have a suspected source of infection? No. Patient's initial sepsis screen is negative. Risk Assessment: Do you want to hurt yourself or someone else? Patient reports no desire to harm self or others. Onset of symptoms was January 31, 2024. 17:32 Method Of Arrival: Wheelchair ko1 17:32 Acuity: JAZMIN 3 ko1 18:47 Care prior to arrival: None. Mechanism of Injury: Fall from standing position. Trauma cp4 event details: Injury occurred in the [facility]. Triage Assessment: 17:34 General: Appears in no apparent distress. uncomfortable, Behavior is calm, cooperative, ko1 appropriate for age. Pain: Complains of pain in left side of forehead and left leg. Trauma Activation: Not Applicable Physician: ED Physician; Name: ; Notified At: ; Arrived At: Physician: General Surgeon; Name: ; Notified At: ; Arrived At: Physician: Radiology; Name: ; Notified At: ; Arrived At: Physician: Respiratory; Name: ; Notified At: ; Arrived At: Physician: Lab; Name: ; Notified At: ; Arrived At: Historical: - Allergies: 17:34 No Known Allergies; ko1 - PMHx: 17:34 Arthritis; Atrial fibrillation; Depression; Hyperlipidemia; Hypertension; ko1 Hypothyroidism; ulcerative colitis; - PSHx: 17:34 ablatian x 2; ko1 - Immunization history:: Adult Immunizations up to date. - Infectious Disease History:: Denies. - Immunization history: Last tetanus immunization: - up to date. - Social history:: Smoking status: Patient denies any tobacco usage or history of. Screenin:39 Abuse screen: Denies threats or abuse. Nutritional screening: No deficits noted. cp4 Tuberculosis screening: No symptoms or risk factors identified. 18:40 [facility] ED Fall Risk Assessment (Adult) History of falling in the last 3 months, cp4 including since admission Yes- single mechanical fall (1 pt) Confusion or Disorientation No (0 pts) Intoxicated or Sedated Yes (3 pts) Impaired Gait No (0 pts) Mobility Assist Device Used No (0 pt) Altered Elimination No (0 pt) Score/Fall Risk Level 0 - 2 = Low Risk Oriented to surroundings, Maintained a safe environment, Assessed \T\ reinforced patient's understanding of fall precautions, Hourly rounding (assess needs \T\ fall precautionary measures) done. Primary Survey: 18:39 NO uncontrolled hemorrhage observed. A: The client is awake and alert. The airway is cp4 patent. Breathing/Chest: Spontaneous respiratory effort, equal unlabored respirations, breath sounds clear bilaterally, regular pattern, symmetrical chest rise and fall. Circulation: No external hemorrhage present. Regular and strong central pulse, skin warm/dry/normal color. Disability Pupils are equal, round, reactive to light and accommodation. Client is alert. Exposure/Environment: A warming method has been applied: A warm blanket has been provided to the patient. Reassessment Alertness and Airway: Awake and alert. The airway is patent. Breathing: Spontaneous respiratory effort, equal unlabored respirations, breath sounds clear bilaterally, regular pattern with symmetrical chest rise and fall. Circulation: No external hemorrhage noted. Regular and strong central pulse, skin warm/dry/normal color. Disability: Pupils Pupils are equal, round, reactive to light and accomodation. Alert. Assessment: 18:40 General: Appears in no apparent distress. Behavior is calm, cooperative, appropriate cp4 for age. Pain:. Musculoskeletal: No deficits noted. Reports. Vital Signs: 17:32 BP 139 / 52; Pulse 63; Resp 16; Temp 97; Pulse Ox 97% ; ko1 18:46 BP 134 / 60; Pulse 67; Resp 16; Pulse Ox 97% ; cp4 [place] Coma Score: 18:39 Eye Response: spontaneous(4). Motor Response: obeys commands(6). Verbal Response: cp4 oriented(5). Total: 15. Trauma Score (Adult): 18:39 Eye Response: spontaneous(1); Verbal Response: oriented(1); Motor Response: obeys cp4 commands(2); Systolic BP: > 89 mm Hg(4); Respiratory Rate: 10 to 29 per min(4); [place] Score: 15; Trauma Score: 12 ED Course: 17:28 Patient arrived in ED. im 17:30 [facility]C [facility]. kb 17:30 Solis Jensen MD is Attending Physician. kb 17:34 Triage completed. ko1 17:34 Arm band placed on right wrist. Patient placed in an exam room, on a stretcher, on ko1 media monitor, on pulse oximetry, Patient notified of wait time. 17:36 Ly Lopez is Primary Nurse. cp4 17:58 Femur Left XRAY In Process Unspecified. EDMS 18:18 CT Head C Spine In Process Unspecified. EDMS 18:39 Placed in gown. Bed in low position. Call light in reach. Side rails up X 1. cp4 18:47 O2 via room air. cp4 18:47 No provider procedures requiring assistance completed. Patient did not have IV access cp4 during this emergency room visit. 18:48 Provided Education on: fall. cp4 18:48 Thermoregulation: warm blanket given to patient. cp4 Administered Medications: No medications were administered Medication: 18:40 VIS not applicable for this client. cp4 Intake: 18:39 PO: 0ml; Total: 0ml. cp4 Output: 18:39 Urine: 0ml; Total: 0ml. cp4 Outcome: 18:30 Discharge ordered by . kb 18:47 Discharged to home ambulatory, cp4 18:47 Condition: stable 18:47 Discharge instructions given to patient, Instructed on discharge instructions, follow up and referral plans. Demonstrated understanding of instructions, follow-up care, 18:47 Patient's length of stay was not longer than 2 hours. 18:49 Patient left the ED. cp4 Signatures: Dispatcher [employer] EDKY Cinthya Zee FNP-C FNP-Ckb Oliver, Kathy, RN RN ko1 Galina Waggoner Christina cp4
--- NOTE | 2024-01-31 18:31 | EDPHYS ---
Physician Documentation [facility] Name: Rossy Jacob Age: 73 yrs Sex: Female : 1950 Arrival Date: 01/31/2024 Time: 17:23 Bed 5 Private MD: ED Physician Solis Jensen HPI: 01/30 18:26 This 73 yrs old Female presents to ER via Wheelchair with complaints of Fall Injury, kb Facial Swelling. 18:26 Pt is a 73 year old female who presents for headache and left upper leg pain after a kb trip and fell at her house. Pt states she hit her head on a table. Denies loc. Ambulatory after fall. . Historical: - Allergies: 17:34 No Known Allergies; ko1 - PMHx: 17:34 Arthritis; Atrial fibrillation; Depression; Hyperlipidemia; Hypertension; ko1 Hypothyroidism; ulcerative colitis; - PSHx: 17:34 ablatian x 2; ko1 - Immunization history:: Adult Immunizations up to date. - Infectious Disease History:: Denies. - Immunization history: Last tetanus immunization: - up to date. - Social history:: Smoking status: Patient denies any tobacco usage or history of. ROS: 18:26 Constitutional: As per HPI kb Exam: 18:26 Constitutional: This is a well developed, well nourished patient who is awake, alert, kb and in no acute distress. Head/Face: Normocephalic, atraumatic. ENT: Moist Mucous membranes Cardiovascular: Regular rate Respiratory: Respirations even and unlabored. No increased work of breathing. Talking in full sentences Abdomen/GI: Soft, non-tender. No distention Neuro: Awake and alert, GCS 15, oriented to person, place, time, and situation. Moves all extremities. Normal gait. 18:26 Musculoskeletal/extremity: Extremities: grossly normal except: noted in the left quadriceps: pain, tenderness, ROM: intact in all extremities, Circulation is intact in all extremities. Sensation intact. Weight bearing: able to fully bear weight, 18:26 Skin: hematoma to left side of forehead. Vital Signs: 17:32 BP 139 / 52; Pulse 63; Resp 16; Temp 97; Pulse Ox 97% ; ko1 18:46 BP 134 / 60; Pulse 67; Resp 16; Pulse Ox 97% ; cp4 [place] Coma Score: 18:39 Eye Response: spontaneous(4). Motor Response: obeys commands(6). Verbal Response: cp4 oriented(5). Total: 15. Trauma Score (Adult): 18:39 Eye Response: spontaneous(1); Verbal Response: oriented(1); Motor Response: obeys cp4 commands(2); Systolic BP: > 89 mm Hg(4); Respiratory Rate: 10 to 29 per min(4); [place] Score: 15; Trauma Score: 12 MDM: 17:30 Patient medically screened. kb 18:28 Differential diagnosis: contusion, fracture, hematoma, head injury. Data reviewed: kb vital signs, nurses notes. Counseling: I had a detailed discussion with the patient and/or guardian regarding the historical points, exam findings, and any diagnostic results supporting the discharge/admit diagnosis, radiology results, the need for outpatient follow up, a family practitioner, to return to the emergency department if symptoms worsen or persist or if there are any questions or concerns that arise at home. 01/30 17:34 Order name: CT Head C Spine; Complete Time: 18:26 kb 01/30 17:34 Order name: Femur Left XRAY; Complete Time: 18:03 kb Administered Medications: No medications were administered Disposition Summary: 01/31/24 18:30 Discharge Ordered Notes: Location: Home kb Condition: Stable kb Diagnosis - Unspecified injury of head, initial encounter kb - Pain in left leg kb - Fall on same level from slipping, tripping and stumbling with subsequent striking kb against object Followup: kb - With: Emergency Department - When: As needed - Reason: Worsening of condition Followup: kb - With: Private Physician - When: 2 - 3 days - Reason: Recheck today's complaints, Continuance of care, Re-evaluation by your physician Discharge Instructions: - Discharge Summary Sheet kb - Musculoskeletal Pain kb - Head Injury, Adult, [id number] kb Forms: - Medication Reconciliation Form kb - Thank You Letter kb - Antibiotic Education kb - Prescription Opioid Use kb - Patient Portal Instructions kb - Leadership Thank You Letter kb Addendum: 02/02/2024 01:03 I was immediately available for consultation during this patient's visit. I did not e c2 personally see the patient or discuss the patient with the STEVE. . Signatures: Dispatcher [employer] Cinthya Castro FNP-C THERMODYNAMICS PROFESSOR-CkEdith Crockett RN RN ko1 Solis Jensen MD MD ec2 Ly Lopez cp4
[2024-02-01 01:50] VITALS: BP 134/60; TEMP 97; O2SAT 97
== END 2024-01-31 18:49 | disposition home or self-care (01) ==
LOC: ER 17:23
DX: S09.90XA Unspecified injury of head, initial encounter (principal); M79.605 Pain in left leg; W01.10XA Fall on same level from slipping, tripping and stumbling with subsequent striking against unspecified object, initial encounter; I10 Essential (primary) hypertension
CPT/HCPCS: 70450; 72125

== ENCOUNTER 2024-07-25 04:35 | Emergency (ER) | payer BC, OTHER ==
[2024-07-25] MEDS ORDERED: HYDROCODONE/APAP 5/325 MG TAB ONE (05:07)
[2024-07-25] MEDS ORDERED: ONDANSETRON 4 MG (ODT) TAB ONE (05:07)
--- NOTE | 2024-07-25 05:55 | EDPHYS ---
Physician Documentation [facility] Name: Rossy Jacob Age: 73 yrs Sex: Female : 1950 Arrival Date: 07/25/2024 Time: 04:35 Bed 5 Private MD: ED Physician [facility] HPI: 07/25 04:48 This 73 yrs old Female presents to ER via Unassigned with complaints of Fall sp4 Injury, Head Injury Without LOC-Adult. 21:13 Positive for acute head injury via fall at home, posterior scalp hematoma, left wrist sp4 pain in the right chest wall contusion.. Historical: - Allergies: 04:55 No Known Allergies; bm8 - Home Meds: 04:55 Eliquis oral [Active]; bm8 - PMHx: 04:55 Arthritis; Depression; Atrial fibrillation; Hyperlipidemia; Hypertension; bm8 Hypothyroidism; ulcerative colitis; - PSHx: 04:55 ablatian x 2; bm8 - Immunization history:: Adult Immunizations up to date. - Infectious Disease History:: Denies. - Social history:: Smoking status: Patient denies any tobacco usage or history of. - Family history:: not pertinent. ROS: 21:13 Constitutional: Negative for fever, chills, and weight loss, positive for fall at home, sp4 posterior scalp contusion, posterior scalp hematoma, left wrist pain, left wrist sprain, right chest wall contusion and pain 21:13 All other systems are negative, Exam: 21:13 Constitutional: This is a well developed, well nourished patient who is awake, alert, sp4 and in no acute distress. Head/Face: Normocephalic, atraumatic. Eyes: Pupils equal round and reactive to light, extra-ocular motions intact. Lids and lashes normal. Conjunctiva and sclera are not injected. Cornea within normal limits. Periorbital areas with no swelling, redness, or edema. ENT: Nares patent. No nasal discharge, no septal abnormalities noted. Tympanic membranes are normal and external auditory canals are clear. Oropharynx with no redness, swelling, or masses, exudates, or evidence of obstruction, uvula midline. Mucous membranes moist. Neck: Trachea midline, no thyromegaly or masses palpated, and no cervical lymphadenopathy. Supple, full range of motion without nuchal rigidity, or vertebral point tenderness. Chest/axilla: Normal chest wall appearance and motion. Nontender with no deformity. No lesions are appreciated. Cardiovascular: Regular rate and rhythm with a normal S1 and S2. No gallops, murmurs, or rubs. Normal PMI, no JVD. No pulse deficits. Respiratory: Lungs have equal breath sounds bilaterally, clear to auscultation and percussion. No rales, rhonchi or wheezes noted. No increased work of breathing, no retractions or nasal flaring. Abdomen/GI: Soft, with normal bowel sounds. No distension or tympany. No guarding or rebound. No evidence of tenderness throughout. Back: No spinal tenderness. No costovertebral tenderness. Skin: Warm, dry with normal turgor. Normal color with no rashes, no lesions, and no evidence of cellulitis. MS/ Extremity: Pulses equal, no cyanosis. Neurovascular intact. Full, normal range of motion. Neuro: Awake and alert, GCS 15, oriented to person, place, time, and situation. Cranial nerves II-XII grossly intact. Motor strength 5/5 in all extremities. Sensory grossly intact. Psych: Awake, alert, with orientation to person, place and time. Behavior, mood, and affect are within normal limits Vital Signs: 04:35 BP 149 / 55; Pulse 67; Resp 17; Temp 98.5; Pulse Ox 95% ; Weight 92.99 kg; Height 5 ft. bm8 4 in. ; Pain 8/10; 04:59 BP 121 / 77; Pulse 65; Resp 18; Temp 98.5; Pulse Ox 96% ; Pain 8/10; bm8 06:02 BP 1 / ???; bm8 06:02 BP 123 / 54; Pulse 63; Resp 19; Temp 98.5; Pulse Ox 93% ; Pain 3/10; bm8 04:35 Body Mass Index 35.19 (92.99 kg, 162.56 cm) bm8 04:35 Pain Scale: Adult bm8 04:59 Pain Scale: Adult bm8 06:02 Pain Scale: Adult bm8 Wendy Coma Score: 04:59 Eye Response: spontaneous(4). Motor Response: obeys commands(6). Verbal Response: bm8 oriented(5). Total: 15. 06:02 Eye Response: spontaneous(4). Motor Response: obeys commands(6). Verbal Response: bm8 oriented(5). Total: 15. 21:13 Eye Response: spontaneous(4). Motor Response: obeys commands(6). Verbal Response: sp4 oriented(5). Total: 15. MDM: 04:56 Patient medically screened. sp4 05:50 ED course: CLINICAL HISTORY: 73 years Female; fall, head injury; Bed Name: 5 TECHNIQUE: sp4 Noncontrast CT head. All CT scans at this facility use dose modulation, iterative reconstruction, and/or weight based dosing when appropriate to reduce radiation dose to as low as reasonably achievable. COMPARISON: None. FINDINGS: Parenchyma: No acute hemorrhage, large territorial infarction, or mass effect. Ventricles and extra-axial spaces: Appropriate for age. Visualized paranasal sinuses: Clear. Mastoid air cells: Clear. Bones: No acute focal abnormality. Additional comment: Bilateral lens replacement. Mild right parietal soft tissue contusion. Bilateral lens replacement. IMPRESSION: 1. No acute intracranial findings. 2. Mild right parietal soft tissue contusion. . ED course: EXAMINATION: XR WRIST 3 OR MORE VIEWS LEFT INDICATION: Female, 73 years old, left wrist pain TECHNIQUE: 3 views COMPARISON(S): None. FINDINGS: Diffuse osteopenia limits assessment. No evidence of acute fracture or traumatic joint malalignment. Mild ulnar positive variance. 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 No significant soft tissue swelling. IMPRESSION: No acute osseous finding of the left wrist . ED course: EXAM DESCRIPTION: Chest Pa And Lat (2 Views) CLINICAL HISTORY: right chest wall injury COMPARISON: None TECHNIQUE: PA and lateral views of the chest. FINDINGS: Lung volumes adequate. Cardiac silhouette is normal in size. No pneumothorax. No large pleural effusion. No focal consolidation. No acute bony finding. IMPRESSION: No evidence of acute cardiopulmonary disease. . 21:15 Differential diagnosis: abrasion, closed head injury, contusion, fracture, laceration, sp4 multiple trauma. Data reviewed: vital signs, nurses notes, radiologic studies, CT scan, plain films. ED course: X-rays are negative today. Patient stable for discharge home. . 07/25 04:58 Order name: CT Head Brain wo Cont sp4 07/25 04:58 Order name: Chest Pa And Lat (2 Views) XRAY sp4 07/25 04:58 Order name: Wrist Left (3 View) XRAY sp4 Administered Medications: 05:28 Drug: HYDROcodone-acetaminophen PO 5 mg-325 mg 2 tabs PO once Route: PO; bm8 06:04 Follow up: Response: No adverse reaction bm8 05:28 Drug: Ondansetron PO 4 mg PO once Route: PO; bm8 06:04 Follow up: Response: No adverse reaction bm8 Disposition Summary: 07/25/24 05:55 Discharge Ordered Notes: Location: Home sp4 Problem: new sp4 Symptoms: have improved sp4 Condition: Stable sp4 Diagnosis - Acute fall, posterior scalp contusion, acute closed head injury, posterior scalp sp4 hematoma, left wrist sprain, right chest wall contusion Followup: sp4 - With: Private Physician - When: 7 - 10 days - Reason: Recheck today's complaints Discharge Instructions: - Discharge Summary Sheet sp4 - Wrist Sprain, Adult sp4 Forms: - Patient Portal Instructions sp4 Prescriptions: - acetaminophen-codeine 300-60 mg Oral tablet - take 1 tablet ORAL route every 8 hours PRN pain; 15 tablet; Refills: 0, Product sp4 Selection Permitted Signatures: Dispatcher [employer] Ham Mason MD MD sp4 Andrew Cantu RN RN bm8 Corrections: (The following items were deleted from the chart) 04:56 04:55 Home Meds: Unable to obtain; bm8 bm8
--- NOTE | 2024-07-25 05:55 | ER ---
Nurse's Notes [facility] Name: Rossy Jacob Age: 73 yrs Sex: Female : 1950 Arrival Date: 07/25/2024 Time: 04:35 Bed 5 Private MD: Diagnosis: Acute fall, posterior scalp contusion, acute closed head injury, posterior scalp hematoma, left wrist sprain, right chest wall contusion Presentation: 07/25 04:35 Chief complaint: Patient states: I was up on a little stool about 6 inches tall and bm8 loss my balance reaching too far and fell. I struck my head on the back. I have left wrist pain and right rib pain. 04:35 Method Of Arrival: Ambulatory bm8 04:35 Coronavirus screen: Vaccine status: Patient reports receiving the 2nd dose of the covid bm8 vaccine. Ebola Screen: Patient negative for fever greater than or equal to 101.5 degrees Fahrenheit, and additional compatible Ebola Virus Disease symptoms Patient denies exposure to infectious person. Patient denies travel to an Ebola-affected area in the 21 days before illness onset. No symptoms or risks identified at this time. Initial Sepsis Screen: Does the patient meet any 2 criteria? No. Patient's initial sepsis screen is negative. Does the patient have a suspected source of infection? No. Patient's initial sepsis screen is negative. Risk Assessment: Do you want to hurt yourself or someone else? Patient reports no desire to harm self or others. Onset of symptoms was July 25, 2024 at 04:00. 04:35 Acuity: JAZMIN 3 bm8 Triage Assessment: 04:55 General: Appears in no apparent distress. comfortable, Behavior is calm, cooperative, bm8 appropriate for age. Pain: Complains of pain in right parietal area, diaphragm and left wrist Pain currently is 8 out of 10 on a pain scale. Quality of pain is described as aching. EENT: No deficits noted. No signs and/or symptoms were reported regarding the EENT system. Neuro: No deficits noted. Level of Consciousness is awake, alert, obeys commands, Oriented to person, place, time, situation, Appropriate for age Home Health Care Social Worker are equal bilaterally Moves all extremities. Full function Gait is steady, Speech is normal, Facial symmetry appears normal, Pupils are PERRLA, Intact Reports headache occipital area. Cardiovascular: Denies chest pain, Heart tones S1 S2 present Capillary refill < 3 seconds in bilateral fingers Patient's skin is warm and dry. Respiratory: Airway is patent Trachea midline Respiratory effort is even, unlabored, Respiratory pattern is regular, symmetrical. GI: No signs and/or symptoms were reported involving the gastrointestinal system. : No signs and/or symptoms were reported regarding the genitourinary system. Derm: No signs and/or symptoms reported regarding the dermatologic system. Musculoskeletal: Circulation, motion, and sensation intact. Capillary refill < 3 seconds, in bilateral fingers. Range of motion: intact in all extremities, Reports pain in right anterior lower ribs, left wrist Pain is 8 out of 10 on a pain scale. Historical: - Allergies: 04:55 No Known Allergies; bm8 - Home Meds: 04:55 Eliquis oral [Active]; bm8 - PMHx: 04:55 Arthritis; Depression; Atrial fibrillation; Hyperlipidemia; Hypertension; bm8 Hypothyroidism; ulcerative colitis; - PSHx: 04:55 ablatian x 2; bm8 - Immunization history:: Adult Immunizations up to date. - Infectious Disease History:: Denies. - Social history:: Smoking status: Patient denies any tobacco usage or history of. - Family history:: not pertinent. Screenin:59 [facility] ED Fall Risk Assessment (Adult) History of falling in the last 3 months, bm8 including since admission Yes- single mechanical fall (1 pt) Confusion or Disorientation No (0 pts) Intoxicated or Sedated No (0 pts) Impaired Gait No (0 pts) Mobility Assist Device Used No (0 pt) Altered Elimination No (0 pt) Score/Fall Risk Level 0 - 2 = Low Risk Oriented to surroundings, Maintained a safe environment, Educated pt \T\ family on fall prevention, incl call for assistance when getting out of bed, Assessed \T\ reinforced patient's understanding of fall precautions, Hourly rounding (assess needs \T\ fall precautionary measures) done, Used ambulatory aids as needed (educated on \T\ assisted with), Used gait belt as appropriate. Abuse screen: Denies threats or abuse. Nutritional screening: No deficits noted. Tuberculosis screening: No symptoms or risk factors identified. Assessment: 06:02 Reassessment: Patient appears in no apparent distress at this time. Patient and/or bm8 family updated on plan of care and expected duration. Pain level reassessed. Patient is alert, oriented x 3, equal unlabored respirations, skin warm/dry/pink. velcro wrist splint placed on left wrist Patient states feeling better. Patient states symptoms have improved. Vital Signs: 04:35 BP 149 / 55; Pulse 67; Resp 17; Temp 98.5; Pulse Ox 95% ; Weight 92.99 kg; Height 5 ft. bm8 4 in. ; Pain 8/10; 04:59 BP 121 / 77; Pulse 65; Resp 18; Temp 98.5; Pulse Ox 96% ; Pain 8/10; bm8 06:02 BP 1 / ???; bm8 06:02 BP 123 / 54; Pulse 63; Resp 19; Temp 98.5; Pulse Ox 93% ; Pain 3/10; bm8 04:35 Body Mass Index 35.19 (92.99 kg, 162.56 cm) bm8 04:35 Pain Scale: Adult bm8 04:59 Pain Scale: Adult bm8 06:02 Pain Scale: Adult bm8 Wendy Coma Score: 04:59 Eye Response: spontaneous(4). Motor Response: obeys commands(6). Verbal Response: bm8 oriented(5). Total: 15. 06:02 Eye Response: spontaneous(4). Motor Response: obeys commands(6). Verbal Response: bm8 oriented(5). Total: 15. 21:13 Eye Response: spontaneous(4). Motor Response: obeys commands(6). Verbal Response: sp4 oriented(5). Total: 15. ED Course: 04:39 Patient arrived in ED. [id number] 04:48 [facility] MD is Attending Physician. sp4 04:53 Andrew Cantu, RN is Primary Nurse. bm8 04:55 Triage completed. bm8 04:55 Arm band placed on right wrist. bm8 04:59 Patient has correct armband on for positive identification. Bed in low position. Call bm8 light in reach. Side rails up X 1. Adult w/ patient. Client placed on continuous cardiac and pulse oximetry monitoring. NIBP monitoring applied. Pulse ox on. NIBP on. Door closed. Noise minimized. Lights dimmed. Warm blanket given. Pillow given. Verbal reassurance given. Head of bed elevated. 04:59 No provider procedures requiring assistance completed. bm8 05:17 CT Head Brain wo Cont In Process Unspecified. EDMS 05:24 Chest Pa And Lat (2 Views) XRAY In Process Unspecified. EDMS 05:24 Wrist Left (3 View) XRAY In Process Unspecified. EDMS 06:02 Provided Education on: post er care. bm8 06:02 Patient did not have IV access during this emergency room visit. bm8 Administered Medications: 05:28 Drug: HYDROcodone-acetaminophen PO 5 mg-325 mg 2 tabs PO once Route: PO; bm8 06:04 Follow up: Response: No adverse reaction bm8 05:28 Drug: Ondansetron PO 4 mg PO once Route: PO; bm8 06:04 Follow up: Response: No adverse reaction bm8 Medication: 04:59 VIS not applicable for this client. bm8 Outcome: 05:55 Discharge ordered by . sp4 06:02 Discharged to home ambulatory, with family, bm8 06:02 Condition: stable 06:02 Discharge instructions given to patient, family, Instructed on discharge instructions, follow up and referral plans. no drinking with medication, no driving heavy equipment, medication usage, safety practices, Demonstrated understanding of instructions, follow-up care, medications, Prescriptions given X 1, 06:04 Patient left the ED. bm8 Signatures: Dispatcher [employer] Ashley [id number] [facility] MD MD sp4 Andrew Cantu, RN RN bm8 Corrections: (The following items were deleted from the chart) 04:56 04:55 Home Meds: Unable to obtain; bm8 bm8
--- NOTE | 2024-07-25 06:02 | RAD REPORT ---
EXAM DESCRIPTION: Head Brain Wo Cont RadLex: CT HEAD WITHOUT IV CONTRAST CLINICAL HISTORY: 73 years Female; fall, head injury; Bed Name: 5 TECHNIQUE: Noncontrast CT head. All CT scans at this facility use dose modulation, iterative reconstruction, and/or weight based dosi ng when appropriate to reduce radiation dose to as low as reasonably achievable. COMPARISON: None. FINDINGS: Parenchyma: No acute hemorrhage, large territorial infarction, or mass effect. Ventricles and extra-axial spaces: Appropriate for age. Visualized paranasal sinuses: Clear. Mastoid air cells: Clear. Bones: No acute focal abnormality. Additional comment: Bilateral lens replacement. Mild right parietal soft tissue contusion. Bilateral lens replacement. IMPRESSION: 1. No acute intracranial findings. 2. Mild right parietal soft tissue contusion. Electronically signed by: Kathy Colin MD 07/25/2024 05:32 AM CDT RP Z9 Due to temporary technical issues with the PACS/[employer] reporting system, reports are being kris d by the in-house radiologist without review as a courtesy to ensure prompt reporting the interpreting radiologist is fully responsible for the content of the report. Transcribed Date/Time: 07/25/2024 6:01 AM
[2024-07-25 06:24] VITALS: TEMP 98.5
[2024-07-25 06:28] VITALS: BP 123/54; O2SAT 93
--- NOTE | 2024-07-25 06:32 | RAD REPORT ---
EXAMINATION: XR WRIST 3 OR MORE VIEWS LEFT INDICATION: Female, 73 years old, left wrist pain TECHNIQUE: 3 views COMPARISON(S): None. FINDINGS: Diffuse osteopenia limits assessment. No evidence of acute fracture or traumatic joint malalignment. Mild ulnar positive variance. 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 No significant soft tissue swelling. IMPRESSION: No acute osseous finding of the left wrist. Electronically signed by: Arben Colon MD 07/25/2024 05:37 AM CDT RP Due to temporary technical issues with the PACS/[employer] reporting system, reports are being kris d by the in-house radiologist without review as a courtesy to ensure prompt reporting the interpreting radiologist is fully responsible for the content of the report. Transcribed Date/Time: 07/25/2024 6:31 AM
--- NOTE | 2024-07-25 06:32 | RAD REPORT ---
EXAM DESCRIPTION: Chest Pa And Lat (2 Views) CLINICAL HISTORY: right chest wall injury COMPARISON: None TECHNIQUE: PA and lateral views of the chest. FINDINGS: Lung volumes adequate. Cardiac silhouette is normal in size. No pneumothorax. No large pleural effusion. No focal consolidation. No acute bony finding. IMPRESSION: No evidence of acute cardiopulmonary disease. Electronically signed by: Kathy Colin MD 07/25/2024 05:41 AM CDT RP Z9 Due to temporary technical issues with the PACS/[employer] reporting system, reports are being kris d by the in-house radiologist without review as a courtesy to ensure prompt reporting the interpreting radiologist is fully responsible for the content of the report. Transcribed Date/Time: 07/25/2024 6:32 AM
== END 2024-07-25 06:04 | disposition home or self-care (01) ==
LOC: ER 04:35
DX: S00.03XA Contusion of scalp, initial encounter (principal); S20.211A Contusion of right front wall of thorax, initial encounter; S63.502A Unspecified sprain of left wrist, initial encounter; W18.30XA Fall on same level, unspecified, initial encounter; I10 Essential (primary) hypertension; I48.91 Unspecified atrial fibrillation; Z79.01 Long term (current) use of anticoagulants
CPT/HCPCS: 70450; 71046; 73110; Q0162